=== PATIENT | male | born 1940 | race Caucasian/White ===

== ENCOUNTER 2022-03-27 11:11 | Inpatient (IN) ==
[2022-03-27 11:55] LABS: Basophils # (auto) 0.02 K/uL (0-0.2); Basophils % (auto) 0.2 %; Eosinophils % (auto) 4.4 %; Hematocrit (blood only) 23.5 % (42-52); Hemoglobin 7.3 g/dL (14.0-18.0); Immature Granulocytes # (auto) 0.02 K/uL (0.00-0.02); Immature Granulocytes % (auto) 0.2 %; Lymphocytes # (auto) 0.94 K/uL (1.2-3.4); Lymphocytes % (auto) 10.3 %; Mean Corpuscular Hemoglobin 31.6 pg (25-34); Mean Corpuscular Hgb Conc 31.1 g/dL (32-36); Mean Corpuscular Volume 101.7 fL (80-100); Mean Platelet Volume 9.6 fL (7.4-10.4); Monocytes % (auto) 9.9 %; Neutrophils # (auto) 6.83 K/uL (1.4-6.5); Platelet Count 284 K/uL (130-400); RDW Coefficient of Variation 17.3 % (11.5-14.5); RDW Standard Deviation 64.5 fL (36.4-46.3); Red Blood Count 2.31 M/uL (4.7-6.1); White Blood Count 9.11 K/uL (4.8-10.8)
[2022-03-27 12:19] LABS: INR 3.4 (0.9-1.1); Partial Thromboplastin Ratio 1.7; Prothrombin Time 33.5 Seconds (9.0-12.0)
[2022-03-27 12:22] LABS: iSTAT Creatinine 1.1 mg/dl (0.6-1.3); iSTAT Hemoglobin 6.5 g/dl (14.0-18.0); iSTAT Ionized Calcium 1.16 mmol/l (1.12-1.32); iSTAT Potassium 4.3 mmol/L (3.3-5.0)
--- NOTE | 2022-03-27 12:23 | Emergency Department Note ---
Impression & Plan CHF (congestive heart failure), Anemia, Pulmonary edema, Pleural effusion, Elevated INR ED Provider Note NAME: RASHAWN JARAMILLO AGE: 82 SEX: M : 1940 ARRIVES VIA: Ambulance INFORMANT: Patient, [facility] ED PROVIDER(S): Phan Trammell DO CHIEF COMPLAINT: Low hemoglobin HPI: Patient is an 82-year-old male with past medical history of A. fib on Coumadin, diabetes, diverticulitis who presents the ER as he was recently just transferred to [facility] from the ER. He came in complaining of arm pain. They note that he has had bruising since being coming to the facility on the right side. They do not believe that he fell over there. He denies any headache or neck pain. He admits to right-sided chest pain over the bruising as well as right arm pain. Denies any tingling or numbness. No dysuria urgency or frequency. No other exacerbating or remitting factors. ROS: See above HPI for pertinent positives & negatives. A total of 10 systems reviewed and were otherwise negative. PAST MEDICAL HISTORY:See Below PAST SURGICAL HISTORY:See Below FAMILY HISTORY:See Below SOCIAL HISTORY:See Below HOME MEDICATIONS:See Below ALLERGIES:See Below VITALS:See Below PHYSICAL EXAMINATION: GENERAL: alert, well appearing, well nourished, no distress, non-toxic HEAD: normal cephalic, atraumatic EYE EXAM: normal conjunctiva, PERRL and EOM's grossly intact OROPHARYNX: no exudate, no erythema, lips, buccal mucosa, and tongue normal and mucous membranes are moist NECK: supple, no nuchal rigidity, no adenopathy, non-tender CHEST: stable to compression anteriorly and posteriorly with bruising over right shoulder tracking down right chest wall and flank LUNGS: clear to auscultation. Normal chest wall mechanics HEART: no murmurs, S1 normal and S2 normal ABDOMEN: abdomen soft, non-tender, normo-active bowel sounds, no masses, no rebound or guarding. PELVIS: stable to compression anteriorly and posteriorly BACK: Back is symmetrical on inspection and there is no deformity, no midline tenderness, no CVA tenderness. UPPER EXTREMITIES: No tenderness throughout palpation of the left upper extremity. Tenderness to the right humerus elbow and forearm with diffuse bruising and swelling. Compartments are soft. Radial pulse 2 out of 4. LOWER EXTREMITIES: full active and passive range of motion of all joints without tenderness to palpation NEURO EXAM: Awake alert oriented to person place but not year, cranial nerves II-XII grossly intact, normal speech, no gross weakness of arms, no gross weakness of legs. GCS: 14. MEDICAL DECISION MAKING: Patient is an 82-year-old male who presents ER with diffuse bruising on the right side. IVs were established blood work was obtained. Labs show mild anemia at 7. Down from 9.5. INR was elevated at 3.4. BMP with mild hyponatremia 135. LFTs bilirubin was unremarkable. UA was contaminated although clean as there is no white cells. Stool was negative. CT head cervical spine chest abdomen pelvis showed no acute bleeding. He was typed and crossed and ordered for hold on 2 units PRBCs. INR was reversed with vitamin K. Discussed with hospitalist will defer to them for transfusion. Patient remained stable in the ER with good vitals. X-rays of the right arm showed no acute fractures or dislocations. Triage Nursing notes reviewed. Limited review of prior medical records performed Vital Signs: reviewed and remarkable for no significant abnormalities Differential diagnosis: Infection, dehydration, metabolic abnormality, hypo/hyperglycemia, electrolyte disturbance, anemia, hypoxia, cardiac sources, intracerebral event, toxicologic, neurologic, as well as other pathologies. ER treatment provided: See below Diagnostics interpreted by me: ECG: A. fib rate 85 Normal axis Septal Q waves QTC 211 Cardiac Monitoring: An order was placed for continuous cardiac monitoring. The monitor shows a rate of 80 with sinus rhythm. Laboratory studies: As stated above and show below. Imaging studies: CT hines scan shows no acute pathology with exception of large pleural effusions and edema on the right side likely secondary to the contusion Consultation(s): This to the hospitalist for further evaluation Procedures: none Critical Care: None Past Med/Surg History Medical History (Updated 03/27/22 @ 15:08 by Phan Trammell DO) Acute kidney failure, unspecified Anemia, unspecified Atrial fibrillation Benign prostatic hyperplasia without lower urinary tract symptoms Chronic atrial fibrillation, unspecified Chronic diastolic (congestive) heart failure Chronic gout Critical illness myopathy Depression Diverticulitis Diverticulitis of intestine, part unspecified, without perforation or abscess without bleeding Edema, unspecified Essential (primary) hypertension Gout Type 2 diabetes mellitus with unspecified complications Social History Smoking Status: Never smoker Second Hand Exposure: No; Hx Alcohol Use: No Hx Substance Use: No Preferred Language: Qatari Communication Ability: Impaired Eye Technician Required: No Beliefs That Will Affect Care: None Current Living Situation: Shelter Feels Safe at Home: Yes Allergies Allergies Allergy/AdvReac Type Severity Reaction Status Date / Time No Known Allergies Allergy Verified 03/27/22 13:22 Home Meds Home Medications Medication Instructions Recorded Confirmed allopurinol 100 mg tablet 100 mg PO BID 02/03/22 03/27/22 aspirin 81 mg chewable tablet 81 mg PO QAM 02/03/22 03/27/22 (Aspirin Childrens) furosemide 40 mg tablet 40 mg PO QAM 02/03/22 03/27/22 garlic 400 mg tablet 400 mg PO BID tab 02/03/22 03/27/22 metformin 500 mg tablet 500 mg PO BID 02/03/22 03/27/22 metoprolol tartrate 50 mg tablet 50 mg PO Q12H 02/03/22 03/27/22 multivitamin with minerals 1 cap PO QAM 02/03/22 03/27/22 omega-3 fatty acids 1,000 mg 1,000 mg PO BID 02/03/22 03/27/22 capsule potassium chloride 20 mEq 20 meq PO QAM 02/03/22 03/27/22 tablet,extended release(part/cryst) (Klor-Con M) saw palmetto 450 mg capsule 450 mg PO BID 02/03/22 03/27/22 simvastatin 20 mg tablet 20 mg PO HS 02/03/22 03/27/22 ferrous sulfate 325 mg (65 mg 325 mg PO TIDM 02/17/22 03/27/22 iron) tablet levothyroxine 25 mcg capsule 25 mcg PO DAILYBB 02/17/22 03/27/22 oxycodone-acetaminophen 5 mg-325 See Rx Instructions .ROUTE 02/17/22 03/27/22 mg tablet (Percocet) .COMPLEX PRN sertraline 25 mg tablet 25 mg PO QAM 02/17/22 03/27/22 zinc acetate 25 mg (zinc) capsule 25 mg PO QAM 02/17/22 03/27/22 Saccharomyces boulardii 250 mg 250 mg PO QAM 03/25/22 03/27/22 capsule acetaminophen 500 mg tablet 1,000 mg PO Q8H PRN 03/25/22 03/27/22 docusate sodium 100 mg capsule 100 mg PO BID 03/25/22 03/27/22 (Colace) warfarin 3 mg tablet 3 mg PO HS 03/25/22 03/27/22 Results & Data (ED) Vital Signs Vital Signs - 24 hr 03/27/22 11:03 03/27/22 11:29 Temperature 36.7 C Temperature Source Oral Pulse Rate 86 Pulse Rhythm Regular Pulse Strength Normal Respiratory Rate 22 Respiratory Effort / Characteristics Non-Labored Respiratory Depth Normal Blood Pressure 116/80 Blood Pressure Mean 92 Pulse Oximetry 98 95 Oxygen Delivery Method Room Air Room Air Sepsis Recent Fever Within 48 Hours No Sepsis New/Unexplained Change in Mental Status N/A Sepsis Action Taken by Nursing No Action Required Laboratory Data Result diagrams: 03/27/22 11:32 03/27/22 11:32 Lab Results 03/27/22 03/27/22 03/27/22 Range/Units 11:32 11:32 11:32 WBC 9.11 (4.8-10.8) K/uL RBC 2.31 L (4.7-6.1) M/uL Hgb 7.3 L (14.0-18.0) g/dL POC Hgb (14.0-18.0) g/dl Hct 23.5 L (42-52) % POC Hct (42-52) % MCV 101.7 H (80-100) fL MCH 31.6 (25-34) pg MCHC 31.1 L (32-36) g/dL RDW Std Deviation 64.5 H (36.4-46.3) fL RDW Coeff of Radha 17.3 H (11.5-14.5) % Plt Count 284 (130-400) K/uL MPV 9.6 (7.4-10.4) fL Immature Gran % (Auto) 0.2 % Neut % (Auto) 75.0 % Lymph % (Auto) 10.3 % [place] % (Auto) 9.9 % Eos % (Auto) 4.4 % Baso % (Auto) 0.2 % Neut # (Auto) 6.83 H (1.4-6.5) K/uL Lymph # (Auto) 0.94 L (1.2-3.4) K/uL [place] # (Auto) 0.90 H (0.11-0.59) K/uL Eos # (Auto) 0.40 (0-0.5) K/uL Baso # (Auto) 0.02 (0-0.2) K/uL Immature Gran # (Auto) 0.02 (0.00-0.02) K/uL Anisocytosis Present Macrocytosis Present PT 33.5 H (9.0-12.0) Seconds INR 3.4 H (0.9-1.1) APTT 47.6 H* (21.0-31.0) Seconds PTT Ratio 1.7 POC Sodium (135-144) mmol/L Sodium (136-145) mmol/L POC Potassium (3.3-5.0) mmol/L Potassium (3.5-5.1) mmol/L POC Chloride (101-112) mmol/L Chloride (98-107) mmol/L Carbon Dioxide (21-32) mmol/L POC Total CO2 (24-31) mmol/L Anion Gap (3-11) POC Anion Gap (16-25) mmol/L POC BUN (7-18) mg/dl BUN (6-23) mg/dl Creatinine (0.6-1.4) mg/dl POC Creatinine (0.6-1.3) mg/dl Est Cr Clr Drug Dosing ml/min Est GFR ( Amer) ml/min Est GFR (Non-Af Amer) ml/min BUN/Creatinine Ratio (10-20) Glucose (70-99(Fasting)) mg/dl POC Glucose (other) (70-99) mg/dl Calcium (8.5-10.1) mg/dl POC Ioniz Calcium Ashley (1.12-1.32) mmol/l Total Bilirubin (0.2-1.0) mg/dl AST (13-39) U/L ALT (7-52) U/L Alkaline Phosphatase (34-104) U/L Troponin I High Sens (0-20) pg/ml Total Protein (6.0-8.3) gm/dl Albumin (3.4-5.0) gm/dl Globulin (2.5-4.0) gm/dl Albumin/Globulin Ratio (0.9-2) Urine Color Urine Appearance (Clear) Urine pH (4.5-7.5) Ur Specific [place] (1.000-1.030) Urine Protein (Negative) Urine Glucose (UA) (Negative) Urine Ketones (Negative) Urine Blood (Negative) Urine Nitrite (Negative) Urine Bilirubin (Negative) Urine Urobilinogen (Negative) Ur Leukocyte Esterase (Negative) Urine WBC (Auto) (0-5) /hpf Urine RBC (Auto) (0-4) /hpf U Hyaline Cast (Auto) (0-5) /lpf U Epithel Cells (Auto) (0-5) /lpf Urine Bacteria (Auto) (Negative) POC Stool Occult Blood (Negative) Blood Type A Negative Blood Type Recheck Antibody Screen POSITIVE A Antibody Identification Anti-D 03/27/22 03/27/22 03/27/22 Range/Units 11:32 12:04 12:04 WBC (4.8-10.8) K/uL RBC (4.7-6.1) M/uL Hgb (14.0-18.0) g/dL POC Hgb (14.0-18.0) g/dl Hct (42-52) % POC Hct (42-52) % MCV (80-100) fL MCH (25-34) pg MCHC (32-36) g/dL RDW Std Deviation (36.4-46.3) fL RDW Coeff of Radha (11.5-14.5) % Plt Count (130-400) K/uL MPV (7.4-10.4) fL Immature Gran % (Auto) % Neut % (Auto) % Lymph % (Auto) % [place] % (Auto) % Eos % (Auto) % Baso % (Auto) % Neut # (Auto) (1.4-6.5) K/uL Lymph # (Auto) (1.2-3.4) K/uL [place] # (Auto) (0.11-0.59) K/uL Eos # (Auto) (0-0.5) K/uL Baso # (Auto) (0-0.2) K/uL Immature Gran # (Auto) (0.00-0.02) K/uL Anisocytosis Macrocytosis PT (9.0-12.0) Seconds INR (0.9-1.1) APTT (21.0-31.0) Seconds PTT Ratio POC Sodium (135-144) mmol/L Sodium 135 L (136-145) mmol/L POC Potassium (3.3-5.0) mmol/L Potassium 4.2 (3.5-5.1) mmol/L POC Chloride (101-112) mmol/L Chloride 100 (98-107) mmol/L Carbon Dioxide 26 (21-32) mmol/L POC Total CO2 (24-31) mmol/L Anion Gap 9 (3-11) POC Anion Gap (16-25) mmol/L POC BUN (7-18) mg/dl BUN 18 (6-23) mg/dl Creatinine 1.08 (0.6-1.4) mg/dl POC Creatinine (0.6-1.3) mg/dl Est Cr Clr Drug Dosing 65.1 ml/min Est GFR ( Amer) 74.7 ml/min Est GFR (Non-Af Amer) 64.5 ml/min BUN/Creatinine Ratio 16.7 (10-20) Glucose 101 H (70-99(Fasting)) mg/dl POC Glucose (other) (70-99) mg/dl Calcium 9.0 (8.5-10.1) mg/dl POC Ioniz Calcium Ashley (1.12-1.32) mmol/l Total Bilirubin 1.4 H (0.2-1.0) mg/dl AST 27 (13-39) U/L ALT 15 (7-52) U/L Alkaline Phosphatase 53 (34-104) U/L Troponin I High Sens 16.7 (0-20) pg/ml Total Protein 6.3 (6.0-8.3) gm/dl Albumin 3.3 L (3.4-5.0) gm/dl Globulin 3.0 (2.5-4.0) gm/dl Albumin/Globulin Ratio 1.1 (0.9-2) Urine Color Urine Appearance (Clear) Urine pH (4.5-7.5) Ur Specific [place] (1.000-1.030) Urine Protein (Negative) Urine Glucose (UA) (Negative) Urine Ketones (Negative) Urine Blood (Negative) Urine Nitrite (Negative) Urine Bilirubin (Negative) Urine Urobilinogen (Negative) Ur Leukocyte Esterase (Negative) Urine WBC (Auto) (0-5) /hpf Urine RBC (Auto) (0-4) /hpf U Hyaline Cast (Auto) (0-5) /lpf U Epithel Cells (Auto) (0-5) /lpf Urine Bacteria (Auto) (Negative) POC Stool Occult Blood (Negative) Blood Type Blood Type Recheck A Negative Antibody Screen Antibody Identification 03/27/22 03/27/22 03/27/22 Range/Units 12:07 13:55 Unknown WBC (4.8-10.8) K/uL RBC (4.7-6.1) M/uL Hgb (14.0-18.0) g/dL POC Hgb 6.5 L* (14.0-18.0) g/dl Hct (42-52) % POC Hct 19 L* (42-52) % MCV (80-100) fL MCH (25-34) pg MCHC (32-36) g/dL RDW Std Deviation (36.4-46.3) fL RDW Coeff of Radha (11.5-14.5) % Plt Count (130-400) K/uL MPV (7.4-10.4) fL Immature Gran % (Auto) % Neut % (Auto) % Lymph % (Auto) % [place] % (Auto) % Eos % (Auto) % Baso % (Auto) % Neut # (Auto) (1.4-6.5) K/uL Lymph # (Auto) (1.2-3.4) K/uL [place] # (Auto) (0.11-0.59) K/uL Eos # (Auto) (0-0.5) K/uL Baso # (Auto) (0-0.2) K/uL Immature Gran # (Auto) (0.00-0.02) K/uL Anisocytosis Macrocytosis PT (9.0-12.0) Seconds INR (0.9-1.1) APTT (21.0-31.0) Seconds PTT Ratio POC Sodium 134 L (135-144) mmol/L Sodium (136-145) mmol/L POC Potassium 4.3 (3.3-5.0) mmol/L Potassium (3.5-5.1) mmol/L POC Chloride 98 L (101-112) mmol/L Chloride (98-107) mmol/L Carbon Dioxide (21-32) mmol/L POC Total CO2 26 (24-31) mmol/L Anion Gap (3-11) POC Anion Gap 16.0 (16-25) mmol/L POC BUN 17 (7-18) mg/dl BUN (6-23) mg/dl Creatinine (0.6-1.4) mg/dl POC Creatinine 1.1 (0.6-1.3) mg/dl Est Cr Clr Drug Dosing ml/min Est GFR ( Amer) ml/min Est GFR (Non-Af Amer) ml/min BUN/Creatinine Ratio (10-20) Glucose (70-99(Fasting)) mg/dl POC Glucose (other) 112 H (70-99) mg/dl Calcium (8.5-10.1) mg/dl POC Ioniz Calcium Ashley 1.16 (1.12-1.32) mmol/l Total Bilirubin (0.2-1.0) mg/dl AST (13-39) U/L ALT (7-52) U/L Alkaline Phosphatase (34-104) U/L Troponin I High Sens (0-20) pg/ml Total Protein (6.0-8.3) gm/dl Albumin (3.4-5.0) gm/dl Globulin (2.5-4.0) gm/dl Albumin/Globulin Ratio (0.9-2) Urine Color Dark Yellow Urine Appearance Clear (Clear) Urine pH 5.0 (4.5-7.5) Ur Specific [place] 1.027 (1.000-1.030) Urine Protein Negative (Negative) Urine Glucose (UA) Negative (Negative) Urine Ketones Negative (Negative) Urine Blood Negative (Negative) Urine Nitrite Negative (Negative) Urine Bilirubin Negative (Negative) Urine Urobilinogen Negative (Negative) Ur Leukocyte Esterase Trace H (Negative) Urine WBC (Auto) 1-5 (0-5) /hpf Urine RBC (Auto) 5-10 H (0-4) /hpf U Hyaline Cast (Auto) 5-10 H (0-5) /lpf U Epithel Cells (Auto) 10-20 H (0-5) /lpf Urine Bacteria (Auto) Negative (Negative) POC Stool Occult Blood Negative (Negative) Blood Type Blood Type Recheck Antibody Screen Antibody Identification Administered Medications Discontinued Medications Furosemide (Furosemide 40 Mg/4 Ml Vial) 40 mg IV ONE ONE Stop: 03/27/22 13:35 Last Admin: 03/27/22 14:11 Dose: 40 mg Documented by: [id number] Phytonadione 10 mg/ Dextrose 51 mls @ 102 mls/hr IV ONE ONE Stop: 03/27/22 13:24 Last Infusion: 03/27/22 14:06 Dose: 0 mls/hr Documented by: [id number] Admin: 03/27/22 13:36 Dose: 102 mls/hr Documented by: [id number] Ioversol (Optiray 320 100ml) 94 ml IV ONCE ONE Stop: 03/27/22 12:29 Last Admin: 03/27/22 12:29 Dose: 94 ml Documented by: [id number] Imaging Data Radiologist's Impression: Forearm X-Ray 03/27/22 11:45 XR forearm RT 2V CLINICAL HISTORY: Right arm pain. COMPARISON: None FINDINGS: No acute fracture within the right radius or ulna is identified. There is right forearm and upper arm soft tissue swelling, including soft tissue swelling overlying the olecranon. No osseous lesion is noted. IMPRESSION: No fracture within the right radius or ulna. Forearm soft tissue swelling. ACT 112: Negative or not required by law. Electronically signed by: Loki Orta M.D. 03/27/2022 1:41 PM Humerus X-Ray 03/27/22 11:45 XR humerus RT 2V CLINICAL HISTORY: r arm pain. COMPARISON STUDY: 03/25/2022 TECHNIQUE: AP and lateral right views FINDINGS: Bones: Surgical anchors again seen involving the humeral head. There is no evidence for an acute fracture or dislocation. There is no lytic or blastic lesion. Joints: The joint spaces are maintained. The bones are in anatomic alignment. Soft tissues: Diffuse subcutaneous edema is again seen surrounding the arm. There is no radiopaque foreign body. IMPRESSION: 1. No acute osseous pathology. 2. There is again diffuse subcutaneous edema surrounding the arm of uncertain etiology. ACT 112: Negative or not required by law. Electronically signed by: Adán Payan M.D. 03/27/2022 1:38 PM Abdomen/Pelvis CT 03/27/22 11:46 CT abd pelvis IV con only CLINICAL HISTORY: Status post fall with bruising and pain. COMPARISON STUDY: No previous studies for comparison. CT DOSE: TECHNIQUE: Standard CT of the Abdomen and Pelvis was performed with IV contrast. A dose lowering technique was utilized adhering to the principles of ALARA. Contrast Volume: Optiray 320, 94 ml. The patient did not receive oral contrast. FINDINGS: Lung base: There are large bilateral pleural effusions with compressive atelectasis/collapse involving the lower lobes, right greater than left. Please see separate CT of the chest report for further evaluation. Abdominal cavity: There is no evidence for abdominal mass, adenopathy or ascites. There is evidence for anasarca. Liver: There is homogeneous attenuation of the liver parenchyma. There is no evidence for enhancing mass lesion. Sharply defined hepatic cysts are present. Spleen: There is homogeneous attenuation of the splenic parenchyma. There is no enhancing mass lesion. Pancreas: There is homogeneous attenuation of the pancreatic parenchyma. There is no evidence for mass lesion or peripancreatic fluid collection. Gall Bladder: The gallbladder is contracted due to the patient's nonfasting state. Adrenal glands: The adrenal glands are normal in size and attenuation. There is no evidence for enhancing mass lesion. Kidneys: There is homogeneous attenuation of the renal parenchyma bilaterally. There is no evidence for renal calculus or hydronephrosis. There is no evidence for enhancing mass. Bowel: The stomach is distended with liquid and food stuff. The bowel loops are normally placed within the abdomen and pelvis without evidence for dilatation or obstruction. There is mild fecal stasis without gross impaction or obstruction. There are no inflammatory changes present. There is no evidence for free air. There is a normal appendix in the right lower quadrant. Bladder: The bladder is mildly distended with no evidence for focal mass, calculus or diverticulum. : There is no evidence for pelvic mass or adenopathy. There is no evidence for pelvic ascites. The prostate is mildly enlarged. Vasculature: There is no evidence for aneurysmal dilatation of the abdominal aorta. Atherosclerotic calcification is present. Osseous structures: There is no acute osseous pathology. Degenerative changes are present. IMPRESSION: 1. Large bilateral pleural effusions, right greater than left with compressive atelectasis at the lung bases. Please see full CT chest report for further evaluation. 2. No acute intra-abdominal or pelvic abnormality. 3. Anasarca. 4. Additional nonacute findings are delineated above. ACT 112: Negative or not required by law. Electronically signed by: Adán Payan M.D. 03/27/2022 12:[address] 03/27/22 11:46 CT cervical spine wo con CLINICAL HISTORY: 82 years-old Male with Trauma. Acute neck trauma status post fall COMPARISON: Head CT of same day TECHNIQUE: Multiple axial CT images of the cervical spine were obtained without contrast. A dose lowering technique was utilized adhering to the principles of ALARA. FINDINGS: Cardiomegaly with layering pleural effusions and bibasilar consolidation noted. Intralobular septal thickening suggestive of pulmonary edema. No pneumothorax. Unremarkable soft tissues of the neck. Surgical anchor within the right humeral head. Demineralized appearance of the bones. Severe degeneration at C1-C2. Stepwise gr austin 1 anterolisthesis is noted at several levels throughout the thoracic and cervical spine secondary to chronic severe multilevel facet arthrosis. Multilevel intervertebral disc space narrowing, moderate at C6-C7. Multilevel spondylitic spurring with uncovertebral hypertrophy and small posterior disc osteophyte complex formations. No acute fracture or subluxation of the cervical spine. Multilevel neural foraminal narrowing. IMPRESSION: 1. No acute cervical spine fracture. 2. Degenerative changes as above. 3. Layering pleural effusions with pulmonary edema. ACT 112: Negative or not required by law. The above report was generated using voice recognition software. It may contain grammatical, syntax or spelling errors. Electronically signed by: Ricardo Abernathy M.D. 03/27/2022 12:[address] 03/27/22 11:46 CT SCAN OF THE CHEST WITH IV CONTRAST CLINICAL HISTORY: Trauma. COMPARISON STUDY: Chest x-ray dated 03/25/2022. TECHNIQUE: Following the IV administration of 94 cc of Optiray 320, CT scan of the thorax was performed from the thoracic inlet to the upper abdomen. Images are reviewed in the axial, sagittal, and coronal planes. IV contrast was administered without complication. A dose lowering technique was utilized adhering to the principles of ALARA. The examination is degraded by motion artifact, as well as by streak artifact from the arms which could not be elevated above the chest. CT DOSE: 3066.17 mGy.cm FINDINGS: Thyroid: Imaged portions of the thyroid gland are normal in size and attenuation. Thoracic aorta: There is atherosclerotic calcification of the thoracic aorta comment which is normal in caliber and demonstrates bovine variant arch anatomy. No dissection is seen. Pulmonary vasculature: The pulmonary trunk is normal in caliber. There are no filling defects identified in the central pulmonary vessels to indicate pulmonary embolus. Note that this examination was not protocoled for evaluation of the pulmonary arteries. Heart: The heart is markedly enlarged and without pericardial effusion. The coronary arteries are densely calcified. Lungs and pleural spaces: There are moderate to large pleural effusions with significant atelectasis of the lower lungs. Intralobular septal thickening is noted. There is no pneumothorax. The trachea and central airways appear clear. Mediastinum: There is no mediastinal lymphadenopathy. Candice: Clear. Axillae: There is no axillary lymphadenopathy. Upper abdomen: Partially visualized upper abdominal viscera is within normal limits. Skeletal structures: The skeletal structures are osteopenic. The bony thorax appears intact. Spondylotic change is seen throughout the thoracic spine. No lytic or blastic bony lesions are seen. Arthritic changes seen in the shoulders with postoperative change noted on the right. There are chronic/healed left- sided rib fractures. Soft tissues: Soft tissue edema is present in the right chest wall, possibly representing contusion. A lipoma is incidentally noted in the right pectoralis musculature. IMPRESSION: 1. Soft tissue edema throughout the right chest wall is nonspecific and given the clinical history likely represents contusion. 2. No fracture is identified. 3. Cardiomegaly with evidence of congestive failure. 4. There are moderate to large pleural effusions with significant atelectasis of the lower lungs. 5. Additional findings as above. ACT 112: Negative or not required by law. Electronically signed by: Macho Singh M.D. 03/27/2022 12:[address] 03/27/22 11:46 CT head/brain wo con CLINICAL HISTORY: Status post fall with pain COMPARISON STUDY: No previous studies for comparison. CT DOSE: TECHNIQUE: Standard CT of the Brain was performed without IV contrast. A dose lowering technique was utilized adhering to the principles of ALARA. FINDINGS: Extraaxial space: There is no evidence for subdural hematoma. There are no extra-axial fluid collections. Ventricles and cisterns: The ventricles are mildly dilated bilaterally. There is no evidence for midline shift or mass effect. Parenchyma: There is no subarachnoid or intraparenchymal hemorrhage. There is no evidence for an acute infarct or cerebral edema. There is mild cerebral cortical atrophy and decreased attenuation in the periventricular white matter representing remote small vessel disease. There are no gross mass lesions. Osseous structures: There is no evidence for an acute fracture. The visualized paranasal sinuses are clear. The mastoid air cells are clear bilaterally. Soft tissues: There is no evidence for focal soft tissue swelling. IMPRESSION: 1. No acute intracerebral pathology. 2. Cerebral cortical atrophy and remote small vessel disease. ACT 112: Negative or not required by law. Electronically signed by: Adán Payan M.D. 03/27/2022 12:40 PM Discharge Plan Visit Data Chief Complaint: Abnormal Labs/Diagnostic Testing ED Provider: Phan Trammell Discharge Problem: CHF (congestive heart failure), Anemia, Pulmonary edema, Pleural effusion, Elevated INR Forms Stand Alone Forms: [facility] Prescriptions Prescriptions: No Action allopurinol 100 mg tablet 100 mg PO BID RF: 0 aspirin [Aspirin Childrens] 81 mg tablet,chewable 81 mg PO QAM RF: 0 furosemide 40 mg tablet 40 mg PO QAM RF: 0 garlic 400 mg tablet 400 mg PO BID RF: 0 potassium chloride [Klor-Con M20] 20 mEq tablet,ER particles/crystals 20 meq PO QAM RF: 0 metformin 500 mg tablet 500 mg PO BID RF: 0 metoprolol tartrate 50 mg tablet 50 mg PO Q12H RF: 0 multivitamin with minerals Capsule 1 cap PO QAM RF: 0 omega-3 fatty acids 1,000 mg capsule 1,000 mg PO BID RF: 0 saw palmetto 450 mg capsule 450 mg PO BID RF: 0 simvastatin 20 mg tablet 20 mg PO HS RF: 0 ferrous sulfate 325 mg (65 mg iron) tablet 325 mg PO TIDM RF: 0 zinc acetate 25 mg (zinc) capsule 25 mg PO QAM RF: 0 levothyroxine 25 mcg capsule 25 mcg PO DAILYBB RF: 0 oxycodone-acetaminophen [Percocet] 5-325 mg tablet See Rx Instructions .ROUTE .COMPLEX PRN (Reason: Pain) RF: 0 sertraline 25 mg tablet 25 mg PO QAM RF: 0 acetaminophen 500 mg Tablet 1,000 mg PO Q8H PRN (Reason: Pain) RF: 0 warfarin 3 mg tablet 3 mg PO HS RF: 0 docusate sodium [Colace] 100 mg Capsule 100 mg PO BID RF: 0 Saccharomyces boulardii 250 mg Capsule 250 mg PO QAM RF: 0 Referrals Referrals: Malou [facility] [Non-Staff] - Discharge Problem: CHF (congestive heart failure) Qualifiers: Heart failure type: unspecified Heart failure chronicity: unspecified Qualified Code(s): I50.9 - Heart failure, unspecified Anemia Qualifiers: Anemia type: unspecified type Qualified Code(s): D64.9 - Anemia, unspecified Pulmonary edema Qualifiers: Chronicity: acute Qualified Code(s): J81.0 - Acute pulmonary edema
[2022-03-27 12:24] LABS: Albumin Globulin Ratio 1.1 (0.9-2); Albumin Level 3.3 gm/dl (3.4-5.0); BUN Creatinine Ratio 16.7 (10-20); Bilirubin,Total 1.4 mg/dl (0.2-1.0); Creatinine Clr Calc Pharmacy 65.1 ml/min; Est GFR (African American) 74.7 ml/min; Est GFR (Non-African American) 64.5 ml/min; Potassium 4.2 mmol/L (3.5-5.1); Total Protein 6.3 gm/dl (6.0-8.3)
[2022-03-27 12:25] LABS: Partial Thromboplastin Time 47.6 Seconds (21.0-31.0)
[2022-03-27] MEDS ORDERED: OPTIRAY 320 100ml IV ONE (12:28)
--- NOTE | 2022-03-27 12:42 | CT Scan Report ---
CT head/brain wo con CLINICAL HISTORY: Status post fall with pain COMPARISON STUDY: No previous studies for comparison. CT DOSE: TECHNIQUE: Standard CT of the Brain was performed without IV contrast. A dose lowering technique was utilized adhering to the principles of ALARA. FINDINGS: Extraaxial space: There is no evidence for subdural hematoma. There are no extra-axial fluid collecti ons. Ventricles and cisterns: The ventricles are mildly dilated bilaterally. There is no evidence for midl ine shift or mass effect. Parenchyma: There is no subarachnoid or intraparenchymal hemorrhage. There is no evidence for an acut e infarct or cerebral edema. There is mild cerebral cortical atrophy and decreased attenuation in the periventricular white matter representing remote small vessel disease. There are no gross mass lesio ns. Osseous structures: There is no evidence for an acute fracture. The visualized paranasal sinuses are clear. The mastoid air cells are clear bilaterally. Soft tissues: There is no evidence for focal soft tissue swelling. IMPRESSION: 1. No acute intracerebral pathology. 2. Cerebral cortical atrophy and remote small vessel disease. ACT 112: Negative or not required by law. Electronically signed by: Adán Payan M.D. 03/27/2022 12:40 PM
[2022-03-27 12:45] LABS: Anisocytosis Present; Macrocytosis Present
--- NOTE | 2022-03-27 12:47 | CT Scan Report ---
CT cervical spine wo con CLINICAL HISTORY: 82 years-old Male with Trauma. Acute neck trauma status post fall COMPARISON: Head CT of same day TECHNIQUE: Multiple axial CT images of the cervical spine were obtained without contrast. A dose low ering technique was utilized adhering to the principles of ALARA. FINDINGS: Cardiomegaly with layering pleural effusions and bibasilar consolidation noted. Intralobula r septal thickening suggestive of pulmonary edema. No pneumothorax. Unremarkable soft tissues of the neck. Surgical anchor within the right humeral head. Demineralized appearance of the bones. Severe degeneration at C1-C2. Stepwise grade 1 anterolisthesis is noted at several levels throughout the thoracic and cervical spine secondary to chronic severe mu ltilevel facet arthrosis. Multilevel intervertebral disc space narrowing, moderate at C6-C7. Multilev el spondylitic spurring with uncovertebral hypertrophy and small posterior disc osteophyte complex fo rmations. No acute fracture or subluxation of the cervical spine. Multilevel neural foraminal narrowi ng. IMPRESSION: 1. No acute cervical spine fracture. 2. Degenerative changes as above. 3. Layering pleural effusions with pulmonary edema. ACT 112: Negative or not required by law. The above report was generated using voice recognition software. It may contain grammatical, syntax o r spelling errors. Electronically signed by: Ricardo Abernathy M.D. 03/27/2022 12:45 PM
--- NOTE | 2022-03-27 12:50 | CT Scan Report ---
CT SCAN OF THE CHEST WITH IV CONTRAST CLINICAL HISTORY: Trauma. COMPARISON STUDY: Chest x-ray dated 03/25/2022. TECHNIQUE: Following the IV administration of 94 cc of Optiray 320, CT scan of the thorax was perform ed from the thoracic inlet to the upper abdomen. Images are reviewed in the axial, sagittal, and jody nal planes. IV contrast was administered without complication. A dose lowering technique was utilize d adhering to the principles of ALARA. The examination is degraded by motion artifact, as well as by streak artifact from the arms which could not be elevated above the chest. CT DOSE: 3066.17 mGy.cm FINDINGS: Thyroid: Imaged portions of the thyroid gland are normal in size and attenuation. Thoracic aorta: There is atherosclerotic calcification of the thoracic aorta comment which is normal in caliber and demonstrates bovine variant arch anatomy. No dissection is seen. Pulmonary vasculature: The pulmonary trunk is normal in caliber. There are no filling defects identif ied in the central pulmonary vessels to indicate pulmonary embolus. Note that this examination was no t protocoled for evaluation of the pulmonary arteries. Heart: The heart is markedly enlarged and without pericardial effusion. The coronary arteries are den sely calcified. Lungs and pleural spaces: There are moderate to large pleural effusions with significant atelectasis of the lower lungs. Intralobular septal thickening is noted. There is no pneumothorax. The trachea an d central airways appear clear. Mediastinum: There is no mediastinal lymphadenopathy. Candice: Clear. Axillae: There is no axillary lymphadenopathy. Upper abdomen: Partially visualized upper abdominal viscera is within normal limits. Skeletal structures: The skeletal structures are osteopenic. The bony thorax appears intact. Spondylo tic change is seen throughout the thoracic spine. No lytic or blastic bony lesions are seen. Arthriti c changes seen in the shoulders with postoperative change noted on the right. There are chronic/heale d left-sided rib fractures. Soft tissues: Soft tissue edema is present in the right chest wall, possibly representing contusion. A lipoma is incidentally noted in the right pectoralis musculature. IMPRESSION: 1. Soft tissue edema throughout the right chest wall is nonspecific and given the clinical history li damian represents contusion. 2. No fracture is identified. 3. Cardiomegaly with evidence of congestive failure. 4. There are moderate to large pleural effusions with significant atelectasis of the lower lungs. 5. Additional findings as above. ACT 112: Negative or not required by law. Electronically signed by: Macho Singh M.D. 03/27/2022 12:49 PM
[2022-03-27] MEDS ORDERED: PHYTONADIONE 10 MG in DEXTROSE 5% 50 ML IV ONE (12:55)
--- NOTE | 2022-03-27 12:56 | CT Scan Report ---
CT abd pelvis IV con only CLINICAL HISTORY: Status post fall with bruising and pain. COMPARISON STUDY: No previous studies for comparison. CT DOSE: TECHNIQUE: Standard CT of the Abdomen and Pelvis was performed with IV contrast. A dose lowering dana hnique was utilized adhering to the principles of ALARA. Contrast Volume: Optiray 320, 94 ml. The patient did not receive oral contrast. FINDINGS: Lung base: There are large bilateral pleural effusions with compressive atelectasis/collapse involvin g the lower lobes, right greater than left. Please see separate CT of the chest report for further ev aluation. Abdominal cavity: There is no evidence for abdominal mass, adenopathy or ascites. There is evidence f or anasarca. Liver: There is homogeneous attenuation of the liver parenchyma. There is no evidence for enhancing m ass lesion. Sharply defined hepatic cysts are present. Spleen: There is homogeneous attenuation of the splenic parenchyma. There is no enhancing mass lesion . Pancreas: There is homogeneous attenuation of the pancreatic parenchyma. There is no evidence for mas s lesion or peripancreatic fluid collection. Gall Bladder: The gallbladder is contracted due to the patient's nonfasting state. Adrenal glands: The adrenal glands are normal in size and attenuation. There is no evidence for enhan cing mass lesion. Kidneys: There is homogeneous attenuation of the renal parenchyma bilaterally. There is no evidence f or renal calculus or hydronephrosis. There is no evidence for enhancing mass. Bowel: The stomach is distended with liquid and food stuff. The bowel loops are normally placed withi n the abdomen and pelvis without evidence for dilatation or obstruction. There is mild fecal stasis w ithout gross impaction or obstruction. There are no inflammatory changes present. There is no evidenc e for free air. There is a normal appendix in the right lower quadrant. Bladder: The bladder is mildly distended with no evidence for focal mass, calculus or diverticulum. : There is no evidence for pelvic mass or adenopathy. There is no evidence for pelvic ascites. The prostate is mildly enlarged. Vasculature: There is no evidence for aneurysmal dilatation of the abdominal aorta. Atherosclerotic c alcification is present. Osseous structures: There is no acute osseous pathology. Degenerative changes are present. IMPRESSION: 1. Large bilateral pleural effusions, right greater than left with compressive atelectasis at the clare g bases. Please see full CT chest report for further evaluation. 2. No acute intra-abdominal or pelvic abnormality. 3. Anasarca. 4. Additional nonacute findings are delineated above. ACT 112: Negative or not required by law. Electronically signed by: Adán Payan M.D. 03/27/2022 12:54 PM
--- NOTE | 2022-03-27 13:32 | History & Physical Report ---
Date of Service March 27, 2022 Assessment & Plan (1) Supratherapeutic INR: Plan: - Admit to tele - Will continue to hold coumadin, last dose is 03/25 - Given 10 mg IV Vit K to reverse INR - CT of the chest showing bilateral pleural effusions, now being read as larger compared to 2 days ago on CXR - Concern for possible bleeding into the chest space with supratherapeutic INR,? - consult Pulmonology, lasix 40 mg IV ordered strict i/os, continue diuresis, checking bnp as pt appears hypervolemic - Hgb of 7.3 here, will need to obtain and consent for blood, transfuse for Hgb <7.0, trend H&H q6H - INR was 4.4 on 03/25, 4.9 on 03/26, and now 3.4 on admission, trend daily - Unclear why he was on recent azithromycin course, now complete (finished 03/26) (2) Atrial fibrillation: Plan: - Chronic, currently rate controlled in mid 90s, continue metoprolol - Holding anticoagulation as above (3) Anemia, unspecified: Plan: - As above, likely secondary to supratherapeutic INRs - Consider consult GI as pt was supposed to see Марина Costa with [facility] as an outpatient today - hx of fecal occult positive in February but not on admission (4) Pleural effusion, bilateral: Plan: - Consult pulm - O2 sats are 95% on room air, pt with hx of dementia so unsure of baseline - Continue lasix 40 mg IV BID as above for now, holding po lasix - On room air but with minimal exertion to roll self he dropped sats to mid 80s. (5) HTN (hypertension): Plan: - Continue metoprolol (6) Diffuse pain in right upper extremity: Plan: - Had xray of humerus on 03/25 which was negative, dopper RUE on 03/25 was negative as well, if worsening pain then would consider repeating studies - Continue tylenol, avoid narcotics with decreased cognition for now, pt reports edema and pain have improved (7) Type II diabetes mellitus with complication: Plan: - Last hgb A1C = 4.9 on 02/10/22 - Was taken off glimepiride yesterday 03/26, in the setting of elderly patient with possible hypoglycemic episodes in the past. Can check glucoses with daily BMP. - Once allowed po intake can use HH/DM diet - Hold metformin - ISS with accuchecks achs (8) Memory loss: Plan: - Has a appt scheduled with outpatient neurology on 05/06 (9) Generalized weakness: Plan: - PT/OT consults (10) Acute osteomyelitis of toe of right foot: Plan: - Follows with [facility], will continue wound care here - ID follow up appointment already scheduled in mid April - No pain currently (11) Hypothyroidism: Plan: - Cont levothyroxine (12) PVD (peripheral vascular disease): Plan: - Cont asa, follows with Dr. Gold with vascular as outpatient DVT ppx: - teds, scds, holding Coumadin- Anticoag contraindicated in setting of bleeding and anemia CODE: DNR/DNI Dispo: Medsurg with tele. Case management to assist with discharge back to [facility] once medically appropriate. History of Present Illness Chief Complaint: Falls, abnormal labs Primary Care Provider: [facility] [place] This is an 82 yo M with PMhx of afib on coumadin, dementia, CAD, PVD, HTN, diastolic CHF, anemia, hemochromatosis, hx of CVA earlier this year, hx of COVID infection in Nov-Dec 2020, fatty liver, BPH, depression, DM II, gout, hypothyroidism, and hx of osteomyelitis of the toe being followed at [facility] wound clinic and vascular surgery. He was here in the ER on 03/25 for complaints of right upper extremity pain, swelling and bruising and then was transferred to outpatient [facility] assisted living facility on 03/26. He noted that there was increased swelling and bruising for about 4 to 5 days however did not have any knowledge of known injury or trauma to that area. X-ray of the right humerus and Doppler of the right upper extremity was negative. A chest x-ray at that time showed pulmonary edema and moderate right and small left pleural effusions, bibasilar opacities reflecting atelectasis. His INR was elevated at 4.4 and hemoglobin was 9.5 with an unknown baseline. Presents from [facility] with worsening pain in the right upper extremity, rating it 8/10 with any movement. Staff noted that he was yelling out in pain much of the night and was having difficulty transferring him. He received Percocet twice daily for pain relief. Coumadin was held since 03/26 when his INR was 4.9, today it is 3.4. He denies any blood in stool, dark tarry stools, hematemesis, nausea vo miting abdominal pain constipation or diarrhea. On repeat labs his hemoglobin was found to be 6.6 and was found to have significant right flank bruising. He is on a course of azithromycin (last dose on 03/26) for unclear reasons. It appears he was recently started on levothyroxine for hypothyroidism, and is also recently started on ferrous sulfate 3x daily due to anemia. Pt has had deteriorating cognition for several months. Patient was scheduled as an outpatient to see Марина Costa with [facility] team with hx of possible GI bleeding in the past several weeks, there is a positive fecal occult blood test in his chart from 02/13/22. Prior to January 2022 the patient was living along, still driving, participated in ADLs independently, and [place]. Today, pt was sent to the ER by [facility] due to the low hgb counts, and continue RUE pain. He reports okay, he reports that he thinks the swelling is improved. He is bruised up his right flank and around his lower back but denies any known injury of such. He denies any complaints regarding shortness of breath, chest pain, abdominal discomfort, changes of bowel or urinary habits. He reports he did take his medications this morning at [facility]. He typically walks with a rolling walker and 1 person to assist. He is oriented to place, self and year, knows where he lives, but when asked very specific Questions he is unable to answer these. Allergies Allergy/AdvReac Type Severity Reaction Status Date / Time No Known Allergies Allergy Verified 03/27/22 13:22 Home Medications Medication Instructions Recorded Confirmed Type allopurinol 100 mg tablet 100 mg PO BID 02/03/22 03/27/22 History aspirin 81 mg chewable tablet 81 mg PO QAM 02/03/22 03/27/22 History (Aspirin Childrens) furosemide 40 mg tablet 40 mg PO QAM 02/03/22 03/27/22 History garlic 400 mg tablet 400 mg PO BID tab 02/03/22 03/27/22 History metformin 500 mg tablet 500 mg PO BID 02/03/22 03/27/22 History metoprolol tartrate 50 mg tablet 50 mg PO Q12H 02/03/22 03/27/22 History multivitamin with minerals 1 cap PO QAM 02/03/22 03/27/22 History omega-3 fatty acids 1,000 mg 1,000 mg PO BID 02/03/22 03/27/22 History capsule potassium chloride 20 mEq 20 meq PO QAM 02/03/22 03/27/22 History tablet,extended release(part/cryst) (Klor-Con M) saw palmetto 450 mg capsule 450 mg PO BID 02/03/22 03/27/22 History simvastatin 20 mg tablet 20 mg PO HS 02/03/22 03/27/22 History ferrous sulfate 325 mg (65 mg 325 mg PO TIDM 02/17/22 03/27/22 History iron) tablet levothyroxine 25 mcg capsule 25 mcg PO DAILYBB 02/17/22 03/27/22 History oxycodone-acetaminophen 5 mg-325 See Rx Instructions .ROUTE 02/17/22 03/27/22 History mg tablet (Percocet) .COMPLEX PRN sertraline 25 mg tablet 25 mg PO QAM 02/17/22 03/27/22 History zinc acetate 25 mg (zinc) capsule 25 mg PO QAM 02/17/22 03/27/22 History Saccharomyces boulardii 250 mg 250 mg PO QAM 03/25/22 03/27/22 History capsule acetaminophen 500 mg tablet 1,000 mg PO Q8H PRN 03/25/22 03/27/22 History docusate sodium 100 mg capsule 100 mg PO BID 03/25/22 03/27/22 History (Colace) warfarin 3 mg tablet 3 mg PO HS 03/25/22 03/27/22 History Past Med/Surg History Medical History (Updated 03/27/22 @ 15:08 by Phan Trammell DO) Acute kidney failure, unspecified Anemia, unspecified Atrial fibrillation Benign prostatic hyperplasia without lower urinary tract symptoms Chronic atrial fibrillation, unspecified Chronic diastolic (congestive) heart failure Chronic gout Critical illness myopathy Depression Diverticulitis Diverticulitis of intestine, part unspecified, without perforation or abscess without bleeding Edema, unspecified Essential (primary) hypertension Gout Type 2 diabetes mellitus with unspecified complications Social History Smoking Status: Never smoker Second Hand Exposure: No; Hx Alcohol Use: No Hx Substance Use: No Preferred Language: Cambodian Communication Ability: Impaired Director Home Required: No Beliefs That Will Affect Care: None Current Living Situation: Residential Feels Safe at Home: Yes Review of Systems Review of Systems: Constitutional: No fever, sweats or chills Eyes: No diplopia, no worsening or blurred vision ENT: normal hearing, no trouble swallowing Respiratory: No cough, sputum, dyspnea at rest or on exertion Cardiovascular: No chest pain, tightness or palpitations Abdomen: Bruising around the right side of flank region, no pain, nausea, vomiting, diarrhea or constipation Musculoskeletal: + Right upper extremity pain, swelling and bruising, + right great toe infection, otherwise no joint pain, calf pain, swelling Neurologic: No weakness, numbness/tingling, + generalized balance problems, uses a walker Psychiatric: No anxiety or depression Skin: + Bruising as mentioned in the HPI, no rash or itch Physical Exam Physical Exam: General: awake, alert, no apparent distress, + obese BMI 32.1 Head: Normocephalic, atraumatic ENT: PERRL, EOMI, no pharyngeal exudate, mucous membranes moist Chest: Diminished breath sounds at bases up to mid reilly bilaterally, left has improved breath sounds compared to the right, on room air with O2 sats at 92%, when asked to roll to listen to breath sounds sats dropped into the mid 80s, no adventitious breath sounds Cardiac: Sinus tach with HR in the mid 90s, no murmur, no JVD, normal peripheral pulses, good capillary refill Abdominal: + Ecchymosis on the right flank region, extending from R axilla to right hip NABS x 4 quadrants, soft, nondistended, nontender to palpation, no rebound or guarding Extremities: + Ecchymosis and edema of the right upper extremity, deep ecchymosis pooling on the medial anterior aspect of the arm, + edema of the R fingers, left upper extremity normal inspection, no peripheral edema or erythema, BLE with +1 pitting edema, hard sole boot shoes bilaterally, no erythema or ecchymosis, calfs nontender to palpation Psych: Normal mood and affect Neuro: AAO x 3, some issues with answering questions specifically, strength intact bilaterally and rated 4/5, no motor deficits, speech is clear, no peripheral sensory deficits Results & Data Results & Data ([facility]) Vital Signs (Past 12 Hours) Vital Signs Temp Pulse Resp BP Pulse Ox 03/27/22 11:29 95 03/27/22 11:03 36.7 C 86 22 116/80 98 Laboratory Results 03/27/22 03/27/22 03/27/22 Unknown 13:55 12:07 WBC RBC Hgb POC Hgb 6.5 L* Hct POC Hct 19 L* MCV MCH MCHC RDW Std Deviation RDW Coeff of Radha Plt Count MPV Immature Gran % (Auto) Neut % (Auto) Lymph % (Auto) [place] % (Auto) Eos % (Auto) Baso % (Auto) Neut # (Auto) Lymph # (Auto) [place] # (Auto) Eos # (Auto) Baso # (Auto) Immature Gran # (Auto) Anisocytosis Macrocytosis PT INR APTT PTT Ratio POC Sodium 134 L Sodium POC Potassium 4.3 Potassium POC Chloride 98 L Chloride Carbon Dioxide POC Total CO2 26 Anion Gap POC Anion Gap 16.0 POC BUN 17 BUN Creatinine POC Creatinine 1.1 Est Cr Clr Drug Dosing Est GFR ( Amer) Est GFR (Non-Af Amer) BUN/Creatinine Ratio Glucose POC Glucose (other) 112 H Calcium POC Ioniz Calcium Ashley 1.16 Total Bilirubin AST ALT Alkaline Phosphatase Troponin I High Sens Total Protein Albumin Globulin Albumin/Globulin Ratio Urine Color Dark Yellow Urine Appearance Clear Urine pH 5.0 Ur Specific [place] 1.027 Urine Protein Negative Urine Glucose (UA) Negative Urine Ketones Negative Urine Blood Negative Urine Nitrite Negative Urine Bilirubin Negative Urine Urobilinogen Negative Ur Leukocyte Esterase Trace H Urine WBC (Auto) 1-5 Urine RBC (Auto) 5-10 H U Hyaline Cast (Auto) 5-10 H U Epithel Cells (Auto) 10-20 H Urine Bacteria (Auto) Negative POC Stool Occult Blood Negative Blood Type Blood Type Recheck Antibody Screen Antibody Identification 03/27/22 03/27/22 03/27/22 12:04 12:04 11:32 WBC RBC Hgb POC Hgb Hct POC Hct MCV MCH MCHC RDW Std Deviation RDW Coeff of Radha Plt Count MPV Immature Gran % (Auto) Neut % (Auto) Lymph % (Auto) [place] % (Auto) Eos % (Auto) Baso % (Auto) Neut # (Auto) Lymph # (Auto) [place] # (Auto) Eos # (Auto) Baso # (Auto) Immature Gran # (Auto) Anisocytosis Macrocytosis PT INR APTT PTT Ratio POC Sodium Sodium 135 L POC Potassium Potassium 4.2 POC Chloride Chloride 100 Carbon Dioxide 26 POC Total CO2 Anion Gap 9 POC Anion Gap POC BUN BUN 18 Creatinine 1.08 POC Creatinine Est Cr Clr Drug Dosing 65.1 Est GFR ( Amer) 74.7 Est GFR (Non-Af Amer) 64.5 BUN/Creatinine Ratio 16.7 Glucose 101 H POC Glucose (other) Calcium 9.0 POC Ioniz Calcium Ashley Total Bilirubin 1.4 H AST 27 ALT 15 Alkaline Phosphatase 53 Troponin I High Sens 16.7 Total Protein 6.3 Albumin 3.3 L Globulin 3.0 Albumin/Globulin Ratio 1.1 Urine Color Urine Appearance Urine pH Ur Specific [place] Urine Protein Urine Glucose (UA) Urine Ketones Urine Blood Urine Nitrite Urine Bilirubin Urine Urobilinogen Ur Leukocyte Esterase Urine WBC (Auto) Urine RBC (Auto) U Hyaline Cast (Auto) U Epithel Cells (Auto) Urine Bacteria (Auto) POC Stool Occult Blood Blood Type Blood Type Recheck A Negative Antibody Screen Antibody Identification 03/27/22 03/27/22 03/27/22 11:32 11:32 11:32 WBC 9.11 RBC 2.31 L Hgb 7.3 L POC Hgb Hct 23.5 L POC Hct MCV 101.7 H MCH 31.6 MCHC 31.1 L RDW Std Deviation 64.5 H RDW Coeff of Radha 17.3 H Plt Count 284 MPV 9.6 Immature Gran % (Auto) 0.2 Neut % (Auto) 75.0 Lymph % (Auto) 10.3 [place] % (Auto) 9.9 Eos % (Auto) 4.4 Baso % (Auto) 0.2 Neut # (Auto) 6.83 H Lymph # (Auto) 0.94 L [place] # (Auto) 0.90 H Eos # (Auto) 0.40 Baso # (Auto) 0.02 Immature Gran # (Auto) 0.02 Anisocytosis Present Macrocytosis Present PT 33.5 H INR 3.4 H APTT 47.6 H* PTT Ratio 1.7 POC Sodium Sodium POC Potassium Potassium POC Chloride Chloride Carbon Dioxide POC Total CO2 Anion Gap POC Anion Gap POC BUN BUN Creatinine POC Creatinine Est Cr Clr Drug Dosing Est GFR ( Amer) Est GFR (Non-Af Amer) BUN/Creatinine Ratio Glucose POC Glucose (other) Calcium POC Ioniz Calcium Ashley Total Bilirubin AST ALT Alkaline Phosphatase Troponin I High Sens Total Protein Albumin Globulin Albumin/Globulin Ratio Urine Color Urine Appearance Urine pH Ur Specific [place] Urine Protein Urine Glucose (UA) Urine Ketones Urine Blood Urine Nitrite Urine Bilirubin Urine Urobilinogen Ur Leukocyte Esterase Urine WBC (Auto) Urine RBC (Auto) U Hyaline Cast (Auto) U Epithel Cells (Auto) Urine Bacteria (Auto) POC Stool Occult Blood Blood Type A Negative Blood Type Recheck Antibody Screen POSITIVE A Antibody Identification Anti-D Diagnostic Findings Forearm X-Ray 03/27/22 11:45 XR forearm RT 2V CLINICAL HISTORY: Right arm pain. COMPARISON: None FINDINGS: No acute fracture within the right radius or ulna is identified. There is right forearm and upper arm soft tissue swelling, including soft tissue swelling overlying the olecranon. No osseous lesion is noted. IMPRESSION: No fracture within the right radius or ulna. Forearm soft tissue swelling. ACT 112: Negative or not required by law. Electronically signed by: Loki Orta M.D. 03/27/2022 1:41 PM Humerus X-Ray 03/27/22 11:45 XR humerus RT 2V CLINICAL HISTORY: r arm pain. COMPARISON STUDY: 03/25/2022 TECHNIQUE: AP and lateral right views FINDINGS: Bones: Surgical anchors again seen involving the humeral head. There is no evidence for an acute fracture or dislocation. There is no lytic or blastic lesion. Joints: The joint spaces are maintained. The bones are in anatomic alignment. Soft tissues: Diffuse subcutaneous edema is again seen surrounding the arm. There is no radiopaque foreign body. IMPRESSION: 1. No acute osseous pathology. 2. There is again diffuse subcutaneous edema surrounding the arm of uncertain etiology. ACT 112: Negative or not required by law. Electronically signed by: Adán Payan M.D. 03/27/2022 1:38 PM Abdomen/Pelvis CT 03/27/22 11:46 CT abd pelvis IV con only CLINICAL HISTORY: Status post fall with bruising and pain. COMPARISON STUDY: No previous studies for comparison. CT DOSE: TECHNIQUE: Standard CT of the Abdomen and Pelvis was performed with IV contrast. A dose lowering technique was utilized adhering to the principles of ALARA. Contrast Volume: Optiray 320, 94 ml. The patient did not receive oral contrast. FINDINGS: Lung base: There are large bilateral pleural effusions with compressive atelectasis/collapse involving the lower lobes, right greater than left. Please see separate CT of the chest report for further evaluation. Abdominal cavity: There is no evidence for abdominal mass, adenopathy or ascites. There is evidence for anasarca. Liver: There is homogeneous attenuation of the liver parenchyma. There is no evidence for enhancing mass lesion. Sharply defined hepatic cysts are present. Spleen: There is homogeneous attenuation of the splenic parenchyma. There is no enhancing mass lesion. Pancreas: There is homogeneous attenuation of the pancreatic parenchyma. There is no evidence for mass lesion or peripancreatic fluid collection. Gall Bladder: The gallbladder is contracted due to the patient's nonfasting state. Adrenal glands: The adrenal glands are normal in size and attenuation. There is no evidence for enhancing mass lesion. Kidneys: There is homogeneous attenuation of the renal parenchyma bilaterally. There is no evidence for renal calculus or hydronephrosis. There is no evidence for enhancing mass. Bowel: The stomach is distended with liquid and food stuff. The bowel loops are normally placed within the abdomen and pelvis without evidence for dilatation or obstruction. There is mild fecal stasis without gross impaction or obstruction. There are no inflammatory changes present. There is no evidence for free air. There is a normal appendix in the right lower quadrant. Bladder: The bladder is mildly distended with no evidence for focal mass, calculus or diverticulum. : There is no evidence for pelvic mass or adenopathy. There is no evidence for pelvic ascites. The prostate is mildly enlarged. Vasculature: There is no evidence for aneurysmal dilatation of the abdominal aorta. Atherosclerotic calcification is present. Osseous structures: There is no acute osseous pathology. Degenerative changes are present. IMPRESSION: 1. Large bilateral pleural effusions, right greater than left with compressive atelectasis at the lung bases. Please see full CT chest report for further evaluation. 2. No acute intra-abdominal or pelvic abnormality. 3. Anasarca. 4. Additional nonacute findings are delineated above. ACT 112: Negative or not required by law. Electronically signed by: Adán Payan M.D. 03/27/2022 12:[address] 03/27/22 11:46 CT cervical spine wo con CLINICAL HISTORY: 82 years-old Male with Trauma. Acute neck trauma status post fall COMPARISON: Head CT of same day TECHNIQUE: Multiple axial CT images of the cervical spine were obtained without contrast. A dose lowering technique was utilized adhering to the principles of ALARA. FINDINGS: Cardiomegaly with layering pleural effusions and bibasilar consolidation noted. Intralobular septal thickening suggestive of pulmonary edema. No pneumothorax. Unremarkable soft tissues of the neck. Surgical anchor within the right humeral head. Demineralized appearance of the bones. Severe degeneration at C1-C2. Stepwise grade 1 anterolisthesis is noted at several levels throughout the thoracic and cervical spine secondary to chronic severe multilevel facet arthrosis. Multilevel intervertebral disc space narrowing, moderate at C6-C7. Multilevel spondylitic spurring with uncovertebral hypertrophy and small posterior disc osteophyte complex formations. No acute fracture or subluxation of the cervical spine. Multilevel neural foraminal narrowing. IMPRESSION: 1. No acute cervical spine fracture. 2. Degenerative changes as above. 3. Layering pleural effusions with pulmonary edema. ACT 112: Negative or not required by law. The above report was generated using voice recognition software. It may contain grammatical, syntax or spelling errors. Electronically signed by: Ricardo Abernathy M.D. 03/27/2022 12:[address] 03/27/22 11:46 CT SCAN OF THE CHEST WITH IV CONTRAST CLINICAL HISTORY: Trauma. COMPARISON STUDY: Chest x-ray dated 03/25/2022. TECHNIQUE: Following the IV administration of 94 cc of Optiray 320, CT scan of the thorax was performed from the thoracic inlet to the upper abdomen. Images are reviewed in the axial, sagittal, and coronal planes. IV contrast was administered without complication. A dose lowering technique was utilized adhering to the principles of ALARA. The examination is degraded by motion artifact, as well as by streak artifact from the arms which could not be elevated above the chest. CT DOSE: 3066.17 mGy.cm FINDINGS: Thyroid: Imaged portions of the thyroid gland are normal in size and attenuation. Thoracic aorta: There is atherosclerotic calcification of the thoracic aorta comment which is normal in caliber and demonstrates bovine variant arch anatomy. No dissection is seen. Pulmonary vasculature: The pulmonary trunk is normal in caliber. There are no filling defects identified in the central pulmonary vessels to indicate pulmonar y embolus. Note that this examination was not protocoled for evaluation of the pulmonary arteries. Heart: The heart is markedly enlarged and without pericardial effusion. The coronary arteries are densely calcified. Lungs and pleural spaces: There are moderate to large pleural effusions with significant atelectasis of the lower lungs. Intralobular septal thickening is noted. There is no pneumothorax. The trachea and central airways appear clear. Mediastinum: There is no mediastinal lymphadenopathy. Candice: Clear. Axillae: There is no axillary lymphadenopathy. Upper abdomen: Partially visualized upper abdominal viscera is within normal limits. Skeletal structures: The skeletal structures are osteopenic. The bony thorax appears intact. Spondylotic change is seen throughout the thoracic spine. No lytic or blastic bony lesions are seen. Arthritic changes seen in the shoulders with postoperative change noted on the right. There are chronic/healed left- sided rib fractures. Soft tissues: Soft tissue edema is present in the right chest wall, possibly representing contusion. A lipoma is incidentally noted in the right pectoralis musculature. IMPRESSION: 1. Soft tissue edema throughout the right chest wall is nonspecific and given the clinical history likely represents contusion. 2. No fracture is identified. 3. Cardiomegaly with evidence of congestive failure. 4. There are moderate to large pleural effusions with significant atelectasis of the lower lungs. 5. Additional findings as above. ACT 112: Negative or not required by law. Electronically signed by: Macho Singh M.D. 03/27/2022 12:[address] 03/27/22 11:46 CT head/brain wo con CLINICAL HISTORY: Status post fall with pain COMPARISON STUDY: No previous studies for comparison. CT DOSE: TECHNIQUE: Standard CT of the Brain was performed without IV contrast. A dose lowering technique was utilized adhering to the principles of ALARA. FINDINGS: Extraaxial space: There is no evidence for subdural hematoma. There are no extra-axial fluid collections. Ventricles and cisterns: The ventricles are mildly dilated bilaterally. There is no evidence for midline shift or mass effect. Parenchyma: There is no subarachnoid or intraparenchymal hemorrhage. There is no evidence for an acute infarct or cerebral edema. There is mild cerebral cortical atrophy and decreased attenuation in the periventricular white matter representing remote small vessel disease. There are no gross mass lesions. Osseous structures: There is no evidence for an acute fracture. The visualized paranasal sinuses are clear. The mastoid air cells are clear bilaterally. Soft tissues: There is no evidence for focal soft tissue swelling. IMPRESSION: 1. No acute intracerebral pathology. 2. Cerebral cortical atrophy and remote small vessel disease. ACT 112: Negative or not required by law. Electronically signed by: Adán Payan M.D. 03/27/2022 12:40 PM ECG Additional Comments: MAR-2022 11:20:59 [facility]-EDSTAT ROUTINE RETRIEVAL Poor data quality, interpretation may be adversely affected Atrial fibrillation Anteroseptal infarct (cited on or before 27-MAR-2022) Abnormal ECG When compared with ECG of 25-MAR-2022 05:04, T wave inversion now evident in Anterior leads QT has shortened 25mm/s10mm/[id number] 241CID: 15Unconfirmed Vent. rate 85 BPM MO interval * ms QRS duration 84 ms QT/QTc 178/211 ms Code Status & VTE Plan Code Status DNR/DNI- discussed with the patient at bedside Supervising Physician Co-Signing Physician Notes Patient was seen and examined independently at bedside. Chart reviewed. Case discussed with Darcy ESCOBAR In summary, this is an 82 year old male with h/o Afib on coumadin who presented to the ED today with low Hb. States he had right upper extremity pain starting 4 days ago which progressed to the torso and legs. He was in the ED 2 days back and was noted to have supratherapeutic INR along with RUE ecchymoses, but no fracture or DVT. Coumadin was held and he was discharged to [facility] on 03/26. Overnight he was complaining of pain at the NILES, his Hb was found to be 6.6 and was sent back to the ED. In the ED, his Hb was 7.3 (down from 9.5 2 days ago), INR 3.4, PTT 47.6, POCT negative. Xray radius humerus with no fractures but soft tissue swelling. CT head and cervical spine with no acute abnormality. CT chest shows soft tissue edema throughout right chest wall consistent with contusion; along with evidence of CHF and moderate to large pleural effusions with significant atelectasis of lower lungs. Given IV vitamin k and started on iv lasix. During my encounter, he was lying comfortably in bed, on room air, conversing well. Extensive ecchymoses of RUE, right flank and right thigh with tightness but no evidence of compartment syndrome. States his swelling is getting better and pain is better. Denies any trauma. Denies any chest pain, shortness of breath, N/V, fever, chills, cough, hemoptysis, hematemesis, hematuria or hematochezia. Likely acute on chronic anemia due to blood loss (?spontaneous soft tissue bleeding vs traumatic). I hope this will be self limiting as INR has been reversed with Vitamin K. Trend H&H. If hemoglobin drops down, will need to transfuse and get CT extremities to evaluate for ongoing bleeding, although recent contrast might limit it. Currently does not have compartment syndrome, but will need to keep close eye on- will have ortho on board. Patient is agreeable to transfusion if needed. If transfusing, he will likely need more diuresis to prevent volume overload. Monitor I and Os. Rest per note above.
[2022-03-27] MEDS ORDERED: FUROSEMIDE 40 MG/4 ML VIAL IV ONE (13:34)
--- NOTE | 2022-03-27 13:39 | XRay Report ---
XR humerus RT 2V CLINICAL HISTORY: r arm pain. COMPARISON STUDY: 03/25/2022 TECHNIQUE: AP and lateral right views FINDINGS: Bones: Surgical anchors again seen involving the humeral head. There is no evidence for an acute frac ture or dislocation. There is no lytic or blastic lesion. Joints: The joint spaces are maintained. The bones are in anatomic alignment. Soft tissues: Diffuse subcutaneous edema is again seen surrounding the arm. There is no radiopaque fo reign body. IMPRESSION: 1. No acute osseous pathology. 2. There is again diffuse subcutaneous edema surrounding the arm of uncertain etiology. ACT 112: Negative or not required by law. Electronically signed by: Adán Payan M.D. 03/27/2022 1:38 PM
--- NOTE | 2022-03-27 13:42 | XRay Report ---
XR forearm RT 2V CLINICAL HISTORY: Right arm pain. COMPARISON: None FINDINGS: No acute fracture within the right radius or ulna is identified. There is right forearm an d upper arm soft tissue swelling, including soft tissue swelling overlying the olecranon. No osseous lesion is noted. IMPRESSION: No fracture within the right radius or ulna. Forearm soft tissue swelling. ACT 112: Negative or not required by law. Electronically signed by: Loki Orta M.D. 03/27/2022 1:41 PM
[2022-03-27 14:13] LABS: Appearance Urine Clear (Clear); Bacteria Urine Automated Negative (Negative); Bilirubin Urine Negative (Negative); Blood Urine Negative (Negative); Color Urine Dark Yellow; Glucose Urine UA Negative (Negative); Ketones Urine Negative (Negative); Leukocyte Esterase Urine Trace (Negative); Nitrite Urine Negative (Negative); Protein Urine Negative (Negative); Specific Gravity Urine 1.027 (1.000-1.030); Urobilinogen Urine Negative (Negative)
[2022-03-27 16:28] LABS: Hemoglobin 7.2 g/dL (14.0-18.0)
[2022-03-27] MEDS: FUROSEMIDE 40 MG/4 ML VIAL IV SCH (17:06)
[2022-03-27] MEDS ORDERED: ACETAMINOPHEN 500 MG TAB PO PRN (18:12)
[2022-03-27] MEDS ORDERED: CARBOHYDRATES FOR HYPOGLYCEMIA PO PRN (18:12)
[2022-03-27] MEDS ORDERED: GLUCOSE 40% GEL 15 GM TUBE PO PRN (18:12)
[2022-03-27] MEDS ORDERED: ONDANSETRON INJ 2 MG/ML 2 ML VIAL IV PRN (18:12)
[2022-03-27] MEDS ORDERED: DEXTROSE 50% 50 ML SYRINGE IV PRN (18:12)
[2022-03-27] MEDS ORDERED: GLUCAGON FOR INJ 1 MG VIAL SQ PRN (18:12)
[2022-03-27] MEDS ORDERED: GLUCOSE 10 TABS/TUBE PO PRN (18:12)
[2022-03-27] MEDS ORDERED: PNEUMOCOCCAL POLYSACCHARIDES 25 MCG/0.5 ML VIAL/SYR IM ONE (18:31)
[2022-03-27] MEDS: ACETAMINOPHEN 325 MG TAB PO PRN (18:41)
[2022-03-27] MEDS: INSULIN ASPART PER UNIT SC SCH ×2 (19:03→20:32)
[2022-03-27] MEDS: SIMVASTATIN 20 MG TAB PO SCH (20:25)
[2022-03-27] MEDS: OMEGA-3 (PURIFIED FISH OIL) 1 GM CAP PO SCH (20:25)
[2022-03-27] MEDS: METOPROLOL TARTRATE 50 MG TAB PO SCH (20:25)
[2022-03-27] MEDS: allopurinoL 100 MG TAB PO SCH (20:26)
[2022-03-27] MEDS: FERROUS SULFATE 325 MG TAB PO SCH (20:26)
[2022-03-27] MEDS: DOCUSATE SODIUM 100 MG CAP PO SCH (20:26)
[2022-03-27 22:58] LABS: Hematocrit (blood only) 23.2 % (42-52); Hemoglobin 7.3 g/dL (14.0-18.0)
[2022-03-28] MEDS: ACETAMINOPHEN 325 MG TAB PO PRN ×2 (02:26→08:30)
[2022-03-28] MEDS: LEVOTHYROXINE SODIUM 25 MCG TABLET PO SCH (05:39)
--- NOTE | 2022-03-28 06:37 | XRay Report ---
XR chest 2V PA/lateral HISTORY: 82 years-old Male Follow up pleural effusions acute shortness of breath with pleural effusi ons COMPARISON: Chest CT 03/27/2022 TECHNIQUE: Portable AP view of the chest FINDINGS: Moderate left with moderate to large right pleural effusions and bibasilar consolidation is similar t o prior. The cardiac silhouette is enlarged. Pulmonary vascular congestion. No pneumothorax. Atherosc lerosis of the thoracic aorta. Degenerative changes of the shoulders and spine. IMPRESSION: 1. Cardiomegaly with pulmonary vascular congestion. 2. Moderate left with moderate to large right pleural effusions with bibasilar consolidation appears generally unchanged. ACT 112: Negative or not required by law. The above report was generated using voice recognition software. It may contain grammatical, syntax o r spelling errors. Electronically signed by: Ricardo Abernathy M.D. 03/28/2022 6:35 AM
--- NOTE | 2022-03-28 07:02 | Orthopedic Consultation ---
Date of Service March 28, 2022 Assessment & Plan (1) Swelling of right upper extremity: Overall he is already doing better with his right arm. His Coumadin has been held and his INR is normalizing. He can range his elbow his wrist and his hand. There is no signs of compartment syndrome. I do not see anything surgical that needs done at this point. The swelling of his right forearm will resolve with time. If you have any further questions please feel free to [place] text me or contact me personally on my cell phone at . History of Present Illness Reason for Consultation: Right upper extremity swelling. Requesting Physician: . Attending Physician: Pavan Gaston MD Venancio is a pleasant 82-year-old male who resides at [facility]. He does not recall any specific trauma but a few days ago began noticing significant swelling of his right arm. He kept saying he felt it had something do with his biceps. He is on Coumadin his INR was 4.9. The swelling became quite severe. He came to [facility] in the emergency room where x-rays were negative and a Doppler was negative. He was admitted to the hospitalist service. Orthopedics was consulted to evaluate and treat. Allergies Allergy/AdvReac Type Severity Reaction Status Date / Time No Known Allergies Allergy Verified 03/27/22 13:22 Home Medications Medication Instructions Recorded Confirmed Type allopurinol 100 mg tablet 100 mg PO BID 02/03/22 03/27/22 History aspirin 81 mg chewable tablet 81 mg PO QAM 02/03/22 03/27/22 History (Aspirin Childrens) furosemide 40 mg tablet 40 mg PO QAM 02/03/22 03/27/22 History garlic 400 mg tablet 400 mg PO BID tab 02/03/22 03/27/22 History metformin 500 mg tablet 500 mg PO BID 02/03/22 03/27/22 History metoprolol tartrate 50 mg tablet 50 mg PO Q12H 02/03/22 03/27/22 History multivitamin with minerals 1 cap PO QAM 02/03/22 03/27/22 History omega-3 fatty acids 1,000 mg 1,000 mg PO BID 02/03/22 03/27/22 History capsule potassium chloride 20 mEq 20 meq PO QAM 02/03/22 03/27/22 History tablet,extended release(part/cryst) (Klor-Con M) saw palmetto 450 mg capsule 450 mg PO BID 02/03/22 03/27/22 History simvastatin 20 mg tablet 20 mg PO HS 02/03/22 03/27/22 History ferrous sulfate 325 mg (65 mg 325 mg PO TIDM 02/17/22 03/27/22 History iron) tablet levothyroxine 25 mcg capsule 25 mcg PO DAILYBB 02/17/22 03/27/22 History oxycodone-acetaminophen 5 mg-325 See Rx Instructions .ROUTE 02/17/22 03/27/22 History mg tablet (Percocet) .COMPLEX PRN sertraline 25 mg tablet 25 mg PO QAM 02/17/22 03/27/22 History zinc acetate 25 mg (zinc) capsule 25 mg PO QAM 02/17/22 03/27/22 History Saccharomyces boulardii 250 mg 250 mg PO QAM 03/25/22 03/27/22 History capsule acetaminophen 500 mg tablet 1,000 mg PO Q8H PRN 03/25/22 03/27/22 History docusate sodium 100 mg capsule 100 mg PO BID 03/25/22 03/27/22 History (Colace) warfarin 3 mg tablet 3 mg PO HS 03/25/22 03/27/22 History Past Med/Surg History Medical History Acute kidney failure, unspecified Anemia, unspecified Atrial fibrillation Benign prostatic hyperplasia without lower urinary tract symptoms Chronic atrial fibrillation, unspecified Chronic diastolic (congestive) heart failure Chronic gout Critical illness myopathy Depression Diverticulitis Diverticulitis of intestine, part unspecified, without perforation or abscess without bleeding Edema, unspecified Essential (primary) hypertension Gout Type 2 diabetes mellitus with unspecified complications Social History Smoking Status: Never smoker Second Hand Exposure: No; Do You Dip or Chew Tobacco: No; Tobacco Cessation Education Requested by Patient: No Hx Alcohol Use: No Hx Substance Use: No Preferred Language: Mexican Communication Ability: Effective [employer] Internship Required: No Beliefs That Will Affect Care: None Current Living Situation: [facility] Other Information That Helps Us Care for You: No Feels Safe at Home: Yes Safety Concerns: Feels Safe At This Time Assistive Devices Comment: pt states glasses but no with him Review of Systems All systems reviewed & are unremarkable except as noted in HPI & below. Physical Exam On physical examination the right arm, the shoulder does not look too bad. He does have some pain with range of motion of shoulder. He has ecchymosis going down his arm towards his elbow and then more significant swelling and ecchymosis in his forearm. He is able to move his elbow. He is able to move all of his fingers and move his wrist. There is no blistering. He does have some tightness around the forearm but no signs of compartment syndrome. Constitutional WD/WN, vitals as above Eyes PERRL, conjunctivae normal, anicteric sclerae ENMT external ear and nose normal, oropharynx normal Neck trachea midline, no thyromegaly Respiratory normal respiratory effort Cardiovascular RRR, no murmur, no edema Gastrointestinal (Abdomen) normal bowel sounds, soft, nontender, no hepatosplenomegaly Psychiatric A+Ox3, euthymic affect Results & Data Results & Data Laboratory Results . Diagnostic Findings X-rays of the right humerus are negative for fracture. DVT of the right upper extremity is negative.. PG Care Time/CCT Total # of Minutes Spent Total Time Spent with Patient: Total time spent is greater than 50% in coordination of care (as documented) at patient's floor/unit and/or counseling patient: Coding Level of Care Code 78011 Inpt Consult Level 4 Diagnoses Swelling of right upper extremity M79.89
[2022-03-28] MEDS: POTASSIUM CHLORIDE CRTAB 20 MEQ TABCR PO SCH (08:30)
[2022-03-28] MEDS: ASPIRIN 81 MG CHEW PO SCH (08:30)
[2022-03-28] MEDS: CEROVITE ADV FORMULA TAB PO SCH (08:30)
[2022-03-28] MEDS: SERTRALINE HCL 50 MG TABLET PO SCH (08:30)
[2022-03-28] MEDS: METOPROLOL TARTRATE 50 MG TAB PO SCH ×2 (08:30→20:46)
[2022-03-28] MEDS: SACCHAROMYCES BOULARDII 250 MG CAP PO SCH (08:30)
[2022-03-28] MEDS: OMEGA-3 (PURIFIED FISH OIL) 1 GM CAP PO SCH ×2 (08:30→20:45)
[2022-03-28] MEDS: FERROUS SULFATE 325 MG TAB PO SCH ×3 (08:30→18:18)
[2022-03-28] MEDS: allopurinoL 100 MG TAB PO SCH ×2 (08:30→20:45)
[2022-03-28] MEDS: FUROSEMIDE 40 MG/4 ML VIAL IV SCH ×2 (08:30→18:28)
[2022-03-28] MEDS: DOCUSATE SODIUM 100 MG CAP PO SCH ×2 (08:30→20:45)
[2022-03-28] MEDS: INSULIN ASPART PER UNIT SC SCH ×4 (09:08→20:47)
[2022-03-28 11:00] LABS: INR 1.2 (0.9-1.1)
--- NOTE | 2022-03-28 11:06 | Gastrointestinal Consultation ---
Date of Consultation March 28, 2022 Assessment & Plan (1) Anemia: Given patient has large bilateral pleural effusions, supratherapeutic INR upon presentation, & no overt GI bleeding, would recommend conservative GI management at the present time. Protonix 40 mg BID. Monitor H/H. Monitor for ov ert GI bleeding. Supervising Physician Co-Signing Physician Notes Agree with REFUGIO Haddad as above Gen: A+O x3, Cooperative, Chronic ill-appearing CVS: RRR, no m/r/g Chest: Decreased BS at b/l bases Abd: Soft, NT, ND, +BS, no appreciable HSM Ext: -c/c/e Continue current therapy with twice daily PPI and supportive care Conservative GI management with no overt GI bleeding. History of Present Illness Reason for Consultation: Anemia Attending Physician: Tomer Ray MD History of Present Illness Patient is an 82 yo male with PMH of Afib on Coumadin, Dementia, CAD, PVD, HTN, DCHF, anemia, hemochromatosis, CVA, COVID, fatty liver, BPH, depression, DM2, gout, hypothyroidism, & osteomyelitis. He was brought in by [facility] (his nursing facility) due to increased swelling and bruising of his right upper extremity, anemia, and an elevated INR. Patient was scheduled as an outpatient to see our GI practice for anemia. Upon presentation to ED, he was noted to have chest imaging demonstrated a right sided contusion and large bilateral pleural effusions with compressive atelectasis. No overt GI bleeding. INR is now 3.4. No melena, hematemesis, hematochezia, abdominal pain, nausea, or vomiting. CT abdomen/pelvis unremarkable for acute GI issues. No pertinent family history. Allergies Allergy/AdvReac Type Severity Reaction Status Date / Time No Known Allergies Allergy Verified 03/27/22 13:22 Home Medications Medication Instructions Recorded Confirmed Type allopurinol 100 mg tablet 100 mg PO BID 02/03/22 03/27/22 History aspirin 81 mg chewable tablet 81 mg PO QAM 02/03/22 03/27/22 History (Aspirin Childrens) furosemide 40 mg tablet 40 mg PO QAM 02/03/22 03/27/22 History garlic 400 mg tablet 400 mg PO BID tab 02/03/22 03/27/22 History metformin 500 mg tablet 500 mg PO BID 02/03/22 03/27/22 History metoprolol tartrate 50 mg tablet 50 mg PO Q12H 02/03/22 03/27/22 History multivitamin with minerals 1 cap PO QAM 02/03/22 03/27/22 History omega-3 fatty acids 1,000 mg 1,000 mg PO BID 02/03/22 03/27/22 History capsule potassium chloride 20 mEq 20 meq PO QAM 02/03/22 03/27/22 History tablet,extended release(part/cryst) (Klor-Con M) saw palmetto 450 mg capsule 450 mg PO BID 02/03/22 03/27/22 History simvastatin 20 mg tablet 20 mg PO HS 02/03/22 03/27/22 History ferrous sulfate 325 mg (65 mg 325 mg PO TIDM 02/17/22 03/27/22 History iron) tablet levothyroxine 25 mcg capsule 25 mcg PO DAILYBB 02/17/22 03/27/22 History oxycodone-acetaminophen 5 mg-325 See Rx Instructions .ROUTE 02/17/22 03/27/22 History mg tablet (Percocet) .COMPLEX PRN sertraline 25 mg tablet 25 mg PO QAM 02/17/22 03/27/22 History zinc acetate 25 mg (zinc) capsule 25 mg PO QAM 02/17/22 03/27/22 History Saccharomyces boulardii 250 mg 250 mg PO QAM 03/25/22 03/27/22 History capsule acetaminophen 500 mg tablet 1,000 mg PO Q8H PRN 03/25/22 03/27/22 History docusate sodium 100 mg capsule 100 mg PO BID 03/25/22 03/27/22 History (Colace) warfarin 3 mg tablet 3 mg PO HS 03/25/22 03/27/22 History Patient History Medical History Acute kidney failure, unspecified Anemia, unspecified Atrial fibrillation Benign prostatic hyperplasia without lower urinary tract symptoms Chronic atrial fibrillation, unspecified Chronic diastolic (congestive) heart failure Chronic gout Critical illness myopathy Depression Diverticulitis Diverticulitis of intestine, part unspecified, without perforation or abscess without bleeding Edema, unspecified Essential (primary) hypertension Gout Type 2 diabetes mellitus with unspecified complications Social History Smoking Status: Never smoker Second Hand Exposure: No; Do You Dip or Chew Tobacco: No; Tobacco Cessation Education Requested by Patient: No Hx Alcohol Use: No Hx Substance Use: No Preferred Language: Malay Communication Ability: Effective 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 Beliefs That Will Affect Care: None Current Living Situation: [facility] Other Information That Helps Us Care for You: No Feels Safe at Home: Yes Safety Concerns: Feels Safe At This Time Assistive Devices Comment: pt states glasses but no with him Review of Systems Constitutional: no fever and no chills Respiratory: no cough and no dyspnea Cardiovascular: no chest pain Gastrointestinal: no abdominal pain, no hematemesis and no melena Physical Exam Constitutional: no acute distress Respiratory: coughing during exam Gastrointestinal (Abdomen): Inspection/Auscultation: abdomen normal to inspection Musculoskeletal: Head/Neck/Chest: normocephalic Skin: ecchymosis Psychiatric: Orientation: alert; + not oriented x 3 (easily confused) Results & Data ([facility]) Vital Signs (Past 12 Hours) Vital Signs Temp Pulse Resp BP Pulse Ox 03/28/22 07:00 36.5 C 109 H 20 134/80 93 03/28/22 03:00 36.5 C 94 H 20 133/72 94 03/27/22 23:00 36.1 C L 93 H 20 144/81 H 94 PG Care Time/CCT Total # of Minutes Spent Total Time Spent with Patient: Total time spent is greater than 50% in coordination of care (as documented) at patient's floor/unit and/or counseling patient: Coding Level of Care Code 55701 Initial Inpt Care Lvl 3 Diagnoses Anemia D64.9 Anemia type: unspecified type (1) Anemia Anemia type: unspecified type Qualified Code(s): D64.9 - Anemia, unspecified
[2022-03-28 11:07] LABS: Hematocrit (blood only) 21.6 % (42-52); Hemoglobin 6.8 g/dL (14.0-18.0); Mean Corpuscular Hemoglobin 31.3 pg (25-34); Mean Corpuscular Hgb Conc 31.5 g/dL (32-36); Mean Corpuscular Volume 99.5 fL (80-100); Platelet Count 296 K/uL (130-400); RDW Coefficient of Variation 17.2 % (11.5-14.5); RDW Standard Deviation 62.9 fL (36.4-46.3); Red Blood Count 2.17 M/uL (4.7-6.1); White Blood Count 8.43 K/uL (4.8-10.8)
[2022-03-28] MEDS: ZINC SULFATE 220 MG CAPSULE PO SCH (11:12)
[2022-03-28] MEDS: PANTOprazole 40 MG in SYRINGE 0 ML IV SCH ×2 (12:09→20:45)
[2022-03-28] MEDS ORDERED: SODIUM CHLORIDE 0.9% 250 ML IV PRN (12:45)
--- NOTE | 2022-03-28 14:27 | Cardiology Consultation ---
Date of Consultation March 28, 2022 Assessment & Plan (1) Swelling of right upper extremity: (2) CHF (congestive heart failure): (3) Anemia: (4) Pulmonary edema: (5) Pleural effusion: (6) Elevated INR: (7) HTN (hypertension): (8) PVD (peripheral vascular disease): (9) Chronic diastolic (congestive) heart failure: (10) Pleural effusion, bilateral: (11) Anemia, unspecified: (12) Atrial fibrillation: I believe the pleural effusions are likely due to high-output cardiac failure in the setting of significant anemia. Recommend maintaining hemoglobin of 9 or greater. Continue with diuresis at this time. Anticoagulation currently on hold. Patient does not voice any cardiac complaints and no further cardiac testing or intervention is necessary at this time. History of Present Illness Reason for Consultation: CHF Requesting Physician: Dr. Ray Attending Physician: Tomer Ray MD History of Present Illness It was my pleasure to see Mr. Kwon in cardiac consultation today March 28, 2022. He is a very pleasant yet somewhat confused 82-year-old gentleman who presented to the emergency department for second time on 03/27/2022 with complaints of right upper extremity pain, swelling and ecchymosis in the setting of a supratherapeutic INR. He was initially seen and released in the emergency department on the but then returned from [facility] the next day after his hemoglobin was found to be significantly reduced. Clinically states his only complaint is that of the swelling and bruising in his right flank and lower back. He denies any cardiac complaints of chest pain, shortness of breath, palpitations, lightheadedness, dizziness or syncope. He has never been seen by our cardiology practice before and follows with a bricklayer helper in [place]. Records unavailable at this time. Allergies Allergy/AdvReac Type Severity Reaction Status Date / Time No Known Allergies Allergy Verified 03/27/22 13:22 Home Medications Medication Instructions Recorded Confirmed Type allopurinol 100 mg tablet 100 mg PO BID 02/03/22 03/27/22 History aspirin 81 mg chewable tablet 81 mg PO QAM 02/03/22 03/27/22 History (Aspirin Childrens) furosemide 40 mg tablet 40 mg PO QAM 02/03/22 03/27/22 History garlic 400 mg tablet 400 mg PO BID tab 02/03/22 03/27/22 History metformin 500 mg tablet 500 mg PO BID 02/03/22 03/27/22 History metoprolol tartrate 50 mg tablet 50 mg PO Q12H 02/03/22 03/27/22 History multivitamin with minerals 1 cap PO QAM 02/03/22 03/27/22 History omega-3 fatty acids 1,000 mg 1,000 mg PO BID 02/03/22 03/27/22 History capsule potassium chloride 20 mEq 20 meq PO QAM 02/03/22 03/27/22 History tablet,extended release(part/cryst) (Klor-Con M) saw palmetto 450 mg capsule 450 mg PO BID 02/03/22 03/27/22 History simvastatin 20 mg tablet 20 mg PO HS 02/03/22 03/27/22 History ferrous sulfate 325 mg (65 mg 325 mg PO TIDM 02/17/22 03/27/22 History iron) tablet levothyroxine 25 mcg capsule 25 mcg PO DAILYBB 02/17/22 03/27/22 History oxycodone-acetaminophen 5 mg-325 See Rx Instructions .ROUTE 02/17/22 03/27/22 History mg tablet (Percocet) .COMPLEX PRN sertraline 25 mg tablet 25 mg PO QAM 02/17/22 03/27/22 History zinc acetate 25 mg (zinc) capsule 25 mg PO QAM 02/17/22 03/27/22 History Saccharomyces boulardii 250 mg 250 mg PO QAM 03/25/22 03/27/22 History capsule acetaminophen 500 mg tablet 1,000 mg PO Q8H PRN 03/25/22 03/27/22 History docusate sodium 100 mg capsule 100 mg PO BID 03/25/22 03/27/22 History (Colace) warfarin 3 mg tablet 3 mg PO HS 03/25/22 03/27/22 History Patient History Medical History Acute kidney failure, unspecified Anemia, unspecified Atrial fibrillation Benign prostatic hyperplasia without lower urinary tract symptoms Chronic atrial fibrillation, unspecified Chronic diastolic (congestive) heart failure Chronic gout Critical illness myopathy Depression Diverticulitis Diverticulitis of intestine, part unspecified, without perforation or abscess without bleeding Edema, unspecified Essential (primary) hypertension Gout Type 2 diabetes mellitus with unspecified complications Social History Smoking Status: Never smoker Second Hand Exposure: No; Do You Dip or Chew Tobacco: No; Tobacco Cessation Education Requested by Patient: No Hx Alcohol Use: No Hx Substance Use: No Preferred Language: Maldivian Communication Ability: Effective Call Center Specialist Required: No Beliefs That Will Affect Care: None marital status: Unknown Current Living Situation: [facility] Other Information That Helps Us Care for You: No Feels Safe at Home: Yes Safety Concerns: Feels Safe At This Time Assistive Devices: Walker Assistive Devices Comment: pt states glasses but no with him Review of Systems Review of Systems: All systems reviewed & are unremarkable except as noted in HPI & below Physical Exam Physical Exam: General: Awake, alert and oriented x 3. No acute distress. HEENT: Normocephalic, atraumatic. Pupils equal, round and reactive to light and accommodation. Extraocular muscles are intact. Anicteric sclera. Moist mucous membranes. Neck: No JVD. No bruit. Cardiovascular: irregularly irregular, unable to appreciate murmur, rub or gallop. Pulmonary: Clear to auscultation bilaterally. No rales, rhonchi, or wheezing. Abdomen: Bowel sounds x 4, soft. No rebound, guarding or tenderness. No organomegaly. Extremities: No clubbing, cyanosis or edema. +2 pedal pulses bilaterally. Skin: Warm and dry. Results & Data ([facility]) Vital Signs (Past 12 Hours) Vital Signs Temp Pulse Resp BP Pulse Ox 03/28/22 11:54 36.5 C 99 H 20 154/85 H 93 03/28/22 07:00 36.5 C 109 H 20 134/80 93 03/28/22 03:00 36.5 C 94 H 20 133/72 94 (1) CHF (congestive heart failure) Heart failure chronicity: unspecified Heart failure type: unspecified Qualified Code(s): I50.9 - Heart failure, unspecified (2) Anemia Anemia type: unspecified type Qualified Code(s): D64.9 - Anemia, unspecified (3) Pulmonary edema Chronicity: acute Qualified Code(s): J81.0 - Acute pulmonary edema
--- NOTE | 2022-03-28 16:07 | Pulmonary Consultation ---
Date of Consultation March 28, 2022 Assessment & Plan (1) CHF (congestive heart failure): Heart failure chronicity: unspecified Heart failure type: unspecified Qualified Code(s): I50.9 - Heart failure, unspecified (2) Pleural effusion: (3) Anemia: Anemia type: unspecified type Qualified Code(s): D64.9 - Anemia, unspecified 82-year-old male with a past medical history of reported dementia, atrial fibrillation on warfarin and combined systolic and diastolic heart failure presenting to the hospital due to a fall. Found to have bilateral effusions which were previously noted as well. Agree with empiric diuresis at this time. Agree with cardiology that his findings are likely related to high-output cardiac failure due to his severe anemia. Hemothorax unlikely at this time. We will hold off on thoracentesis pending response to diuresis and blood transfusion. Thank you for the consult. Please call with questions. History of Present Illness Reason for Consultation: Bilateral pleural effusions Attending Physician: Tomer Ray MD History of Present Illness 82-year-old male with a past medical history of grade 2 diastolic dysfunction and systolic CHF, atrial fibrillation on warfarin and a reported history of dementia presenting to the hospital due to a fall. Pulmonary is consulted due to bilateral pleural effusions. There was a concern for hemothorax. He was found to have acute on chronic anemia during this admission. There is diffuse bruising on his right flank and right arm. He denies any chest pain, fevers or chills at present. He denies any shortness of breath at rest. Hemoglobin is currently 6.8. INR on admission was 3.4. CT chest 03/27/2022 demonstrated soft tissue edema throughout the right chest. Moderate to large effusions were noted bilaterally with atelectasis. Patient is currently on furosemide 40 mg twice daily. He received vitamin K as a reversal for his elevated INR due to his anemia. Echo completed today demonstrates an LVEF of 35 to 40%. Grade 2 diastolic dysfunction noted. Mild valvular aortic stenosis. Mild aortic regurgitation. Allergies Allergy/AdvReac Type Severity Reaction Status Date / Time No Known Allergies Allergy Verified 03/27/22 13:22 Home Medications Medication Instructions Recorded Confirmed Type allopurinol 100 mg tablet 100 mg PO BID 02/03/22 03/27/22 History aspirin 81 mg chewable tablet 81 mg PO QAM 02/03/22 03/27/22 History (Aspirin Childrens) furosemide 40 mg tablet 40 mg PO QAM 02/03/22 03/27/22 History garlic 400 mg tablet 400 mg PO BID tab 02/03/22 03/27/22 History metformin 500 mg tablet 500 mg PO BID 02/03/22 03/27/22 History metoprolol tartrate 50 mg tablet 50 mg PO Q12H 02/03/22 03/27/22 History multivitamin with minerals 1 cap PO QAM 02/03/22 03/27/22 History omega-3 fatty acids 1,000 mg 1,000 mg PO BID 02/03/22 03/27/22 History capsule potassium chloride 20 mEq 20 meq PO QAM 02/03/22 03/27/22 History tablet,extended release(part/cryst) (Klor-Con M) saw palmetto 450 mg capsule 450 mg PO BID 02/03/22 03/27/22 History simvastatin 20 mg tablet 20 mg PO HS 02/03/22 03/27/22 History ferrous sulfate 325 mg (65 mg 325 mg PO TIDM 02/17/22 03/27/22 History iron) tablet levothyroxine 25 mcg capsule 25 mcg PO DAILYBB 02/17/22 03/27/22 History oxycodone-acetaminophen 5 mg-325 See Rx Instructions .ROUTE 02/17/22 03/27/22 History mg tablet (Percocet) .COMPLEX PRN sertraline 25 mg tablet 25 mg PO QAM 02/17/22 03/27/22 History zinc acetate 25 mg (zinc) capsule 25 mg PO QAM 02/17/22 03/27/22 History Saccharomyces boulardii 250 mg 250 mg PO QAM 03/25/22 03/27/22 History capsule acetaminophen 500 mg tablet 1,000 mg PO Q8H PRN 03/25/22 03/27/22 History docusate sodium 100 mg capsule 100 mg PO BID 03/25/22 03/27/22 History (Colace) warfarin 3 mg tablet 3 mg PO HS 03/25/22 03/27/22 History Patient History Medical History Acute kidney failure, unspecified Anemia, unspecified Atrial fibrillation Benign prostatic hyperplasia without lower urinary tract symptoms Chronic atrial fibrillation, unspecified Chronic diastolic (congestive) heart failure Chronic gout Critical illness myopathy Depression Diverticulitis Diverticulitis of intestine, part unspecified, without perforation or abscess without bleeding Edema, unspecified Essential (primary) hypertension Gout Type 2 diabetes mellitus with unspecified complications Social History Smoking Status: Never smoker Second Hand Exposure: No; Do You Dip or Chew Tobacco: No; Tobacco Cessation Education Requested by Patient: No Hx Alcohol Use: No Hx Substance Use: No Preferred Language: Persian Communication Ability: Effective Stiff Straw Hat Washer Required: No Beliefs That Will Affect Care: None marital status: Unknown Current Living Situation: Longterm Other Information That Helps Us Care for You: No Feels Safe at Home: Yes Safety Concerns: Feels Safe At This Time Assistive Devices: Walker Assistive Devices Comment: pt states glasses but no with him Review of Systems Review of Systems: All systems reviewed & are unremarkable except as noted in HPI & below Physical Exam Constitutional: WD/WN, vitals as above Eyes: PERRL, conjunctivae normal, anicteric sclerae Respiratory: Diminished lung sounds bilaterally. No increased work of breathing. Crackles bilaterally. Cardiovascular: Rate/Rhythm: + irregularly irregular Heart Sounds: + murmur Extremities: + edema Gastrointestinal (Abdomen): normal bowel sounds, soft, nontender, no hepatosplenomegaly Musculoskeletal: no cyanosis or clubbing, extremities motor strength 5/5 Skin: Diffuse ecchymosis and swelling of the right upper extremity and right chest wall. Radial pulse intact on the right. Neurologic: PERRL, EOMI, accommodation nl, no face palsy, no dysarthria Psychiatric: A+Ox3, euthymic affect Results & Data Results & Data ([facility]) Vital Signs (Past 12 Hours) Vital Signs Temp Pulse Pulse Resp BP BP Pulse Ox 03/28/22 15:37 36.6 C 99 H 20 126/74 96 03/28/22 15:36 36.5 C 98 H 20 131/78 95 03/28/22 11:54 36.5 C 99 H 20 154/85 H 93 03/28/22 07:00 36.5 C 109 H 20 134/80 93 PG Care Time/CCT Total # of Minutes Spent Total Time Spent with Patient: Total time spent is greater than 50% in coordination of care (as documented) at patient's floor/unit and/or counseling patient: Coding Level of Care Code 59308 Initial Inpt Care Lvl 2 Diagnoses CHF (congestive heart failure) I50.9 Heart failure chronicity: unspecified Heart failure type: unspecified Pleural effusion J90 Anemia D64.9 Anemia type: unspecified type
--- NOTE | 2022-03-28 16:35 | Hospitalist Progress Note ---
Date of Service March 28, 2022 Assessment & Plan (1) Supratherapeutic INR: Plan: Suspected Coumadin induced bleeding in setting of Supratherapeutic INR Reports H/O fall few days ago as per patient FOBT Negative on 03/27/22 Received Vit K Less likely hemothorax as per Pulm No other obvious source of bleeding INR:3.4>1.2 Coumadin on hold for now Monitor INR (2) Atrial fibrillation: Plan: Chronic, currently rate controlled Continue metoprolol Anticoagulation on hold (3) Anemia, unspecified: Plan: Suspected Coumadin induced bleeding in setting of Supratherapeutic INR FOBT negative -CT ABD:No acute intra-abdominal or pelvic abnormality. Appreciate GI Input Continue PPI S/P 1 unit PRBCs Monitor CBC (4) Pleural effusion, bilateral: Plan: Bilateral pleural effusion Likely due to high-output cardiac failure in setting of significant anemia Acute Systolic and diastolic heart failure ? Hemothorax --less likely as per Pulm -CT Chest:Soft tissue edema throughout the right chest wall is nonspecific and given the clinical history likely represents contusion. There are moderate to large pleural effusions with significant atelectasis of the lower lungs -ECHO: Normal LV chamber size with moderate concentric LVH. Left ventricular systolic function is moderately reduced. Moderate global hypokinesis of left ventricle. EF 35 to 40%. Grade 2 diastolic dysfunction. Mild aortic regurgitation. Mild valvular aortic stenosis. Moderate mitral annular calcification with mild mitral regurgitation. Mild tricuspid regurgitation. Severe biatrial enlargement. 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 There is again diffuse subcutaneous edema surrounding the arm of uncertain etiology. -Forearm X ray:No fracture within the right radius or ulna. Forearm soft tissue swelling. -RUE Doppler:There is no sonographic evidence of deep venous thrombosis identified in the right upper extremity. -Avoid narcotics as able Appreciate orthopedics input (7) Type II diabetes mellitus with complication: Plan: - Last HbA1C = 4.9 on 02/10/22 - Was taken off glimepiride yesterday 03/26, in the setting of elderly patient with possible hypoglycemic episodes in the past. Hold metformin ISS for now Monitor BGs (8) Memory loss: Plan: - Has a appt scheduled with outpatient neurology on 05/06 Dementia as per records (9) Generalized weakness: Plan: - PT/OT Fall precautions (10) Acute osteomyelitis of toe of right foot: Plan: Follows with [facility] Continue wound care ID follow up appointment already scheduled in mid April (11) Hypothyroidism: Plan: - Continue levothyroxine (12) PVD (peripheral vascular disease): Plan: -On Aspirin Follows with Dr. Gold with vascular as outpatient DVT Px: Teds, SCDs, holding Coumadin Re: Anemia, Suspected bleeding CODE STATUS: DNR/DNI Admission and Anticipated Discharge Date Admission Date: March 27, 2022 Subjective Patient is seen and examined at bedside States having dyspnea, right upper extremity pain and right toe pain Denies any bleeding issues Also denies any chest pain, dizziness, nausea, abdominal pain Offers no other complaints Review of Systems Review of Systems: All systems reviewed & are unremarkable except as noted in Subjective Physical Exam Physical Exam: Physical Exam: Vitals signs as noted above General Appearance:Moderately built and nourished, ill appearing, no apparent distress Head: normocephalic, Atraumatic Eyes: normal inspection, EOMI Neck: supple, Trachea midline Respiratory/Chest: Decreased breath sounds at bases, No accessory muscle use Cardiovascular: Irregularly irregular, No murmur Abdomen/GI:Soft, Non tender, Bowel sounds present Extremities/Musculoskeletal:normal inspection, RUE edema, Ecchymosis Neurologic/Psych:AAO, grossly no focal neurological deficits Skin: normal color, warm Results & Data Results & Data ([facility]) Vital Signs (Past 12 Hours) Vital Signs Temp Pulse Pulse Resp BP BP Pulse Ox 03/28/22 16:10 36.6 C 98 H 20 139/83 95 03/28/22 15:55 36.5 C 92 H 20 128/71 96 03/28/22 15:37 36.6 C 99 H 20 126/74 96 03/28/22 15:36 36.5 C 98 H 20 131/78 95 03/28/22 11:54 36.5 C 99 H 20 154/85 H 93 03/28/22 07:00 36.5 C 109 H 20 134/80 93 Laboratory Results Short CBC 03/27/22 03/28/22 Range/Units 22:35 10:26 WBC 8.43 (4.8-10.8) K/uL Hgb 7.3 L 6.8 L* (14.0-18.0) g/dL Hct 23.2 L 21.6 L (42-52) % Plt Count 296 (130-400) K/uL Cardiac Enzymes 03/27/22 Range/Units 16:19 Total Creatine Kinase 201 (30-223) U/L
--- NOTE | 2022-03-28 17:52 | Electrocardiogram Report ---
Test Reason : Blood Pressure : / mmHG Vent. Rate : 085 BPM Atrial Rate : 093 BPM P-R Int : 000 ms QRS Dur : 084 ms QT Int : 178 ms P-R-T Axes : 000 043 210 degrees QTc Int : 211 ms Poor data quality, interpretation may be adversely affected Atrial fibrillation Anteroseptal infarct (cited on or before 27-MAR-2022) Abnormal ECG When compared with ECG of 25-MAR-2022 05:04, T wave inversion now evident in Anterior leads QT has shortened Confirmed by Royal Bone ([id number]) on 03/28/2022 5:51:52 PM Referred By: Confirmed By:Humberto Bone
[2022-03-28 20:25] LABS: Hematocrit (blood only) 25.7 % (42-52); Hemoglobin 8.3 g/dL (14.0-18.0)
[2022-03-28] MEDS: SIMVASTATIN 20 MG TAB PO SCH (20:45)
[2022-03-29] MEDS: ACETAMINOPHEN 325 MG TAB PO PRN ×3 (00:58→20:03)
[2022-03-29] MEDS: LEVOTHYROXINE SODIUM 25 MCG TABLET PO SCH (05:36)
[2022-03-29 06:49] LABS: Hematocrit (blood only) 24.9 % (42-52); Hemoglobin 7.9 g/dL (14.0-18.0); Mean Corpuscular Hemoglobin 30.7 pg (25-34); Mean Corpuscular Hgb Conc 31.7 g/dL (32-36); Mean Corpuscular Volume 96.9 fL (80-100); Platelet Count 313 K/uL (130-400); RDW Coefficient of Variation 19.3 % (11.5-14.5); RDW Standard Deviation 67.8 fL (36.4-46.3); Red Blood Count 2.57 M/uL (4.7-6.1); White Blood Count 8.49 K/uL (4.8-10.8)
--- NOTE | 2022-03-29 07:07 | XRay Report ---
XR chest 1V portable CLINICAL HISTORY: Pleural effusion COMPARISON STUDY: Chest CT and chest radiograph March 27, 2022. FINDINGS: There is no pneumothorax. Moderate to large bilateral pleural effusions have slightly progr essed. There are persistent bibasilar opacities. Pulmonary edema has slightly increased. Cardiomegaly is again noted. IMPRESSION: Mild progression in pulmonary edema with moderate to large bilateral pleural effusions. ACT 112: Negative or not required by law. Electronically signed by: Loki Orta M.D. 03/29/2022 7:05 AM
[2022-03-29 07:24] LABS: INR 1.1 (0.9-1.1); Prothrombin Time 11.9 Seconds (9.0-12.0)
[2022-03-29 07:50] LABS: Albumin Level 3.1 gm/dl (3.4-5.0); BUN Creatinine Ratio 17.5 (10-20); Bilirubin Direct 0.7 mg/dl (0-0.2); Bilirubin,Total 2.8 mg/dl (0.2-1.0); Calcium 8.5 mg/dl (8.5-10.1); Creatinine Clr Calc Pharmacy 65.4 ml/min; Est GFR (African American) 79.1 ml/min; Est GFR (Non-African American) 68.3 ml/min; Potassium 3.5 mmol/L (3.5-5.1); Total Protein 5.9 gm/dl (6.0-8.3)
[2022-03-29 07:51] LABS: Iron 75 mcg/dl (35-175); Total Iron Binding Cap Calc 236 mcg/dl (250-450); Transferrin (FE) Percent Satur 32 % (20-50); Unsaturated Iron Binding Cap 161 mcg/dl (155-355)
[2022-03-29 08:11] LABS: Folate (Folic Acid) 21.61 ng/ml (>5.38)
[2022-03-29] MEDS: FUROSEMIDE 40 MG/4 ML VIAL IV SCH ×2 (08:14→17:56)
[2022-03-29] MEDS: OMEGA-3 (PURIFIED FISH OIL) 1 GM CAP PO SCH (08:15)
[2022-03-29] MEDS: POTASSIUM CHLORIDE CRTAB 20 MEQ TABCR PO SCH ×2 (08:15→20:05)
[2022-03-29] MEDS: allopurinoL 100 MG TAB PO SCH ×2 (08:15→20:04)
[2022-03-29] MEDS: METOPROLOL TARTRATE 50 MG TAB PO SCH ×2 (08:15→20:05)
[2022-03-29] MEDS: DOCUSATE SODIUM 100 MG CAP PO SCH ×2 (08:15→20:04)
[2022-03-29] MEDS: ASPIRIN 81 MG CHEW PO SCH (08:16)
[2022-03-29] MEDS: ZINC SULFATE 220 MG CAPSULE PO SCH (08:16)
[2022-03-29] MEDS: SERTRALINE HCL 50 MG TABLET PO SCH (08:16)
[2022-03-29] MEDS: FERROUS SULFATE 325 MG TAB PO SCH ×3 (08:16→17:50)
[2022-03-29] MEDS: SACCHAROMYCES BOULARDII 250 MG CAP PO SCH (08:16)
[2022-03-29] MEDS: CEROVITE ADV FORMULA TAB PO SCH (08:17)
[2022-03-29 08:27] LABS: Ferritin 127.5 ng/ml (8-388)
[2022-03-29] MEDS: INSULIN ASPART PER UNIT SC SCH ×4 (08:28→21:00)
[2022-03-29] MEDS ORDERED: POTASSIUM CHLORIDE CRTAB 20 MEQ TABCR PO ONE (09:15)
--- NOTE | 2022-03-29 11:29 | Cardiology Progress Note ---
Date of Service March 29, 2022 Assessment & Plan (1) Swelling of right upper extremity: (2) CHF (congestive heart failure): (3) Anemia: (4) Pulmonary edema: (5) Pleural effusion: (6) Elevated INR: (7) HTN (hypertension): (8) PVD (peripheral vascular disease): (9) Chronic diastolic (congestive) heart failure: (10) Pleural effusion, bilateral: (11) Atrial fibrillation: Plan: The patient has multiple medical problems that need to be corrected. After discharge she may not be a candidate for long-term anticoagulation. Admission and Anticipated Discharge Date Admission Date: March 27, 2022 Subjective The patient is confused Review of Systems Review of Systems: Unobtainable Physical Exam Physical Exam: General: no acute distress, confused Head: normocephalic, no masses, lesions, tenderness or abnormalities Eyes: conjunctiva are pink and non-injected, sclera clear Neck: supple, no adenopathy, no bruits, normal jugular venous pulse, no hepat ojugular reflux Chest: normal shape and normal respiratory effort Lungs: clear to auscultation and percussion Cardiac Exam: - regular rate & rhythm, no murmurs gallops or rubs - normal S1, normal S2 Pulses: 2(+) throughout Abdomen: abdomen soft, non-tender, no abnormal masses and no hepatosplenomegaly Musculoskeletal: no gait disturbance, no joint inflammation, no deforming arthritis Extremities: Foot bandaged due to nonhealing ulcer Neuro: grossly normal exam Results & Data ([facility]) Vital Signs (Past 12 Hours) Vital Signs Temp Pulse Resp BP Pulse Ox 03/29/22 07:16 36.7 C 96 H 132/75 95 03/29/22 03:18 36.8 C 93 H 18 125/73 95 Laboratory Results Laboratory Results - last 24 hr 03/27/22 03/28/22 03/28/22 11:32 11:27 16:42 WBC RBC Hgb Hct MCV MCH MCHC RDW Std Deviation RDW Coeff of Radha Plt Count MPV PT INR Sodium Potassium Chloride Carbon Dioxide Anion Gap BUN Creatinine Est Cr Clr Drug Dosing Est GFR ( Amer) Est GFR (Non-Af Amer) BUN/Creatinine Ratio Glucose POC Glucose 114 H 141 H Calcium Iron TIBC Unsaturated IBC Transferrin % Sat Ferritin Total Bilirubin Direct Bilirubin AST ALT Alkaline Phosphatase B-Natriuretic Peptide Total Protein Albumin Vitamin B12 Folate Blood Type A Negative Antibody Screen POSITIVE A Antibody Identification Anti-D Antibody ID Comment Crossmatch See Detail 03/28/22 03/28/22 03/29/22 20:03 20:10 05:55 WBC 8.49 RBC 2.57 L Hgb 8.3 L 7.9 L Hct 25.7 L 24.9 L MCV 96.9 MCH 30.7 MCHC 31.7 L RDW Std Deviation 67.8 H RDW Coeff of Radha 19.3 H Plt Count 313 MPV 9.0 PT INR Sodium Potassium Chloride Carbon Dioxide Anion Gap BUN Creatinine Est Cr Clr Drug Dosing Est GFR ( Amer) Est GFR (Non-Af Amer) BUN/Creatinine Ratio Glucose POC Glucose 116 H Calcium Iron TIBC Unsaturated IBC Transferrin % Sat Ferritin Total Bilirubin Direct Bilirubin AST ALT Alkaline Phosphatase B-Natriuretic Peptide Total Protein Albumin Vitamin B12 Folate Blood Type Antibody Screen Antibody Identification Antibody ID Comment Crossmatch 03/29/22 03/29/22 03/29/22 05:55 05:55 05:55 WBC RBC Hgb Hct MCV MCH MCHC RDW Std Deviation RDW Coeff of Radha Plt Count MPV PT 11.9 INR 1.1 Sodium 135 L Potassium 3.5 Chloride 101 Carbon Dioxide 27 Anion Gap 7 BUN 18 Creatinine 1.03 Est Cr Clr Drug Dosing 65.4 Est GFR ( Amer) 79.1 Est GFR (Non-Af Amer) 68.3 BUN/Creatinine Ratio 17.5 Glucose 92 POC Glucose Calcium 8.5 Iron TIBC Unsaturated IBC Transferrin % Sat Ferritin 127.5 Total Bilirubin 2.8 H D Direct Bilirubin 0.7 H AST 25 ALT 14 Alkaline Phosphatase 51 B-Natriuretic Peptide 524 H Total Protein 5.9 L Albumin 3.1 L Vitamin B12 Folate Blood Type Antibody Screen Antibody Identification Antibody ID Comment Crossmatch 03/29/22 03/29/22 03/29/22 05:55 05:55 07:38 WBC RBC Hgb Hct MCV MCH MCHC RDW Std Deviation RDW Coeff of Radha Plt Count MPV PT INR Sodium Potassium Chloride Carbon Dioxide Anion Gap BUN Creatinine Est Cr Clr Drug Dosing Est GFR ( Amer) Est GFR (Non-Af Amer) BUN/Creatinine Ratio Glucose POC Glucose 110 H Calcium Iron 75 TIBC 236 L Unsaturated IBC 161 Transferrin % Sat 32 Ferritin Total Bilirubin Direct Bilirubin AST ALT Alkaline Phosphatase B-Natriuretic Peptide Total Protein Albumin Vitamin B12 741 Folate 21.61 Blood Type Antibody Screen Antibody Identification Antibody ID Comment Crossmatch Medications Administered Current Inpatient Medications Acetaminophen (Acetaminophen 325 Mg Tab) 650 mg PO Q4H PRN PRN Reason: Moderate Pain Stop: 04/26/22 18:11 Last Admin: 03/29/22 08:14 Dose: 650 mg Documented by: Allopurinol (Allopurinol 100 Mg Tab) 100 mg PO BID CAROLYN Stop: 04/26/22 20:59 Last Admin: 03/29/22 08:15 Dose: 100 mg Documented by: Aspirin (Aspirin 81 Mg Chew) 81 mg PO QAM CAROLYN Stop: 04/27/22 08:59 Last Admin: 03/29/22 08:16 Dose: 81 mg Documented by: Dextrose (Dextrose 50% 50 Ml Syringe) 25 - 50 ml IV UD PRN; Protocol PRN Reason: Hypoglycemia Protocol Stop: 04/26/22 18:11 Docusate Sodium (Docusate Sodium 100 Mg Cap) 100 mg PO BID CAROLYN Stop: 04/26/22 20:59 Last Admin: 03/29/22 08:15 Dose: 100 mg Documented by: Ferrous Sulfate (Ferrous Sulfate 325 Mg Tab) 325 mg PO TIDM CAROLYN Stop: 04/26/22 18:29 Last Admin: 03/29/22 08:16 Dose: 325 mg Documented by: Fish Oil ([place]-3 (Purified Fish Oil) 1 Gm Cap) 1 gm PO BID CAROLYN Stop: 04/26/22 20:59 Last Admin: 03/29/22 08:15 Dose: 1 gm Documented by: Furosemide (Furosemide 40 Mg/4 Ml Vial) 40 mg IV BID17 CAROLYN Stop: 04/26/22 16:59 Last Admin: 03/29/22 08:14 Dose: 40 mg Documented by: Glucagon (Glucagon For Inj 1 Mg Vial) 1 mg SQ UD PRN; Protocol PRN Reason: Hypoglycemia Protocol Stop: 04/26/22 18:11 Glucose (Glucose 10 Tabs/Tube) 4 - 8 tabs PO UD PRN; Protocol PRN Reason: Hypoglycemia Protocol Stop: 04/26/22 18:11 Glucose (Glucose 40% Gel 15 Gm Tube) 15 - 30 gm PO UD PRN; Protocol PRN Reason: Hypoglycemia Protocol Stop: 04/26/22 18:11 Pantoprazole Sodium 40 mg/ (Syringe) 10 mls @ 5 mls/min IV BID CAROLYN Stop: 04/27/22 11:14 Last Admin: 03/28/22 20:45 Dose: 5 mls/min Documented by: Insulin Aspart (Insulin Aspart Per Unit) 0 units SC ACHS [facility] Stop: 04/26/22 18:29 Last Admin: 03/29/22 08:28 Dose: 3 units Documented by: Levothyroxine Sodium (Levothyroxine Sodium 25 Mcg Tablet) 25 mcg PO DAILYBB [facility] Stop: 04/27/22 06:29 Last Admin: 03/29/22 05:36 Dose: 25 mcg Documented by: Metoprolol Tartrate (Metoprolol Tartrate 50 Mg Tab) 50 mg PO BID [facility] Stop: 04/26/22 20:59 Last Admin: 03/29/22 08:15 Dose: 50 mg Documented by: Miscellaneous (Carbohydrates For Hypoglycemia ) 15 - 30 gm PO UD PRN PRN Reason: Hypoglycemia Protocol Stop: 04/26/22 18:11 Multivitamins/Minerals (Cerovite Adv Formula Tab) [facility] Stop: 04/27/22 08:59 Last Admin: 03/29/22 08:17 Dose: 1 tab Documented by: Ondansetron HCl (Ondansetron Inj 2 Mg/Ml 2 Ml Vial) 4 mg IV Q4H PRN PRN Reason: Nausea And Vomiting Stop: 04/26/22 18:11 Potassium Chloride (Potassium Chloride Crtab 20 Meq Tabcr) 20 meq PO BID [facility] Stop: 04/28/22 20:59 Saccharomyces Boulardii (Saccharomyces Boulardii 250 Mg Cap) 250 mg PO [facility] Stop: 04/27/22 08:59 Last Admin: 03/29/22 08:16 Dose: 250 mg Documented by: Sertraline HCl (Sertraline Hcl 50 Mg Tablet) [facility] Stop: 04/27/22 08:59 Last Admin: 03/29/22 08:16 Dose: 25 mg Documented by: Simvastatin (Simvastatin 20 Mg Tab) 20 mg PO [facility] Stop: 04/26/22 20:59 Last Admin: 03/28/22 20:45 Dose: 20 mg Documented by: Zinc Sulfate (Zinc Sulfate 220 Mg Capsule) [facility]; Protocol Stop: 04/27/22 08:59 Last Admin: 03/29/22 08:16 Dose: 220 mg Documented by: (1) CHF (congestive heart failure) Heart failure chronicity: unspecified Heart failure type: unspecified Qualified Code(s): I50.9 - Heart failure, unspecified (2) Anemia Anemia type: unspecified type Qualified Code(s): D64.9 - Anemia, unspecified (3) Pulmonary edema Chronicity: acute Qualified Code(s): J81.0 - Acute pulmonary edema
[2022-03-29] MEDS: PANTOprazole 40 MG in SYRINGE 0 ML IV SCH ×2 (12:49→20:04)
--- NOTE | 2022-03-29 14:14 | Ultrasound Report ---
RIGHT UPPER EXTREMITY ULTRASOUND CLINICAL HISTORY: Right Upper Extremity swelling, Rule out Hematoma COMPARISON STUDY: Right arm radiographs March 27, 2022. TECHNIQUE: Sonography of the right arm was performed to assess for fluid collection. FINDINGS: Extensive subcutaneous edema of the right arm is noted. No well-defined fluid collection is identified to suggest a hematoma or abscess. IMPRESSION: Extensive subcutaneous edema of the right arm. No well-defined fluid collection to sugge st abscess or hematoma by sonography. ACT 112: Negative or not required by law. Electronically signed by: Loki Orta M.D. 03/29/2022 2:13 PM
--- NOTE | 2022-03-29 18:01 | Hospitalist Progress Note ---
Date of Service March 29, 2022 Assessment & Plan (1) Supratherapeutic INR: Plan: Suspected Coumadin induced bleeding in setting of Supratherapeutic INR Reports H/O fall few days ago as per patient FOBT Negative on 03/27/22 Received Vit K Less likely hemothorax as per Pulm No other obvious source of bleeding INR:3.4>1.2>1.1 Coumadin on hold for now Monitor INR (2) Atrial fibrillation: Plan: Chronic, currently rate controlled Continue metoprolol Anticoagulation on hold (3) Anemia, unspecified: Plan: Suspected Coumadin induced bleeding in setting of Supratherapeutic INR FOBT negative -CT ABD:No acute intra-abdominal or pelvic abnormality. Appreciate GI Input Continue PPI S/P 1 unit PRBCs Monitor CBC Hb 7.9 today Iron panel, vitamin B12, folic acid normal Hemolytic work-up ordered (4) Pleural effusion, bilateral: Plan: Bilateral pleural effusion Likely due to high-output cardiac failure in setting of significant anemia Acute Systolic and diastolic heart failure ? Hemothorax --less likely as per Pulm (Pulm also discussed with radiology) -CT Chest:Soft tissue edema throughout the right chest wall is nonspecific and given the clinical history likely represents contusion. There are moderate to large pleural effusions with significant atelectasis of the lower lungs -ECHO: Normal LV chamber size with moderate concentric LVH. Left ventricular systolic function is moderately reduced. Moderate global hypokinesis of left ventricle. EF 35 to 40%. Grade 2 diastolic dysfunction. Mild aortic regurgitation. Mild valvular aortic stenosis. Moderate mitral annular calcification with mild mitral regurgitation. Mild tricuspid regurgitation. Severe biatrial enlargement. 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 No well-defined fluid collection to suggest abscess or hematoma by sonography. -Humerus X ray:No acute osseous pathology. There is again diffuse subcutaneous edema surrounding the arm of uncertain etiology. -Forearm X ray:No fracture within the right radius or ulna. Forearm soft tissue swelling. -RUE Doppler:There is no sonographic evidence of deep venous thrombosis identified in the right upper extremity. -Avoid narcotics as able Appreciate orthopedics input (7) Type II diabetes mellitus with complication: Plan: - Last HbA1C = 4.9 on 02/10/22 - Was taken off glimepiride yesterday 03/26, in the setting of elderly patient with possible hypoglycemic episodes in the past. Hold metformin ISS for now Monitor BGs (8) Memory loss: Plan: - Has a appt scheduled with outpatient neurology on 05/06 Dementia as per records (9) Generalized weakness: Plan: - PT/OT Fall precautions (10) Acute osteomyelitis of toe of right foot: Plan: Follows with [facility] Continue wound care ID follow up appointment already scheduled in mid April (11) Hypothyroidism: Plan: - Continue levothyroxine (12) PVD (peripheral vascular disease): Plan: -On Aspirin Follows with Dr. Gold with vascular as outpatient DVT Px: Teds, SCDs, holding Coumadin Re: Anemia, Suspected bleeding CODE STATUS: DNR/DNI Admission and Anticipated Discharge Date Admission Date: March 27, 2022 Subjective Patient is seen and examined at bedside Confused intermittently Denies chest pain, Dyspnea Discussed with Pulmonology today Review of Systems Review of Systems: All systems reviewed & are unremarkable except as noted in Subjective Physical Exam Physical Exam: Physical Exam: Vitals signs as noted above General Appearance:Moderately built and nourished, ill appearing, no apparent distress Head: normocephalic, Atraumatic Eyes: normal inspection, EOMI Neck: supple, Trachea midline Respiratory/Chest: Decreased breath sounds at bases, No accessory muscle use Cardiovascular: Irregularly irregular, No murmur Abdomen/GI:Soft, Non tender, Bowel sounds present Extremities/Musculoskeletal:normal inspection, RUE edema, Ecchymosis Neurologic/Psych:AAO, grossly no focal neurological deficits Skin: normal color, warm Results & Data Results & Data ([facility]) Vital Signs (Past 12 Hours) Vital Signs Temp Pulse BP Pulse Ox 03/29/22 14:30 36.4 C L 93 H 129/74 96 03/29/22 11:36 36.5 C 91 H 137/72 96 03/29/22 07:16 36.7 C 96 H 132/75 95 Laboratory Results Short CBC 03/28/22 03/29/22 Range/Units 20:03 05:55 WBC 8.49 (4.8-10.8) K/uL Hgb 8.3 L 7.9 L (14.0-18.0) g/dL Hct 25.7 L 24.9 L (42-52) % Plt Count 313 (130-400) K/uL BMP 03/29/22 05:55 Sodium 135 L Potassium 3.5 Chloride 101 Carbon Dioxide 27 BUN 18 Creatinine 1.03 Glucose 92 Calcium 8.5 Liver Function 03/29/22 Range/Units 05:55 Total Bilirubin 2.8 H D (0.2-1.0) mg/dl Direct Bilirubin 0.7 H (0-0.2) mg/dl AST 25 (13-39) U/L ALT 14 (7-52) U/L Alkaline Phosphatase 51 (34-104) U/L Albumin 3.1 L (3.4-5.0) gm/dl
[2022-03-29] MEDS: SIMVASTATIN 20 MG TAB PO SCH (20:05)
[2022-03-30] MEDS: ACETAMINOPHEN 325 MG TAB PO PRN ×3 (00:35→20:51)
[2022-03-30] MEDS: LEVOTHYROXINE SODIUM 25 MCG TABLET PO SCH (05:43)
--- NOTE | 2022-03-30 07:17 | Orthopedic Progress Note ---
Date of Service March 30, 2022 Assessment & Plan (1) Swelling of right upper extremity: His INR is improved and his ecchymosis and swelling is improved as well. He has motion of his hand wrist and elbow. He is able to use his right upper extremity to ambulate with a walker. I will see any signs of compartment syndrome. The swelling seems to be resolving. It will take several weeks to fully resolve on its own. Orthopedics will sign off. There is no need to follow-up in the office. If you have any further questions please feel free to [place] text me or contact me personally on my cell phone at [phone]. Subjective Leyla was seen and examined at bedside this morning. Overall he is improving. He is not having as much pain in his right arm. He has been able to use a walker with his right upper extremity. He has no new complaints with his arm. Review of Systems All systems reviewed & are unremarkable except as noted in HPI & below. Physical Exam On physical examination the right arm, he has some ecchymosis and edema around the right forearm. He has motion of his hand and his wrist. He has motion of his elbow. Overall the ecchymosis is improved. Results & Data Results & Data Laboratory Results . Diagnostic Findings . PG Care Time/CCT Total # of Minutes Spent Total Time Spent with Patient: Total time spent is greater than 50% in coordination of care (as documented) at patient's floor/unit and/or counseling patient: Coding Level of Care Code 65957 Subseq Hosp Care Lvl 2 Diagnoses Swelling of right upper extremity M79.89
[2022-03-30 07:26] LABS: Hematocrit (blood only) 26.4 % (42-52); Hemoglobin 8.2 g/dL (14.0-18.0); Mean Corpuscular Hemoglobin 30.5 pg (25-34); Mean Corpuscular Hgb Conc 31.1 g/dL (32-36); Mean Corpuscular Volume 98.1 fL (80-100); Mean Platelet Volume 8.7 fL (7.4-10.4); Platelet Count 317 K/uL (130-400); RDW Standard Deviation 66.9 fL (36.4-46.3); Red Blood Count 2.69 M/uL (4.7-6.1); Reticulocyte % 7.1 % (0.5-2.0); Reticulocytes # 0.19 10^6/uL (0.02-0.10)
[2022-03-30 07:55] LABS: Fibrinogen 617 mg/dl (184-400); INR 1.1 (0.9-1.1)
[2022-03-30 08:01] LABS: BUN Creatinine Ratio 19.6 (10-20); Calcium 8.6 mg/dl (8.5-10.1); Creatinine Clr Calc Pharmacy 72.5 ml/min; Est GFR (African American) 90.7 ml/min; Est GFR (Non-African American) 78.3 ml/min; Potassium 3.6 mmol/L (3.5-5.1)
[2022-03-30] MEDS: METOPROLOL TARTRATE 50 MG TAB PO SCH ×2 (09:53→20:51)
[2022-03-30] MEDS: FUROSEMIDE 40 MG/4 ML VIAL IV SCH ×2 (09:53→18:01)
[2022-03-30] MEDS: POTASSIUM CHLORIDE CRTAB 20 MEQ TABCR PO SCH ×2 (09:53→20:51)
[2022-03-30] MEDS: ZINC SULFATE 220 MG CAPSULE PO SCH (09:54)
[2022-03-30] MEDS: allopurinoL 100 MG TAB PO SCH ×2 (09:54→20:52)
[2022-03-30] MEDS: DOCUSATE SODIUM 100 MG CAP PO SCH ×2 (09:54→20:52)
[2022-03-30] MEDS: SERTRALINE HCL 50 MG TABLET PO SCH (09:55)
[2022-03-30] MEDS: CEROVITE ADV FORMULA TAB PO SCH (09:55)
[2022-03-30] MEDS: ASPIRIN 81 MG CHEW PO SCH (09:55)
[2022-03-30] MEDS: FERROUS SULFATE 325 MG TAB PO SCH ×3 (09:55→16:27)
[2022-03-30] MEDS: SACCHAROMYCES BOULARDII 250 MG CAP PO SCH (09:56)
[2022-03-30] MEDS: INSULIN ASPART PER UNIT SC SCH ×4 (10:30→20:54)
[2022-03-30] MEDS: PANTOprazole 40 MG in SYRINGE 0 ML IV SCH ×2 (11:36→20:52)
--- NOTE | 2022-03-30 12:54 | Pulmonology Progress Note ---
Date of Service March 30, 2022 Assessment & Plan (1) CHF (congestive heart failure): Heart failure chronicity: unspecified Heart failure type: unspecified Qualified Code(s): I50.9 - Heart failure, unspecified (2) Pleural effusion: (3) Anemia: Anemia type: unspecified type Qualified Code(s): D64.9 - Anemia, unspecified Plan: 82-year-old male with a past medical history of reported dementia, atrial fibrillation on warfarin and combined systolic and diastolic heart failure presenting to the hospital due to a fall. Found to have bilateral effusions which were previously noted as well. Patient with likely high-output cardiac failure. Continue with diuresis and blood transfusions. We will hold on thoracentesis at this time given his stability and lack of need for supplemental oxygen. Thank you for the consult. Please call with questions. Admission and Anticipated Discharge Date Admission Date: March 27, 2022 Subjective Patient seen and examined. Complains of discomfort in his hip and thigh. Otherwise denies dyspnea or chest pain. Nursing notes that he has been confused and combative at times today. He slept poorly last night. Review of Systems Review of Systems: All systems reviewed & are unremarkable except as noted in HPI & below Physical Exam Constitutional: WD/WN, vitals as above Eyes: PERRL, conjunctivae normal, anicteric sclerae Cardiovascular: Rate/Rhythm: + irregularly irregular Heart Sounds: + murmur Extremities: + edema Gastrointestinal (Abdomen): normal bowel sounds, soft, nontender, no hepatosplenomegaly Skin: Edema in his right upper extremity and right chest wall. Decreased range of motion of his right arm and shoulder. Neurologic: PERRL, EOMI, accommodation nl, no face palsy, no dysarthria Psychiatric: A+Ox3, euthymic affect Results & Data Results & Data ([facility]) Vital Signs (Past 12 Hours) Vital Signs Temp Pulse Resp BP Pulse Ox 03/30/22 11:57 36.4 C L 111 H 22 159/81 H 95 03/30/22 07:09 36.5 C 83 18 155/92 H 95 03/30/22 03:25 36.6 C 94 H 20 142/82 H 95 PG Care Time/CCT Total # of Minutes Spent Total Time Spent with Patient: Total time spent is greater than 50% in coordination of care (as documented) at patient's floor/unit and/or counseling patient: Coding Level of Care Code 27280 Subseq Hosp Care Lvl 2 Diagnoses CHF (congestive heart failure) I50.9 Heart failure chronicity: unspecified Heart failure type: unspecified Pleural effusion J90 Anemia D64.9 Anemia type: unspecified type
--- NOTE | 2022-03-30 13:40 | Urology Consultation ---
Date of Consultation March 30, 2022 Assessment & Plan (1) Gross hematuria: For now his bladder is well managed with the catheter in place. I suspect the hematuria was likely related to decompression of an over distended bladder or possibly traumatic catheterization. Urinalysis was not very concerning for infection. The urine draining now is totally clear and I have low concern for clot retention of urine. We discussed that although there are several possible causes, hematuria is never considered normal. I would recommend that we perform hematuria evaluation as an outpatient. I think the CT scan he had done is sufficient for evaluation of the upper urinary tracts. We will plan to obtain urine cytology and perform cystoscopy as an outpatient. I would recommend maintaining the catheter per primary team. If the catheter becomes obstructed, perform gentle hand irrigation or upsize to a larger bore catheter to allow evacuation of any clots. Maintain current Castaneda catheter, hand irrigate if needed for clots. Continue to monitor Urology will sign off for now and will coordinate outpatient follow-up. Please call with any questions or concerns. History of Present Illness Reason for Consultation: Hematuria Attending Physician: Tomer Ray MD History of Present Illness This is an 82-year-old male with history of A. fib on Coumadin, dementia, BPH who was recently admitted to the hospital with an elevated INR and anemia. CT scan showed fluid collections within his lungs which were thought to be increasing in size. There was also concern for possible loss of blood via the GI tract. He was also noted to have ongoing right upper extremity pain. A Castaneda catheter was placed while he was here in the hospital, and on 03/30/2022, he started to have hematuria. Urology was consulted for recommendations regarding hematuria. At the bedside, he is unable to provide much meaningful history due to dementia. He thinks he has seen a urologist in the past, but I do not appreciate any notes from our office. He reports prior history of surgery on his kidneys, but not certain what it was. He denies any family history of bladder or kidney cancer. He has no smoking history, but has prior exposure to cigarette smoke by his mother. I reviewed his recent labs. He is still anemic with a hemoglobin of 8.2. INR has normalized and is now 1.1. I independently reviewed his CT scan from 03/27/2022. 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 There is no hydronephrosis or hydroureter on either side. There are no stones appreciated. The bladder is somewhat distended, but there are no obvious intraluminal masses. His prostate is slightly enlarged. Allergies Allergy/AdvReac Type Severity Reaction Status Date / Time No Known Allergies Allergy Verified 03/27/22 13:22 Home Medications Medication Instructions Recorded Confirmed Type allopurinol 100 mg tablet 100 mg PO BID 02/03/22 03/27/22 History aspirin 81 mg chewable tablet 81 mg PO QAM 02/03/22 03/27/22 History (Aspirin Childrens) furosemide 40 mg tablet 40 mg PO QAM 02/03/22 03/27/22 History garlic 400 mg tablet 400 mg PO BID tab 02/03/22 03/27/22 History metformin 500 mg tablet 500 mg PO BID 02/03/22 03/27/22 History metoprolol tartrate 50 mg tablet 50 mg PO Q12H 02/03/22 03/27/22 History multivitamin with minerals 1 cap PO QAM 02/03/22 03/27/22 History omega-3 fatty acids 1,000 mg 1,000 mg PO BID 02/03/22 03/27/22 History capsule potassium chloride 20 mEq 20 meq PO QAM 02/03/22 03/27/22 History tablet,extended release(part/cryst) (Klor-Con M) saw palmetto 450 mg capsule 450 mg PO BID 02/03/22 03/27/22 History simvastatin 20 mg tablet 20 mg PO HS 02/03/22 03/27/22 History ferrous sulfate 325 mg (65 mg 325 mg PO TIDM 02/17/22 03/27/22 History iron) tablet levothyroxine 25 mcg capsule 25 mcg PO DAILYBB 02/17/22 03/27/22 History oxycodone-acetaminophen 5 mg-325 See Rx Instructions .ROUTE 02/17/22 03/27/22 History mg tablet (Percocet) .COMPLEX PRN sertraline 25 mg tablet 25 mg PO QAM 02/17/22 03/27/22 History zinc acetate 25 mg (zinc) capsule 25 mg PO QAM 02/17/22 03/27/22 History Saccharomyces boulardii 250 mg 250 mg PO QAM 03/25/22 03/27/22 History capsule acetaminophen 500 mg tablet 1,000 mg PO Q8H PRN 03/25/22 03/27/22 History docusate sodium 100 mg capsule 100 mg PO BID 03/25/22 03/27/22 History (Colace) warfarin 3 mg tablet 3 mg PO HS 03/25/22 03/27/22 History Patient History Medical History Acute kidney failure, unspecified Anemia, unspecified Atrial fibrillation Benign prostatic hyperplasia without lower urinary tract symptoms Chronic atrial fibrillation, unspecified Chronic diastolic (congestive) heart failure Chronic gout Critical illness myopathy Depression Diverticulitis Diverticulitis of intestine, part unspecified, without perforation or abscess without bleeding Edema, unspecified Essential (primary) hypertension Gout Type 2 diabetes mellitus with unspecified complications Social History Smoking Status: Never smoker Second Hand Exposure: No; Do You Dip or Chew Tobacco: No; Tobacco Cessation Education Requested by Patient: No Hx Alcohol Use: No Hx Substance Use: No Preferred Language: Bahraini Communication Ability: Effective Clinical Services Consultant Required: No Beliefs That Will Affect Care: None marital status: Unknown Current Living Situation: [facility] Other Information That Helps Us Care for You: No Feels Safe at Home: Yes Safety Concerns: Feels Safe At This Time Assistive Devices: Walker Assistive Devices Comment: pt states glasses but no with him Review of Systems Review of Systems: Unobtainable due to cognitive status Physical Exam Constitutional: well developed and well nourished Eyes: + anicteric sclerae; pupils not irregular Respiratory: normal respiratory effort and + audible wheezes Cardiovascular: Tachycardic, well-perfused Gastrointestinal (Abdomen): Inspection/Auscultation: abdomen normal to inspection; abdomen not distended Musculoskeletal: Ecchymosis on the right upper extremity, compression stockings on the lower extremities Skin: normal turgor; no rashes and no lesions Neurologic: moves all extremities and awake Psychiatric: Orientation: alert and oriented x 3 Genitourinary: 16 [place] Castaneda catheter per urethra in good position, draining clear urine. Some sediment in the line and some old blood within the collection bag. Results & Data ([facility]) Vital Signs (Past 12 Hours) Vital Signs Temp Pulse Resp BP Pulse Ox 03/30/22 11:57 36.4 C L 111 H 22 159/81 H 95 03/30/22 07:09 36.5 C 83 18 155/92 H 95 03/30/22 03:25 36.6 C 94 H 20 142/82 H 95 PG Care Time/CCT Total # of Minutes Spent Total Time Spent with Patient: Total time spent is greater than 50% in coordination of care (as documented) at patient's floor/unit and/or counseling patient: Coding Level of Care Code 67526 Initial Inpt Care Lvl 2 Diagnoses Gross hematuria R31.0
[2022-03-30] MEDS ORDERED: MAGNESIUM SULFATE / D5W 1 GM/100 ML BAG IV ONE (15:30)
[2022-03-30] MEDS ORDERED: POTASSIUM CHLORIDE CRTAB 20 MEQ TABCR PO ONE (15:30)
[2022-03-30] MEDS: SIMVASTATIN 20 MG TAB PO SCH (20:51)
--- NOTE | 2022-03-30 21:09 | Hospitalist Progress Note ---
Date of Service March 30, 2022 Assessment & Plan (1) Supratherapeutic INR: Plan: Suspected Coumadin induced bleeding in setting of Supratherapeutic INR Reports H/O fall few days ago as per patient FOBT Negative on 03/27/22 Received Vit K Less likely hemothorax as per Pulm No other obvious source of bleeding INR:3.4>1.2>1.1 Coumadin on hold for now Monitor INR Gross hematuria Possibly traumatic catheterization, decompression for distended bladder Appreciate urology input Hold aspirin, anticoagulation Continue Castaneda catheter If needs follow-up with urology upon discharge Monitor CBC (2) Atrial fibrillation: Plan: Chronic, currently rate controlled Continue metoprolol Anticoagulation on hold (3) Anemia, unspecified: Plan: Suspected Coumadin induced bleeding in setting of Supratherapeutic INR FOBT negative -CT ABD:No acute intra-abdominal or pelvic abnormality. Appreciate GI Input Continue PPI S/P 1 unit PRBCs Monitor CBC Hb 8.2 today Iron panel, vitamin B12, folic acid normal Follow up Hemolytic work up (4) Pleural effusion, bilateral: Plan: Bilateral pleural effusion Likely due to high-output cardiac failure in setting of significant anemia Acute Systolic and diastolic heart failure ? Hemothorax --less likely as per Pulm (Pulm also discussed with radiology) -CT Chest:Soft tissue edema throughout the right chest wall is nonspecific and given the clinical history likely represents contusion. There are moderate to large pleural effusions with significant atelectasis of the lower lungs -ECHO: Normal LV chamber size with moderate concentric LVH. Left ventricular systolic function is moderately reduced. Moderate global hypokinesis of left ventricle. EF 35 to 40%. Grade 2 diastolic dysfunction. Mild aortic regurgitation. Mild valvular aortic stenosis. Moderate mitral annular calci fication with mild mitral regurgitation. Mild tricuspid regurgitation. Severe biatrial enlargement. 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 No well-defined fluid collection to suggest abscess or hematoma by sonography. -Humerus X ray:No acute osseous pathology. There is again diffuse subcutaneous edema surrounding the arm of uncertain etiology. -Forearm X ray:No fracture within the right radius or ulna. Forearm soft tissue swelling. -RUE Doppler:There is no sonographic evidence of deep venous thrombosis identified in the right upper extremity. -Avoid narcotics as able Appreciate orthopedics input (7) Type II diabetes mellitus with complication: Plan: - Last HbA1C = 4.9 on 02/10/22 - Was taken off glimepiride yesterday 03/26, in the setting of elderly patient with possible hypoglycemic episodes in the past. Hold metformin ISS for now Monitor BGs (8) Memory loss: Plan: - Has a appt scheduled with outpatient neurology on 05/06 Dementia as per records (9) Generalized weakness: Plan: - PT/OT Fall precautions (10) Acute osteomyelitis of toe of right foot: Plan: [facility] Continue wound care ID follow up appointment already scheduled in mid April (11) Hypothyroidism: Plan: - Continue levothyroxine (12) PVD (peripheral vascular disease): Plan: -On Aspirin Follows with Dr. Gold with vascular as outpatient DVT Px: Teds, SCDs, holding Coumadin Re: Anemia, Suspected bleeding CODE STATUS: DNR/DNI Admission and Anticipated Discharge Date Admission Date: March 27, 2022 Subjective Patient is seen and examined at bedside States feeling better today Was able to move right upper extremity better Noted hematuria Denies chest pain, Dyspnea, abd pain Review of Systems Review of Systems: All systems reviewed & are unremarkable except as noted in Subjective Physical Exam Physical Exam: Physical Exam: Vitals signs as noted above General Appearance:Moderately built and nourished, ill appearing, no apparent distress Head: normocephalic, Atraumatic Eyes: normal inspection, EOMI Neck: supple, Trachea midline Respiratory/Chest: Decreased breath sounds at bases, No accessory muscle use Cardiovascular: Irregularly irregular, No murmur Abdomen/GI:Soft, Non tender, Bowel sounds present Extremities/Musculoskeletal:normal inspection, RUE edema, Ecchymosis Neurologic/Psych:AAO, grossly no focal neurological deficits Skin: normal color, warm Results & Data Results & Data ([facility]) Vital Signs (Past 12 Hours) Vital Signs Temp Pulse Resp BP Pulse Ox 03/30/22 20:07 36.6 C 85 18 132/81 95 03/30/22 15:00 36.2 C L 96 H 20 164/90 H 96 03/30/22 11:57 36.4 C L 111 H 22 159/81 H 95 Laboratory Results Short CBC 03/30/22 Range/Units 07:04 WBC 7.60 (4.8-10.8) K/uL Hgb 8.2 L (14.0-18.0) g/dL Hct 26.4 L (42-52) % Plt Count 317 (130-400) K/uL BMP 03/30/22 07:04 Sodium 134 L Potassium 3.6 Chloride 101 Carbon Dioxide 27 BUN 18 Creatinine 0.92 Glucose 101 H Calcium 8.6
[2022-03-31] MEDS: ACETAMINOPHEN 325 MG TAB PO PRN (05:34)
[2022-03-31] MEDS: LEVOTHYROXINE SODIUM 25 MCG TABLET PO SCH (05:34)
[2022-03-31] MEDS ORDERED: XOPENEX/ATROVENT 1.25mg/0.5MG NEB COMBO NEB STA (06:34)
[2022-03-31] MEDS ORDERED: IPRATROPIUM BROMIDE NEB SOLN 0.02% 2.5 ML VIAL INH STA (06:37)
[2022-03-31] MEDS ORDERED: LEVALBUTEROL 1.25MG/0.5ML NEB INH STA (06:37)
[2022-03-31] MEDS: FUROSEMIDE 40 MG/4 ML VIAL IV SCH ×2 (06:38→19:51)
[2022-03-31] MEDS: METOPROLOL TARTRATE 50 MG TAB PO SCH ×2 (06:38→21:02)
[2022-03-31] MEDS: INSULIN ASPART PER UNIT SC SCH ×4 (08:00→21:02)
[2022-03-31] MEDS: allopurinoL 100 MG TAB PO SCH ×2 (08:06→21:01)
[2022-03-31] MEDS: DOCUSATE SODIUM 100 MG CAP PO SCH ×2 (08:07→21:01)
[2022-03-31] MEDS: SERTRALINE HCL 50 MG TABLET PO SCH (08:07)
[2022-03-31] MEDS: POTASSIUM CHLORIDE CRTAB 20 MEQ TABCR PO SCH ×2 (08:07→21:02)
[2022-03-31] MEDS: FERROUS SULFATE 325 MG TAB PO SCH ×3 (08:08→16:29)
[2022-03-31] MEDS: SACCHAROMYCES BOULARDII 250 MG CAP PO SCH (08:08)
[2022-03-31] MEDS: ZINC SULFATE 220 MG CAPSULE PO SCH (08:09)
[2022-03-31] MEDS: PANTOprazole 40 MG in SYRINGE 0 ML IV SCH ×2 (08:09→21:01)
[2022-03-31] MEDS: CEROVITE ADV FORMULA TAB PO SCH (08:09)
[2022-03-31 08:48] LABS: INR 1.1 (0.9-1.1); Prothrombin Time 12.1 Seconds (9.0-12.0)
[2022-03-31 08:56] LABS: BUN Creatinine Ratio 21.7 (10-20); Calcium 8.7 mg/dl (8.5-10.1); Est GFR (African American) 96.3 ml/min; Est GFR (Non-African American) 83.1 ml/min; Potassium 3.7 mmol/L (3.5-5.1)
[2022-03-31] MEDS ORDERED: METOPROLOL TARTRATE 1 MG/ML VIAL IV PRN (09:40)
[2022-03-31] MEDS ORDERED: FUROSEMIDE 40 MG/4 ML VIAL IV ONE (12:30)
[2022-03-31] MEDS ORDERED: POTASSIUM CHLORIDE CRTAB 20 MEQ TABCR PO STA (12:30)
--- NOTE | 2022-03-31 14:37 | Pulmonology Progress Note ---
Date of Service March 31, 2022 Assessment & Plan (1) CHF (congestive heart failure): Heart failure chronicity: unspecified Heart failure type: unspecified Qualified Code(s): I50.9 - Heart failure, unspecified (2) Pleural effusion: (3) Anemia: Anemia type: unspecified type Qualified Code(s): D64.9 - Anemia, unspecified Plan: 82-year-old male with a past medical history of reported dementia, atrial fibrillation on warfarin and combined systolic and diastolic heart failure presenting to the hospital due to a fall. Found to have bilateral effusions which were previously noted as well. Chest x-ray from today reviewed which demonstrates bilateral layering effusions. Stable. Patient with likely high-output cardiac failure. Continue with diuresis. We will hold on thoracentesis at this time given his stability and lack of need for supplemental oxygen. Thank you for the consult. Please call with questions. Pulmonary will sign off. Admission and Anticipated Discharge Date Admission Date: March 27, 2022 Subjective Patient continues to deny of any significant shortness of breath. He is confused at times and does not know that he is in the hospital. No fevers or chills. No overnight events per nursing. Physical Exam Constitutional: WD/WN, vitals as above Eyes: PERRL, conjunctivae normal, anicteric sclerae Respiratory: Crackles bilaterally. No increased work of breathing. Cardiovascular: Rate/Rhythm: + irregularly irregular Heart Sounds: + murmur Extremities: + edema Gastrointestinal (Abdomen): normal bowel sounds, soft, nontender, no hepatosplenomegaly Musculoskeletal: no cyanosis or clubbing, extremities motor strength 5/5 Neurologic: PERRL, EOMI, accommodation nl, no face palsy, no dysarthria Psychiatric: A+Ox3, euthymic affect Results & Data Results & Data ([facility]) Vital Signs (Past 12 Hours) Vital Signs Temp Pulse Pulse Resp BP Pulse Ox 03/31/22 10:48 36.4 C L 104 H 20 149/76 H 94 03/31/22 07:25 118 H 03/31/22 06:51 111 H 18 95 03/31/22 05:48 36.7 C 107 H 22 157/84 H 97 03/31/22 03:30 36.6 C 98 H 20 148/90 H 96 PG Care Time/CCT Total # of Minutes Spent Total Time Spent with Patient: Total time spent is greater than 50% in coordination of care (as documented) at patient's floor/unit and/or counseling patient: Coding Level of Care Code 93766 Subseq Hosp Care Lvl 1 Diagnoses CHF (congestive heart failure) I50.9 Heart failure chronicity: unspecified Heart failure type: unspecified Pleural effusion J90 Anemia D64.9 Anemia type: unspecified type
--- NOTE | 2022-03-31 14:47 | XRay Report ---
XR chest 1V portable HISTORY: Dyspnea. Shortness of breath. COMPARISON: Chest 03/29/2022. FINDINGS: No pneumothorax. The heart remains enlarged. There are moderate bilateral pleural effusions with bibasilar densities, unchanged. Pulmonary edema persists. IMPRESSION: No change in the pulmonary edema and moderate bilateral pleural effusions. ACT 112: Negative or not required by law. Electronically signed by: Dusty Rogers M.D. 03/31/2022 2:45 PM
[2022-03-31] MEDS: LEVALBUTEROL HCL 0.63 MG/3 ML NEB NEB PRN (16:45)
--- NOTE | 2022-03-31 17:53 | Hospitalist Progress Note ---
Date of Service March 31, 2022 Assessment & Plan (1) Supratherapeutic INR: Plan: Suspected Coumadin induced bleeding in setting of Supratherapeutic INR Reports H/O fall few days ago as per patient FOBT Negative on 03/27/22 Received Vit K Less likely hemothorax as per Pulm No other obvious source of bleeding INR:3.4>1.2>1.1 Coumadin on hold for now Monitor INR Gross hematuria Possibly traumatic catheterization, decompression for distended bladder Appreciate urology input Hold aspirin, anticoagulation Continue Castaneda catheter If needs follow-up with urology upon discharge Monitor CBC Hematuria resolved (2) Atrial fibrillation: Plan: Chronic, currently rate controlled Continue metoprolol Anticoagulation on hold (3) Anemia, unspecified: Plan: Suspected Coumadin induced bleeding in setting of Supratherapeutic INR FOBT negative -CT ABD:No acute intra-abdominal or pelvic abnormality. Appreciate GI Input Continue PPI S/P 1 unit PRBCs Monitor CBC Hb 8.2 Iron panel, vitamin B12, folic acid normal Peripheral smear not suggestive of hemolysis (4) Pleural effusion, bilateral: Plan: Bilateral pleural effusion Likely due to high-output cardiac failure in setting of significant anemia Acute Systolic and diastolic heart failure ? Hemothorax --less likely as per Pulm (Pulm also discussed with radiology) -CT Chest:Soft tissue edema throughout the right chest wall is nonspecific and given the clinical history likely represents contusion. There are moderate to large pleural effusions with significant atelectasis of the lower lungs -ECHO: Normal LV chamber size with moderate concentric LVH. Left ventricular systolic function is moderately reduced. Moderate global hypokinesis of left ventricle. EF 35 to 40%. Grade 2 diastolic dysfunction. Mild aortic regurgitation. Mild valvular aortic stenosis. Moderate mitral annular calcification with mild mitral regurgitation. Mild tricuspid regurgitation. Severe biatrial enlargement. -Continue IV Lasix Monitor volume status Appreciate Pulmonary, Cardiology input Saturating well on room air Given an extra dose of IV Lasix today Mitral Vegetation on ECHO as above Suspected IE Blood Cultures negative to date Likely calcium deposits as per cardiology Appreciate Cardiology Input (5) HTN (hypertension): Plan: Continue metoprolol (6) Diffuse pain in right upper extremity: Plan: -RUE USD:Extensive subcutaneous edema of the right arm. No well-defined fluid collection to suggest abscess or hematoma by sonography. -Humerus X ray:No acute osseous pathology. There is again diffuse subcutaneous edema surrounding the arm of uncertain etiology. -Forearm X ray:No fracture within the right radius or ulna. Forearm soft tissue swelling. -RUE Doppler:There is no sonographic evidence of deep venous thrombosis identified in the right upper extremity. -Avoid narcotics as able Appreciate orthopedics input (7) Type II diabetes mellitus with complication: Plan: - Last HbA1C = 4.9 on 02/10/22 - Was taken off glimepiride yesterday 03/26, in the setting of elderly patient with possible hypoglycemic episodes in the past. Hold metformin ISS for now Monitor BGs (8) Memory loss: Plan: - Has a appt scheduled with outpatient neurology on 05/06 Dementia as per records (9) Generalized weakness: Plan: - PT/OT Fall precautions (10) Acute osteomyelitis of toe of right foot: Plan: Follows with [facility] Continue wound care ID follow up appointment already scheduled in mid April (11) Hypothyroidism: Plan: - Continue levothyroxine (12) PVD (peripheral vascular disease): Plan: -On Aspirin Follows with Dr. Gold with vascular as outpatient DVT Px: Teds, SCDs, holding Coumadin Re: Anemia, Suspected bleeding CODE STATUS: DNR/DNI Admission and Anticipated Discharge Date Admission Date: March 27, 2022 Subjective Patient is seen and examined at bedside States having dyspnea during my encounter Hematuria resolved Tachycardic on monitor Right upper extremity pain improving Denies chest pain, abd pain, dizzines, nausea Review of Systems Review of Systems: All systems reviewed & are unremarkable except as noted in Subjective Physical Exam Physical Exam: Physical Exam: Vitals signs as noted above General Appearance:Moderately built and nourished, ill appearing, no apparent distress Head: normocephalic, Atraumatic Eyes: normal inspection, EOMI Neck: supple, Trachea midline Respiratory/Chest: Decreased breath sounds, Crackles at bases Cardiovascular: Irregularly irregular, No murmur Abdomen/GI:Soft, Non tender, Bowel sounds present Extremities/Musculoskeletal:normal inspection, RUE edema, Ecchymosis Neurologic/Psych:AAO, grossly no focal neurological deficits Skin: normal color, warm Results & Data Results & Data ([facility]) Vital Signs (Past 12 Hours) Vital Signs Temp Pulse Pulse Resp BP Pulse Ox 03/31/22 16:45 103 H 20 94 03/31/22 15:39 107 H 03/31/22 14:51 36.7 C 98 H 20 148/90 H 96 03/31/22 10:48 36.4 C L 104 H 20 149/76 H 94 03/31/22 07:25 118 H 03/31/22 06:51 111 H 18 95 03/31/22 05:48 36.7 C 107 H 22 157/[address] [facility] 03/31/22 07:58 Sodium 133 L Potassium 3.7 Chloride 100 Carbon Dioxide 24 BUN 18 Creatinine 0.83 Glucose 94 Calcium 8.7
[2022-03-31] MEDS: traMADol HCL 50 MG TABLET PO PRN (21:00)
[2022-03-31] MEDS: SIMVASTATIN 20 MG TAB PO SCH (21:01)
[2022-04-01] MEDS: traMADol HCL 50 MG TABLET PO PRN ×2 (01:12→08:26)
[2022-04-01] MEDS: LEVOTHYROXINE SODIUM 25 MCG TABLET PO SCH (05:21)
[2022-04-01] MEDS: CEROVITE ADV FORMULA TAB PO SCH (08:13)
[2022-04-01] MEDS: PANTOprazole 40 MG in SYRINGE 0 ML IV SCH ×2 (08:14→20:37)
[2022-04-01] MEDS: ZINC SULFATE 220 MG CAPSULE PO SCH (08:14)
[2022-04-01] MEDS: SERTRALINE HCL 50 MG TABLET PO SCH (08:14)
[2022-04-01] MEDS: SACCHAROMYCES BOULARDII 250 MG CAP PO SCH (08:14)
[2022-04-01] MEDS: METOPROLOL TARTRATE 50 MG TAB PO SCH ×2 (08:15→20:39)
[2022-04-01] MEDS: POTASSIUM CHLORIDE CRTAB 20 MEQ TABCR PO SCH ×2 (08:15→20:38)
[2022-04-01] MEDS: FERROUS SULFATE 325 MG TAB PO SCH ×4 (08:15→17:21)
[2022-04-01] MEDS: DOCUSATE SODIUM 100 MG CAP PO SCH ×2 (08:16→20:39)
[2022-04-01] MEDS: FUROSEMIDE 40 MG/4 ML VIAL IV SCH ×2 (08:16→17:23)
[2022-04-01] MEDS: allopurinoL 100 MG TAB PO SCH ×2 (08:16→20:39)
[2022-04-01] MEDS: INSULIN ASPART PER UNIT SC SCH ×4 (08:27→20:27)
[2022-04-01 08:56] LABS: Hematocrit (blood only) 28.3 % (42-52); Mean Corpuscular Hemoglobin 32.1 pg (25-34); Mean Corpuscular Hgb Conc 31.8 g/dL (32-36); Mean Corpuscular Volume 101.1 fL (80-100); Mean Platelet Volume 8.8 fL (7.4-10.4); Platelet Count 347 K/uL (130-400); RDW Coefficient of Variation 19.5 % (11.5-14.5); RDW Standard Deviation 66.3 fL (36.4-46.3); White Blood Count 9.68 K/uL (4.8-10.8)
[2022-04-01 09:04] LABS: INR 1.1 (0.9-1.1); Prothrombin Time 12.1 Seconds (9.0-12.0)
[2022-04-01 09:14] LABS: BUN Creatinine Ratio 24.4 (10-20); Calcium 8.8 mg/dl (8.5-10.1); Est GFR (African American) 96.8 ml/min; Est GFR (Non-African American) 83.5 ml/min; Potassium 3.7 mmol/L (3.5-5.1)
[2022-04-01] MEDS ORDERED: FUROSEMIDE INJ 20 MG/2 ML VIAL IV ONE (12:30)
[2022-04-01] MEDS: LEVALBUTEROL HCL 0.63 MG/3 ML NEB NEB PRN ×2 (12:39→20:41)
--- NOTE | 2022-04-01 16:29 | Hospitalist Progress Note ---
Date of Service April 01, 2022 Assessment & Plan (1) Supratherapeutic INR: Plan: Suspected Coumadin induced bleeding in setting of Supratherapeutic INR Reports H/O fall few days ago as per patient FOBT Negative on 03/27/22 Received Vit K Less likely hemothorax as per Pulm No other obvious source of bleeding INR:3.4>1.2>1.1 Coumadin on hold for now Monitor INR Resume Coumadin as able Gross hematuria Possibly traumatic catheterization, decompression for distended bladder Appreciate urology input Hold anticoagulation Continue Castaneda catheter If needs follow-up with urology upon discharge Monitor CBC Hematuria resolved Resume aspirin today (2) Atrial fibrillation: Plan: Chronic, currently rate controlled Continue metoprolol Anticoagulation on hold (3) Anemia, unspecified: Plan: Suspected Coumadin induced bleeding in setting of Supratherapeutic INR FOBT negative -CT ABD:No acute intra-abdominal or pelvic abnormality. Appreciate GI Input Continue PPI S/P 1 unit PRBCs Monitor CBC Hb 9.0 today Iron panel, vitamin B12, folic acid normal Peripheral smear not suggestive of hemolysis (4) Pleural effusion, bilateral: Plan: Bilateral pleural effusion Likely due to high-output cardiac failure in setting of significant anemia Acute Systolic and diastolic heart failure ? Hemothorax --less likely as per Pulm (Pulm also discussed with radiology) -CT Chest:Soft tissue edema throughout the right chest wall is nonspecific and given the clinical history likely represents contusion. There are moderate to large pleural effusions with significant atelectasis of the lower lungs -ECHO: Normal LV chamber size with moderate concentric LVH. Left ventricular systolic function is moderately reduced. Moderate global hypokinesis of left ventricle. EF 35 to 40%. Grade 2 diastolic dysfunction. Mild aortic re gurgitation. Mild valvular aortic stenosis. Moderate mitral annular calcification with mild mitral regurgitation. Mild tricuspid regurgitation. Severe biatrial enlargement. -Continue IV Lasix Monitor volume status Appreciate Pulmonary, Cardiology input Saturating well on room air Continue IV diuresis Nebs as needed Mitral Vegetation on ECHO as above Suspected IE Blood Cultures negative to date Likely calcium deposits as per cardiology Appreciate Cardiology Input (5) HTN (hypertension): Plan: Continue metoprolol (6) Diffuse pain in right upper extremity: Plan: -RUE USD:Extensive subcutaneous edema of the right arm. No well-defined fluid collection to suggest abscess or hematoma by sonography. -Humerus X ray:No acute osseous pathology. There is again diffuse subcutaneous edema surrounding the arm of uncertain etiology. -Forearm X ray:No fracture within the right radius or ulna. Forearm soft tissue swelling. -RUE Doppler:There is no sonographic evidence of deep venous thrombosis identified in the right upper extremity. -Avoid narcotics as able Appreciate orthopedics input (7) Type II diabetes mellitus with complication: Plan: - Last HbA1C = 4.9 on 02/10/22 - Was taken off glimepiride yesterday 03/26, in the setting of elderly patient with possible hypoglycemic episodes in the past. Hold metformin ISS for now Monitor BGs (8) Memory loss: Plan: - Has a appt scheduled with outpatient neurology on 05/06 Dementia as per records (9) Generalized weakness: Plan: - PT/OT Fall precautions (10) Acute osteomyelitis of toe of right foot: Plan: Follows with [facility] wound clinic Continue wound care ID follow up appointment already scheduled in mid April (11) Hypothyroidism: Plan: - Continue levothyroxine (12) PVD (peripheral vascular disease): Plan: -On Aspirin Follows with Dr. Gold with vascular as outpatient DVT Px: Teds, SCDs, holding Coumadin Re: Anemia, Suspected bleeding CODE STATUS: DNR/DNI Admission and Anticipated Discharge Date Admission Date: March 27, 2022 Subjective Patient is seen and examined at bedside Very sleepy during my encounter States having some dyspnea Saturating well on room air No recurrence of hematuria Right upper extremity pain/swelling better Denies chest pain, abd pain, diazines, nausea Review of Systems Review of Systems: All systems reviewed & are unremarkable except as noted in Subjective Physical Exam Physical Exam: Physical Exam: Vitals signs as noted above General Appearance:Moderately built and nourished, ill appearing, no apparent distress Head: normocephalic, Atraumatic Eyes: normal inspection, EOMI Neck: supple, Trachea midline Respiratory/Chest: Decreased breath sounds, Crackles at bases Cardiovascular: Irregularly irregular, No murmur Abdomen/GI:Soft, Non tender, Bowel sounds present Extremities/Musculoskeletal:normal inspection, RUE edema, Ecchymosis Neurologic/Psych:AAO, grossly no focal neurological deficits Skin: normal color, warm Results & Data Results & Data ([facility]) Vital Signs (Past 12 Hours) Vital Signs Temp Pulse Resp BP Pulse Ox 04/01/22 14:39 37.0 C 101 H 20 138/88 93 04/01/22 12:39 106 H 20 94 04/01/22 07:50 37.0 C 103 H 20 145/78 H 94 Laboratory Results Short CBC 04/01/22 Range/Units 08:24 WBC 9.68 (4.8-10.8) K/uL Hgb 9.0 L (14.0-18.0) g/dL Hct 28.3 L (42-52) % Plt Count 347 (130-400) K/uL BMP 04/01/22 08:24 Sodium 134 L Potassium 3.7 Chloride 101 Carbon Dioxide 25 BUN 20 Creatinine 0.82 Glucose 118 H Calcium 8.8
[2022-04-01] MEDS: SIMVASTATIN 20 MG TAB PO SCH (20:37)
[2022-04-01] MEDS: ACETAMINOPHEN 325 MG TAB PO PRN (20:47)
[2022-04-02] MEDS: ACETAMINOPHEN 325 MG TAB PO PRN ×2 (03:02→12:24)
[2022-04-02] MEDS ORDERED: ACETAMINOPHEN W/CODEINE #3 1 TAB PO ONE (04:28)
[2022-04-02] MEDS: LEVOTHYROXINE SODIUM 25 MCG TABLET PO SCH (05:15)
[2022-04-02 06:02] LABS: Hematocrit (blood only) 29.4 % (42-52); Mean Corpuscular Hemoglobin 30.9 pg (25-34); Mean Corpuscular Hgb Conc 30.6 g/dL (32-36); Mean Platelet Volume 8.9 fL (7.4-10.4); Platelet Count 378 K/uL (130-400); RDW Coefficient of Variation 19.8 % (11.5-14.5); RDW Standard Deviation 68.5 fL (36.4-46.3); Red Blood Count 2.91 M/uL (4.7-6.1); White Blood Count 10.88 K/uL (4.8-10.8)
[2022-04-02 06:20] LABS: INR 1.2 (0.9-1.1); Prothrombin Time 12.6 Seconds (9.0-12.0)
[2022-04-02 06:35] LABS: BUN Creatinine Ratio 26.2 (10-20); Calcium 8.8 mg/dl (8.5-10.1); Creatinine Clr Calc Pharmacy 72.4 ml/min; Est GFR (African American) 95.8 ml/min; Est GFR (Non-African American) 82.7 ml/min; Potassium 3.5 mmol/L (3.5-5.1)
--- NOTE | 2022-04-02 08:11 | XRay Report ---
XR chest 1V portable CLINICAL HISTORY: CHF. Follow-up pulmonary edema COMPARISON STUDY: No previous studies for comparison. TECHNIQUE: 1 view of the chest FINDINGS: Single frontal view of the chest demonstrates the heart to again be enlarged. Compared to previous ex amination, there has been interval resolution of peripheral interstitial edema. Mild central vascular congestion remains present. There are again bilateral pleural effusions, right greater than left wit h compressive atelectasis at both lung bases, right greater than left . There is no acute osseous pat hology. IMPRESSION: 1. Interval resolution of pulmonary edema with mild central vascular congestion remaining present. 2. There are still bilateral pleural effusions, right greater than left with compressive atelectasis/ collapse of both lung bases. ACT 112: Negative or not required by law. Electronically signed by: Adán Payan M.D. 04/02/2022 8:10 AM
[2022-04-02] MEDS: INSULIN ASPART PER UNIT SC SCH ×4 (08:53→20:44)
[2022-04-02] MEDS: METOPROLOL TARTRATE 50 MG TAB PO SCH ×2 (08:54→21:10)
[2022-04-02] MEDS: POTASSIUM CHLORIDE CRTAB 20 MEQ TABCR PO SCH ×2 (08:54→21:09)
[2022-04-02] MEDS: DOCUSATE SODIUM 100 MG CAP PO SCH ×2 (08:54→21:09)
[2022-04-02] MEDS: SACCHAROMYCES BOULARDII 250 MG CAP PO SCH (08:54)
[2022-04-02] MEDS: allopurinoL 100 MG TAB PO SCH ×2 (08:54→21:08)
[2022-04-02] MEDS: ZINC SULFATE 220 MG CAPSULE PO SCH (08:55)
[2022-04-02] MEDS: SERTRALINE HCL 50 MG TABLET PO SCH (08:55)
[2022-04-02] MEDS: CEROVITE ADV FORMULA TAB PO SCH (08:55)
[2022-04-02] MEDS: FERROUS SULFATE 325 MG TAB PO SCH ×3 (10:55→17:12)
[2022-04-02] MEDS: ASPIRIN 81 MG CHEW PO SCH (10:55)
[2022-04-02] MEDS: FUROSEMIDE 40 MG/4 ML VIAL IV SCH ×2 (10:56→17:10)
[2022-04-02] MEDS: PANTOprazole 40 MG in SYRINGE 0 ML IV SCH ×2 (10:56→21:07)
--- NOTE | 2022-04-02 17:25 | Hospitalist Progress Note ---
Date of Service April 02, 2022 Assessment & Plan (1) Supratherapeutic INR: Plan: per Dr. Ray's notes with addendum: Suspected Coumadin induced bleeding in setting of Supratherapeutic INR Reports H/O fall few days ago as per patient FOBT Negative on 03/27/22 Received Vit K Less likely hemothorax as per Pulm No other obvious source of bleeding INR:3.4>1.2>1.1 04/02/22 INR 1.2 coumadin on hold Gross hematuria Possibly traumatic catheterization, decompression for distended bladder Appreciate urology input Hold anticoagulation Continue Castaneda catheter If needs follow-up with urology upon discharge Monitor CBC Hematuria resolved Resume aspirin today 04/02/22 Aspirin resumed yesterday HG stable at 9.0 --> 9.0 no signs of gross hematuria monitor (2) Atrial fibrillation: Plan: Chronic, currently rate controlled Continue metoprolol Anticoagulation on hold (3) Anemia, unspecified: Plan: Suspected Coumadin induced bleeding in setting of Supratherapeutic INR FOBT negative -CT ABD:No acute intra-abdominal or pelvic abnormality. Appreciate GI Input Continue PPI S/P 1 unit PRBCs Monitor CBC Hb 9.0 today Iron panel, vitamin B12, folic acid normal Peripheral smear not suggestive of hemolysis 04/02 Hg stable at 9.0 (4) Pleural effusion, bilateral: Plan: Bilateral pleural effusion Likely due to high-output cardiac failure in setting of significant anemia Acute Systolic and diastolic heart failure ? Hemothorax --less likely as per Pulm (Pulm also discussed with radiology) -CT Chest:Soft tissue edema throughout the right chest wall is nonspecific and given the clinical history likely represents contusion. There are moderate to large pleural effusions with significant atelectasis of the lower lungs -ECHO: Normal LV chamber size with moderate concentric LVH. Left ventricular systolic function is moderately reduced. Moderate global hypokinesis of left ventricle. EF 35 to 40%. Grade 2 diastolic dysfunction. Mild aortic regurgitation. Mild valvular aortic stenosis. Moderate mitral annular calcification with mild mitral regurgitation. Mild tricuspid regurgitation. Severe biatrial enlargement. -Continue IV Lasix Monitor volume status Appreciate Pulmonary, Cardiology input Saturating well on room air Continue IV diuresis Nebs as needed 04/02 repeat CXR: unchanged pleural effusion R>L negative 12 L fluid balance so far discussed with Dr. Correa continue Lasix IV 40gm BID for now Mitral Vegetation on ECHO as above Suspected IE Blood Cultures negative to date Likely calcium deposits as per cardiology Appreciate Cardiology Input (5) HTN (hypertension): Plan: Continue metoprolol (6) Diffuse pain in right upper extremity: Plan: -RUE USD:Extensive subcutaneous edema of the right arm. No well-defined fluid collection to suggest abscess or hematoma by sonography. -Humerus X ray:No acute osseous pathology. There is again diffuse subcutaneous edema surrounding the arm of uncertain etiology. -Forearm X ray:No fracture within the right radius or ulna. Forearm soft tissue swelling. -RUE Doppler:There is no sonographic evidence of deep venous thrombosis identified in the right upper extremity. -Avoid narcotics as able Appreciate orthopedics input (7) Type II diabetes mellitus with complication: Plan: - Last HbA1C = 4.9 on 02/10/22 - Was taken off glimepiride yesterday 03/26, in the setting of elderly patient wi th possible hypoglycemic episodes in the past. Hold metformin ISS for now Monitor BGs (8) Memory loss: Plan: - Has a appt scheduled with outpatient neurology on 05/06 Dementia as per records (9) Generalized weakness: Plan: - PT/OT Fall precautions (10) Acute osteomyelitis of toe of right foot: Plan: Follows with [facility] wound clinic Continue wound care ID follow up appointment already scheduled in mid April Neck Pain - likely musculoskeletal pain - trial of scheduled Tylenol, Lidoderm patch, K pad monitor (11) Hypothyroidism: Plan: - Continue levothyroxine (12) PVD (peripheral vascular disease): Plan: -On Aspirin Follows with Dr. Gold with vascular as outpatient DVT Px: Teds, SCDs, holding Coumadin Re: Anemia, Suspected bleeding CODE STATUS: DNR/DNI plan of care discussed with patient in detail and at length all questions answered he is understanding, agreeable, comfortable with the plan of care Admission and Anticipated Discharge Date Admission Date: March 27, 2022 Subjective ff up for acute CHF, etc seen resting in bed, comfortable states he feels ok overall no chest pain, dyspnea, palpitations, dizziness no cough main symptom is posterior neck pain, worse with head flexion no dysphagia, sore throat, headache, etc. no other symptoms Review of Systems Review of Systems: all noted and negative except for above Physical Exam Physical Exam: General- oriented x 3, not in distress, speaks in sentences with no effort or accessory muscle use Head- atraumatic Eyes- PERRL, EOMI, anicteric ENT- oropharynx clear Neck- (+) tenderness on the lateral and posterior aspect ROM limited due to pain on the lateral aspects no JVD, no adenopathy, no thyromegaly; carotids +2/2, no bruits appreciated Lungs- decreased breath sounds- mid to base no wheezing Heart- normal rate, regular rhythm; no murmur, no gallop, no rub appreciated Abdomen- normal bowel sounds, nondistended, soft, nontender, no masses or hepatosplenomegaly Extremities- mild lower leg edema, no calf tenderness; peripheral pulses intact Neuro- alert, oriented x 3; CN 2-12 grossly intact; motor 5/5 bilaterally;sensation 100% on all extremities; no other gross focal neurologic deficits Skin- warm & dry Results & Data Results & Data ([facility]) Vital Signs (Past 12 Hours) Vital Signs Temp Pulse Pulse Resp BP Pulse Ox 04/02/22 14:59 91 H 04/02/22 11:01 36.7 C 79 18 128/68 95 04/02/22 07:38 36.8 C 100 H 20 147/76 H 92 all noted and reviewed including below
[2022-04-02] MEDS: LIDOCAINE 5% 1 PATCH TD SCH (18:06)
[2022-04-02] MEDS: ACETAMINOPHEN 325 MG TAB PO SCH ×2 (18:08→23:40)
[2022-04-02] MEDS: SIMVASTATIN 20 MG TAB PO SCH (21:08)
[2022-04-03] MEDS: ACETAMINOPHEN 325 MG TAB PO SCH ×4 (05:41→23:51)
[2022-04-03] MEDS: LEVOTHYROXINE SODIUM 25 MCG TABLET PO SCH (05:41)
[2022-04-03] MEDS: INSULIN ASPART PER UNIT SC SCH ×4 (08:49→21:26)
[2022-04-03] MEDS: SACCHAROMYCES BOULARDII 250 MG CAP PO SCH (08:51)
[2022-04-03] MEDS: POTASSIUM CHLORIDE CRTAB 20 MEQ TABCR PO SCH ×2 (08:51→21:29)
[2022-04-03] MEDS: ASPIRIN 81 MG CHEW PO SCH (08:51)
[2022-04-03] MEDS: FERROUS SULFATE 325 MG TAB PO SCH ×3 (08:51→16:47)
[2022-04-03] MEDS: DOCUSATE SODIUM 100 MG CAP PO SCH ×2 (08:51→21:27)
[2022-04-03] MEDS: allopurinoL 100 MG TAB PO SCH ×2 (08:51→21:27)
[2022-04-03] MEDS: SERTRALINE HCL 50 MG TABLET PO SCH (08:52)
[2022-04-03] MEDS: FUROSEMIDE 40 MG/4 ML VIAL IV SCH (08:52)
[2022-04-03] MEDS: ZINC SULFATE 220 MG CAPSULE PO SCH (08:52)
[2022-04-03] MEDS: METOPROLOL TARTRATE 50 MG TAB PO SCH ×2 (08:52→21:27)
[2022-04-03] MEDS: CEROVITE ADV FORMULA TAB PO SCH (08:52)
[2022-04-03] MEDS: LIDOCAINE 5% 1 PATCH TD SCH (08:53)
[2022-04-03] MEDS: PANTOprazole 40 MG in SYRINGE 0 ML IV SCH ×2 (09:25→21:28)
[2022-04-03 09:30] LABS: INR 1.2 (0.9-1.1); Prothrombin Time 12.5 Seconds (9.0-12.0)
[2022-04-03 10:43] LABS: BUN Creatinine Ratio 30.7 (10-20); Calcium 8.9 mg/dl (8.5-10.1); Creatinine Clr Calc Pharmacy 81.1 ml/min; Est GFR (African American) 100.4 ml/min; Est GFR (Non-African American) 86.6 ml/min; Potassium 3.4 mmol/L (3.5-5.1)
--- NOTE | 2022-04-03 10:44 | Cardiology Progress Note ---
Date of Service April 03, 2022 Assessment & Plan (1) Swelling of right upper extremity: (2) CHF (congestive heart failure): (3) Anemia: (4) Pulmonary edema: (5) Pleural effusion: (6) Elevated INR: (7) HTN (hypertension): (8) PVD (peripheral vascular disease): (9) Chronic diastolic (congestive) heart failure: (10) Pleural effusion, bilateral: (11) Atrial fibrillation: Plan: The patient appears comfortable. I think we can back down on the Lasix. I stopped the IV Lasix and put him on Lasix 40 mg p.o. twice daily. Admission and Anticipated Discharge Date Admission Date: March 27, 2022 Subjective Pleasantly demented Review of Systems Review of Systems: Unobtainable Physical Exam Physical Exam: General: no acute distress, confused Head: normocephalic, no masses, lesions, tenderness or abnormalities Eyes: conjunctiva are pink and non-injected, sclera clear Neck: supple, no adenopathy, no bruits, normal jugular venous pulse, no hepatojugular reflux Chest: normal shape and normal respiratory effort Lungs: clear to auscultation and percussion Cardiac Exam: - regular rate & rhythm, no murmurs gallops or rubs - normal S1, normal S2 Pulses: 2(+) throughout Abdomen: abdomen soft, non-tender, no abnormal masses and no hepatosplenomegaly Musculoskeletal: no gait disturbance, no joint inflammation, no deforming arthritis Extremities: Foot bandaged due to nonhealing ulcer Neuro: grossly normal exam Results & Data ([facility]) Vital Signs (Past 12 Hours) Vital Signs Temp Pulse Pulse Resp BP Pulse Ox 04/03/22 06:36 36.6 C 111 H 20 164/84 H 96 04/03/22 03:30 36.3 C L 95 H 20 148/79 H 96 04/02/22 23:36 107 H 04/02/22 23:17 36.7 C 100 H 18 153/79 H 94 Laboratory Results Laboratory Results - last 24 hr 04/02/22 04/02/22 04/02/22 11:15 16:26 20:16 PT INR Sodium Potassium Chloride Carbon Dioxide Anion Gap BUN Creatinine Est Cr Clr Drug Dosing Est GFR ( Amer) Est GFR (Non-Af Amer) BUN/Creatinine Ratio Glucose POC Glucose 145 H 160 H 129 H Calcium 04/03/22 04/03/22 04/03/22 07:18 08:34 08:38 PT 12.5 H INR 1.2 H Sodium 137 Potassium 3.4 L Chloride 102 Carbon Dioxide 28 Anion Gap 7 BUN 23 Creatinine 0.75 Est Cr Clr Drug Dosing 81.1 Est GFR ( Amer) 100.4 Est GFR (Non-Af Amer) 86.6 BUN/Creatinine Ratio 30.7 H Glucose 135 H POC Glucose 137 H Calcium 8.9 Medications Administered Current Inpatient Medications Acetaminophen (Acetaminophen 325 Mg Tab) 650 mg PO Q6HWA [facility] Stop: 05/02/22 17:59 Last Admin: 04/03/22 05:41 Dose: 650 mg Documented by: Allopurinol (Allopurinol 100 Mg Tab) 100 mg PO BID [facility] Stop: 04/26/22 20:59 Last Admin: 04/03/22 08:51 Dose: 100 mg Documented by: Aspirin (Aspirin 81 Mg Chew) 81 mg PO QAM [facility] Stop: 04/27/22 08:59 Last Admin: 04/03/22 08:51 Dose: 81 mg Documented by: Dextrose (Dextrose 50% 50 Ml Syringe) 25 - 50 ml IV UD PRN; Protocol PRN Reason: Hypoglycemia Protocol Stop: 04/26/22 18:11 Docusate Sodium (Docusate Sodium 100 Mg Cap) 100 mg PO BID [facility] Stop: 04/26/22 20:59 Last Admin: 04/03/22 08:51 Dose: 100 mg Documented by: Ferrous Sulfate (Ferrous Sulfate 325 Mg Tab) 325 mg PO TIDM [facility] Stop: 04/26/22 18:29 Last Admin: 04/03/22 08:51 Dose: 325 mg Documented by: Fish Oil ([place]-3 (Purified Fish Oil) 1 Gm Cap) 1 gm PO BID [facility] Stop: 04/26/22 20:59 Last Admin: 03/29/22 08:15 Dose: 1 gm Documented by: Furosemide (Furosemide 40 Mg Tab) 40 mg PO BID17 [facility] Stop: 05/03/22 16:59 Glucagon (Glucagon For Inj 1 Mg Vial) 1 mg SQ UD PRN; Protocol PRN Reason: Hypoglycemia Protocol Stop: 04/26/22 18:11 Glucose (Glucose 10 Tabs/Tube) 4 - 8 tabs PO UD PRN; Protocol PRN Reason: Hypoglycemia Protocol Stop: 06/18/22 18:11 Glucose (Glucose 40% Gel 15 Gm Tube) 15 - 30 gm PO UD PRN; Protocol PRN Reason: Hypoglycemia Protocol Stop: 04/26/22 18:11 Pantoprazole Sodium 40 mg/ (Syringe) 10 mls @ 5 mls/min IV BID [facility] Stop: 04/27/22 11:14 Last Admin: 04/03/22 09:25 Dose: 5 mls/min Documented by: Insulin Aspart (Insulin Aspart Per Unit) 0 units SC ACHS [facility] Stop: 04/26/22 18:29 Last Admin: 04/03/22 08:49 Dose: 3 units Documented by: Levalbuterol HCl (Levalbuterol Hcl 0.63 Mg/3 Ml Neb) 0.63 mg NEB Q6R PRN; Protocol PRN Reason: Shortness Of Breath Or Wheezing Stop: 04/30/22 12:59 Last Admin: 04/01/22 20:41 Dose: 0.63 mg Documented by: Levothyroxine Sodium (Levothyroxine Sodium 25 Mcg Tablet) 25 mcg PO DAILYBB [facility] Stop: 04/27/22 06:29 Last Admin: 04/03/22 05:41 Dose: 25 mcg Documented by: Lidocaine (Lidocaine 5% 1 Patch) 1 patch TD QAM [facility] Stop: 05/02/22 17:29 Last Admin: 04/03/22 08:53 Dose: 1 patch Documented by: Metoprolol Tartrate (Metoprolol Tartrate 50 Mg Tab) 50 mg PO BID [facility] Stop: 04/30/22 06:34 Last Admin: 04/03/22 08:52 Dose: 50 mg Documented by: Metoprolol Tartrate (Metoprolol Tartrate 1 Mg/Ml Vial) 2.5 mg IV Q6 PRN PRN Reason: TachycardiaHR>110 Stop: 04/30/22 11:59 Last Admin: 03/31/22 14:58 Dose: 2.5 mg Documented by: Miscellaneous (Carbohydrates For Hypoglycemia ) 15 - 30 gm PO UD PRN PRN Reason: Hypoglycemia Protocol Stop: 04/26/22 18:11 Miscellaneous (Remove Lidoderm Patch) 1 ea N/A DAILY@2100 [facility] Stop: 05/02/22 20:59 Last Admin: 04/02/22 21:09 Dose: 1 ea Documented by: Multivitamins/Minerals (Cerovite Adv Formula Tab) 1 tab PO QAM [facility] Stop: 04/27/22 08:59 Last Admin: 04/03/22 08:52 Dose: 1 tab Documented by: Ondansetron HCl (Ondansetron Inj 2 Mg/Ml 2 Ml Vial) 4 mg IV Q4H PRN PRN Reason: Nausea And Vomiting Stop: 04/26/22 18:11 Potassium Chloride (Potassium Chloride Crtab 20 Meq Tabcr) 20 meq PO BID [facility] Stop: 04/28/22 20:59 Last Admin: 04/03/22 08:51 Dose: 20 meq Documented by: Saccharomyces Boulardii (Saccharomyces Boulardii 250 Mg Cap) 250 mg PO [facility] Stop: 04/27/22 08:59 Last Admin: 04/03/22 08:51 Dose: 250 mg Documented by: Sertraline HCl (Sertraline Hcl 50 Mg Tablet) 25 mg PO [facility] Stop: 04/27/22 08:59 Last Admin: 04/03/22 08:52 Dose: 25 mg Documented by: Simvastatin (Simvastatin 20 Mg Tab) 20 mg PO [facility] Stop: 04/26/22 20:59 Last Admin: 04/02/22 21:08 Dose: 20 mg Documented by: Zinc Sulfate (Zinc Sulfate 220 Mg Capsule) 220 mg PO [facility]; Protocol Stop: 04/27/22 08:59 Last Admin: 04/03/22 08:52 Dose: 220 mg Documented by: (1) CHF (congestive heart failure) Heart failure chronicity: unspecified Heart failure type: unspecified Qualified Code(s): I50.9 - Heart failure, unspecified (2) Anemia Anemia type: unspecified type Qualified Code(s): D64.9 - Anemia, unspecified (3) Pulmonary edema Chronicity: acute Qualified Code(s): J81.0 - Acute pulmonary edema
[2022-04-03] MEDS ORDERED: POTASSIUM CHLORIDE CRTAB 20 MEQ TABCR PO STA (15:09)
[2022-04-03] MEDS: FUROSEMIDE 40 MG TAB PO SCH (16:47)
--- NOTE | 2022-04-03 16:49 | Hospitalist Progress Note ---
Date of Service April 03, 2022 Assessment & Plan (1) Supratherapeutic INR: Plan: per Dr. Ray's notes with addendum: Suspected Coumadin induced bleeding in setting of Supratherapeutic INR Reports H/O fall few days ago as per patient FOBT Negative on 03/27/22 Received Vit K Less likely hemothorax as per Pulm No other obvious source of bleeding INR:3.4>1.2>1.1 04/03/22 INR 1.2 coumadin on hold Gross hematuria Possibly traumatic catheterization, decompression for distended bladder Appreciate urology input Hold anticoagulation Continue Castaneda catheter If needs follow-up with urology upon discharge Monitor CBC Hematuria resolved Resume aspirin today 04/03/22 Aspirin resumed yesterday HG stable at 9.0 --> 9.0 no signs of gross hematuria monitor (2) Atrial fibrillation: Plan: Chronic, currently rate controlled Continue metoprolol Anticoagulation on hold (3) Anemia, unspecified: Plan: Suspected Coumadin induced bleeding in setting of Supratherapeutic INR FOBT negative -CT ABD:No acute intra-abdominal or pelvic abnormality. Appreciate GI Input Continue PPI S/P 1 unit PRBCs Monitor CBC Hb 9.0 today Iron panel, vitamin B12, folic acid normal Peripheral smear not suggestive of hemolysis 04/03 Hg stable at 9.0 (4) Pleural effusion, bilateral: Plan: Bilateral pleural effusion Likely due to high-output cardiac failure in setting of significant anemia Acute Systolic and diastolic heart failure ? Hemothorax --less likely as per Pulm (Pulm also discussed with radiology) -CT Chest:Soft tissue edema throughout the right chest wall is nonspecific and given the clinical history likely represents contusion. There are moderate to large pleural effusions with significant atelectasis of the lower lungs -ECHO: Normal LV chamber size with moderate concentric LVH. Left ventricular systolic function is moderately reduced. Moderate global hypokinesis of left ventricle. EF 35 to 40%. Grade 2 diastolic dysfunction. Mild aortic regurgitation. Mild valvular aortic stenosis. Moderate mitral annular calcification with mild mitral regurgitation. Mild tricuspid regurgitation. Severe biatrial enlargement. -Continue IV Lasix Monitor volume status Appreciate Pulmonary, Cardiology input Saturating well on room air Continue IV diuresis Nebs as needed 04/03 repeat CXR: unchanged pleural effusion R>L negative 13 L fluid balance so far discussed with Dr. Correa Continue Lasix 40 mg p.o. twice daily for now Mitral Vegetation on ECHO as above Suspected IE Blood Cultures negative to date Likely calcium deposits as per cardiology Appreciate Cardiology Input (5) HTN (hypertension): Plan: Continue metoprolol (6) Diffuse pain in right upper extremity: Plan: -RUE USD:Extensive subcutaneous edema of the right arm. No well-defined fluid collection to suggest abscess or hematoma by sonography. -Humerus X ray:No acute osseous pathology. There is again diffuse subcutaneous edema surrounding the arm of uncertain etiology. -Forearm X ray:No fracture within the right radius or ulna. Forearm soft tissue swelling. -RUE Doppler:There is no sonographic evidence of deep venous thrombosis identified in the right upper extremity. -Avoid narcotics as able Appreciate orthopedics input (7) Type II diabetes mellitus with complication: Plan: - Last HbA1C = 4.9 on 02/10/22 - Was taken off glimepiride yesterday 03/26, in the setting of elderly patient with possible hypoglycemic episodes in the past. Hold metformin ISS for now Monitor BGs (8) Memory loss: Plan: - Has a appt scheduled with outpatient neurology on 05/06 Dementia as per records (9) Generalized weakness: Plan: - PT/OT Fall precautions (10) Acute osteomyelitis of toe of right foot: Plan: Follows with [facility] Continue wound care ID follow up appointment already scheduled in mid April Neck Pain - likely musculoskeletal pain - trial of scheduled Tylenol, Lidoderm patch, K pad Improving (11) Hypothyroidism: Plan: - Continue levothyroxine (12) PVD (peripheral vascular disease): Plan: -On Aspirin Follows with Dr. Gold with vascular as outpatient DVT Px: Teds, SCDs, holding Coumadin Re: Anemia, Suspected bleeding CODE STATUS: DNR/DNI plan of care discussed with patient and his son Ha over the phone in detail and at length all questions answered They are understanding, agreeable, comfortable with the plan of care Admission and Anticipated Discharge Date Admission Date: March 27, 2022 Subjective Follow-up for bilateral pleural effusion, etc. Seen resting in bed, comfortable, not in distress Answers most questions appropriately but occasionally will go off tangent, easily reoriented States breathing is fine for the most part No cough No chest pain No shakes or chills, no abdominal pain, nausea vomiting No other symptoms Review of Systems Review of Systems: all noted and negative except for above Physical Exam Physical Exam: General- oriented x 2, not in distress, speaks in sentences with no effort or accessory muscle use Eyes- anicteric Neck- no JVD Lungs-decreased breath sounds at the bases, no crackles or wheezes Heart- normal rate, regular rhythm; no murmurs Abdomen- normal bowel sounds, nondistended, soft, nontender Extremities- no pretibial edema, no calf tenderness Neuro- alert, oriented x 2; no gross focal neurologic deficits Skin- warm & dry Results & Data Results & Data ([facility]) Vital Signs (Past 12 Hours) Vital Signs Temp Pulse Pulse Resp BP Pulse Ox 04/03/22 14:19 89 04/03/22 10:49 36.5 C 98 H 18 133/81 97 04/03/22 06:36 36.6 C 111 H 20 164/84 H 96 04/03/22 06:20 117 H
[2022-04-03] MEDS: SIMVASTATIN 20 MG TAB PO SCH (21:27)
[2022-04-04] MEDS: ACETAMINOPHEN 325 MG TAB PO SCH ×3 (06:05→18:09)
[2022-04-04] MEDS: LEVOTHYROXINE SODIUM 25 MCG TABLET PO SCH (06:05)
[2022-04-04] MEDS: INSULIN ASPART PER UNIT SC SCH ×4 (09:15→21:08)
[2022-04-04] MEDS: FUROSEMIDE 40 MG TAB PO SCH (09:21)
[2022-04-04] MEDS: allopurinoL 100 MG TAB PO SCH ×2 (09:21→21:11)
[2022-04-04] MEDS: FERROUS SULFATE 325 MG TAB PO SCH ×3 (09:21→18:09)
[2022-04-04] MEDS: DOCUSATE SODIUM 100 MG CAP PO SCH ×2 (09:21→21:10)
[2022-04-04] MEDS: ASPIRIN 81 MG CHEW PO SCH (09:21)
[2022-04-04] MEDS: LIDOCAINE 5% 1 PATCH TD SCH (09:21)
[2022-04-04] MEDS: METOPROLOL TARTRATE 50 MG TAB PO SCH ×2 (09:22→21:11)
[2022-04-04] MEDS: SACCHAROMYCES BOULARDII 250 MG CAP PO SCH (09:22)
[2022-04-04] MEDS: CEROVITE ADV FORMULA TAB PO SCH (09:22)
[2022-04-04] MEDS: SERTRALINE HCL 50 MG TABLET PO SCH (09:22)
[2022-04-04] MEDS: POTASSIUM CHLORIDE CRTAB 20 MEQ TABCR PO SCH ×2 (09:22→21:11)
[2022-04-04] MEDS: ZINC SULFATE 220 MG CAPSULE PO SCH (09:23)
[2022-04-04 10:20] LABS: BUN Creatinine Ratio 26.4 (10-20); Creatinine Clr Calc Pharmacy 84.5 ml/min; Est GFR (African American) 102.1 ml/min; Est GFR (Non-African American) 88.1 ml/min; Potassium 3.6 mmol/L (3.5-5.1)
[2022-04-04] MEDS: PANTOprazole 40 MG in SYRINGE 0 ML IV SCH (10:30)
--- NOTE | 2022-04-04 11:58 | Cardiology Progress Note ---
Date of Service April 04, 2022 Assessment & Plan (1) Swelling of right upper extremity: (2) CHF (congestive heart failure): (3) Anemia: (4) Pulmonary edema: (5) Pleural effusion: (6) Elevated INR: (7) HTN (hypertension): (8) PVD (peripheral vascular disease): (9) Chronic diastolic (congestive) heart failure: (10) Pleural effusion, bilateral: (11) Atrial fibrillation: Plan: The patient had another large diuresis over the past 24 hours. I think we can decrease his diuretics further and place him back on his home dose of Lasix which is 40 mg daily. Admission and Anticipated Discharge Date Admission Date: March 27, 2022 Subjective The patient is alert and in no distress. Review of Systems Review of Systems: Unobtainable Physical Exam Physical Exam: General: no acute distress, confused Head: normocephalic, no masses, lesions, tenderness or abnormalities Eyes: conjunctiva are pink and non-injected, sclera clear Neck: supple, no adenopathy, no bruits, normal jugular venous pulse, no hepatojugular reflux Chest: normal shape and normal respiratory effort Lungs: clear to auscultation and percussion Cardiac Exam: - regular rate & rhythm, no murmurs gallops or rubs - normal S1, normal S2 Pulses: 2(+) throughout Abdomen: abdomen soft, non-tender, no abnormal masses and no hepatosplenomegaly Musculoskeletal: no gait disturbance, no joint inflammation, no deforming arthritis Extremities: Foot bandaged due to nonhealing ulcer Neuro: grossly normal exam Results & Data ([facility]) Vital Signs (Past 12 Hours) Vital Signs Temp Pulse Pulse Resp BP Pulse Ox 04/04/22 11:39 36.5 C 92 H 18 129/81 95 04/04/22 07:36 100 H 04/04/22 07:34 36.5 C 106 H 22 162/91 H 94 04/04/22 03:15 36.6 C 64 18 133/70 94 Laboratory Results Laboratory Results - last 24 hr 04/03/22 04/03/22 04/04/22 16:25 21:26 07:49 Sodium Potassium Chloride Carbon Dioxide Anion Gap BUN Creatinine Est Cr Clr Drug Dosing Est GFR ( Amer) Est GFR (Non-Af Amer) BUN/Creatinine Ratio Glucose POC Glucose 123 H 112 H 120 H Calcium 04/04/22 04/04/22 09:40 11:43 Sodium 138 Potassium 3.6 Chloride 102 Carbon Dioxide 27 Anion Gap 9 BUN 19 Creatinine 0.72 Est Cr Clr Drug Dosing 84.5 Est GFR ( Amer) 102.1 Est GFR (Non-Af Amer) 88.1 BUN/Creatinine Ratio 26.4 H Glucose 127 H POC Glucose 159 H Calcium 9.0 Medications Administered Current Inpatient Medications Acetaminophen (Acetaminophen 325 Mg Tab) 650 mg PO Q6HWA [facility] Stop: 05/02/22 17:59 Last Admin: 04/04/22 06:05 Dose: 650 mg Documented by: Allopurinol (Allopurinol 100 Mg Tab) 100 mg PO BID [facility] Stop: 04/26/22 20:59 Last Admin: 04/04/22 09:21 Dose: 100 mg Documented by: Aspirin (Aspirin 81 Mg Chew) 81 mg PO QAM [facility] Stop: 04/27/22 08:59 Last Admin: 04/04/22 09:21 Dose: 81 mg Documented by: Dextrose (Dextrose 50% 50 Ml Syringe) 25 - 50 ml IV UD PRN; Protocol PRN Reason: Hypoglycemia Protocol Stop: 04/26/22 18:11 Docusate Sodium (Docusate Sodium 100 Mg Cap) 100 mg PO BID [facility] Stop: 04/26/22 20:59 Last Admin: 04/04/22 09:21 Dose: 100 mg Documented by: Ferrous Sulfate (Ferrous Sulfate 325 Mg Tab) 325 mg PO TIDM [facility] Stop: 04/26/22 18:29 Last Admin: 04/04/22 09:21 Dose: 325 mg Documented by: Fish Oil ([place]-3 (Purified Fish Oil) 1 Gm Cap) 1 gm PO BID [facility] Stop: 04/26/22 20:59 Last Admin: 03/29/22 08:15 Dose: 1 gm Documented by: Furosemide (Furosemide 40 Mg Tab) 40 mg PO DAILY [facility] Stop: 05/05/22 08:59 Glucagon (Glucagon For Inj 1 Mg Vial) 1 mg SQ UD PRN; Protocol PRN Reason: Hypoglycemia Protocol Stop: 04/26/22 18:11 Glucose (Glucose 10 Tabs/Tube) 4 - 8 tabs PO UD PRN; Protocol PRN Reason: Hypoglycemia Protocol Stop: 04/26/22 18:11 Glucose (Glucose 40% Gel 15 Gm Tube) 15 - 30 gm PO UD PRN; Protocol PRN Reason: Hypoglycemia Protocol Stop: 04/26/22 18:11 Pantoprazole Sodium 40 mg/ (Syringe) 10 mls @ 5 mls/min IV BID [facility] Stop: 04/27/22 11:14 Last Admin: 04/04/22 10:30 Dose: 5 mls/min Documented by: Insulin Aspart (Insulin Aspart Per Unit) 0 units SC ACHS [facility] Stop: 04/26/22 18:29 Last Admin: 04/04/22 09:15 Dose: Not Given Documented by: Levalbuterol HCl (Levalbuterol Hcl 0.63 Mg/3 Ml Neb) 0.63 mg NEB Q6R PRN; Protocol PRN Reason: Shortness Of Breath Or Wheezing Stop: 04/30/22 12:59 Last Admin: 04/01/22 20:41 Dose: 0.63 mg Documented by: Levothyroxine Sodium (Levothyroxine Sodium 25 Mcg Tablet) 25 mcg PO DAILYBB [facility] Stop: 04/27/22 06:29 Last Admin: 04/04/22 06:05 Dose: 25 mcg Documented by: Lidocaine (Lidocaine 5% 1 Patch) 1 patch TD QAM [facility] Stop: 05/02/22 17:29 Last Admin: 04/04/22 09:21 Dose: 1 patch Documented by: Metoprolol Tartrate (Metoprolol Tartrate 50 Mg Tab) 50 mg PO BID [facility] Stop: 04/30/22 06:34 Last Admin: 04/04/22 09:22 Dose: 50 mg Documented by: Metoprolol Tartrate (Metoprolol Tartrate 1 Mg/Ml Vial) 2.5 mg IV Q6 PRN PRN Reason: TachycardiaHR>110 Stop: 04/30/22 11:59 Last Admin: 03/31/22 14:58 Dose: 2.5 mg Documented by: Miscellaneous (Carbohydrates For Hypoglycemia ) 15 - 30 gm PO UD PRN PRN Reason: Hypoglycemia Protocol Stop: 04/26/22 18:11 Miscellaneous (Remove Lidoderm Patch) 1 ea N/A DAILY@2100 [facility] Stop: 05/02/22 20:59 Last Admin: 04/03/22 21:28 Dose: 1 ea Documented by: Multivitamins/Minerals (Cerovite Adv Formula Tab) 1 tab PO QAM [facility] Stop: 04/27/22 08:59 Last Admin: 04/04/22 09:22 Dose: 1 tab Documented by: Ondansetron HCl (Ondansetron Inj 2 Mg/Ml 2 Ml Vial) 4 mg IV Q4H PRN PRN Reason: Nausea And Vomiting Stop: 04/26/22 18:11 Potassium Chloride (Potassium Chloride Crtab 20 Meq Tabcr) 20 meq PO BID [facility] Stop: 04/28/22 20:59 Last Admin: 04/04/22 09:22 Dose: 20 meq Documented by: Saccharomyces Boulardii (Saccharomyces Boulardii 250 Mg Cap) 250 mg PO [facility] Stop: 04/27/22 08:59 Last Admin: 04/04/22 09:22 Dose: 250 mg Documented by: Sertraline HCl (Sertraline Hcl 50 Mg Tablet) 25 mg PO [facility] Stop: 04/27/22 08:59 Last Admin: 04/04/22 09:22 Dose: 25 mg Documented by: Simvastatin (Simvastatin 20 Mg Tab) 20 mg PO [facility] Stop: 04/26/22 20:59 Last Admin: 04/03/22 21:27 Dose: 20 mg Documented by: Zinc Sulfate (Zinc Sulfate 220 Mg Capsule) 220 mg PO [facility]; Protocol Stop: 04/27/22 08:59 Last Admin: 04/04/22 09:23 Dose: 220 mg Documented by: (1) CHF (congestive heart failure) Heart failure chronicity: unspecified Heart failure type: unspecified Qualified Code(s): I50.9 - Heart failure, unspecified (2) Anemia Anemia type: unspecified type Qualified Code(s): D64.9 - Anemia, unspecified (3) Pulmonary edema Chronicity: acute Qualified Code(s): J81.0 - Acute pulmonary edema
--- NOTE | 2022-04-04 16:07 | Hospitalist Progress Note ---
Date of Service April 04, 2022 Assessment & Plan (1) Supratherapeutic INR: Plan: per Dr. Ray's notes with addendum: Suspected Coumadin induced bleeding in setting of Supratherapeutic INR Reports H/O fall few days ago as per patient FOBT Negative on 03/27/22 Received Vit K Less likely hemothorax as per Pulm No other obvious source of bleeding INR:3.4>1.2>1.1 04/04 INR 1.2 coumadin on hold Gross hematuria Possibly traumatic catheterization, decompression for distended bladder Appreciate urology input Hold anticoagulation Continue Castaneda catheter If needs follow-up with urology upon discharge Monitor CBC Hematuria resolved Resume aspirin today 04/04 Aspirin resumed yesterday HG stable at 9.0 --> 9.0 no signs of gross hematuria monitor (2) Atrial fibrillation: Plan: Chronic, currently rate controlled Continue metoprolol Anticoagulation on hold (3) Anemia, unspecified: Plan: Suspected Coumadin induced bleeding in setting of Supratherapeutic INR FOBT negative -CT ABD:No acute intra-abdominal or pelvic abnormality. Appreciate GI Input Continue PPI S/P 1 unit PRBCs Monitor CBC Hb 9.0 today Iron panel, vitamin B12, folic acid normal Peripheral smear not suggestive of hemolysis 04/04 Hg stable at 9.0 (4) Pleural effusion, bilateral: Plan: Bilateral pleural effusion Likely due to high-output cardiac failure in setting of significant anemia Acute Systolic and diastolic heart failure ? Hemothorax --less likely as per Pulm (Pulm also discussed with radiology) -CT Chest:Soft tissue edema throughout the right chest wall is nonspecific and given the clinical history likely represents contusion. There are moderate to large pleural effusions with significant atelectasis of the lower lungs -ECHO: Normal LV chamber size with moderate concentric LVH. Left ventricular systolic function is moderately reduced. Moderate global hypokinesis of left ventricle. EF 35 to 40%. Grade 2 diastolic dysfunction. Mild aortic regurgitation. Mild valvular aortic stenosis. Moderate mitral annular calcification with mild mitral regurgitation. Mild tricuspid regurgitation. Severe biatrial enlargement. -Continue IV Lasix Monitor volume status Appreciate Pulmonary, Cardiology input Saturating well on room air Continue IV diuresis Nebs as needed 04/04 repeat CXR: Pleural effusion about the same Continues to diurese well Lasix decreased to 40 mg p.o. daily Monitor closely Mitral Vegetation on ECHO as above Suspected IE Blood Cultures negative to date Likely calcium deposits as per cardiology Appreciate Cardiology Input (5) HTN (hypertension): Plan: Continue metoprolol (6) Diffuse pain in right upper extremity: Plan: -RUE USD:Extensive subcutaneous edema of the right arm. No well-defined fluid collection to suggest abscess or hematoma by sonography. -Humerus X ray:No acute osseous pathology. There is again diffuse subcutaneous edema surrounding the arm of uncertain etiology. -Forearm X ray:No fracture within the right radius or ulna. Forearm soft tissue swelling. -RUE Doppler:There is no sonographic evidence of deep venous thrombosis identified in the right upper extremity. -Avoid narcotics as able Appreciate orthopedics input (7) Type II diabetes mellitus with complication: Plan: - Last HbA1C = 4.9 on 02/10/22 - Was taken off glimepiride yesterday 03/26, in the setting of elderly patient with possible hypoglycemic episodes in the past. Hold metformin ISS for now Monitor BGs (8) Memory loss: Plan: - Has a appt scheduled with outpatient neurology on 05/06 Dementia as per records (9) Generalized weakness: Plan: - PT/OT Fall precautions (10) Acute osteomyelitis of toe of right foot: Plan: Follows with [facility] wound clinic Continue wound care ID follow up appointment already scheduled in mid April Neck Pain - likely musculoskeletal pain - trial of scheduled Tylenol, Lidoderm patch, K pad Resolved (11) Hypothyroidism: Plan: - Continue levothyroxine (12) PVD (peripheral vascular disease): Plan: -On Aspirin Follows with Dr. Gold with vascular as outpatient DVT Px: Teds, SCDs, holding Coumadin Re: Anemia, Suspected bleeding CODE STATUS: DNR/DNI plan of care discussed with patient and his son Ha over the phone in detail and at length all questions answered They are understanding, agreeable, comfortable with the plan of care Admission and Anticipated Discharge Date Admission Date: March 27, 2022 Subjective Follow-up acute CHF exacerbation, etc. Seen resting in bed, sleeping but easily awakened In good spirits, calm, cooperative Mostly oriented, answers questions appropriately Breathing mostly the same as yesterday No shortness of breath on exam Denies chest pain, palpitations, dizziness, nausea vomiting, abdominal pain, leg pain No other symptoms Review of Systems Review of Systems: all noted and negative except for above Physical Exam Physical Exam: General- oriented x 1-2, not in distress, speaks in sentences with no effort or accessory muscle use Eyes- anicteric Neck- no JVD Lungs-decreased breath sounds at the bases, no wheezing or crackles noted Heart- normal rate, regular rhythm; no murmurs Abdomen- normal bowel sounds, nondistended, soft, nontender Castaneda catheter in place draining yellow urine Extremities- no pretibial edema, no calf tenderness Neuro- alert, oriented x 2; no new gross focal neurologic deficits Skin- warm & dry Results & Data Results & Data ([facility]) Vital Signs (Past 12 Hours) Vital Signs Temp Pulse Pulse Resp BP Pulse Ox 04/04/22 15:31 36.4 C L 88 20 154/91 H 93 04/04/22 15:11 93 04/04/22 11:39 36.5 C 92 H 18 129/81 95 04/04/22 07:36 100 H 04/04/22 07:34 36.5 C 106 H 22 162/91 H 94 all noted and reviewed including below
--- NOTE | 2022-04-04 16:51 | XRay Report ---
XR chest 1V portable HISTORY: Pleural effusion. Follow-up. COMPARISON: Chest 04/02/2022. FINDINGS: No pneumothorax. The heart remains enlarged. There is mild central pulmonary vascular conge stion without overt edema. This is similar to the prior study. Moderate right and small left pleural effusions persist. Bibasilar densities are also unchanged and may represent a layering pleural fluid or atelectasis. There are postoperative changes within the right shoulder. IMPRESSION: 1. No change in the moderate right and small left pleural effusions with bibasilar densities. 2. Mild pulmonary vascular congestion persists. ACT 112: Negative or not required by law. Electronically signed by: Dusty Rogers M.D. 04/04/2022 4:50 PM
[2022-04-04] MEDS: PANTOprazole 40 MG TAB PO SCH (21:07)
[2022-04-04] MEDS: SIMVASTATIN 20 MG TAB PO SCH (21:10)
[2022-04-05] MEDS: ACETAMINOPHEN 325 MG TAB PO SCH ×5 (00:12→23:29)
[2022-04-05] MEDS: LEVOTHYROXINE SODIUM 25 MCG TABLET PO SCH (05:44)
[2022-04-05] MEDS: PANTOprazole 40 MG TAB PO SCH ×2 (08:23→20:52)
[2022-04-05] MEDS: DOCUSATE SODIUM 100 MG CAP PO SCH ×2 (08:23→20:51)
[2022-04-05] MEDS: METOPROLOL TARTRATE 50 MG TAB PO SCH ×2 (08:23→20:55)
[2022-04-05] MEDS: LIDOCAINE 5% 1 PATCH TD SCH (08:23)
[2022-04-05] MEDS: FERROUS SULFATE 325 MG TAB PO SCH ×3 (08:23→17:58)
[2022-04-05] MEDS: allopurinoL 100 MG TAB PO SCH ×2 (08:23→20:52)
[2022-04-05] MEDS: POTASSIUM CHLORIDE CRTAB 20 MEQ TABCR PO SCH ×2 (08:23→20:51)
[2022-04-05] MEDS: FUROSEMIDE 40 MG TAB PO SCH (08:23)
[2022-04-05] MEDS: CEROVITE ADV FORMULA TAB PO SCH (08:23)
[2022-04-05] MEDS: ZINC SULFATE 220 MG CAPSULE PO SCH (08:24)
[2022-04-05] MEDS: ASPIRIN 81 MG CHEW PO SCH (08:24)
[2022-04-05] MEDS: SACCHAROMYCES BOULARDII 250 MG CAP PO SCH (08:24)
[2022-04-05] MEDS: SERTRALINE HCL 50 MG TABLET PO SCH (08:24)
[2022-04-05] MEDS: INSULIN ASPART PER UNIT SC SCH ×4 (08:25→20:52)
[2022-04-05 12:02] LABS: BUN Creatinine Ratio 25.3 (10-20); Calcium 8.8 mg/dl (8.5-10.1); Creatinine Clr Calc Pharmacy 73.3 ml/min; Est GFR (African American) 96.3 ml/min; Est GFR (Non-African American) 83.1 ml/min; Potassium 3.6 mmol/L (3.5-5.1)
--- NOTE | 2022-04-05 13:06 | Cardiology Progress Note ---
Date of Service April 05, 2022 Assessment & Plan (1) Acute HFrEF (heart failure with reduced ejection fraction): (2) Pleural effusion: (3) Atrial fibrillation: (4) Supratherapeutic INR: Plan: Hospital day 9. History of dementia. Echo 03/28/22, LVEF 35-40%,Severe biatrial enlargement. Coumadin discontinued due to anemia, hematuria, high INR. CXR 04/04 moderate R and small Left pleural effusion. Hgb 9, creatinine 0.83. Continue furosemide 40 mg daily. Admission and Anticipated Discharge Date Admission Date: March 27, 2022 Subjective Pt seen in cardiology follow up. AF with rate of 90-100 bpm noted on telemetry. Pt comfortable. Physical Exam Constitutional: + ill appearing; no acute distress Respiratory: decreased BS at the bases Cardiovascular: Rate/Rhythm: + irregularly irregular Heart Sounds: no murmur LE venous stasis changes, no edema Gastrointestinal (Abdomen): normal bowel sounds, soft, nontender, no hepatosplenomegaly Neurologic: PERRL, EOMI, accommodation nl, no face palsy, no dysarthria Results & Data ([facility]) Vital Signs (Past 12 Hours) Vital Signs Temp Pulse Pulse Resp BP Pulse Ox 04/05/22 08:00 36.6 C 103 H 18 167/96 H 98 04/05/22 07:52 99 H 04/05/22 03:27 108 H 18 148/82 H 97
--- NOTE | 2022-04-05 15:39 | Hospitalist Progress Note ---
Date of Service April 05, 2022 Assessment & Plan (1) Supratherapeutic INR: Plan: per Dr. Ray's notes with addendum: Suspected Coumadin induced bleeding in setting of Supratherapeutic INR Reports H/O fall few days ago as per patient FOBT Negative on 03/27/22 Received Vit K Less likely hemothorax as per Pulm No other obvious source of bleeding INR:3.4>1.2>1.1 04/05 INR 1.2 coumadin on hold Gross hematuria Possibly traumatic catheterization, decompression for distended bladder Appreciate urology input Hold anticoagulation Continue Castaneda catheter If needs follow-up with urology upon discharge Monitor CBC Hematuria resolved Resume aspirin today 04/05 Aspirin resumed HG stable at 9.0 --> 9.0 no signs of gross hematuria monitor (2) Atrial fibrillation: Plan: Chronic, currently rate controlled Continue metoprolol Anticoagulation on hold (3) Anemia, unspecified: Plan: Suspected Coumadin induced bleeding in setting of Supratherapeutic INR FOBT negative -CT ABD:No acute intra-abdominal or pelvic abnormality. Appreciate GI Input Continue PPI S/P 1 unit PRBCs Monitor CBC Hb 9.0 today Iron panel, vitamin B12, folic acid normal Peripheral smear not suggestive of hemolysis 04/05 Hg stable at 9.0 (4) Pleural effusion, bilateral: Plan: Bilateral pleural effusion Likely due to high-output cardiac failure in setting of significant anemia Acute Systolic and diastolic heart failure ? Hemothorax --less likely as per Pulm (Pulm also discussed with radiology) -CT Chest:Soft tissue edema throughout the right chest wall is nonspecific and given the clinical history likely represents contusion. There are moderate to large pleural effusions with significant atelectasis of the lower lungs -ECHO: Normal LV chamber size with moderate concentric LVH. Left ventricular systolic function is moderately reduced. Moderate global hypokinesis of left ventricle. EF 35 to 40%. Grade 2 diastolic dysfunction. Mild aortic regurgitation. Mild valvular aortic stenosis. Moderate mitral annular calcification with mild mitral regurgitation. Mild tricuspid regurgitation. Severe biatrial enlargement. -Continue IV Lasix Monitor volume status Appreciate Pulmonary, Cardiology input Saturating well on room air Continue IV diuresis Nebs as needed 04/05 repeat CXR: Pleural effusion about the same Continues to diurese well, -16 L fluid balance so far Lasix decreased to 40 mg p.o. daily Monitor closely Repeat chest x-ray on Thursday Mitral Vegetation on ECHO as above Suspected IE Blood Cultures negative to date Likely calcium deposits as per cardiology Appreciate Cardiology Input (5) HTN (hypertension): Plan: Continue metoprolol (6) Diffuse pain in right upper extremity: Plan: -RUE USD:Extensive subcutaneous edema of the right arm. No well-defined fluid collection to suggest abscess or hematoma by sonography. -Humerus X ray:No acute osseous pathology. There is again diffuse subcutaneous edema surrounding the arm of uncertain etiology. -Forearm X ray:No fracture within the right radius or ulna. Forearm soft tissue swelling. -RUE Doppler:There is no sonographic evidence of deep venous thrombosis identified in the right upper extremity. -Avoid narcotics as able Appreciate orthopedics input (7) Type II diabetes mellitus with complication: Plan: - Last HbA1C = 4.9 on 02/10/22 - Was taken off glimepiride yesterday 03/26, in the setting of elderly patient with possible hypoglycemic episodes in the past. Hold metformin ISS for now Monitor BGs (8) Memory loss: Plan: - Has a appt scheduled with outpatient neurology on 05/06 Dementia as per records (9) Generalized weakness: Plan: - PT/OT Fall precautions (10) Acute osteomyelitis of toe of right foot: Plan: Follows with [facility] wound [facility] Continue wound care ID follow up appointment already scheduled in mid April Neck Pain - likely musculoskeletal pain - trial of scheduled Tylenol, Lidoderm patch, K pad Resolved (11) Hypothyroidism: Plan: - Continue levothyroxine (12) PVD (peripheral vascular disease): Plan: -On Aspirin Follows with Dr. Gold with vascular as outpatient DVT Px: Teds, SCDs, holding Coumadin Re: Anemia, Suspected bleeding CODE STATUS: DNR/DNI Admission and Anticipated Discharge Date Admission Date: March 27, 2022 Subjective Follow-up for acute CHF, bilateral effusions, etc. Seen resting in bed, comfortable, not in distress States he feels fine overall Breathing is okay No chest pain, palpitations, nausea vomiting No other symptoms Review of Systems Review of Systems: all noted and negative except for above Physical Exam Physical Exam: General- oriented x 2, not in distress, speaks in sentences with no effort or accessory muscle use Eyes- anicteric Neck- no JVD Lungs-mildly decreased breath sounds at the bases, no crackles Heart- normal rate, regular rhythm; no murmurs Abdomen- normal bowel sounds, nondistended, soft, nontender Extremities- no pretibial edema, no calf tenderness Castaneda catheter in place-draining yellow urine Neuro- alert, oriented x 2; no gross focal neurologic deficits Skin- warm & dry Results & Data Results & Data ([facility]) Vital Signs (Past 12 Hours) Vital Signs Temp Pulse Pulse Resp BP Pulse Ox 04/05/22 08:00 36.6 C 103 H 18 167/96 H 98 04/05/22 07:52 99 H all noted and reviewed including below
[2022-04-05] MEDS: SIMVASTATIN 20 MG TAB PO SCH (20:51)
[2022-04-06] MEDS: LEVOTHYROXINE SODIUM 25 MCG TABLET PO SCH (05:38)
[2022-04-06] MEDS: ACETAMINOPHEN 325 MG TAB PO SCH ×4 (05:38→23:19)
[2022-04-06] MEDS: FERROUS SULFATE 325 MG TAB PO SCH ×3 (09:19→17:37)
[2022-04-06] MEDS: FUROSEMIDE 40 MG TAB PO SCH (09:20)
[2022-04-06] MEDS: ASPIRIN 81 MG CHEW PO SCH (09:20)
[2022-04-06] MEDS: SERTRALINE HCL 50 MG TABLET PO SCH (09:20)
[2022-04-06] MEDS: SACCHAROMYCES BOULARDII 250 MG CAP PO SCH (09:20)
[2022-04-06] MEDS: CEROVITE ADV FORMULA TAB PO SCH (09:20)
[2022-04-06] MEDS: allopurinoL 100 MG TAB PO SCH ×2 (09:20→21:36)
[2022-04-06] MEDS: METOPROLOL TARTRATE 50 MG TAB PO SCH ×2 (09:20→21:38)
[2022-04-06] MEDS: ZINC SULFATE 220 MG CAPSULE PO SCH (09:21)
[2022-04-06] MEDS: POTASSIUM CHLORIDE CRTAB 20 MEQ TABCR PO SCH ×2 (09:22→21:33)
[2022-04-06] MEDS: DOCUSATE SODIUM 100 MG CAP PO SCH ×2 (09:22→21:37)
[2022-04-06] MEDS: LIDOCAINE 5% 1 PATCH TD SCH (09:22)
[2022-04-06] MEDS: PANTOprazole 40 MG TAB PO SCH ×2 (09:23→21:33)
--- NOTE | 2022-04-06 09:23 | Hospitalist Progress Note ---
Date of Service April 06, 2022 Assessment & Plan (1) Supratherapeutic INR: Plan: per Dr. Ray's notes with addendum: Suspected Coumadin induced bleeding in setting of Supratherapeutic INR Reports H/O fall few days ago as per patient FOBT Negative on 03/27/22 Received Vit K Less likely hemothorax as per Pulm No other obvious source of bleeding INR:3.4>1.2>1.1 04/06 INR 1.2 coumadin on hold Gross hematuria Possibly traumatic catheterization, decompression for distended bladder Appreciate urology input Hold anticoagulation Continue Castaneda catheter If needs follow-up with urology upon discharge Monitor CBC Hematuria resolved Resume aspirin today 04/06 Aspirin resumed HG stable at 9.[address] no signs of gross hematuria monitor (2) Atrial fibrillation: Plan: Chronic, currently rate controlled Continue metoprolol Anticoagulation on hold May not be a good long-term candidate for anticoagulation secondary to falls (3) Anemia, unspecified: Plan: Suspected Coumadin induced bleeding in setting of Supratherapeutic INR FOBT negative -CT ABD:No acute intra-abdominal or pelvic abnormality. Appreciate GI Input Continue PPI S/P 1 unit PRBCs Monitor CBC Hb 9.0 today Iron panel, vitamin B12, folic acid normal Peripheral smear not suggestive of hemolysis 04/06 Hg stable at 9.0 (4) Pleural effusion, bilateral: Plan: Bilateral pleural effusion Likely due to high-output cardiac failure in setting of significant anemia Acute Systolic and diastolic heart failure ? Hemothorax --less likely as per Pulm (Pulm also discussed with radiology) -CT Chest:Soft tissue edema throughout the right chest wall is nonspecific and given the clinical history likely represents contusion. There are moderate to large pleural effusions with significant atelectasis of the lower lungs -ECHO: Normal LV chamber size with moderate concentric LVH. Left ventricular systolic function is moderately reduced. Moderate global hypokinesis of left ventricle. EF 35 to 40%. Grade 2 diastolic dysfunction. Mild aortic regurgitation. Mild valvular aortic stenosis. Moderate mitral annular calcification with mild mitral regurgitation. Mild tricuspid regurgitation. Severe biatrial enlargement. -Continue IV Lasix Monitor volume status Appreciate Pulmonary, Cardiology input Saturating well on room air Continue IV diuresis Nebs as needed 04/06 Patient remains on room air repeat CXR: Pleural effusion about the same Continues to diurese well, -16 L fluid balance so far Lasix decreased to 40 mg p.o. daily Monitor closely Repeat chest x-ray tomorrow Mitral Vegetation on ECHO as above Suspected IE Blood Cultures negative to date Likely calcium deposits as per cardiology Appreciate Cardiology Input (5) HTN (hypertension): Plan: Continue metoprolol (6) Diffuse pain in right upper extremity: Plan: -RUE USD:Extensive subcutaneous edema of the right arm. No well-defined fluid collection to suggest abscess or hematoma by sonography. -Humerus X ray:No acute osseous pathology. There is again diffuse subcutaneous edema surrounding the arm of uncertain etiology. -Forearm X ray:No fracture within the right radius or ulna. Forearm soft tissue swelling. -RUE Doppler:There is no sonographic evidence of deep venous thrombosis identified in the right upper extremity. -Avoid narcotics as able Appreciate orthopedics input -Patient not reporting pain in the right upper extremity for the past 3 days (7) Type II diabetes mellitus with complication: Plan: - Last HbA1C = 4.9 on 02/10/22 - Was taken off glimepiride yesterday 03/26, in the setting of elderly patient with possible hypoglycemic episodes in the past. Hold metformin ISS for now BSG 123 (8) Memory loss: Plan: - Has a appt scheduled with outpatient neurology on 05/06 Dementia as per records (9) Generalized weakness: Plan: - PT/OT Fall precautions (10) Acute osteomyelitis of toe of right foot: Plan: Follows with [facility] wound clinic Continue wound care ID follow up appointment already scheduled in mid April Neck Pain - likely musculoskeletal pain - trial of scheduled Tylenol, Lidoderm patch, K pad Resolved (11) Hypothyroidism: Plan: - Continue levothyroxine (12) PVD (peripheral vascular disease): Plan: -On Aspirin Follows with Dr. Gold with vascular as outpatient DVT Px: Teds, SCDs, holding Coumadin Re: Anemia, Suspected bleeding CODE STATUS: DNR/DNI Admission and Anticipated Discharge Date Admission Date: March 27, 2022 Subjective Follow-up for acute CHF, bilateral pleural effusion, etc. Seen resting in bed, sitting up, just had breakfast Comfortable, not in distress States he feels fine overall Breathing is okay No cough or shortness of breath No chest pain, palpitations, dizziness, abdominal pain, nausea vomiting, fevers chills Other symptom Review of Systems Review of Systems: all noted and negative except for above Physical Exam Physical Exam: General- oriented x 2, not in distress, speaks in sentences with no effort or accessory muscle use Eyes- anicteric Neck- no JVD Lungs-mild decreased breath sounds right greater than left base, no wheezing, no crackles Heart- normal rate, regular rhythm; no murmurs Abdomen- normal bowel sounds, nondistended, soft, nontender Castaneda catheter in place-draining yellow urine Extremities- no pretibial edema, no calf tenderness Neuro- alert, oriented x 2; no new gross focal neurologic deficits Skin- warm & dry Results & Data Results & Data ([facility]) Vital Signs (Past 12 Hours) Vital Signs Temp Pulse Pulse Resp BP BP Pulse Ox 04/06/22 08:04 36.9 C 110 H 156/91 H 99 04/06/22 07:42 106 H 04/06/22 02:49 36.5 C 97 H 18 145/87 H 94 04/05/22 23:28 36.7 C 91 H 20 138/87 96
[2022-04-06] MEDS: INSULIN ASPART PER UNIT SC SCH ×4 (09:41→20:52)
[2022-04-06] MEDS: SIMVASTATIN 20 MG TAB PO SCH (21:36)
[2022-04-07 01:42] LABS: Basophils # (auto) 0.02 K/uL (0-0.2); Basophils % (auto) 0.2 %; Eosinophils # (auto) 0.34 K/uL (0-0.5); Eosinophils % (auto) 3.4 %; Hematocrit (blood only) 35.9 % (42-52); Immature Granulocytes # (auto) 0.03 K/uL (0.00-0.02); Immature Granulocytes % (auto) 0.3 %; Lymphocytes % (auto) 11.1 %; Mean Corpuscular Hemoglobin 30.5 pg (25-34); Mean Corpuscular Hgb Conc 30.6 g/dL (32-36); Mean Corpuscular Volume 99.4 fL (80-100); Mean Platelet Volume 9.4 fL (7.4-10.4); Monocytes # (auto) 0.78 K/uL (0.11-0.59); Monocytes % (auto) 7.9 %; Neutrophils # (auto) 7.63 K/uL (1.4-6.5); Neutrophils % (auto) 77.1 %; Platelet Count 534 K/uL (130-400); RDW Coefficient of Variation 18.5 % (11.5-14.5); RDW Standard Deviation 67.1 fL (36.4-46.3); Red Blood Count 3.61 M/uL (4.7-6.1)
[2022-04-07] MEDS: LEVOTHYROXINE SODIUM 25 MCG TABLET PO SCH (05:53)
[2022-04-07] MEDS: ACETAMINOPHEN 325 MG TAB PO SCH (05:53)
[2022-04-07] MEDS: INSULIN ASPART PER UNIT SC SCH ×4 (09:08→20:57)
[2022-04-07] MEDS: FERROUS SULFATE 325 MG TAB PO SCH ×3 (09:16→17:43)
[2022-04-07] MEDS: ASPIRIN 81 MG CHEW PO SCH (09:16)
[2022-04-07] MEDS: allopurinoL 100 MG TAB PO SCH ×2 (09:16→20:56)
[2022-04-07] MEDS: METOPROLOL TARTRATE 50 MG TAB PO SCH ×2 (09:17→20:55)
[2022-04-07] MEDS: CEROVITE ADV FORMULA TAB PO SCH (09:17)
[2022-04-07] MEDS: SERTRALINE HCL 50 MG TABLET PO SCH (09:17)
[2022-04-07] MEDS: FUROSEMIDE 40 MG TAB PO SCH (09:17)
[2022-04-07] MEDS: ZINC SULFATE 220 MG CAPSULE PO SCH (09:17)
[2022-04-07] MEDS: POTASSIUM CHLORIDE CRTAB 20 MEQ TABCR PO SCH ×2 (09:17→20:54)
[2022-04-07] MEDS: PANTOprazole 40 MG TAB PO SCH ×2 (09:17→20:55)
[2022-04-07] MEDS: LIDOCAINE 5% 1 PATCH TD SCH (09:17)
[2022-04-07] MEDS: SACCHAROMYCES BOULARDII 250 MG CAP PO SCH (09:17)
[2022-04-07] MEDS: DOCUSATE SODIUM 100 MG CAP PO SCH ×2 (09:18→20:55)
--- NOTE | 2022-04-07 12:04 | XRay Report ---
XR chest 1V portable CLINICAL HISTORY: ff up pleural effusion TECHNIQUE: Single frontal radiograph of the chest was obtained. Comparison: Comparison is made to chest radiograph 04/04/2022 FINDINGS: No lines and tubes are seen. Cardiomegaly is noted. Calcified aortic knob is seen. Bilateral lower [place] ng predominant airspace opacities are seen. Mild pulmonary edema is seen. There is a moderate right a nd small left pleural effusion. IMPRESSION: 1. Interval mild increase in bilateral pleural effusions. 2. Bilateral lower lung predominant airspace opacities may represent atelectasis, pneumonia, and/or aspiration. 3. Mild pulmonary edema. ACT 112: Negative or not required by law. Electronically signed by: Jeff Carmen M.D. 04/07/2022 12:02 PM
--- NOTE | 2022-04-07 18:17 | Hospitalist Progress Note ---
Date of Service April 07, 2022 Assessment & Plan (1) Supratherapeutic INR: Plan: per Dr. Ray's notes with addendum: Suspected Coumadin induced bleeding in setting of Supratherapeutic INR Reports H/O fall few days prior to admission as per patient FOBT Negative on 03/27/22 Received Vit K Less likely hemothorax as per Pulm No other obvious source of bleeding INR:3.4>1.2>1.1 04/07 INR 1.2 coumadin on hold May not be a good long-term candidate for anticoagulation secondary to falls Gross hematuria Possibly traumatic catheterization, decompression for distended bladder Appreciate urology input Hold anticoagulation Continue Castaneda catheter If needs follow-up with urology upon discharge Monitor CBC Hematuria resolved Resume aspirin today 04/07 Aspirin resumed HG remained stable at 11.[address] no signs of gross hematuria monitor (2) Atrial fibrillation: Plan: Chronic, currently rate controlled Continue metoprolol Anticoagulation on hold May not be a good long-term candidate for anticoagulation secondary to falls (3) Anemia, unspecified: Plan: Suspected Coumadin induced bleeding in setting of Supratherapeutic INR FOBT negative -CT ABD:No acute intra-abdominal or pelvic abnormality. Appreciate GI Input Continue PPI S/P 1 unit PRBCs Monitor CBC Hb 11.0 today Iron panel, vitamin B12, folic acid normal Peripheral smear not suggestive of hemolysis 04/07 Hg stable at 9.0 (4) Pleural effusion, bilateral: Plan: Bilateral pleural effusion Likely due to high-output cardiac failure in setting of significant anemia Acute Systolic and diastolic heart failure ? Hemothorax --less likely as per Pulm (Pulm also discussed with radiology) -CT Chest:Soft tissue edema throughout the right chest wall is nonspecific and given the clinical history likely represents contusion. There are moderate to large pleural effusions with significant atelectasis of the lower lungs -ECHO: Normal LV chamber size with moderate concentric LVH. Left ventricular systolic function is moderately reduced. Moderate global hypokinesis of left ventricle. EF 35 to 40%. Grade 2 diastolic dysfunction. Mild aortic regurgitation. Mild valvular aortic stenosis. Moderate mitral annular calcifi cation with mild mitral regurgitation. Mild tricuspid regurgitation. Severe biatrial enlargement. -Continue IV Lasix Monitor volume status Appreciate Pulmonary, Cardiology input Saturating well on room air Continue IV diuresis Nebs as needed 04/07 Patient remains on room air repeat CXR: Pleural effusion about the same Continues to diurese well, -16 L fluid balance so far Lasix decreased to 40 mg p.o. daily Monitor closely Will discuss with pulmonary service-May need CT chest to assess for possible loculated pleural effusion Mitral Vegetation on ECHO as above Suspected IE Blood Cultures negative to date Likely calcium deposits as per cardiology Appreciate Cardiology Input (5) HTN (hypertension): Plan: Continue metoprolol (6) Diffuse pain in right upper extremity: Plan: -RUE USD:Extensive subcutaneous edema of the right arm. No well-defined fluid collection to suggest abscess or hematoma by sonography. -Humerus X ray:No acute osseous pathology. There is again diffuse subcutaneous edema surrounding the arm of uncertain etiology. -Forearm X ray:No fracture within the right radius or ulna. Forearm soft tissue swelling. -RUE Doppler:There is no sonographic evidence of deep venous thrombosis identifi ed in the right upper extremity. -Patient not reporting pain in the right upper extremity since last week (7) Type II diabetes mellitus with complication: Plan: - Last HbA1C = 4.9 on 02/10/22 - Was taken off glimepiride yesterday 03/26, in the setting of elderly patient with possible hypoglycemic episodes in the past. Hold metformin ISS for now BSG 147 (8) Memory loss: Plan: - Has a appt scheduled with outpatient neurology on 05/06 Dementia as per records (9) Generalized weakness: Plan: - PT/OT Fall precautions (10) Acute osteomyelitis of toe of right foot: Plan: Follows with [facility] wound clinic Continue wound care ID follow up appointment already scheduled in mid April Neck Pain - likely musculoskeletal pain - trial of scheduled Tylenol, Lidoderm patch, K pad Resolved (11) Hypothyroidism: Plan: - Continue levothyroxine (12) PVD (peripheral vascular disease): Plan: -On Aspirin Follows with Dr. Gold with vascular as outpatient DVT Px: Teds, SCDs, holding Coumadin Re: Anemia, Suspected bleeding CODE STATUS: DNR/DNI Admission and Anticipated Discharge Date Admission Date: March 27, 2022 Subjective Follow-up for bilateral pleural effusion, etc. Seen sitting up at the edge of the bed, feet dangling On room air, not in distress, comfortable Reading the newspaper States he feels fine today overall No shortness of breath, chest pain No cough or fevers or chills Appetite okay No other symptom Review of Systems Review of Systems: all noted and negative except for above Physical Exam Physical Exam: General- oriented x 1-2, not in distress, speaks in sentences with no effort or accessory muscle use Eyes- anicteric Neck- no JVD Lungs-diminished breath sounds bilaterally at the bases, no crackles noted no wheezing Heart- normal rate, regular rhythm; no murmurs Abdomen- normal bowel sounds, nondistended, soft, nontender Extremities- no pretibial edema, no calf tenderness Neuro- alert, oriented x 1-2; no gross focal neurologic deficits Skin- warm & dry Results & Data Results & Data ([facility]) Vital Signs (Past 12 Hours) Vital Signs Temp Pulse Pulse Resp BP BP Pulse Ox 04/07/22 15:07 36.4 C L 94 H 16 150/83 H 97 04/07/22 11:21 36.4 C L 96 H 16 161/98 H 96 04/07/22 07:44 94 H 04/07/22 07:02 101 H 18 157/87 H 97 all noted and reviewed including below
[2022-04-07] MEDS: LEVALBUTEROL HCL 0.63 MG/3 ML NEB NEB PRN (18:32)
[2022-04-07] MEDS ORDERED: FUROSEMIDE 40 MG/4 ML VIAL IV ONE (18:48)
[2022-04-07] MEDS: SIMVASTATIN 20 MG TAB PO SCH (20:54)
[2022-04-08] MEDS: LEVOTHYROXINE SODIUM 25 MCG TABLET PO SCH (06:01)
[2022-04-08] MEDS: FERROUS SULFATE 325 MG TAB PO SCH ×3 (07:57→17:12)
[2022-04-08] MEDS: POTASSIUM CHLORIDE CRTAB 20 MEQ TABCR PO SCH ×2 (07:57→20:36)
[2022-04-08] MEDS: PANTOprazole 40 MG TAB PO SCH ×2 (07:57→20:36)
[2022-04-08] MEDS: DOCUSATE SODIUM 100 MG CAP PO SCH ×2 (07:57→20:37)
[2022-04-08] MEDS: METOPROLOL TARTRATE 50 MG TAB PO SCH ×2 (07:57→20:37)
[2022-04-08] MEDS: ASPIRIN 81 MG CHEW PO SCH (07:58)
[2022-04-08] MEDS: allopurinoL 100 MG TAB PO SCH ×2 (07:58→20:37)
[2022-04-08] MEDS: LIDOCAINE 5% 1 PATCH TD SCH ×2 (07:59→08:11)
[2022-04-08] MEDS: FUROSEMIDE 40 MG TAB PO SCH (08:00)
[2022-04-08] MEDS: SACCHAROMYCES BOULARDII 250 MG CAP PO SCH (08:01)
[2022-04-08] MEDS: CEROVITE ADV FORMULA TAB PO SCH (08:01)
[2022-04-08] MEDS: ZINC SULFATE 220 MG CAPSULE PO SCH (08:02)
[2022-04-08] MEDS: SERTRALINE HCL 50 MG TABLET PO SCH (08:02)
[2022-04-08] MEDS: INSULIN ASPART PER UNIT SC SCH ×4 (08:51→20:40)
[2022-04-08 10:19] LABS: BUN Creatinine Ratio 22.6 (10-20); Calcium 9.1 mg/dl (8.5-10.1); Creatinine Clr Calc Pharmacy 72.4 ml/min; Est GFR (African American) 95.8 ml/min; Est GFR (Non-African American) 82.7 ml/min; Potassium 4.2 mmol/L (3.5-5.1)
[2022-04-08] MEDS ORDERED: FUROSEMIDE 40 MG/4 ML VIAL IV ONE (11:38)
--- NOTE | 2022-04-08 12:13 | Pulmonology Progress Note ---
Date of Service April 08, 2022 Assessment & Plan (1) Acute HFrEF (heart failure with reduced ejection fraction): (2) Acute respiratory failure with hypoxia: (3) Pleural effusion: Plan: -- Acute hypoxic respiratory failure Likely secondary to large bilateral pleural effusion Etiology is most likely underlying systolic plus diastolic CHF Patient is diuresing well. He is -18 L since coming to the hospital Continue with O2 supplementation to keep oxygen saturation between 88-92% --History of A. fib On chronic warfarin at home Currently not on any anticoagulation as patient came in with anemia Plan: On bedside ultrasound patient does have moderate to large bilateral pleural effusion with dependent atelectasis I explained to the patient that he is diuresing well but he still has significant fluid both sides, if he has significant shortness of breath then thoracentesis can be thought off. I went over the risks of the procedure. Patient stated that he is breathing is the same since coming to the hospital. He would like to continue with IV diuretics. If there is further worsening in his symptoms only then he would like to proceed with thoracentesis Recommend continuing with IV diuresis. I am going to recommend BiPAP 12/8 nightly and as needed shortness of breath. This to help with ejection fraction and thus help with more diuresis Incentive spirometry will also be helpful Case was discussed with Dr. Gonzalez Pulmonary will be available as needed. Please call directly with any questions Please note the above document was generated using voice recognition software. It may contain grammatical, syntax or spelling errors.Any formal questions or concerns about the content, text or information contained within the body of this dictation should be directly addressed to the provider for clarification. Admission and Anticipated Discharge Date Admission Date: March 27, 2022 Subjective 82-year-old male who was admitted to the hospital because of fall Past medical history: Grade 2 diastolic dysfunction and systolic CHF, A. fib on warfarin, dementia Pulmonary consulted initially on 03/28/2022 because of bilateral pleural effusion Recommendation at that time was to continue with diuresis Pulmonary reconsulted today as the patient is still having bilateral pleural effusion even though he has diuresed significantly and is at -18 L since coming to the hospital At the time of examination patient was sleeping. He was saturating 98% on 2 L nasal cannula at rest. He stated his breathing is the same. Denies any chest pain, no headache, no nausea, no vomiting. No fever or chills Denies any cough. No headache, no blurry vision Social history: Lifetime non-smoker Review of Systems 2 Review of Systems: All systems reviewed & are unremarkable except as noted in HPI & below Physical Exam Physical Exam: Constitutional: No acute distress, frail-appearing HEENT: EOMI, PERRLA Respiratory system: Decreased air entry bilaterally, no wheeze, no rhonchi, positive crackles bilateral lower lobes CVS: S1-S2 positive, positive 2 out of 6 systolic murmur appreciated best at the aorta Abdomen: Soft, nontender, nondistended, positive bowel sounds x4 Extremities: +2 pulses bilaterally radialis/ dorsalis pedis, no cyanosis, +1 pitting edema bilateral lower extremity with stasis dermatitis Neuro: Awake alert oriented x3 Psych: Normal mood and affect G/U: Positive Castaneda Skin: no rashes, warm and dry Lymphatic: no cervical or axillary lymphadenopathy Results & Data Results & Data ([facility]) Vital Signs (Past 12 Hours) Vital Signs Temp Pulse Pulse Resp BP Pulse Ox 04/08/22 11:41 36.9 C 78 18 119/69 96 04/08/22 07:52 36.7 C 98 H 18 156/94 H 99 04/08/22 07:14 93 H 04/08/22 03:00 36.6 C 94 H 18 138/86 99 04/08/22 00:28 88 Laboratory Results 04/07/22 00:48 04/08/22 08:19 PG Care Time/CCT Total # of Minutes Spent Total Time Spent with Patient: Total time spent is greater than 50% in coordination of care (as documented) at patient's floor/unit and/or counseling patient: [place] [address] Subseq Hosp Care Lvl 3 Patient Type Established Diagnoses Acute HFrEF (heart failure with reduced ejection fraction) I50.21 Acute respiratory failure with hypoxia J96.01 Pleural effusion J90
--- NOTE | 2022-04-08 14:03 | Hospitalist Progress Note ---
Date of Service April 08, 2022 Assessment & Plan (1) Acute respiratory failure with hypoxia: Plan: (1) Supratherapeutic INR: Suspected Coumadin induced bleeding in setting of Supratherapeutic INR Reports H/O fall few days prior to admission as per patient FOBT Negative on 03/27/22 Received Vit K Less likely hemothorax as per Pulm No other obvious source of bleeding INR:3.4>1.2>1.1 04/08 INR 1.2 coumadin on hold May not be a good long-term candidate for anticoagulation secondary to falls Gross hematuria Possibly traumatic catheterization, decompression for distended bladder Appreciate urology input Hold anticoagulation Continue Castaneda catheter If needs follow-up with urology upon discharge Monitor CBC Hematuria resolved Resume aspirin today 04/08 Aspirin resumed HG remained stable at 11.[address] no signs of gross hematuria monitor (2) Atrial fibrillation: Plan: Chronic, currently rate controlled Continue metoprolol Anticoagulation on hold May not be a good long-term candidate for anticoagulation secondary to falls (3) Anemia, unspecified: Plan: Suspected Coumadin induced bleeding in setting of Supratherapeutic INR FOBT negative -CT ABD:No acute intra-abdominal or pelvic abnormality. Appreciate GI Input Continue PPI S/P 1 unit PRBCs Monitor CBC Hb 11.0 today Iron panel, vitamin B12, folic acid normal Peripheral smear not suggestive of hemolysis 04/08 Hg stable at 9.0 (4) Pleural effusion, bilateral: Plan: Bilateral pleural effusion Likely due to high-output cardiac failure in setting of significant anemia Acute Systolic and diastolic heart failure ? Hemothorax --less likely as per Pulm (Pulm also discussed with radiology) -CT Chest:Soft tissue edema throughout the right chest wall is nonspecific and given the clinical history likely represents contusion. There are moderate to large pleural effusions with significant atelectasis of the lower lungs -ECHO: Normal LV chamber size with moderate concentric LVH. Left ventricular systolic function is moderately reduced. Moderate global hypokinesis of left ventricle. EF 35 to 40%. Grade 2 diastolic dysfunction. Mild aortic regurgitation. Mild valvular aortic stenosis. Moderate mitral annular calcification with mild mitral regurgitation. Mild tricuspid regurgitation. Severe biatrial enlargement. -Continue IV Lasix Monitor volume status Appreciate Pulmonary, Cardiology input Saturating well on room air Continue IV diuresis Nebs as needed 04/08 Patient remains on room air repeat CXR: Pleural effusion about the same Continues to diurese well, -18 L fluid balance so far Lasix decreased to 40 mg p.o. daily (+) mild dyspnea 2 L NC placed requested Dr. Street to re-evaluate patient for possible thoracentesis Mitral Vegetation on ECHO as above Suspected IE Blood Cultures negative to date Likely calcium deposits as per cardiology Appreciate Cardiology Input (5) HTN (hypertension): Plan: Continue metoprolol (6) Diffuse pain in right upper extremity: Plan: -RUE USD:Extensive subcutaneous edema of the right arm. No well-defined fluid collection to suggest abscess or hematoma by sonography. -Humerus X ray:No acute osseous pathology. There is again diffuse subcutaneous edema surrounding the arm of uncertain etiology. -Forearm X ray:No fracture within the right radius or ulna. Forearm soft tissue swelling. -RUE Doppler:There is no sonographic evidence of deep venous thrombosis identified in the right upper extremity. -Patient not reporting pain in the right upper extremity since last week (7) Type II diabetes mellitus with complication: Plan: - Last HbA1C = 4.9 on 02/10/22 - Was taken off glimepiride yesterday 03/26, in the setting of elderly patient with possible hypoglycemic episodes in the past. Hold metformin ISS for now BSG 152 (8) Memory loss: - Has appt scheduled with outpatient neurology on 05/06 Dementia as per records (9) Generalized weakness: Plan: - PT/OT Fall precautions (10) Acute osteomyelitis of toe of right foot: Plan: Follows with [facility] wound clinic Continue wound care ID follow up appointment already scheduled in mid April Neck Pain - likely musculoskeletal pain - trial of scheduled Tylenol, Lidoderm patch, K pad Resolved (11) Hypothyroidism: Plan: - Continue levothyroxine (12) PVD (peripheral vascular disease): Plan: -On Aspirin Follows with Dr. Gold with vascular as outpatient DVT Px: Teds, SCDs, holding Coumadin Re: Anemia, Suspected bleeding CODE STATUS: DNR/DNI Admission and Anticipated Discharge Date Admission Date: March 27, 2022 Subjective ff up for acute CHF, etc seen resting in bed, sitting up on 2 L NC states breathing is about the same as yesterday had mild dyspnea earlier no cough, fever/chills no abdominal pain, nausea/vomiting, etc no other symptoms Review of Systems Review of Systems: all noted and negative except for above Physical Exam Physical Exam: General- oriented x 3, not in distress, speaks in sentences with no effort or accessory muscle use mild accessory muscle use Eyes- anicteric Neck- no JVD Lungs- decreased breath sounds at the bases Heart- normal rate, regular rhythm; no murmurs Abdomen- normal bowel sounds, nondistended, soft, nontender Extremities- no pretibial edema, no calf tenderness Neuro- alert, oriented x 2; no gross focal neurologic deficits Skin- warm & dry Results & Data Results & Data ([facility]) Vital Signs (Past 12 Hours) Vital Signs Temp Pulse Pulse Resp BP Pulse Ox 04/08/22 11:41 36.9 C 78 18 119/69 96 04/08/22 07:52 36.7 C 98 H 18 156/94 H 99 04/08/22 07:14 93 H 04/08/22 03:00 36.6 C 94 H 18 138/86 99 all noted and reviewed including below
--- NOTE | 2022-04-08 15:02 | Procedure Note ---
Procedure Note Date of Service April 08, 2022 Note Bedside Ultrasound: Right lung: Moderate to large right-sided pleural effusion with dependent atelectasis, a lines anteriorly Left lung: Moderate left-sided pleural effusion with dependent atelectasis, a lines anteriorly Heart: Dilated LV, decreased EF, no pericardial effusion Please note the above document was generated using voice recognition software. It may contain grammatical, syntax or spelling errors.Any formal questions or concerns about the content, text or information contained within the body of this dictation should be directly addressed to the provider for clarification. Coding CPT Codes Pulmonary/Thoracic - Pulmonary and Thoracic: 46974 US, Chest, real time with imaging documentation ([id number]) [facility] Procedure Codes (Charges) Pulmonary/Thoracic Procedure 1: Pulmonary and Thoracic: 79550 US, Chest, real time with imaging documentation
[2022-04-08] MEDS: SIMVASTATIN 20 MG TAB PO SCH (20:35)
[2022-04-08] MEDS: FUROSEMIDE 40 MG/4 ML VIAL IV SCH (20:37)
[2022-04-09] MEDS: LEVOTHYROXINE SODIUM 25 MCG TABLET PO SCH (05:52)
[2022-04-09] MEDS: DOCUSATE SODIUM 100 MG CAP PO SCH ×2 (07:53→21:14)
[2022-04-09] MEDS: allopurinoL 100 MG TAB PO SCH ×2 (07:53→21:14)
[2022-04-09] MEDS: FUROSEMIDE 40 MG/4 ML VIAL IV SCH ×2 (07:53→21:15)
[2022-04-09] MEDS: PANTOprazole 40 MG TAB PO SCH ×2 (07:54→21:13)
[2022-04-09] MEDS: FERROUS SULFATE 325 MG TAB PO SCH ×3 (07:54→15:32)
[2022-04-09] MEDS: METOPROLOL TARTRATE 50 MG TAB PO SCH ×2 (07:54→21:13)
[2022-04-09] MEDS: ASPIRIN 81 MG CHEW PO SCH (07:54)
[2022-04-09] MEDS: POTASSIUM CHLORIDE CRTAB 20 MEQ TABCR PO SCH ×2 (07:54→21:13)
[2022-04-09] MEDS: CEROVITE ADV FORMULA TAB PO SCH (07:55)
[2022-04-09] MEDS: LIDOCAINE 5% 1 PATCH TD SCH (07:55)
[2022-04-09] MEDS: SACCHAROMYCES BOULARDII 250 MG CAP PO SCH (07:55)
[2022-04-09] MEDS: INSULIN ASPART PER UNIT SC SCH ×4 (08:32→21:16)
[2022-04-09] MEDS: ZINC SULFATE 220 MG CAPSULE PO SCH (08:55)
[2022-04-09] MEDS: SERTRALINE HCL 50 MG TABLET PO SCH (08:55)
--- NOTE | 2022-04-09 10:35 | XRay Report ---
SINGLE VIEW CHEST CLINICAL HISTORY: Congestive heart failure. FINDINGS: 2 AP, portable, upright chest radiographs are compared to study dated 04/07/2022. The heart is enlarged noting atherosclerotic calcification of the thoracic aorta. Pulmonary vascular congestion has modestly improved from previous. There are right larger than left pleural effusions with depende nt consolidation. No pneumothorax is seen. The skeletal structures are osteopenic. The bony thorax is grossly intact. Postoperative change is noted in the right humeral head. IMPRESSION: 1. Cardiomegaly with evidence of congestive failure. This is modestly improved from previous. 2. Right larger left pleural effusions with dependent consolidation are unchanged. ACT 112: Negative or not required by law. Electronically signed by: Macho Singh M.D. 04/09/2022 10:34 AM
--- NOTE | 2022-04-09 19:36 | Hospitalist Progress Note ---
Date of Service April 09, 2022 Assessment & Plan (1) Acute respiratory failure with hypoxia: Plan: Supratherapeutic INR: Suspected Coumadin induced bleeding in setting of Supratherapeutic INR Reports H/O fall few days prior to admission as per patient FOBT Negative on 03/27/22 Received Vit K Less likely hemothorax as per Pulm No other obvious source of bleeding INR:3.4>1.2 Coumadin on hold May not be a good long-term candidate for anticoagulation secondary to falls Gross hematuria Possibly traumatic catheterization, decompression for distended bladder Appreciate urology input Hold anticoagulation Needs follow-up with urology upon discharge Monitor CBC Hematuria resolved Resumed aspirin Atrial fibrillation: Chronic, currently rate controlled Continue metoprolol Anticoagulation on hold May not be a good long-term candidate for anticoagulation secondary to falls Anemia, unspecified: Suspected Coumadin induced bleeding in setting of Supratherapeutic INR FOBT negative -CT ABD:No acute intra-abdominal or pelvic abnormality. Appreciate GI Input Continue PPI S/P PRBCs Monitor CBC Iron panel, vitamin B12, folic acid normal Peripheral smear not suggestive of hemolysis Bilateral pleural effusion Likely due to high-output cardiac failure in setting of significant anemia Acute Systolic and diastolic heart failure ? Hemothorax --less likely as per Pulm (Pulm also discussed with radiology) -CT Chest:Soft tissue edema throughout the right chest wall is nonspecific and given the clinical history likely represents contusion. There are moderate to large pleural effusions with significant atelectasis of the lower lungs -ECHO: Normal LV chamber size with moderate concentric LVH. Left ventricular systolic function is moderately reduced. Moderate global hypokinesis of left ventricle. EF 35 to 40%. Grade 2 diastolic dysfunction. Mild aortic regurgitation. Mild valvular aortic stenosis. Moderate mitral annular calcification with mild mitral regurgitation. Mild tricuspid regurgitation. Severe biatrial enlargement. -Continue IV Lasix Monitor volume status Appreciate Pulmonary, Cardiology input Continue IV diuresis Nebs as needed On 2 L supplemental oxygen Patient refused thoracentesis Mitral Vegetation on ECHO as above Suspected IE Blood Cultures negative to date Likely calcium deposits as per cardiology Appreciate Cardiology Input HTN Continue metoprolol Diffuse pain in right upper extremity: -RUE USD:Extensive subcutaneous edema of the right arm. No well-defined fluid collection to suggest abscess or hematoma by sonography. -Humerus X ray:No acute osseous pathology. There is again diffuse subcutaneous edema surrounding the arm of uncertain etiology. -Forearm X ray:No fracture within the right radius or ulna. Forearm soft tissue swelling. -RUE Doppler:There is no sonographic evidence of deep venous thrombosis identified in the right upper extremity. Improved DM II -Last HbA1C = 4.9 on 02/10/22 -Was taken off glimepiride yesterday 03/26, in the setting of elderly patient with possible hypoglycemic episodes in the past. Hold metformin ISS for now Memory loss: Has appt scheduled with outpatient neurology on 05/06 Dementia as per records Generalized weakness: PT/OT Fall precautions Acute osteomyelitis of toe of right foot: Follows with [facility] wound clinic Continue wound care ID follow up appointment already scheduled in mid April Neck Pain likely musculoskeletal pain Trial of scheduled Tylenol, Lidoderm patch, K pad Resolved Hypothyroidism: Continue levothyroxine PVD (peripheral vascular disease): -On Aspirin Follows with Dr. Gold with vascular as outpatient DVT Px: Teds, SCDs, holding Coumadin Re: Anemia, Suspected bleeding CODE STATUS: DNR/DNI Admission and Anticipated Discharge Date Admission Date: March 27, 2022 Subjective Patient is seen and examined at bedside States having intermittent dyspnea Feels better today No new complaints Discussed with cardiology today Currently on 2 L supplemental oxygen Review of Systems Review of Systems: All systems reviewed & are unremarkable except as noted in Subjective Physical Exam Physical Exam: Physical Exam: Vitals signs as noted above General Appearance:Moderately built and nourished, ill appearing, no apparent distress Head: normocephalic, Atraumatic Eyes: normal inspection, EOMI Neck: supple, Trachea midline Respiratory/Chest: Decreased breath sounds, Crackles at bases Cardiovascular: Irregularly irregular, No murmur Abdomen/GI:Soft, Non tender, Bowel sounds present Extremities/Musculoskeletal:normal inspection, Less edema, Ecchymosis/Venous stasis Neurologic/Psych:AAO, grossly no focal neurological deficits Skin: normal color, warm Results & Data Results & Data ([facility]) Vital Signs (Past 12 Hours) Vital Signs Temp Pulse Resp BP Pulse Ox 04/09/22 19:18 36.6 C 105 H 18 154/80 H 97 04/09/22 15:23 36.4 C L 86 20 135/76 93 04/09/22 11:41 88 20 147/66 H 98
--- NOTE | 2022-04-09 21:06 | Cardiology Progress Note ---
Date of Service April 09, 2022 Assessment & Plan (1) Acute HFrEF (heart failure with reduced ejection fraction): (2) Pleural effusion: (3) Atrial fibrillation: (4) Supratherapeutic INR: Plan: Hospital day 13 History of dementia. Echo 03/28/22, LVEF 35-40%,Severe biatrial enlargement. Coumadin discontinued due to anemia, hematuria, high INR. Pulmonary input noted and appreciated. Moderate bilateral pleural effusions noted on chest x-ray. Continue IV furosemide 40 mg IV twice daily. Consider adding pharmacologic DVT prophylaxis or SCDs. Admission and Anticipated Discharge Date Admission Date: March 27, 2022 Subjective Patient seen in follow-up. No complaints. Telemetry reveals atrial fibrillation in the range of 80 to 90 bpm. Physical Exam Constitutional: + ill appearing; no acute distress Respiratory: decreased breath sounds bilaterally at the bases Cardiovascular: Rate/Rhythm: + irregularly irregular Heart Sounds: no murmur Gastrointestinal (Abdomen): normal bowel sounds, soft, nontender, no hepatosplenomegaly Neurologic: PERRL, EOMI, accommodation nl, no face palsy, no dysarthria Results & Data ([facility]) Vital Signs (Past 12 Hours) Vital Signs Temp Pulse Resp BP Pulse Ox 04/09/22 19:18 36.6 C 105 H 18 154/80 H 97 04/09/22 15:23 36.4 C L 86 20 135/76 93 04/09/22 11:41 88 20 147/66 H 98
[2022-04-09] MEDS: SIMVASTATIN 20 MG TAB PO SCH (21:13)
[2022-04-10] MEDS: LEVALBUTEROL HCL 0.63 MG/3 ML NEB NEB PRN (03:21)
[2022-04-10] MEDS: LEVOTHYROXINE SODIUM 25 MCG TABLET PO SCH (05:26)
[2022-04-10 08:06] LABS: Hematocrit (blood only) 32.8 % (42-52); Hemoglobin 10.4 g/dL (14.0-18.0); Mean Corpuscular Hemoglobin 31.9 pg (25-34); Mean Corpuscular Hgb Conc 31.7 g/dL (32-36); Mean Corpuscular Volume 100.6 fL (80-100); Mean Platelet Volume 9.4 fL (7.4-10.4); Platelet Count 448 K/uL (130-400); RDW Coefficient of Variation 18.3 % (11.5-14.5); RDW Standard Deviation 67.4 fL (36.4-46.3); Red Blood Count 3.26 M/uL (4.7-6.1); White Blood Count 11.62 K/uL (4.8-10.8)
[2022-04-10] MEDS: CEROVITE ADV FORMULA TAB PO SCH (08:21)
[2022-04-10] MEDS: FERROUS SULFATE 325 MG TAB PO SCH ×3 (08:21→17:27)
[2022-04-10] MEDS: ASPIRIN 81 MG CHEW PO SCH (08:21)
[2022-04-10] MEDS: ZINC SULFATE 220 MG CAPSULE PO SCH (08:21)
[2022-04-10] MEDS: SERTRALINE HCL 50 MG TABLET PO SCH (08:21)
[2022-04-10] MEDS: DOCUSATE SODIUM 100 MG CAP PO SCH ×2 (08:22→22:06)
[2022-04-10] MEDS: FUROSEMIDE 40 MG/4 ML VIAL IV SCH ×2 (08:22→22:06)
[2022-04-10] MEDS: SACCHAROMYCES BOULARDII 250 MG CAP PO SCH (08:22)
[2022-04-10] MEDS: PANTOprazole 40 MG TAB PO SCH ×2 (08:22→22:07)
[2022-04-10] MEDS: METOPROLOL TARTRATE 50 MG TAB PO SCH ×2 (08:22→22:06)
[2022-04-10] MEDS: allopurinoL 100 MG TAB PO SCH ×2 (08:22→22:07)
[2022-04-10] MEDS: POTASSIUM CHLORIDE CRTAB 20 MEQ TABCR PO SCH ×2 (08:23→22:08)
[2022-04-10] MEDS: LIDOCAINE 5% 1 PATCH TD SCH (08:23)
[2022-04-10 08:29] LABS: BUN Creatinine Ratio 27.6 (10-20); Calcium 9.1 mg/dl (8.5-10.1); Est GFR (African American) 99.9 ml/min; Est GFR (Non-African American) 86.2 ml/min; Magnesium 1.9 mg/dl (1.7-2.4); Potassium 3.7 mmol/L (3.5-5.1)
[2022-04-10] MEDS: INSULIN ASPART PER UNIT SC SCH ×4 (08:58→21:05)
--- NOTE | 2022-04-10 16:20 | Cardiology Progress Note ---
Date of Service April 10, 2022 Assessment & Plan (1) Acute HFrEF (heart failure with reduced ejection fraction): (2) Pleural effusion: (3) Atrial fibrillation: (4) Supratherapeutic INR: Plan: Hospital day 14 History of dementia. Echo 03/28/22, LVEF 35-40%,Severe biatrial enlargement. Coumadin discontinued due to anemia, hematuria, high INR. Pulmonary input noted and appreciated. Moderate bilateral pleural effusions noted on chest x-ray. Continue IV furosemide 40 mg IV twice daily. In the last 24 hours, 2.6 L of urine output noted, balance -1.175 L. Consider adding pharmacologic DVT prophylaxis or SCDs. Admission and Anticipated Discharge Date Admission Date: March 27, 2022 Subjective Patient seen in cardiology follow-up. Has been resting comfortably. Easily arousable. Atrial fibrillation in the 80s noted. Physical Exam Constitutional: + ill appearing; no acute distress Cardiovascular: Rate/Rhythm: + irregularly irregular Heart Sounds: no murmur Gastrointestinal (Abdomen): normal bowel sounds, soft, nontender, no hepatosplenomegaly Neurologic: PERRL, EOMI, accommodation nl, no face palsy, no dysarthria Results & Data ([facility]) Vital Signs (Past 12 Hours) Vital Signs Temp Pulse Pulse Resp BP Pulse Ox Pulse Ox 04/10/22 15:40 36.7 C 86 18 109/63 98 04/10/22 14:57 87 04/10/22 11:06 36.7 C 100 H 18 137/84 98 04/10/22 08:00 93
[2022-04-10] MEDS: WARFARIN SOD 2 MG TAB PO SCH (17:27)
--- NOTE | 2022-04-10 18:41 | Hospitalist Progress Note ---
Date of Service April 10, 2022 Assessment & Plan (1) Acute respiratory failure with hypoxia: Plan: Supratherapeutic INR: Suspected Coumadin induced bleeding in setting of Supratherapeutic INR Reports H/O fall few days prior to admission as per patient FOBT Negative on 03/27/22 Received Vit K No other obvious source of bleeding INR:3.4>1.2 Resume Coumadin Monitor INR Gross hematuria Possibly traumatic catheterization, decompression for distended bladder Appreciate urology input Needs follow-up with urology upon discharge Monitor CBC Hematuria resolved Resumed aspirin Atrial fibrillation: Chronic, currently rate controlled Continue metoprolol Coumadin resumed Anemia, unspecified: Suspected Coumadin induced bleeding in setting of Supratherapeutic INR FOBT negative -CT ABD:No acute intra-abdominal or pelvic abnormality. Appreciate GI Input Continue PPI S/P PRBCs Monitor CBC Iron panel, vitamin B12, folic acid normal Peripheral smear not suggestive of hemolysis Bilateral pleural effusion Likely due to high-output cardiac failure in setting of significant anemia Acute Systolic and diastolic heart failure ? Hemothorax --less likely as per Pulm (Pulm also discussed with radiology) -CT Chest:Soft tissue edema throughout the right chest wall is nonspecific and given the clinical history likely represents contusion. There are moderate to large pleural effusions with significant atelectasis of the lower lungs -ECHO: Normal LV chamber size with moderate concentric LVH. Left ventricular systolic function is moderately reduced. Moderate global hypokinesis of left ventricle. EF 35 to 40%. Grade 2 diastolic dysfunction. Mild aortic regurgitation. Mild valvular aortic stenosis. Moderate mitral annular calcification with mild mitral regurgitation. Mild tricuspid regurgitation. Severe biatrial enlargement. -Continue IV Lasix Monitor volume status Appreciate Pulmonary, Cardiology input Nebs as needed Supplemental oxygen as needed Patient refused thoracentesis Continue IV diuresis 2 step prior to discharge Mitral Vegetation on ECHO as above Suspected IE Blood Cultures negative to date Likely calcium deposits as per cardiology Appreciate Cardiology Input HTN Continue metoprolol Diffuse pain in right upper extremity: -RUE USD:Extensive subcutaneous edema of the right arm. No well-defined fluid collection to suggest abscess or hematoma by sonography. -Humerus X ray:No acute osseous pathology. There is again diffuse subcutaneous edema surrounding the arm of uncertain etiology. -Forearm X ray:No fracture within the right radius or ulna. Forearm soft tissue swelling. -RUE Doppler:There is no sonographic evidence of deep venous thrombosis identified in the right upper extremity. Improved DM II -Last HbA1C = 4.9 on 02/10/22 -Was taken off glimepiride yesterday 03/26, in the setting of elderly patient with possible hypoglycemic episodes in the past. Hold metformin ISS for now Memory loss: Has appt scheduled with outpatient neurology on 05/06 Dementia as per records Generalized weakness: PT/OT Fall precautions Acute osteomyelitis of toe of right foot: Follows with [facility] wound clinic Continue wound care ID follow up appointment already scheduled in mid April Neck Pain likely musculoskeletal pain Trial of scheduled Tylenol, Lidoderm patch, K pad Resolved Hypothyroidism: Continue levothyroxine PVD (peripheral vascular disease): -On Aspirin Follows with Dr. Gold with vascular as outpatient DVT Px: Coumadin CODE STATUS: DNR/DNI Admission and Anticipated Discharge Date Admission Date: March 27, 2022 Subjective Patient is seen and examined at bedside No significant change from yesterday Denies dyspnea today Currently on 4 L supplemental oxygen No complaints Review of Systems Review of Systems: All systems reviewed & are unremarkable except as noted in Subjective Physical Exam Physical Exam: Physical Exam: Vitals signs as noted above General Appearance:Moderately built and nourished, ill appearing, no apparent distress Head: normocephalic, Atraumatic Eyes: normal inspection, EOMI Neck: supple, Trachea midline Respiratory/Chest: Decreased breath sounds, Crackles at bases Cardiovascular: Irregularly irregular, No murmur Abdomen/GI:Soft, Non tender, Bowel sounds present Extremities/Musculoskeletal:normal inspection, Less edema, Ecchymosis/Venous stasis Neurologic/Psych:AAO, grossly no focal neurological deficits Skin: normal color, warm Results & Data Results & Data ([facility]) Vital Signs (Past 12 Hours) Vital Signs Temp Pulse Pulse Resp BP Pulse Ox Pulse Ox 04/10/22 18:32 36.6 C 86 18 146/90 H 98 04/10/22 15:40 36.7 C 86 18 109/63 98 04/10/22 14:57 87 04/10/22 11:06 36.7 C 100 H 18 137/84 98 04/10/22 08:00 93 Laboratory Results Short CBC 04/10/22 Range/Units 07:22 WBC 11.62 H (4.8-10.8) K/uL Hgb 10.4 L (14.0-18.0) g/dL Hct 32.8 L (42-52) % Plt Count 448 H (130-400) K/uL BMP 04/10/22 07:22 Sodium 133 L Potassium 3.7 Chloride 98 Carbon Dioxide 27 BUN 21 Creatinine 0.76 Glucose 121 H Calcium 9.1
[2022-04-10] MEDS: SIMVASTATIN 20 MG TAB PO SCH (22:09)
[2022-04-11] MEDS: LEVALBUTEROL HCL 0.63 MG/3 ML NEB NEB PRN (03:07)
[2022-04-11] MEDS: LEVOTHYROXINE SODIUM 25 MCG TABLET PO SCH (05:40)
[2022-04-11] MEDS: INSULIN ASPART PER UNIT SC SCH ×4 (09:09→20:22)
[2022-04-11] MEDS: FERROUS SULFATE 325 MG TAB PO SCH ×3 (09:10→16:37)
[2022-04-11] MEDS: allopurinoL 100 MG TAB PO SCH ×2 (09:10→20:18)
[2022-04-11] MEDS: PANTOprazole 40 MG TAB PO SCH ×2 (09:10→20:19)
[2022-04-11] MEDS: DOCUSATE SODIUM 100 MG CAP PO SCH ×2 (09:11→20:17)
[2022-04-11] MEDS: LIDOCAINE 5% 1 PATCH TD SCH (09:11)
[2022-04-11] MEDS: METOPROLOL TARTRATE 50 MG TAB PO SCH ×2 (09:11→20:18)
[2022-04-11] MEDS: FUROSEMIDE 40 MG/4 ML VIAL IV SCH (09:12)
[2022-04-11] MEDS: ASPIRIN 81 MG CHEW PO SCH (09:12)
[2022-04-11] MEDS: CEROVITE ADV FORMULA TAB PO SCH (09:12)
[2022-04-11] MEDS: ZINC SULFATE 220 MG CAPSULE PO SCH (09:12)
[2022-04-11] MEDS: SACCHAROMYCES BOULARDII 250 MG CAP PO SCH (09:12)
[2022-04-11] MEDS: SERTRALINE HCL 50 MG TABLET PO SCH (09:12)
[2022-04-11] MEDS: POTASSIUM CHLORIDE CRTAB 20 MEQ TABCR PO SCH ×2 (09:12→20:19)
[2022-04-11 09:22] LABS: Calcium 9.2 mg/dl (8.5-10.1); Creatinine Clr Calc Pharmacy 86.9 ml/min; Est GFR (African American) 103.3 ml/min; Est GFR (Non-African American) 89.1 ml/min; Potassium 3.8 mmol/L (3.5-5.1)
[2022-04-11 10:32] LABS: INR 1.2 (0.9-1.1); Prothrombin Time 12.4 Seconds (9.0-12.0)
[2022-04-11 15:45] LABS: iSTAT Allen Test Pass; iSTAT Art Bld Gas pCO2 Correct 36 mmHg (35-46); iSTAT Art Bld Gas pH Corrected 7.485 (7.35-7.45); iSTAT Arterial Blood Gas HCO3 27 meg/L (19-24); iSTAT Arterial Blood Gas pCO2 37 mmHg (35-46); iSTAT Arterial Blood Gas pH 7.48 (7.35-7.45); iSTAT Arterial Blood Gas pO2 143 mmHg (80-95); iSTAT Arterial Blood Gas pO2 C 141; iSTAT Carbon Dioxide 28 mmol/L (24-31); iSTAT Hematocrit 36 % (42-52); iSTAT Hemoglobin 12.2 g/dl (14.0-18.0); iSTAT Potassium 4.5 mmol/L (3.3-5.0); iSTAT Site L Radial; iSTAT Sodium 131 mmol/L (135-144)
[2022-04-11] MEDS ORDERED: FUROSEMIDE INJ 20 MG/2 ML VIAL IV ONE (15:49)
[2022-04-11] MEDS ORDERED: OPTIRAY 320 125ml IV ONE (16:11)
[2022-04-11] MEDS ORDERED: FUROSEMIDE 40 MG/4 ML VIAL IV ONE ×2 (16:30→19:33)
[2022-04-11] MEDS: WARFARIN SOD 2 MG TAB PO SCH (16:39)
--- NOTE | 2022-04-11 16:46 | CT Scan Report ---
CT angio chest PE protocol CT DOSE: 970.29 mGy.cm HISTORY: 82 years-old Male with PE. Acute shortness of breath TECHNIQUE: Multiple CTA images of the chest were obtained after the intravenous administration of 120 ml Optiray. Coronal and sagittal MIPS were obtained from the axial data set and were submitted for review. All measurements were obtained according to NASCET criteria. A dose lowering technique was u tilized adhering to the principles of ALARA. COMPARISON: Chest radiograph 04/09/2022, chest CT 03/27/2022 FINDINGS: CTA: Moderate cardiomegaly. No pericardial effusion. Moderate coronary artery calcifications. Atherosclero sis of the thoracic aorta which is not well opacified secondary to contrast bolus timing. The segment al and subsegmental pulmonary arterial branches are not well opacified secondary to contrast bolus ti anoop and respiratory motion artifact. No pulmonary emboli are identified. CT CHEST: No thyroid nodule identified. Mild subcarinal and paratracheal adenopathy. Index precarinal lymph nod e measures 1.1 cm on image 171, similar to prior. Large right with moderate to large left pleural eff usions. No pneumothorax. Respiratory motion artifact limits evaluation of the lung parenchyma. Consol idation with collapse of the right lower lobe with consolidation and partial collapse of the right mi ddle and left lower lobes, progressed from the prior study. Intralobular septal thickening. No acute process of the imaged upper abdomen. Moderate fecal retention. Unremarkable soft tissues. Th ere is no acute fracture. There is decreased chest wall edema compared to the prior study. IMPRESSION: 1. Cardiomegaly with pulmonary edema. No pulmonary emboli. 2. Large right with moderate to large left pleural effusions. There is progressive consolidation with volume loss of the lower lungs. Superimposed pneumonia would be difficult to exclude. ACT 112: Negative or not required by law. The above report was generated using voice recognition software. It may contain grammatical, syntax o r spelling errors. Electronically signed by: Ricardo Abernathy M.D. 04/11/2022 4:44 PM
--- NOTE | 2022-04-11 18:26 | Hospitalist Progress Note ---
Date of Service April 11, 2022 Assessment & Plan (1) Acute respiratory failure with hypoxia: Plan: Supratherapeutic INR: Suspected Coumadin induced bleeding in setting of Supratherapeutic INR Reports H/O fall few days prior to admission as per patient FOBT Negative on 03/27/22 Received Vit K No other obvious source of bleeding INR:3.4>1.2 Resumed Coumadin Monitor INR No bridging given high risk for bleeding Gross hematuria Possibly traumatic catheterization, decompression for distended bladder Appreciate urology input Needs follow-up with urology upon discharge Monitor CBC Hematuria resolved Resumed aspirin Atrial fibrillation: Chronic, currently rate controlled Continue metoprolol Continue Coumadin Anemia, unspecified: Suspected Coumadin induced bleeding in setting of Supratherapeutic INR FOBT negative -CT ABD:No acute intra-abdominal or pelvic abnormality. Appreciate GI Input Continue PPI S/P PRBCs Monitor CBC Iron panel, vitamin B12, folic acid normal Peripheral smear not suggestive of hemolysis Bilateral pleural effusion Likely due to high-output cardiac failure in setting of significant anemia Acute Systolic and diastolic heart failure ? Hemothorax --less likely as per Pulm (Pulm also discussed with radiology) -CT Chest:Soft tissue edema throughout the right chest wall is nonspecific and given the clinical history likely represents contusion. There are moderate to large pleural effusions with significant atelectasis of the lower lungs -ECHO: Normal LV chamber size with moderate concentric LVH. Left ventricular systolic function is moderately reduced. Moderate global hypokinesis of left ventricle. EF 35 to 40%. Grade 2 diastolic dysfunction. Mild aortic regurgitation. Mild valvular aortic stenosis. Moderate mitral annular calcification with mild mitral regurgitation. Mild tricuspid regurgitation. Severe biatrial enlargement. -Continue IV Lasix Monitor volume status Appreciate Pulmonary, Cardiology input Nebs as needed Supplemental oxygen as needed Patient refused thoracentesis Continue IV diuresis 2 step prior to discharge Given extra dose of lasix 40mg today Mitral Vegetation on ECHO as above Suspected IE Blood Cultures negative to date Likely calcium deposits as per cardiology Appreciate Cardiology Input HTN Continue metoprolol Diffuse pain in right upper extremity: -RUE USD:Extensive subcutaneous edema of the right arm. No well-defined fluid collection to suggest abscess or hematoma by sonography. -Humerus X ray:No acute osseous pathology. There is again diffuse subcutaneous edema surrounding the arm of uncertain etiology. -Forearm X ray:No fracture within the right radius or ulna. Forearm soft tissue swelling. -RUE Doppler:There is no sonographic evidence of deep venous thrombosis identified in the right upper extremity. Improved DM II -Last HbA1C = 4.9 on 02/10/22 -Was taken off glimepiride yesterday 03/26, in the setting of elderly patient with possible hypoglycemic episodes in the past. Hold metformin ISS for now Memory loss: Has appt scheduled with outpatient neurology on 05/06 Dementia as per records Generalized weakness: PT/OT Fall precautions Acute osteomyelitis of toe of right foot: Follows with [facility] wound clinic Continue wound care ID follow up appointment already scheduled in mid April Neck Pain likely musculoskeletal pain Trial of scheduled Tylenol, Lidoderm patch, K pad Resolved Hypothyroidism: Continue levothyroxine PVD (peripheral vascular disease): -On Aspirin Follows with Dr. Gold with vascular as outpatient DVT Px: Coumadin CODE STATUS: DNR/DNI Admission and Anticipated Discharge Date Admission Date: March 27, 2022 Subjective Patient is seen and examined at bedside States having intermittent dyspnea Sitting in chair during my encounter Has generalized pain No other complaints Had brief period of hypoxia requiring Oxymask Review of Systems Review of Systems: All systems reviewed & are unremarkable except as noted in Subjective Physical Exam Physical Exam: Physical Exam: Vitals signs as noted above General Appearance:Moderately built and nourished, ill appearing, no apparent distress Head: normocephalic, Atraumatic Eyes: normal inspection, EOMI Neck: supple, Trachea midline Respiratory/Chest: Decreased breath sounds, Crackles at bases Cardiovascular: Irregularly irregular, No murmur Abdomen/GI:Soft, Non tender, Bowel sounds present Extremities/Musculoskeletal:normal inspection, Less edema, Ecchymosis/Venous stasis Neurologic/Psych:AAO, grossly no focal neurological deficits Skin: normal color, warm Results & Data Results & Data ([facility]) Vital Signs (Past 12 Hours) Vital Signs Temp Pulse Resp BP BP Pulse Ox 04/11/22 15:12 146/70 H 04/11/22 10:48 36.8 C 100 H 20 112/68 92 04/11/22 06:45 36.8 C 92 H 20 125/72 94 Laboratory Results [facility] 04/11/22 08:24 Sodium 132 L Potassium 3.8 Chloride 97 L Carbon Dioxide 29 BUN 21 Creatinine 0.70 Glucose 139 H Calcium 9.2
--- NOTE | 2022-04-11 19:33 | Cardiology Progress Note ---
Date of Service April 11, 2022 Assessment & Plan (1) Acute HFrEF (heart failure with reduced ejection fraction): (2) Pleural effusion: (3) Atrial fibrillation: (4) Supratherapeutic INR: Plan: Hospital day 15 Patient initially presented 03/27/2022 from [facility] with issues with regards to recent high INR levels 4.44.9. Hemoglobin 6.8 03/28/2022. Received 1 unit of packed red blood cells. Recent history of toe osteomyelitis treated by [place] wound clinic and vascular. Per review of available records, follows with Dr. Kaur [facility]iology in [facility], most recent progress note from that practice September,. -History of coronary heart disease, most recent cardiac catheterization July,, and 9% circumflex treated with PCI drug-eluting stent, [employer] and not amenable to revascularization, 40% RCA, LVEF 40% then. History of dementia. Echo 03/28/22, LVEF 35-40%,Severe biatrial enlargement. Coumadin discontinued due to anemia, hematuria, high INR. Coumadin reinitiated on 04/10, with stable hemoglobin 2.2 04/11/2022, but ultimately may be a poor candidate for ongoing anticoagulation. Coumadin reinitiated due to high risk of DVT, cardioembolic stroke. Patient's volume status improved, previously transitioned to oral diuretics, but pleural fluid has reaccumulated. We will increase furosemide from 40 mg twice daily to 60 mg twice daily. Admission and Anticipated Discharge Date Admission Date: March 27, 2022 Subjective Patient seen in cardiology follow-up. No complaints. Sitting in bedside chair. Castaneda catheter in place. Physical Exam Constitutional: + ill appearing; no acute distress Cardiovascular: Rate/Rhythm: + irregularly irregular Heart Sounds: no murmur Gastrointestinal (Abdomen): normal bowel sounds, soft, nontender, no hepatosplenomegaly Neurologic: PERRL, EOMI, accommodation nl, no face palsy, no dysarthria Results & Data ([facility]) Vital Signs (Past 12 Hours) Vital Signs Temp Pulse Resp BP BP Pulse Ox 04/11/22 15:12 146/70 H 04/11/22 10:48 36.8 C 100 H 20 112/68 92 Laboratory Results Coagulation 04/11/22 Range/Units 09:51 PT 12.4 H (9.0-12.0) Seconds Comprehensive Metabolic Panel 04/11/22 Range/Units 08:24 Sodium 132 L (136-145) mmol/L Potassium 3.8 (3.5-5.1) mmol/L Chloride 97 L (98-107) mmol/L Carbon Dioxide 29 (21-32) mmol/L BUN 21 (6-23) mg/dl Creatinine 0.70 (0.6-1.4) mg/dl Glucose 139 H (70-99(Fasting)) mg/dl Calcium 9.2 (8.5-10.1) mg/dl Intake and Output 04/11/22 04/11/22 04/11/22 06:59 14:59 22:59 Intake Total 200 / 875 675 / 675 Output Total 750 / 1900 800 / 800 Balance -550 / -1025 -125 / -125 Intake: Oral 200 / 875 675 / 675 Output: Urine Amount (Catheter) 750 / 1900 800 / 800 Castaneda/Indwelling 750 / 1900 800 / 800 Other: Weight 80.4 kg 80.4 kg Patient Weight 04/12/22 06:59 Weight 80.4 kg
[2022-04-11] MEDS: SIMVASTATIN 20 MG TAB PO SCH (20:20)
[2022-04-12] MEDS: LEVOTHYROXINE SODIUM 25 MCG TABLET PO SCH (05:20)
[2022-04-12 07:13] LABS: Hemoglobin 10.3 g/dL (14.0-18.0); Mean Corpuscular Hemoglobin 31.8 pg (25-34); Mean Corpuscular Hgb Conc 32.2 g/dL (32-36); Mean Corpuscular Volume 98.8 fL (80-100); Mean Platelet Volume 9.4 fL (7.4-10.4); Platelet Count 407 K/uL (130-400); RDW Standard Deviation 65.8 fL (36.4-46.3); Red Blood Count 3.24 M/uL (4.7-6.1)
[2022-04-12 07:19] LABS: INR 1.2 (0.9-1.1); Prothrombin Time 12.7 Seconds (9.0-12.0)
[2022-04-12 08:28] LABS: Calcium 9.2 mg/dl (8.5-10.1); Potassium 3.7 mmol/L (3.5-5.1)
[2022-04-12 08:34] LABS: BUN Creatinine Ratio 29.7 (10-20); Creatinine Clr Calc Pharmacy 82.2 ml/min; Est GFR (Non-African American) 87.1 ml/min
[2022-04-12] MEDS: METOPROLOL TARTRATE 50 MG TAB PO SCH ×2 (09:28→20:44)
[2022-04-12] MEDS: DOCUSATE SODIUM 100 MG CAP PO SCH ×2 (09:29→20:42)
[2022-04-12] MEDS: allopurinoL 100 MG TAB PO SCH ×2 (09:29→20:44)
[2022-04-12] MEDS: ZINC SULFATE 220 MG CAPSULE PO SCH (09:29)
[2022-04-12] MEDS: PANTOprazole 40 MG TAB PO SCH ×2 (09:29→20:41)
[2022-04-12] MEDS: SERTRALINE HCL 50 MG TABLET PO SCH (09:29)
[2022-04-12] MEDS: FERROUS SULFATE 325 MG TAB PO SCH ×3 (09:30→18:14)
[2022-04-12] MEDS: CEROVITE ADV FORMULA TAB PO SCH (09:30)
[2022-04-12] MEDS: ASPIRIN 81 MG CHEW PO SCH (09:30)
[2022-04-12] MEDS: LIDOCAINE 5% 1 PATCH TD SCH (09:31)
[2022-04-12] MEDS: POTASSIUM CHLORIDE CRTAB 20 MEQ TABCR PO SCH ×2 (09:32→20:43)
[2022-04-12] MEDS: SACCHAROMYCES BOULARDII 250 MG CAP PO SCH (09:32)
[2022-04-12] MEDS: FUROSEMIDE 40 MG/4 ML VIAL IV SCH ×2 (09:35→18:13)
[2022-04-12] MEDS: INSULIN ASPART PER UNIT SC SCH ×4 (09:38→20:40)
--- NOTE | 2022-04-12 15:38 | Cardiology Progress Note ---
Date of Service April 12, 2022 Assessment & Plan (1) Acute HFrEF (heart failure with reduced ejection fraction): (2) Pleural effusion: (3) Atrial fibrillation: Plan: Hospital day 16. Recent echocardiogram performed 03/28/2022 demonstrating left ventricular ejection fraction of 35-40% with severe biatrial enlargement. CT and x-ray confirming reaccumulation of pleural fluid. Maintain negative fluid balance. Continue Lasix 60 mg IV twice daily (titrated yesterday 04/11/2022. Follow daily weight, fluid balance, GFR, and electrolytes. Dose warfarin for goal INR of 2.0-3.0 due to history of A. fib, and high risk of DVT, cardioembolic stroke.Overall candidacy for long-term anticoagulation somewhat guarded due to anemia, frailty, history of hematuria. Continue to monitor daily H&H. Admission and Anticipated Discharge Date Admission Date: March 27, 2022 Subjective Patient seen and examined at the bedside. Poor historian due to underlying dementia. Denies chest discomfort. Notes some abdominal discomfort earlier today. Resting comfortably. Oxygen saturation stable on 4 L nasal cannula. Fluid balance negative 0. Lasix titrated to 60 mg twice daily yesterday . Review of Systems Review of Systems: All systems reviewed & are unremarkable except as noted in Subjective Physical Exam Constitutional: + ill appearing; no acute distress Respiratory: no respiratory distress, no labored breathing and no retractions Auscultation: + diminished lung sounds and + rales; no wheezes Cardiovascular: Rate/Rhythm: + irregularly irregular Heart Sounds: normal S1 and normal S2; no murmur Vessels: + JVD; no carotid bruit Extremities: + edema (1+Bilateral lower extremity edema with stasis changes) Gastrointestinal (Abdomen): Inspection/Auscultation: normal bowel sounds; abdomen not distended Percussion/Palpation: abdomen soft; abdomen nontender, no guarding and abdomen not rigid Neurologic: CN's II-XI intact bilaterally and moves all extremities; no focal motor deficits Motor/Sensory: no tremor Results & Data ([facility]) Vital Signs (Past 12 Hours) Vital Signs Temp Pulse Resp BP Pulse Ox 04/12/22 11:46 36.4 C L 97 H 20 143/81 H 99 04/12/22 08:21 36.5 C 97 H 20 133/74 98
--- NOTE | 2022-04-12 16:30 | Hospitalist Progress Note ---
Date of Service April 12, 2022 Assessment & Plan (1) Acute respiratory failure with hypoxia: Plan: Supratherapeutic INR: Suspected Coumadin induced bleeding in setting of Supratherapeutic INR Reports H/O fall few days prior to admission as per patient FOBT Negative on 03/27/22 Received Vit K No other obvious source of bleeding INR:3.4>1.2 Monitor INR No bridging given high risk for bleeding Hold Coumadin for possible thoracentesis tomorrow Gross hematuria Possibly traumatic catheterization, decompression for distended bladder Appreciate urology input Needs follow-up with urology upon discharge Monitor CBC Hematuria resolved Resumed aspirin Atrial fibrillation: Chronic, currently rate controlled Continue metoprolol Resume Coumadin as able Anemia, unspecified: Suspected Coumadin induced bleeding in setting of Supratherapeutic INR FOBT negative -CT ABD:No acute intra-abdominal or pelvic abnormality. Appreciate GI Input Continue PPI S/P PRBCs Monitor CBC Iron panel, vitamin B12, folic acid normal Peripheral smear not suggestive of hemolysis Bilateral pleural effusion Likely due to high-output cardiac failure in setting of significant anemia Acute Systolic and diastolic heart failure ? Hemothorax --less likely as per Pulm (Pulm also discussed with radiology) -CT Chest:Soft tissue edema throughout the right chest wall is nonspecific and given the clinical history likely represents contusion. There are moderate to large pleural effusions with significant atelectasis of the lower lungs -ECHO: Normal LV chamber size with moderate concentric LVH. Left ventricular systolic function is moderately reduced. Moderate global hypokinesis of left ventricle. EF 35 to 40%. Grade 2 diastolic dysfunction. Mild aortic regurgitation. Mild valvular aortic stenosis. Moderate mitral annular calcification with mild mitral regurgitation. Mild tricuspid regurgitation. Severe biatrial enlargement. -Continue IV Lasix Monitor volume status Appreciate Pulmonary, Cardiology input Nebs as needed Supplemental oxygen as needed Patient refused thoracentesis Continue IV diuresis 2 step prior to discharge Lasix increased to 60mg BID May need thoracentesis:Will discuss with Pulm Mitral Vegetation on ECHO as above Suspected IE Blood Cultures negative to date Likely calcium deposits as per cardiology Appreciate Cardiology Input HTN Continue metoprolol Diffuse pain in right upper extremity: -RUE USD:Extensive subcutaneous edema of the right arm. No well-defined fluid collection to suggest abscess or hematoma by sonography. -Humerus X ray:No acute osseous pathology. There is again diffuse subcutaneous edema surrounding the arm of uncertain etiology. -Forearm X ray:No fracture within the right radius or ulna. Forearm soft tissue swelling. -RUE Doppler:There is no sonographic evidence of deep venous thrombosis identified in the right upper extremity. Improved DM II -Last HbA1C = 4.9 on 02/10/22 -Was taken off glimepiride yesterday 03/26, in the setting of elderly patient with possible hypoglycemic episodes in the past. Hold metformin ISS for now Memory loss: Has appt scheduled with outpatient neurology on 05/06 Dementia as per records Generalized weakness: PT/OT Fall precautions Acute osteomyelitis of toe of right foot: Follows with [facility] wound clinic Continue wound care ID follow up appointment already scheduled in mid April Neck Pain likely musculoskeletal pain Trial of scheduled Tylenol, Lidoderm patch, K pad Resolved Hypothyroidism: Continue levothyroxine PVD (peripheral vascular disease): -On Aspirin Follows with Dr. Gold with vascular as outpatient DVT Px: Coumadin-held today Heparin SQ CODE STATUS: DNR/DNI Admission and Anticipated Discharge Date Admission Date: March 27, 2022 Subjective Patient is seen and examined at bedside States having shoulder pain earlier Saturating well on 4 L supplemental oxygen Intermittent dyspnea States having intermittent dyspnea Discussed with Pulmonology today Review of Systems Review of Systems: All systems reviewed & are unremarkable except as noted in Subjective Physical Exam Physical Exam: Physical Exam: Vitals signs as noted above General Appearance:Moderately built and nourished, ill appearing, no apparent distress Head: normocephalic, Atraumatic Eyes: normal inspection, EOMI Neck: supple, Trachea midline Respiratory/Chest: Decreased breath sounds, Crackles at bases Cardiovascular: Irregularly irregular, No murmur Abdomen/GI:Soft, Non tender, Bowel sounds present Extremities/Musculoskeletal:normal inspection, Less edema, Ecchymosis/Venous stasis Neurologic/Psych:AAO, grossly no focal neurological deficits Skin: normal color, warm Results & Data Results & Data ([facility]) Vital Signs (Past 12 Hours) Vital Signs Temp Pulse Resp BP BP Pulse Ox 04/12/22 15:42 36.4 C L 93 H 20 135/78 96 04/12/22 11:46 36.4 C L 97 H 20 143/81 H 99 04/12/22 08:21 36.5 C 97 H 20 133/74 98 Laboratory Results Short CBC 04/12/22 Range/Units 06:51 WBC 9.50 (4.8-10.8) K/uL Hgb 10.3 L (14.0-18.0) g/dL Hct 32.0 L (42-52) % Plt Count 407 H (130-400) K/uL BMP 04/12/22 06:51 Sodium 133 L Potassium 3.7 Chloride 98 Carbon Dioxide 28 BUN 22 Creatinine 0.74 Glucose 131 H Calcium 9.2
[2022-04-12] MEDS: WARFARIN SOD 2 MG TAB PO SCH (17:32)
[2022-04-12] MEDS ORDERED: HEPARIN SOD 5,000 UNIT/0.5 ML VIAL SQ ONE (18:00)
[2022-04-12] MEDS: SIMVASTATIN 20 MG TAB PO SCH (20:43)
[2022-04-13 06:39] LABS: INR 1.2 (0.9-1.1); Prothrombin Time 12.3 Seconds (9.0-12.0)
[2022-04-13 06:51] LABS: BUN Creatinine Ratio 31.1 (10-20); Calcium 9.3 mg/dl (8.5-10.1); Creatinine Clr Calc Pharmacy 82.2 ml/min; Est GFR (Non-African American) 87.1 ml/min; Potassium 4.1 mmol/L (3.5-5.1)
[2022-04-13] MEDS: LEVOTHYROXINE SODIUM 25 MCG TABLET PO SCH (07:30)
[2022-04-13] MEDS: SERTRALINE HCL 50 MG TABLET PO SCH (09:47)
[2022-04-13] MEDS: ZINC SULFATE 220 MG CAPSULE PO SCH (09:47)
[2022-04-13] MEDS: ASPIRIN 81 MG CHEW PO SCH (09:48)
[2022-04-13] MEDS: SACCHAROMYCES BOULARDII 250 MG CAP PO SCH (09:48)
[2022-04-13] MEDS: FUROSEMIDE 40 MG/4 ML VIAL IV SCH ×2 (09:52→18:11)
[2022-04-13] MEDS: METOPROLOL TARTRATE 50 MG TAB PO SCH ×2 (09:52→19:59)
[2022-04-13] MEDS: DOCUSATE SODIUM 100 MG CAP PO SCH ×2 (09:52→19:57)
[2022-04-13] MEDS: POTASSIUM CHLORIDE CRTAB 20 MEQ TABCR PO SCH ×2 (09:52→20:02)
[2022-04-13] MEDS: FERROUS SULFATE 325 MG TAB PO SCH ×3 (09:53→18:09)
[2022-04-13] MEDS: CEROVITE ADV FORMULA TAB PO SCH (09:53)
[2022-04-13] MEDS: PANTOprazole 40 MG TAB PO SCH ×2 (09:54→20:01)
[2022-04-13] MEDS: allopurinoL 100 MG TAB PO SCH ×2 (09:54→20:00)
[2022-04-13] MEDS: LIDOCAINE 5% 1 PATCH TD SCH (09:54)
[2022-04-13] MEDS: INSULIN ASPART PER UNIT SC SCH ×4 (09:55→21:17)
--- NOTE | 2022-04-13 11:53 | Cardiology Progress Note ---
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 Recent echocardiogram performed 03/28/2022 demonstrating left ventricular ejection fraction of 35-40% with severe biatrial enlargement. CT and x-ray confirming reaccumulation of pleural fluid. Maintain negative fluid balance. Continue Lasix 60 mg IV twice daily (titrated 04/11/2022). Follow daily weight, fluid balance, GFR, and electrolytes. Dose warfarin for goal INR of 2.0-3.0 due to history of A. fib, and high risk of DVT, cardioembolic stroke. Overall candidacy for long-term anticoagulation somewhat guarded due to anemia, frailty, history of hematuria. Monitor H&H. Admission and Anticipated Discharge Date Admission Date: March 27, 2022 Subjective Patient seen examined the bedside. Poor historian due to dementia. Fluid balance negative nearly 2 L. Renal function remained stable. Notes some mild abdominal discomfort this morning. No chest pain or shortness of breath. Telemetry reveals atrial fibrillation with heart rate ranging from 90-100 bpm. Review of Systems Review of Systems: Unobtainable due to mental health condition Physical Exam Constitutional: + ill appearing; no acute distress Respiratory: no respiratory distress, no labored breathing and no retractions Auscultation: + diminished lung sounds and + rales; no wheezes Cardiovascular: Rate/Rhythm: + irregularly irregular Heart Sounds: normal S1 and normal S2; no murmur Vessels: + JVD; no carotid bruit Extremities: + edema (1+Bilateral lower extremity edema with stasis changes) Gastrointestinal (Abdomen): Inspection/Auscultation: normal bowel sounds; abdomen not distended Percussion/Palpation: abdomen soft; abdomen nontender, no guarding and abdomen not rigid Neurologic: CN's II-XI intact bilaterally and moves all extremities; no focal motor deficits Motor/Sensory: no tremor Results & Data ([facility]) Vital Signs (Past 12 Hours) Vital Signs Temp Pulse Pulse Resp BP BP Pulse Ox 04/13/22 11:46 36.4 C L 106 H 20 116/71 95 04/13/22 07:59 36.7 C 95 H 20 120/72 90 04/13/22 04:14 36.9 C 101 H 20 134/80 97 04/13/22 00:10 36.6 C 101 H 20 143/90 H 94 04/13/22 00:00 92 H
--- NOTE | 2022-04-13 13:31 | Pulmonology Progress Note ---
Date of Service April 13, 2022 Assessment & Plan (1) Acute HFrEF (heart failure with reduced ejection fraction): (2) Acute respiratory failure with hypoxia: (3) Pleural effusion: Plan: CT chest 04/11/2022 personally reviewed: Large right-sided and moderate left-sided pleural effusion Dependent atelectasis bilateral lower lobes Cardiomegaly No mediastinal lymphadenopathy -- Acute hypoxic respiratory failure Likely secondary to large bilateral pleural effusion Etiology is most likely underlying systolic plus diastolic CHF Patient is diuresing well. He is -24 L since coming to the hospital Continue with O2 supplementation to keep oxygen saturation between 88-92% --History of A. fib On chronic warfarin at home Currently not on any anticoagulation as patient came in with anemia Plan: Patient is -24 L since coming to the hospital but he still has significant pleural effusion bilaterally. Still requiring 4 L nasal cannula and has occasional use of accessory muscles. Patient's sons are agreeable to procedure. I spoke with Maki Doyle who requested if he can hold for thoracentesis till tomorrow as his brother which is Ha will be in [place] tomorrow morning. I did go over risk and benefit of the procedure, he understands and agrees to go ahead with the procedure. Continue to hold warfarin. Case discussed with Dr. Cory Kwon, [place] [phone] Ha [phone] Please note the above document was generated using voice recognition software. It may contain grammatical, syntax or spelling errors.Any formal questions or concerns about the content, text or information contained within the body of this dictation should be directly addressed to the provider for clarification. Admission and Anticipated Discharge Date Admission Date: March 27, 2022 Subjective Patient seen and examined at bedside. No acute distress. Does complain of shortness of breath Denies any chest pain Saturating 93-94% on 3-4 L nasal cannula at rest. Denies any nausea or vomiting Poor appetite Review of Systems Review of Systems: All systems reviewed & are unremarkable except as noted in Subjective Physical Exam Physical Exam: Constitutional: No acute distress, frail-appearing HEENT: EOMI, PERRLA Respiratory system: Decreased air entry bilaterally, no wheeze, no rhonchi, positive crackles bilateral lower lobes CVS: S1-S2 positive, positive 2 out of 6 systolic murmur appreciated best at the aorta Abdomen: Soft, nontender, nondistended, positive bowel sounds x4 Extremities: +2 pulses bilaterally radialis/ dorsalis pedis, no cyanosis, +1 pitting edema bilateral lower extremity with stasis dermatitis Neuro: Awake alert oriented x3 Psych: Normal mood and affect G/U: Positive Castaneda Skin: no rashes, warm and dry Lymphatic: no cervical or axillary lymphadenopathy Results & Data Results & Data ([facility]) Vital Signs (Past 12 Hours) Vital Signs Temp Pulse Resp BP BP Pulse Ox 04/13/22 11:46 36.4 C L 106 H 20 116/71 95 04/13/22 07:59 36.7 C 95 H 20 120/72 90 04/13/22 04:14 36.9 C 101 H 20 134/80 97 Laboratory Results 04/12/22 06:51 04/13/22 05:49 PG Care Time/CCT Total # of Minutes Spent Total Time Spent with Patient: Total time spent is greater than 50% in coordination of care (as documented) at patient's floor/unit and/or counseling patient: Coding Level of Care Code 18635 Subseq Hosp Care Lvl 2 Diagnoses Acute HFrEF (heart failure with reduced ejection fraction) I50.21 Acute respiratory failure with hypoxia J96.01 Pleural effusion J90
--- NOTE | 2022-04-13 16:52 | Hospitalist Progress Note ---
Date of Service April 13, 2022 Assessment & Plan (1) Acute respiratory failure with hypoxia: Plan: Supratherapeutic INR: Suspected Coumadin induced bleeding in setting of Supratherapeutic INR Reports H/O fall few days prior to admission as per patient FOBT Negative on 03/27/22 Received Vit K No other obvious source of bleeding INR:3.4>1.2 Monitor INR No bridging given high risk for bleeding Continue to hold Coumadin for possible thoracentesis tomorrow Gross hematuria Possibly traumatic catheterization, decompression for distended bladder Appreciate urology input Needs follow-up with urology upon discharge Monitor CBC Hematuria resolved Resumed aspirin Atrial fibrillation: Chronic, currently rate controlled Continue metoprolol Resume Coumadin as able INR:1.2 Anemia, unspecified: Suspected Coumadin induced bleeding in setting of Supratherapeutic INR FOBT negative -CT ABD:No acute intra-abdominal or pelvic abnormality. Appreciate GI Input Continue PPI S/P PRBCs Monitor CBC Iron panel, vitamin B12, folic acid normal Peripheral smear not suggestive of hemolysis Bilateral pleural effusion Likely due to high-output cardiac failure in setting of significant anemia Acute Systolic and diastolic heart failure ? Hemothorax --less likely as per Pulm (Pulm also discussed with radiology) -CT Chest:Soft tissue edema throughout the right chest wall is nonspecific and given the clinical history likely represents contusion. There are moderate to large pleural effusions with significant atelectasis of the lower lungs -ECHO: Normal LV chamber size with moderate concentric LVH. Left ventricular systolic function is moderately reduced. Moderate global hypokinesis of left ventricle. EF 35 to 40%. Grade 2 diastolic dysfunction. Mild aortic regurgitation. Mild valvular aortic stenosis. Moderate mitral annular calcification with mild mitral regurgitation. Mild tricuspid regurgitation. Severe biatrial enlargement. -Continue IV Lasix Monitor volume status Appreciate Pulmonary, Cardiology input Nebs as needed Supplemental oxygen as needed Patient refused thoracentesis Continue IV diuresis 2 step prior to discharge Lasix increased to 60mg BID Likely plan for thoracentesis tomorrow Mitral Vegetation on ECHO as above Suspected IE Blood Cultures negative to date Likely calcium deposits as per cardiology Appreciate Cardiology Input HTN Continue metoprolol Diffuse pain in right upper extremity: -RUE USD:Extensive subcutaneous edema of the right arm. No well-defined fluid collection to suggest abscess or hematoma by sonography. -Humerus X ray:No acute osseous pathology. There is again diffuse subcutaneous edema surrounding the arm of uncertain etiology. -Forearm X ray:No fracture within the right radius or ulna. Forearm soft tissue swelling. -RUE Doppler:There is no sonographic evidence of deep venous thrombosis identified in the right upper extremity. Improved DM II -Last HbA1C = 4.9 on 02/10/22 -Was taken off glimepiride yesterday 03/26, in the setting of elderly patient with possible hypoglycemic episodes in the past. Hold metformin ISS for now Memory loss: Has appt scheduled with outpatient neurology on 05/06 Dementia as per records Generalized weakness: PT/OT Fall precautions Acute osteomyelitis of toe of right foot: Follows with [facility] wound clinic Continue wound care ID follow up appointment already scheduled in mid April Neck Pain likely musculoskeletal pain Trial of scheduled Tylenol, Lidoderm patch, K pad Resolved Hypothyroidism: Continue levothyroxine PVD (peripheral vascular disease): -On Aspirin Follows with Dr. Gold with vascular as outpatient DVT Px: Coumadin-held today Heparin SQ CODE STATUS: DNR/DNI Admission and Anticipated Discharge Date Admission Date: March 27, 2022 Subjective Patient seen and examined at bedside. No acute distress. States having left lower quadrant abdominal pain which was transient this morning Discussed with pulmonology today Plan for thoracentesis likely tomorrow Denies any chest pain, dizziness, nausea Has Intermittent dyspnea Review of Systems Review of Systems: All systems reviewed & are unremarkable except as noted in Subjective Physical Exam Physical Exam: Physical Exam: Vitals signs as noted above General Appearance:Moderately built and nourished, ill appearing, no apparent distress Head: normocephalic, Atraumatic Eyes: normal inspection, EOMI Neck: supple, Trachea midline Respiratory/Chest: Decreased breath sounds, Crackles at bases Cardiovascular: Irregularly irregular, No murmur Abdomen/GI:Soft, Non tender, Bowel sounds present Extremities/Musculoskeletal:normal inspection, Less edema, Ecchymosis/Venous stasis Neurologic/Psych:AAO, grossly no focal neurological deficits Skin: normal color, warm Results & Data Results & Data ([facility]) Vital Signs (Past 12 Hours) Vital Signs Temp Pulse Pulse Resp BP Pulse Ox 04/13/22 15:55 89 04/13/22 15:22 36.6 C 67 20 111/74 98 04/13/22 11:46 36.4 C L 106 H 20 116/71 95 04/13/22 07:59 36.7 C 95 H 20 120/72 90 Laboratory Results [facility] 04/13/22 05:49 Sodium 134 L Potassium 4.1 Chloride 98 Carbon Dioxide 27 BUN 23 Creatinine 0.74 Glucose 137 H Calcium 9.3
[2022-04-13] MEDS: SIMVASTATIN 20 MG TAB PO SCH (20:00)
[2022-04-14] MEDS: LEVOTHYROXINE SODIUM 25 MCG TABLET PO SCH (05:25)
[2022-04-14 07:34] LABS: Hematocrit (blood only) 32.7 % (42-52); Hemoglobin 10.2 g/dL (14.0-18.0); Mean Corpuscular Hemoglobin 30.4 pg (25-34); Mean Corpuscular Hgb Conc 31.2 g/dL (32-36); Mean Corpuscular Volume 97.3 fL (80-100); Mean Platelet Volume 9.4 fL (7.4-10.4); Platelet Count 438 K/uL (130-400); RDW Coefficient of Variation 17.7 % (11.5-14.5); RDW Standard Deviation 62.5 fL (36.4-46.3); Red Blood Count 3.36 M/uL (4.7-6.1); White Blood Count 7.29 K/uL (4.8-10.8)
[2022-04-14 07:51] LABS: INR 1.2 (0.9-1.1); Prothrombin Time 12.4 Seconds (9.0-12.0)
[2022-04-14 07:57] LABS: BUN Creatinine Ratio 38.7 (10-20); Creatinine Clr Calc Pharmacy 98.1 ml/min; Est GFR (African American) 108.6 ml/min; Est GFR (Non-African American) 93.7 ml/min; Potassium 3.9 mmol/L (3.5-5.1)
[2022-04-14] MEDS: INSULIN ASPART PER UNIT SC SCH ×4 (08:12→20:37)
[2022-04-14] MEDS: ZINC SULFATE 220 MG CAPSULE PO SCH (08:20)
[2022-04-14] MEDS: CEROVITE ADV FORMULA TAB PO SCH (08:20)
[2022-04-14] MEDS: SERTRALINE HCL 50 MG TABLET PO SCH (08:20)
[2022-04-14] MEDS: METOPROLOL TARTRATE 50 MG TAB PO SCH (08:21)
[2022-04-14] MEDS: SACCHAROMYCES BOULARDII 250 MG CAP PO SCH (08:21)
[2022-04-14] MEDS: FERROUS SULFATE 325 MG TAB PO SCH ×3 (08:21→17:45)
[2022-04-14] MEDS: allopurinoL 100 MG TAB PO SCH ×2 (08:21→20:47)
[2022-04-14] MEDS: ASPIRIN 81 MG CHEW PO SCH (08:22)
[2022-04-14] MEDS: PANTOprazole 40 MG TAB PO SCH ×2 (08:22→20:48)
[2022-04-14] MEDS: DOCUSATE SODIUM 100 MG CAP PO SCH ×2 (08:22→20:48)
[2022-04-14] MEDS: POTASSIUM CHLORIDE CRTAB 20 MEQ TABCR PO SCH (08:22)
[2022-04-14] MEDS: LIDOCAINE 5% 1 PATCH TD SCH (08:23)
[2022-04-14] MEDS: FUROSEMIDE 40 MG/4 ML VIAL IV SCH ×2 (08:24→17:45)
--- NOTE | 2022-04-14 12:22 | Cardiology Progress Note ---
Date of Service April 14, 2022 Assessment & Plan (1) Acute HFrEF (heart failure with reduced ejection fraction): (2) Pleural effusion: (3) Atrial fibrillation: Plan: Hospital day 18. Mixed systolic and diastolic heart failure improving with IV diuretics, possible plan thoracentesis We will discontinue metoprolol tartrate and switch to metoprolol succinate 75 mg twice per day for further heart rate and blood pressure control Add spironolactone 25 mg p.o. daily reduce potassium supplement Continue IV diuretic Lasix Admission and Anticipated Discharge Date Admission Date: March 27, 2022 Subjective Patient was seen and examined, chart, medications, telemetry reviewed no specific complaints. Edema appears to be improving. Possible thoracentesis later today. Review of Systems Review of Systems: Unobtainable due to cognitive status Physical Exam Physical Exam: General: no acute distress, confused Head: normocephalic, no masses, lesions, tenderness or abnormalities Eyes: conjunctiva are pink and non-injected, sclera clear Neck: supple, no adenopathy, no bruits, normal jugular venous pulse, no hepatojugular reflux Chest: normal shape and normal respiratory effort Lungs: clear to auscultation and percussion Cardiac Exam: - regular rate & rhythm, no murmurs gallops or rubs - normal S1, normal S2 Pulses: 2(+) throughout Abdomen: abdomen soft, non-tender, no abnormal masses and no hepatosplenomegaly Musculoskeletal: no gait disturbance, no joint inflammation, no deforming arthritis Extremities: Foot bandaged due to nonhealing ulcer Neuro: grossly normal exam Constitutional: no acute distress Respiratory: no respiratory distress, no labored breathing and no retractions Auscultation: + diminished lung sounds; no wheezes Cardiovascular: Rate/Rhythm: + irregularly irregular Heart Sounds: normal S1 and normal S2; no murmur Vessels: no carotid bruit Extremities: + edema (1+Bilateral lower extremity edema with stasis changes) Gastrointestinal (Abdomen): normal bowel sounds, soft, nontender, no hepatosplenomegaly Inspection/Auscultation: normal bowel sounds; abdomen not distended Percussion/Palpation: abdomen soft; abdomen nontender, no guarding and abdomen not rigid Neurologic: PERRL, EOMI, accommodation nl, no face palsy, no dysarthria CN's II-XI intact bilaterally and moves all extremities; no focal motor deficits Motor/Sensory: no tremor Results & Data ([facility]) Vital Signs (Past 12 Hours) Vital Signs Temp Pulse Pulse Pulse Resp BP BP 04/14/22 08:00 04/14/22 07:55 36.5 C 101 H 12 146/78 H 04/14/22 07:21 98 H 04/14/22 04:14 36.6 C 97 H 20 114/70 04/14/22 00:23 89 Pulse Ox Pulse Ox 04/14/22 08:00 95 04/14/22 07:55 97 04/14/22 07:21 04/14/22 04:14 94 04/14/22 00:23 Laboratory Results Laboratory Results - last 24 hr 04/13/22 04/13/22 04/14/22 16:34 20:09 06:59 WBC RBC Hgb Hct MCV MCH MCHC RDW Std Deviation RDW Coeff of Radha Plt Count MPV PT 12.4 H INR 1.2 H Sodium Potassium Chloride Carbon Dioxide Anion Gap BUN Creatinine Est Cr Clr Drug Dosing Est GFR ( Amer) Est GFR (Non-Af Amer) BUN/Creatinine Ratio Glucose POC Glucose 164 H 222 H Calcium 04/14/22 04/14/22 04/14/22 06:59 06:59 07:31 WBC 7.29 RBC 3.36 L Hgb 10.2 L Hct 32.7 L MCV 97.3 MCH 30.4 MCHC 31.2 L RDW Std Deviation 62.5 H RDW Coeff of Radha 17.7 H Plt Count 438 H MPV 9.4 PT INR Sodium 132 L Potassium 3.9 Chloride 97 L Carbon Dioxide 27 Anion Gap 8 BUN 24 H Creatinine 0.62 Est Cr Clr Drug Dosing 98.1 Est GFR ( Amer) 108.6 Est GFR (Non-Af Amer) 93.7 BUN/Creatinine Ratio 38.7 H Glucose 107 H POC Glucose 113 H Calcium 9.0 04/14/22 11:41 WBC RBC Hgb Hct MCV MCH MCHC RDW Std Deviation RDW Coeff of Radha Plt Count MPV PT INR Sodium Potassium Chloride Carbon Dioxide Anion Gap BUN Creatinine Est Cr Clr Drug Dosing Est GFR ( Amer) Est GFR (Non-Af Amer) BUN/Creatinine Ratio Glucose POC Glucose 164 H Calcium
[2022-04-14] MEDS ORDERED: METOPROLOL SUCC 25MG EXT REL TAB PO ONE (12:30)
--- NOTE | 2022-04-14 12:34 | Pulmonology Progress Note ---
Date of Service April 14, 2022 Assessment & Plan (1) Acute HFrEF (heart failure with reduced ejection fraction): (2) Acute respiratory failure with hypoxia: (3) Pleural effusion: Plan: Impression: 82-year-old male admitted with heart failure found to have bilateral pleural effusions. He is been aggressively diuresed with the effusions persist and he remains symptomatic with hypoxemia and cough. Recommendations: 1. Bilateral pleural effusions: Suspect related to heart failure. We will pursue ultrasound-guided catheter thoracentesis today. Fluid was sent for routine microbiologic and cytologic analysis. We will follow-up chest x-ray post procedure. Could consider intervention on the contralateral pleural side tomorrow depending on clinical response and symptoms. 2. Agree with continued diuresis as tolerated by kidney function and blood pressure. 3. Hypoxemia: Secondary to #1. Wean oxygen as tolerated. Admission and Anticipated Discharge Date Admission Date: March 27, 2022 Subjective Patient seen and examined. EMR reviewed. 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 The patient states that he feels about the same today. He continues to cough but is not bringing up any phlegm. He is unclear if his shortness of breath is any better. He is agreeable to thoracentesis today. Anticoagulation has been on hold. Review of Systems Review of Systems: All systems reviewed & are unremarkable except as noted in Subjective Physical Exam Physical Exam: Physical Exam: Vitals signs as noted above General Appearance:Moderately built and nourished, ill appearing, no apparent di stress Head: normocephalic, Atraumatic Eyes: normal inspection, EOMI Neck: supple, Trachea midline Respiratory/Chest: Decreased breath sounds, Crackles at bases Cardiovascular: Irregularly irregular, No murmur Abdomen/GI:Soft, Non tender, Bowel sounds present Extremities/Musculoskeletal:normal inspection, Less edema, Ecchymosis/Venous stasis Neurologic/Psych:AAO, grossly no focal neurological deficits Skin: normal color, warm Results & Data Results & Data ([facility]) Vital Signs (Past 12 Hours) Vital Signs Temp Pulse Pulse Pulse Resp BP BP 04/14/22 08:00 04/14/22 07:55 36.5 C 101 H 12 146/78 H 04/14/22 07:21 98 H 04/14/22 04:14 36.6 C 97 H 20 114/70 Pulse Ox Pulse Ox 04/14/22 08:00 95 06/06/22 07:55 97 04/14/22 07:21 04/14/22 04:14 94 Laboratory Results 04/14/22 06:59 04/14/22 06:59 Diagnostic Findings No new imaging PG Care Time/CCT Total # of Minutes Spent Total Time Spent with Patient: Total time spent is greater than 50% in coordination of care (as documented) at patient's floor/unit and/or counseling patient: Coding Level of Care Code 77479 Subseq Hosp Care Lvl 2 Diagnoses Acute HFrEF (heart failure with reduced ejection fraction) I50.21 Acute respiratory failure with hypoxia J96.01 Pleural effusion J90
--- NOTE | 2022-04-14 12:35 | Procedure Note ---
Procedure Note Date of Service April 14, 2022 Note Procedure: Diagnostic therapeutic ultrasound-guided catheter thoracentesis [employer] Sales Associate: Dr. Mazin Moyer Indication: Pleural effusion Consent: Signed by patient and verified with timeout prior to procedure Anesthesia: 8 mL's 1% lidocaine without epinephrine local. Procedure: Consent was verified and timeout performed. Appropriate imaging studies were reviewed prior to the procedure. Patient was placed in a seated position and limited thoracic ultrasound was performed of the bilateral chest. See separate imaging. Moderate-sized bilateral effusions were noted, slightly larger on the right with compressive atelectasis. Site appropriate for thoracentesis was selected. The skin was prepped and draped in normal sterile fashion. Lidocaine was used for local analgesia. Fluid was aspirated via the finder needle. A small skin lisa was made with the scalpel and the catheter over the needle apparatus was advanced over the rib into the pleural space. Using the syringe one-way valve system, a total of 1600mL's of amberfluid was removed. Procedure was terminated due to patient coughing. The catheter was removed and observed to be intact. A sterile dressing was applied. Post procedure chest x-ray was ordered. Fluid was sent for cytology, cell count differential, gram stain and culture, LDH, pH, total protein, and glucose. Post procedure ultrasound demonstrated lung sliding to be present. Persistent effusion was noted on the right with continued compressive atelectasis. The patient tolerated the procedure well without obvious complication Coding CPT Codes Pulmonary/Thoracic - Pulmonary and Thoracic: 14971 Thoracentesis w imaging ([id number]) [facility] [place] Procedure Codes (Charges) Pulmonary/Thoracic Procedure 1: Pulmonary and Thoracic: 57192 Thoracentesis w imaging
--- NOTE | 2022-04-14 12:41 | XRay Report ---
XR chest 1V portable CLINICAL HISTORY: S/P Thoracentesis TECHNIQUE: Single frontal radiograph of the chest was obtained. Comparison: Comparison is made to chest radiograph 04/09/2022 FINDINGS: No lines and tubes are seen. Calcified aortic knob is seen. Interval decrease in size of right pleura l effusion without evidence of pneumothorax. Small left pleural effusion is stable. IMPRESSION: No evidence of pneumothorax. Interval decrease in size of right pleural effusion, which is now modera te. Left pleural effusion is unchanged. ACT 112: Negative or not required by law. Electronically signed by: Jeff Carmen M.D. 04/14/2022 12:39 PM
[2022-04-14 13:34] LABS: Glucose Pleural Fluid 117 mg/dl; LDH Pleural Fluid 114 U/L; Total Protein Pleural Fluid < 3.0 gm/dl
[2022-04-14] MEDS: SPIRONOLACTONE 25 MG TAB PO SCH (13:47)
[2022-04-14 14:10] LABS: Appearance Pleural Fluid HAZY; Basophils, Fluid 0 %; Color Pleural Fluid YELLOW; Eosinophils, Fluid 1 %; Lymphocytes, Fluid 33 %; Mono,Macrophage,Mesothelial 50 %; Neutrophils, Fluid 16 %; RBC Pleural Fluid (A) 3000 /uL; Source Pleural Fluid RIGHT LUNG; WBC Pleural Fluid (A) 96 /uL
--- NOTE | 2022-04-14 17:39 | Hospitalist Progress Note ---
Date of Service April 14, 2022 Assessment & Plan (1) Acute respiratory failure with hypoxia: Plan: Supratherapeutic INR: Suspected Coumadin induced bleeding in setting of Supratherapeutic INR Reports H/O fall few days prior to admission as per patient FOBT Negative on 03/27/22 Received Vit K No other obvious source of bleeding INR:3.4>1.2 Monitor INR No bridging given high risk for bleeding Continue to hold Coumadin Re:thoracentesis Gross hematuria Possibly traumatic catheterization, decompression for distended bladder Appreciate urology input Needs follow-up with urology upon discharge Monitor CBC Hematuria resolved Resumed aspirin Atrial fibrillation: Chronic, currently rate controlled Continue metoprolol: Changed to metoprolol succinate 75 mg twice daily Resume Coumadin as able INR:1.2 Anemia, unspecified: Suspected Coumadin induced bleeding in setting of Supratherapeutic INR FOBT negative -CT ABD:No acute intra-abdominal or pelvic abnormality. Appreciate GI Input Continue PPI S/P PRBCs Monitor CBC Iron panel, vitamin B12, folic acid normal Peripheral smear not suggestive of hemolysis Bilateral pleural effusion Likely due to high-output cardiac failure in setting of significant anemia Acute Systolic and diastolic heart failure ? Hemothorax --less likely as per Pulm (Pulm also discussed with radiology) -CT Chest:Soft tissue edema throughout the right chest wall is nonspecific and given the clinical history likely represents contusion. There are moderate to large pleural effusions with significant atelectasis of the lower lungs -ECHO: Normal LV chamber size with moderate concentric LVH. Left ventricular systolic function is moderately reduced. Moderate global hypokinesis of left ventricle. EF 35 to 40%. Grade 2 diastolic dysfunction. Mild aortic regurgitation. Mild valvular aortic stenosis. Moderate mitral annular calcification with mild mitral regurgitation. Mild tricuspid regurgitation. Severe biatrial enlargement. -Continue IV Lasix Monitor volume status Appreciate Pulmonary, Cardiology input Nebs as needed Supplemental oxygen as needed Patient refused thoracentesis Continue IV diuresis 2 step prior to discharge Lasix increased to 60mg BID S/P thoracentesis 04/14/22 Also started on spironolactone Mitral Vegetation on ECHO as above Suspected IE Blood Cultures negative to date Likely calcium deposits as per cardiology Appreciate Cardiology Input HTN Continue metoprolol Also on diuretics Diffuse pain in right upper extremity: -RUE USD:Extensive subcutaneous edema of the right arm. No well-defined fluid collection to suggest abscess or hematoma by sonography. -Humerus X ray:No acute osseous pathology. There is again diffuse subcutaneous edema surrounding the arm of uncertain etiology. -Forearm X ray:No fracture within the right radius or ulna. Forearm soft tissue swelling. -RUE Doppler:There is no sonographic evidence of deep venous thrombosis identified in the right upper extremity. Improved DM II -Last HbA1C = 4.9 on 02/10/22 -Was taken off glimepiride yesterday 03/26, in the setting of elderly patient with possible hypoglycemic episodes in the past. Hold metformin ISS for now Memory loss: Has appt scheduled with outpatient neurology on 05/06 Dementia as per records Generalized weakness: PT/OT Fall precautions Acute osteomyelitis of toe of right foot: Follows with [facility] [address] wound clinic Continue wound care ID follow up appointment already scheduled in mid April Neck Pain likely musculoskeletal pain Trial of scheduled Tylenol, Lidoderm patch, K pad Resolved Hypothyroidism: Continue levothyroxine PVD (peripheral vascular disease): -On Aspirin Follows with Dr. Gold with vascular as outpatient DVT Px: Coumadin-held TEDs CODE STATUS: DNR/DNI Admission and Anticipated Discharge Date Admission Date: March 27, 2022 Subjective Patient seen and examined at bedside. No acute distress. Planned for thoracocentesis today No new complaints Discussed with family at bedside Denies any chest pain, dyspnea Saturating well on 2L NC Review of Systems Review of Systems: All systems reviewed & are unremarkable except as noted in Subjective Physical Exam Physical Exam: Physical Exam: Vitals signs as noted above General Appearance:Moderately built and nourished, ill appearing, no apparent distress Head: normocephalic, Atraumatic Eyes: normal inspection, EOMI Neck: supple, Trachea midline Respiratory/Chest: Decreased breath sounds, Crackles at bases Cardiovascular: Irregularly irregular, No murmur Abdomen/GI:Soft, Non tender, Bowel sounds present Extremities/Musculoskeletal:normal inspection, Less edema, Ecchymosis/Venous stasis Neurologic/Psych:AAO, grossly no focal neurological deficits Skin: normal color, warm Results & Data Results & Data ([facility]) Vital Signs (Past 12 Hours) Vital Signs Temp Pulse Pulse Pulse Resp BP BP 04/14/22 15:56 87 04/14/22 14:55 36.7 C 88 18 126/74 04/14/22 13:45 36.6 C 91 H 16 114/74 04/14/22 13:30 37.0 C 88 12 112/70 04/14/22 13:15 36.9 C 87 14 112/74 04/14/22 13:00 37 C 86 12 114/71 04/14/22 12:45 36.5 C 96 H 14 109/65 04/14/22 11:00 36.5 C 100 H 14 135/70 04/14/22 08:00 04/14/22 07:55 36.5 C 101 H 12 146/78 H 04/14/22 07:21 98 H Pulse Ox Pulse Ox 04/14/22 15:56 04/14/22 14:55 97 04/14/22 13:45 98 04/14/22 13:30 96 04/14/22 13:15 98 04/14/22 13:00 97 04/14/22 12:45 95 04/14/22 11:00 96 04/14/22 08:00 95 04/14/22 07:55 97 04/14/22 07:21 Laboratory Results Short CBC 04/14/22 Range/Units 06:59 WBC 7.29 (4.8-10.8) K/uL Hgb 10.2 L (14.0-18.0) g/dL Hct 32.7 L (42-52) % Plt Count 438 H (130-400) K/uL BMP 04/14/22 06:59 Sodium 132 L Potassium 3.9 Chloride 97 L Carbon Dioxide 27 BUN 24 H Creatinine 0.62 Glucose 107 H Calcium 9.0
[2022-04-14] MEDS: SIMVASTATIN 20 MG TAB PO SCH (20:47)
[2022-04-14] MEDS: METOPROLOL SUCC 25MG EXT REL TAB PO SCH (20:48)
[2022-04-15] MEDS: LEVOTHYROXINE SODIUM 25 MCG TABLET PO SCH (05:28)
[2022-04-15 07:43] LABS: INR 1.2 (0.9-1.1); Prothrombin Time 12.2 Seconds (9.0-12.0)
[2022-04-15 07:53] LABS: BUN Creatinine Ratio 36.9 (10-20); Calcium 8.8 mg/dl (8.5-10.1); Creatinine Clr Calc Pharmacy 93.6 ml/min; Est GFR (African American) 106.5 ml/min; Est GFR (Non-African American) 91.9 ml/min; Potassium 3.5 mmol/L (3.5-5.1)
[2022-04-15] MEDS: FUROSEMIDE 40 MG/4 ML VIAL IV SCH ×2 (08:24→17:12)
[2022-04-15] MEDS ORDERED: POTASSIUM CHLORIDE CRTAB 20 MEQ TABCR PO ONE (09:39)
[2022-04-15] MEDS: INSULIN ASPART PER UNIT SC SCH ×4 (10:52→22:08)
--- NOTE | 2022-04-15 11:27 | Cardiology Progress Note ---
Date of Service April 15, 2022 Assessment & Plan (1) Acute HFrEF (heart failure with reduced ejection fraction): (2) Pleural effusion: (3) Atrial fibrillation: Plan: Hospital day 19. Recent echocardiogram performed 03/28/2022 demonstrating left ventricular ejection fraction of 35-40% with severe biatrial enlargement. CT and x-ray confirming reaccumulation of pleural fluid. Maintain negative fluid balance. Continue Lasix 60 mg IV twice daily (titrated 04/11/2022). Aldactone added 04/14/2022. Follow daily weight, fluid balance, GFR, and electrolytes. Thoracentesis may be necessary during hospitalization. Continue warfarin for goal INR of 2.0-3.0 due to history of A. fib, and high risk of DVT, cardioembolic stroke. Overall candidacy for long-term anticoagulation somewhat guarded due to anemia, frailty, history of hematuria. Monitor H&H. Admission and Anticipated Discharge Date Admission Date: March 27, 2022 Subjective Patient seen and examined the bedside. Poor historian. Fluid balance -1400 cc. Telemetry reveals atrial fibrillation heart rate ranging 80-90s beats per minute. Metoprolol tartrate discontinued yesterday in favor of metoprolol succinate 75 mg twice daily. Spironolactone added. Review of Systems Review of Systems: All systems reviewed & are unremarkable except as noted in Subjective Physical Exam Constitutional: + ill appearing; no acute distress Respiratory: no respiratory distress, no labored breathing and no retractions Auscultation: + diminished lung sounds and + rales; no wheezes Cardiovascular: Rate/Rhythm: + irregularly irregular Heart Sounds: normal S1 and normal S2; no murmur Vessels: + JVD; no carotid bruit Extremities: + edema (1+Bilateral lower extremity edema with stasis changes) Gastrointestinal (Abdomen): Inspection/Auscultation: normal bowel sounds; abdomen not distended Percussion/Palpation: abdomen soft; abdomen nontender, no guarding and abdomen not rigid Neurologic: CN's II-XI intact bilaterally and moves all extremities; no focal motor deficits Motor/Sensory: no tremor Results & Data ([facility]) Vital Signs (Past 12 Hours) Vital Signs Temp Pulse Pulse Resp BP Pulse Ox Pulse Ox 04/15/22 08:11 36.4 C L 89 20 118/70 91 04/15/22 06:40 85 L 04/15/22 05:35 93 06/07/22 05:31 98 04/15/22 04:00 36.4 C L 89 18 136/88 99 04/15/22 00:00 96 04/14/22 23:51 92 H
--- NOTE | 2022-04-15 12:05 | Pulmonology Progress Note ---
Date of Service April 15, 2022 Assessment & Plan (1) Acute HFrEF (heart failure with reduced ejection fraction): (2) Acute respiratory failure with hypoxia: (3) Pleural effusion: Plan: Impression: 82-year-old male admitted with heart failure found to have bilateral pleural effusions. Thoracentesis yesterday for over a liter. Fluid appears consistent with transudative etiology with cytology pending. Unfortunately the patient had no significant improvement in clinical symptoms with thoracentesis. Recommendations: 1. Bilateral pleural effusions: Transudative. As the patient did not experience any symptomatic relief with thoracentesis, would be reluctant to put him through additional procedures at this point time. He continues to diurese with a stable creatinine. Would continue to push diuretics until BUN and crea tinine and/or bicarb elevate. 2. Hypoxemia: Secondary to #1. Wean oxygen as tolerated. 3. Will contact patient if pending pleural fluid studies show anything actionable. Pulmonary will sign off for now. If additional questions or concerns, please reconsult us. Thanks for the opportunity to assist in the management of this patient. Admission and Anticipated Discharge Date Admission Date: March 27, 2022 Subjective Patient seen and examined. EMR reviewed. The patient is a difficult historian due to her underlying neurocognitive dysfunction. When queried specifically, he does not report that he feels any better after the thoracentesis yesterday. He does not feel any worse either. He continues to exhibit some shortness of breath. He is not coughing or expectorating phlegm. He denies chest pain. Review of Systems Review of Systems: Unobtainable due to cognitive status Physical Exam Physical Exam: Physical Exam: Vitals signs as noted above General Appearance:Moderately built and nourished, ill appearing, no apparent distress Head: normocephalic, Atraumatic Eyes: normal inspection, EOMI Neck: supple, Trachea midline Respiratory/Chest: Decreased breath sounds, Crackles at bases Cardiovascular: Irregularly irregular, No murmur Abdomen/GI:Soft, Non tender, Bowel sounds present Extremities/Musculoskeletal:normal inspection, Less edema, Ecchymosis/Venous stasis Neurologic/Psych:AAO, grossly no focal neurological deficits Skin: normal color, warm Results & Data Results & Data ([facility]) Vital Signs (Past 12 Hours) Vital Signs Temp Pulse Resp BP BP Pulse Ox Pulse Ox 04/15/22 11:53 36.4 C L 92 H 18 160/72 H 90 04/15/22 08:11 36.4 C L 89 20 118/70 91 04/15/22 06:40 85 L 04/15/22 05:35 93 04/15/22 05:31 98 04/15/22 04:00 36.4 C L 89 18 136/88 99 04/15/22 00:00 96 Laboratory Results 04/14/22 06:59 04/15/22 07:07 Pleural fluid studies: Differential: 16% neutrophils, 33% lymphocytes, 1% eosinophils, 50% mesothelial cells Pleural pH 7.41 Total protein less than 3 LDH 114 Glucose 117 Cytology pending AFB stain negative, culture pending Gram stain moderate white blood cells with no organisms, culture pending Diagnostic Findings Post thoracentesis chest x-ray independently reviewed. The effusions appear smaller than previous. PG Care Time/CCT Total # of Minutes Spent Total Time Spent with Patient: Total time spent is greater than 50% in coordination of care (as documented) at patient's floor/unit and/or counseling patient: Coding Level of Care Code 98191 Subseq Hosp Care Lvl 2 Diagnoses Acute HFrEF (heart failure with reduced ejection fraction) I50.21 Acute respiratory failure with hypoxia J96.01 Pleural effusion J90
[2022-04-15] MEDS: FERROUS SULFATE 325 MG TAB PO SCH ×3 (12:23→17:12)
[2022-04-15] MEDS: allopurinoL 100 MG TAB PO SCH ×2 (12:23→22:12)
[2022-04-15] MEDS: DOCUSATE SODIUM 100 MG CAP PO SCH ×2 (12:24→22:12)
[2022-04-15] MEDS: METOPROLOL SUCC 25MG EXT REL TAB PO SCH ×2 (12:24→22:11)
[2022-04-15] MEDS: ASPIRIN 81 MG CHEW PO SCH (12:24)
[2022-04-15] MEDS: PANTOprazole 40 MG TAB PO SCH ×2 (12:25→22:12)
[2022-04-15] MEDS: CEROVITE ADV FORMULA TAB PO SCH (12:25)
[2022-04-15] MEDS: POTASSIUM CHLORIDE CRTAB 20 MEQ TABCR PO SCH (12:26)
[2022-04-15] MEDS: SERTRALINE HCL 50 MG TABLET PO SCH (12:27)
[2022-04-15] MEDS: SACCHAROMYCES BOULARDII 250 MG CAP PO SCH (12:27)
[2022-04-15] MEDS: ZINC SULFATE 220 MG CAPSULE PO SCH (12:28)
[2022-04-15] MEDS: SPIRONOLACTONE 25 MG TAB PO SCH (12:28)
[2022-04-15] MEDS: LIDOCAINE 5% 1 PATCH TD SCH (12:48)
--- NOTE | 2022-04-15 17:32 | Hospitalist Progress Note ---
Date of Service April 15, 2022 Assessment & Plan (1) Acute respiratory failure with hypoxia: Plan: Supratherapeutic INR: Suspected Coumadin induced bleeding in setting of Supratherapeutic INR Reports H/O fall few days prior to admission as per patient FOBT Negative on 03/27/22 Received Vit K No other obvious source of bleeding INR:3.4>1.2 Monitor INR No bridging given high risk for bleeding Resume Coumadin today Gross hematuria Possibly traumatic catheterization, decompression for distended bladder Appreciate urology input Needs follow-up with urology upon discharge Monitor CBC Hematuria resolved Resumed aspirin Atrial fibrillation: Chronic, currently rate controlled Continue metoprolol: Changed to metoprolol succinate 75 mg twice daily Resume Coumadin today INR:1.2 Anemia, unspecified: Suspected Coumadin induced bleeding in setting of Supratherapeutic INR FOBT negative -CT ABD:No acute intra-abdominal or pelvic abnormality. Appreciate GI Input Continue PPI S/P PRBCs Monitor CBC Iron panel, vitamin B12, folic acid normal Peripheral smear not suggestive of hemolysis Bilateral pleural effusion Likely due to high-output cardiac failure in setting of significant anemia Acute Systolic and diastolic heart failure ? Hemothorax --less likely as per Pulm (Pulm also discussed with radiology) -CT Chest:Soft tissue edema throughout the right chest wall is nonspecific and given the clinical history likely represents contusion. There are moderate to large pleural effusions with significant atelectasis of the lower lungs -ECHO: Normal LV chamber size with moderate concentric LVH. Left ventricular systolic function is moderately reduced. Moderate global hypokinesis of left ventricle. EF 35 to 40%. Grade 2 diastolic dysfunction. Mild aortic regurgitation. Mild valvular aortic stenosis. Moderate mitral annular calcification with mild mitral regurgitation. Mild tricuspid regurgitation. Severe biatrial enlargement. -Continue IV Lasix Monitor volume status Appreciate Pulmonary, Cardiology input Nebs as needed Supplemental oxygen as needed Patient refused thoracentesis 2 step prior to discharge Lasix increased to 60mg BID S/P thoracentesis 04/14/22 Also started on spironolactone No further thoracentesis as per pulm given no significant improvement Transudative pleural fluid studies Continue diuresis Mitral Vegetation on ECHO as above Suspected IE Blood Cultures negative to date Likely calcium deposits as per cardiology Appreciate Cardiology Input HTN Continue metoprolol Also on diuretics Diffuse pain in right upper extremity: -RUE USD:Extensive subcutaneous edema of the right arm. No well-defined fluid collection to suggest abscess or hematoma by sonography. -Humerus X ray:No acute osseous pathology. There is again diffuse subcutaneous edema surrounding the arm of uncertain etiology. -Forearm X ray:No fracture within the right radius or ulna. Forearm soft tissue swelling. -RUE Doppler:There is no sonographic evidence of deep venous thrombosis identified in the right upper extremity. Improved DM II -Last HbA1C = 4.9 on 02/10/22 -Was taken off glimepiride yesterday 03/26, in the setting of elderly patient wit h possible hypoglycemic episodes in the past. Hold metformin ISS for now Memory loss: Has appt scheduled with outpatient neurology on 05/06 Dementia as per records Generalized weakness: PT/OT Fall precautions Acute osteomyelitis of toe of right foot: Follows with [facility] wound clinic Continue wound care ID follow up appointment already scheduled in mid April Neck Pain likely musculoskeletal pain Trial of scheduled Tylenol, Lidoderm patch, K pad Resolved Hypothyroidism: Continue levothyroxine PVD (peripheral vascular disease): -On Aspirin Follows with Dr. Gold with vascular as outpatient DVT Px: Coumadin TEDs CODE STATUS: DNR/DNI Admission and Anticipated Discharge Date Admission Date: March 27, 2022 Subjective Patient seen and examined at bedside. No acute distress. No significant improvement after thoracentesis Patient reports transient chest discomfort this morning to RN Denies any chest pain during my encounter Poor historian No other complaints Review of Systems Review of Systems: All systems reviewed & are unremarkable except as noted in Subjective Physical Exam Physical Exam: Physical Exam: Vitals signs as noted above General Appearance:Moderately built and nourished, ill appearing, no apparent distress Head: normocephalic, Atraumatic Eyes: normal inspection, EOMI Neck: supple, Trachea midline Respiratory/Chest: Decreased breath sounds, Crackles at bases Cardiovascular: Irregularly irregular, No murmur Abdomen/GI:Soft, Non tender, Bowel sounds present Extremities/Musculoskeletal:normal inspection, Less edema, Ecchymosis/Venous stasis Neurologic/Psych:AAO, grossly no focal neurological deficits Skin: normal color, warm Results & Data Results & Data ([facility]) Vital Signs (Past 12 Hours) Vital Signs Temp Pulse Pulse Resp BP BP Pulse Ox 04/15/22 16:12 37.4 C 104 H 18 110/70 93 04/15/22 16:00 110 H 04/15/22 14:55 90 04/15/22 11:53 36.4 C L 92 H 18 160/72 H 90 04/15/22 08:11 36.4 C L 89 20 118/70 91 04/15/22 08:00 82 04/15/22 06:40 85 L 04/15/22 05:35 93 04/15/22 05:31 98 Laboratory Results [facility] 04/15/22 07:07 Sodium 132 L Potassium 3.5 Chloride 97 L Carbon Dioxide 29 BUN 24 H Creatinine 0.65 Glucose 121 H Calcium 8.8
[2022-04-15] MEDS: SIMVASTATIN 20 MG TAB PO SCH (22:11)
[2022-04-16] MEDS: LEVOTHYROXINE SODIUM 25 MCG TABLET PO SCH (06:14)
[2022-04-16 06:56] LABS: Hematocrit (blood only) 33.6 % (42-52); Hemoglobin 10.7 g/dL (14.0-18.0); Mean Corpuscular Hemoglobin 30.1 pg (25-34); Mean Corpuscular Hgb Conc 31.8 g/dL (32-36); Mean Corpuscular Volume 94.6 fL (80-100); Mean Platelet Volume 9.4 fL (7.4-10.4); Platelet Count 439 K/uL (130-400); RDW Coefficient of Variation 17.9 % (11.5-14.5); Red Blood Count 3.55 M/uL (4.7-6.1); White Blood Count 12.78 K/uL (4.8-10.8)
[2022-04-16 07:03] LABS: INR 1.2 (0.9-1.1); Prothrombin Time 13.1 Seconds (9.0-12.0)
[2022-04-16 07:15] LABS: BUN Creatinine Ratio 37.3 (10-20); Calcium 9.1 mg/dl (8.5-10.1); Creatinine Clr Calc Pharmacy 73.3 ml/min; Est GFR (African American) 96.3 ml/min; Est GFR (Non-African American) 83.1 ml/min; Potassium 3.9 mmol/L (3.5-5.1)
[2022-04-16] MEDS: ASPIRIN 81 MG CHEW PO SCH (08:09)
[2022-04-16] MEDS: allopurinoL 100 MG TAB PO SCH ×2 (08:09→20:36)
[2022-04-16] MEDS: DOCUSATE SODIUM 100 MG CAP PO SCH ×2 (08:09→20:36)
[2022-04-16] MEDS: FERROUS SULFATE 325 MG TAB PO SCH ×3 (08:09→16:42)
[2022-04-16] MEDS: SPIRONOLACTONE 25 MG TAB PO SCH (08:09)
[2022-04-16] MEDS: POTASSIUM CHLORIDE CRTAB 20 MEQ TABCR PO SCH (08:09)
[2022-04-16] MEDS: SACCHAROMYCES BOULARDII 250 MG CAP PO SCH (08:09)
[2022-04-16] MEDS: PANTOprazole 40 MG TAB PO SCH ×2 (08:09→20:36)
[2022-04-16] MEDS: ZINC SULFATE 220 MG CAPSULE PO SCH (08:10)
[2022-04-16] MEDS: METOPROLOL SUCC 25MG EXT REL TAB PO SCH ×2 (08:10→20:35)
[2022-04-16] MEDS: FUROSEMIDE 40 MG/4 ML VIAL IV SCH ×2 (08:11→16:42)
[2022-04-16] MEDS: LIDOCAINE 5% 1 PATCH TD SCH ×2 (08:12→08:28)
[2022-04-16] MEDS: SERTRALINE HCL 50 MG TABLET PO SCH (08:22)
[2022-04-16] MEDS: INSULIN ASPART PER UNIT SC SCH ×4 (08:40→20:46)
[2022-04-16] MEDS: CEROVITE ADV FORMULA TAB PO SCH (09:36)
--- NOTE | 2022-04-16 13:20 | Cardiology Progress Note ---
Date of Service April 16, 2022 Assessment & Plan (1) Acute HFrEF (heart failure with reduced ejection fraction): (2) Pleural effusion: (3) Atrial fibrillation: Plan: Hospital day 20. Recent echocardiogram performed 03/28/2022 demonstrating left ventricular ejection fraction of 35-40% with severe biatrial enlargement. CT and x-ray confirming reaccumulation of pleural fluid. Serum sodium trending downward. Aldactone added 04/14/2022. Recommend hold Aldactone in a.m. pending review of lab studies. Continue Lasix 60 mg IV twice daily (titrated 04/11/2022). Follow daily weight, fluid balance, GFR, and electrolytes. Consider pulmonary consultation for thoracentesis. Continue warfarin for goal INR of 2.0-3.0 due to history of A. fib, and high risk of DVT, cardioembolic stroke. Overall candidacy for long-term anticoagulation somewhat guarded due to anemia, frailty, history of hematuria. Monitor H&H. Admission and Anticipated Discharge Date Admission Date: March 27, 2022 Subjective Patient seen and examined at the bedside. Fluid balance negative approximately 1 L. Renal function remains stable, however, serum sodium trending downward. Patient is a poor historian. Offers no concerns/complaints. Review of Systems Review of Systems: All systems reviewed & are unremarkable except as noted in Subjective Physical Exam Constitutional: + ill appearing; no acute distress Respiratory: no respiratory distress, no labored breathing and no retractions Auscultation: + diminished lung sounds and + rales; no wheezes Cardiovascular: Rate/Rhythm: + irregularly irregular Heart Sounds: normal S1 and normal S2; no murmur Vessels: + JVD; no carotid bruit Extremities: + edema (1+Bilateral lower extremity edema with stasis changes) Gastrointestinal (Abdomen): Inspection/Auscultation: normal bowel sounds; abdomen not distended Percussion/Palpation: abdomen soft; abdomen nontender, no guarding and abdomen not rigid Neurologic: CN's II-XI intact bilaterally and moves all extremities; no focal motor deficits Motor/Sensory: no tremor Results & Data ([facility]) Vital Signs (Past 12 Hours) Vital Signs Temp Pulse Resp BP Pulse Ox 04/16/22 10:45 36.5 C 93 H 20 102/68 95 04/16/22 07:30 36.6 C 96 H 18 114/79 93 04/16/22 02:35 36.5 C 94 H 18 100/62 93
--- NOTE | 2022-04-16 13:41 | Hospitalist Progress Note ---
Date of Service April 16, 2022 Assessment & Plan (1) Acute respiratory failure with hypoxia: Plan: Supratherapeutic INR: Suspected Coumadin induced bleeding in setting of Supratherapeutic INR Reports H/O fall few days prior to admission as per patient FOBT Negative on 03/27/22 Received Vit K No other obvious source of bleeding INR:3.4>1.2 Monitor INR No bridging given high risk for bleeding Warfarin resumed yesterday. 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 Appreciate GI Input Continue PPI S/P 1 PRBC Monitor CBC. Hb 10.7 today Iron panel, vitamin B12, folic acid normal Peripheral smear not suggestive of hemolysis Bilateral pleural effusion Likely due to high-output cardiac failure in setting of significant anemia Acute Systolic and diastolic heart failure ? Hemothorax --less likely as per Pulm (Pulm also discussed with radiology) -CT Chest:Soft tissue edema throughout the right chest wall is nonspecific and given the clinical history likely represents contusion. There are moderate to large pleural effusions with significant atelectasis of the lower lungs -ECHO: Normal LV chamber size with moderate concentric LVH. Left ventricular systolic function is moderately reduced. Moderate global hypokinesis of left ventricle. EF 35 to 40%. Grade 2 diastolic dysfunction. Mild aortic regurgitation. Mild valvular aortic stenosis. Moderate mitral annular calcification with mild mitral regurgitation. Mild tricuspid regurgitation. Severe biatrial enlargement. -Continue IV Lasix Monitor volume status Appreciate Pulmonary, Cardiology input Nebs as needed Supplemental oxygen as needed S/P thoracentesis 04/14/22 No further thoracentesis as per pulm given no significant improvement Transudative pleural fluid per studies Continue diuresis 2 step prior to discharge Mitral Vegetation on ECHO as above Initially suspected IE Blood Cultures negative to date Likely calcium deposits as per cardiology Appreciate Cardiology Input HTN Continue metoprolol Also on diuretics Diffuse pain in right upper extremity: -RUE USD:Extensive subcutaneous edema of the right arm. No well-defined fluid collection to suggest abscess or hematoma by sonography. -Humerus X ray:No acute osseous pathology. There is again diffuse subcutaneous edema surrounding the arm of uncertain etiology. -Forearm X ray:No fracture within the right radius or ulna. Forearm soft tissue swelling. -RUE Doppler:There is no sonographic evidence of deep venous thrombosis identified in the right upper extremity. Improved DM II -Last HbA1C = 4.9 on 02/10/22 -Was taken off glimepiride yesterday 03/26, in the setting of elderly patient with possible hypoglycemic episodes in the past. Hold metformin ISS for now Memory loss: Has appt scheduled with outpatient neurology on 05/06 Dementia as per records Generalized weakness: PT/OT Fall precautions Osteomyelitis of toe of right foot: Per Dr Gold note from 03/20/22, patient had findings of osteomyelitis in MRI from 01/2022: wound cultures was positive for MRSA and patient completed antibiotics course Follows with [facility] wound clinic Continue wound care ID follow up appointment already scheduled in mid April Neck Pain likely musculoskeletal pain Trial of scheduled Tylenol, Lidoderm patch, K pad Resolved Hypothyroidism: Continue levothyroxine PVD (peripheral vascular disease): -On Aspirin Follows with Dr. Gold with vascular as outpatient DVT Px: Coumadin TEDs CODE STATUS: DNR/DNI Considering multiple comorbidities, prolonged hospital stay; will get Palliative on board for [facility] Admission and Anticipated Discharge Date Admission Date: March 27, 2022 Subjective Patient seen and examined. Denies any chest pain, shortness of breath at rest. Reports occasional shortness of breath with exertion but improving. Reports he was not on oxygen at home prior to presentation. Denied cough Denies nausea, vomiting, abdominal pain, diarrhea Denies fevers, chills Physical Exam Constitutional: + well hydrated; no acute distress Eyes: PERRL, conjunctivae normal, anicteric sclerae ENMT: external ear and nose normal, oropharynx normal Respiratory: On nasal cannula 2 L/min, diminished breath sounds lung bases, Cardiovascular: Irregularly irregular pulse, S1-S2 pedal edema with chronic stasis changes Gastrointestinal (Abdomen): normal bowel sounds, soft, nontender, no hepatosplenomegaly Musculoskeletal: Pedal edema Neurologic: PERRL, EOMI, accommodation nl, no face palsy, no dysarthria Psychiatric: A+Ox3, euthymic affect Results & Data Results & Data ([facility]) Vital Signs (Past 12 Hours) Vital Signs Temp Pulse Resp BP Pulse Ox 04/16/22 10:45 36.5 C 93 H 20 102/68 95 04/16/22 07:30 36.6 C 96 H 18 114/79 93 04/16/22 02:35 36.5 C 94 H 18 100/62 93 Laboratory Results Abnormal lab results 04/15/22 04/15/22 04/16/22 Range/Units 16:40 20:48 06:35 WBC (4.8-10.8) K/uL RBC (4.7-6.1) M/uL Hgb (14.0-18.0) g/dL Hct (42-52) % MCHC (32-36) g/dL RDW Std Deviation (36.4-46.3) fL RDW Coeff of Radha (11.5-14.5) % Plt Count (130-400) K/uL PT 13.1 H (9.0-12.0) Seconds INR 1.2 H (0.9-1.1) Sodium (136-145) mmol/L Chloride (98-107) mmol/L BUN (6-23) mg/dl BUN/Creatinine Ratio (10-20) Glucose (70-99(Fasting)) mg/dl POC Glucose 164 H 209 H (70-99) mg/dl 04/16/22 04/16/22 04/16/22 Range/Units 06:35 06:35 07:33 WBC 12.78 H (4.8-10.8) K/uL RBC 3.55 L (4.7-6.1) M/uL Hgb 10.7 L (14.0-18.0) g/dL Hct 33.6 L (42-52) % MCHC 31.8 L (32-36) g/dL RDW Std Deviation 62.0 H (36.4-46.3) fL RDW Coeff of Radha 17.9 H (11.5-14.5) % Plt Count 439 H (130-400) K/uL PT (9.0-12.0) Seconds INR (0.9-1.1) Sodium 128 L (136-145) mmol/L Chloride 94 L (98-107) mmol/L BUN 31 H (6-23) mg/dl BUN/Creatinine Ratio 37.3 H (10-20) Glucose 179 H (70-99(Fasting)) mg/dl POC Glucose 182 H (70-99) mg/dl 04/16/22 Range/Units 11:51 WBC (4.8-10.8) K/uL RBC (4.7-6.1) M/uL Hgb (14.0-18.0) g/dL Hct (42-52) % MCHC (32-36) g/dL RDW Std Deviation (36.4-46.3) fL RDW Coeff of Radha (11.5-14.5) % Plt Count (130-400) K/uL PT (9.0-12.0) Seconds INR (0.9-1.1) Sodium (136-145) mmol/L Chloride (98-107) mmol/L BUN (6-23) mg/dl BUN/Creatinine Ratio (10-20) Glucose (70-99(Fasting)) mg/dl POC Glucose 165 H (70-99) mg/dl
[2022-04-16] MEDS: WARFARIN SOD 2 MG TAB PO SCH (16:41)
[2022-04-16] MEDS: SIMVASTATIN 20 MG TAB PO SCH (20:36)
[2022-04-17] MEDS: LEVOTHYROXINE SODIUM 25 MCG TABLET PO SCH (05:48)
[2022-04-17 06:44] LABS: Hematocrit (blood only) 33.2 % (42-52); Hemoglobin 10.4 g/dL (14.0-18.0); Mean Corpuscular Hemoglobin 29.8 pg (25-34); Mean Corpuscular Hgb Conc 31.3 g/dL (32-36); Mean Corpuscular Volume 95.1 fL (80-100); Mean Platelet Volume 9.6 fL (7.4-10.4); Platelet Count 407 K/uL (130-400); RDW Coefficient of Variation 17.9 % (11.5-14.5); RDW Standard Deviation 61.4 fL (36.4-46.3); Red Blood Count 3.49 M/uL (4.7-6.1); White Blood Count 9.78 K/uL (4.8-10.8)
[2022-04-17 06:58] LABS: INR 1.2 (0.9-1.1); Prothrombin Time 12.5 Seconds (9.0-12.0)
[2022-04-17 07:05] LABS: BUN Creatinine Ratio 38.6 (10-20); Calcium 9.1 mg/dl (8.5-10.1); Creatinine Clr Calc Pharmacy 73.3 ml/min; Est GFR (African American) 96.3 ml/min; Est GFR (Non-African American) 83.1 ml/min; Phosphorus 3.7 mg/dl (2.5-4.9); Potassium 3.7 mmol/L (3.5-5.1)
[2022-04-17] MEDS: INSULIN ASPART PER UNIT SC SCH ×4 (08:59→20:39)
[2022-04-17] MEDS: LIDOCAINE 5% 1 PATCH TD SCH (09:01)
[2022-04-17] MEDS: ASPIRIN 81 MG CHEW PO SCH (09:03)
[2022-04-17] MEDS: DOCUSATE SODIUM 100 MG CAP PO SCH ×2 (09:03→20:38)
[2022-04-17] MEDS: FERROUS SULFATE 325 MG TAB PO SCH ×3 (09:03→17:30)
[2022-04-17] MEDS: FUROSEMIDE 40 MG/4 ML VIAL IV SCH ×2 (09:03→17:33)
[2022-04-17] MEDS: allopurinoL 100 MG TAB PO SCH ×2 (09:03→20:44)
[2022-04-17] MEDS: PANTOprazole 40 MG TAB PO SCH ×2 (09:05→20:38)
[2022-04-17] MEDS: METOPROLOL SUCC 25MG EXT REL TAB PO SCH ×2 (09:05→20:38)
[2022-04-17] MEDS: POTASSIUM CHLORIDE CRTAB 20 MEQ TABCR PO SCH (09:05)
[2022-04-17] MEDS: CEROVITE ADV FORMULA TAB PO SCH (09:05)
[2022-04-17] MEDS: ZINC SULFATE 220 MG CAPSULE PO SCH (09:06)
[2022-04-17] MEDS: SERTRALINE HCL 50 MG TABLET PO SCH (09:06)
[2022-04-17] MEDS: SACCHAROMYCES BOULARDII 250 MG CAP PO SCH (09:06)
--- NOTE | 2022-04-17 12:53 | Hospitalist Progress Note ---
Date of Service April 17, 2022 Assessment & Plan (1) Acute respiratory failure with hypoxia: Plan: Supratherapeutic INR: Suspected Coumadin induced bleeding in setting of Supratherapeutic INR Reports H/O fall few days prior to admission as per patient FOBT Negative on 03/27/22 Received Vit K No other obvious source of bleeding INR:3.4>1.2 Monitor INR No bridging given high risk for bleeding Warfarin resumed. 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 Appreciate GI Input Continue PPI S/P 1 PRBC Monitor CBC. Hb 10.4 today Iron panel, vitamin B12, folic acid normal Peripheral smear not suggestive of hemolysis Bilateral pleural effusion Likely due to high-output cardiac failure in setting of significant anemia Acute Systolic and diastolic heart failure ? Hemothorax --less likely as per Pulm (Pulm also discussed with radiology) -CT Chest:Soft tissue edema throughout the right chest wall is nonspecific and given the clinical history likely represents contusion. There are moderate to large pleural effusions with significant atelectasis of the lower lungs -ECHO: Normal LV chamber size with moderate concentric LVH. Left ventricular systolic function is moderately reduced. Moderate global hypokinesis of left ventricle. EF 35 to 40%. Grade 2 diastolic dysfunction. Mild aortic regurgitation. Mild valvular aortic stenosis. Moderate mitral annular calcification with mild mitral regurgitation. Mild tricuspid regurgitation. Severe biatrial enlargement. -Continue IV Lasix Monitor volume status Appreciate Pulmonary, Cardiology input Nebs as needed Supplemental oxygen as needed. Wean as tolerated S/P thoracentesis 04/14/22 No further thoracentesis as per pulm given no significant improvement Transudative pleural fluid per studies Continue diuresis 2 step prior to discharge Mitral Vegetation on ECHO as above Initially suspected IE Blood Cultures negative to date Likely calcium deposits as per cardiology Appreciate Cardiology Input HTN Continue metoprolol Also on diuretics Diffuse pain in right upper extremity: -RUE USD:Extensive subcutaneous edema of the right arm. No well-defined fluid collection to suggest abscess or hematoma by sonography. -Humerus X ray:No acute osseous pathology. There is again diffuse subcutaneous edema surrounding the arm of uncertain etiology. -Forearm X ray:No fracture within the right radius or ulna. Forearm soft tissue swelling. -RUE Doppler:There is no sonographic evidence of deep venous thrombosis identified in the right upper extremity. Improved DM II -Last HbA1C = 4.9 on 02/10/22 -Was taken off glimepiride yesterday 03/26, in the setting of elderly patient with possible hypoglycemic episodes in the past. Hold metformin ISS for now Memory loss: Has appt scheduled with outpatient neurology on 05/06 Dementia as per records Generalized weakness: PT/OT Fall precautions Osteomyelitis of toe of right foot: Per Dr Gold note from 03/20/22, patient had findings of osteomyelitis in MRI from 01/2022: wound cultures was positive for MRSA and patient completed antibiotics course Follows with [facility] wound clinic Continue wound care ID follow up appointment already scheduled in mid April Neck Pain likely musculoskeletal pain Trial of scheduled Tylenol, Lidoderm patch, K pad Resolved Hypothyroidism: Continue levothyroxine PVD (peripheral vascular disease): -On Aspirin Follows with Dr. Gold with vascular as outpatient DVT Px: Coumadin TEDs CODE STATUS: DNR/DNI Will appreciate Palliative consult for [facility] Admission and Anticipated Discharge Date Admission Date: March 27, 2022 Subjective Patient seen and examined. Denies any chest pain, shortness of breath at rest. Denied any complaints today. Denied cough Denies nausea, vomiting, abdominal pain, diarrhea Denies fevers, chills Physical Exam Constitutional: + well hydrated; no acute distress Eyes: PERRL, conjunctivae normal, anicteric sclerae ENMT: external ear and nose normal, oropharynx normal Respiratory: Diminished breath sounds. Mild crackles Cardiovascular: Rate/Rhythm: + irregularly irregular S1 S2 Gastrointestinal (Abdomen): normal bowel sounds, soft, nontender, no hepatosplenomegaly Musculoskeletal: Pedal edema Neurologic: PERRL, EOMI, accommodation nl, no face palsy, no dysarthria Psychiatric: A+Ox3, euthymic affect Results & Data Results & Data ([facility]) Vital Signs (Past 12 Hours) Vital Signs Temp Pulse Pulse Resp BP Pulse Ox 04/17/22 10:55 36.4 C L 91 H 18 117/75 96 04/17/22 07:20 97 H 04/17/22 07:08 36.5 C 103 H 20 121/76 97 04/17/22 03:12 36.5 C 99 H 20 115/74 97 Laboratory Results Abnormal lab results 04/16/22 04/16/22 04/17/22 Range/Units 16:28 20:07 06:11 RBC (4.7-6.1) M/uL Hgb (14.0-18.0) g/dL Hct (42-52) % MCHC (32-36) g/dL RDW Std Deviation (36.4-46.3) fL RDW Coeff of Radha (11.5-14.5) % Plt Count (130-400) K/uL PT 12.5 H (9.0-12.0) Seconds INR 1.2 H (0.9-1.1) Sodium (136-145) mmol/L Chloride (98-107) mmol/L BUN (6-23) mg/dl BUN/Creatinine Ratio (10-20) Glucose (70-99(Fasting)) mg/dl POC Glucose 175 H 209 H (70-99) mg/dl 04/17/22 04/17/22 04/17/22 Range/Units 06:11 06:11 07:52 RBC 3.49 L (4.7-6.1) M/uL Hgb 10.4 L (14.0-18.0) g/dL Hct 33.2 L (42-52) % MCHC 31.3 L (32-36) g/dL RDW Std Deviation 61.4 H (36.4-46.3) fL RDW Coeff of Radha 17.9 H (11.5-14.5) % Plt Count 407 H (130-400) K/uL PT (9.0-12.0) Seconds INR (0.9-1.1) Sodium 130 L (136-145) mmol/L Chloride 95 L (98-107) mmol/L BUN 32 H (6-23) mg/dl BUN/Creatinine Ratio 38.6 H (10-20) Glucose 187 H (70-99(Fasting)) mg/dl POC Glucose 168 H (70-99) mg/dl 04/17/22 Range/Units 11:30 RBC (4.7-6.1) M/uL Hgb (14.0-18.0) g/dL Hct (42-52) % MCHC (32-36) g/dL RDW Std Deviation (36.4-46.3) fL RDW Coeff of Radha (11.5-14.5) % Plt Count (130-400) K/uL PT (9.0-12.0) Seconds INR (0.9-1.1) Sodium (136-145) mmol/L Chloride (98-107) mmol/L BUN (6-23) mg/dl BUN/Creatinine Ratio (10-20) Glucose (70-99(Fasting)) mg/dl POC Glucose 185 H (70-99) mg/dl
--- NOTE | 2022-04-17 15:33 | Palliative Care Consultation ---
Date of Consultation April 17, 2022 Assessment & Plan (1) Generalized weakness: With prolonged hospital stay. He has been at [facility] prior to admission for rehab and can return there. (2) Palliative care encounter: I talked with Mr. Kwon about my role as the palliative care physician. I asked him what he understood about his medical condition and he replied, "I'm dying". I asked him to elaborate on that and he told me that everyone is dying but that he will be dying sooner. He tells me that he is not afraid of this. He has strong Tenriism gianfranco and knows what will happen to him after he dies. I asked him if he had worries or fears about the dying process and he told me "no". We talked about whether he had any specific wishes for his care as he approached his dying time. He was very tangential about this, telling me that he wanted everyone to be happy and love each other and do good. He did tell me that his two sons, Venancio Casanova and Ha are co POAs and would make decisions on his behalf if he were unable to do so. He feels confident that they would know what to do. I did speak with Venancio Casanova on the phone. He confirms that he and his brother are co POAs and have been keeping in touch during their father's illness and hospitalization. He says that they have not really discussed what their goals for his care would be. They had talked about doing a living will when Venancio Lackey moved to [facility] but did not do it. He did not feel prepared to talk about what their goals would be. He gave me the number for his brother, Ha Kwon, and suggested that I talk with him as he is in ID and has been visiting his dad from time to time. I called the number but there was no answer. Palliative care will follow. (3) Acute HFrEF (heart failure with reduced ejection fraction): (4) Acute respiratory failure with hypoxia: (5) Elevated INR: (6) PVD (peripheral vascular disease): (7) Memory loss: History of Present Illness Reason for Consultation: goals of care Requesting Physician: Dr. Echavarria Attending Physician: Tracy Echavarria MD History of Present Illness 82 yo gentleman with HFrEF with echo on 03/28/22 showing EF of 35-40%. He also has history of afib on warfarin and presented with acute hypoxic respiratory failure, bilateral pleural effusions and supratherapeutic INR. After normalization of INR, right sided effusion was tapped for 1.6L of transudative fluid. He is also seen by cardiology for diuresis and has had consistent negative fluid balance with stable renal function. Most recently he is hyponatremic, requiring adjustment of diuretics. He has had a prolonged stay with significant weakness. Per RN, he was able to transfer from bed to chair yesterday with considerable assistance. We have been consulted to assist with goals of care. Mr. Kwon does have some baseline dementia which his son tells me was exacerbated by prolonged isolation during covid pandemic. He is able to tell me that he is in the hospital in [place]. He is not able to tell me the day of the week. Allergies Allergy/AdvReac Type Severity Reaction Status Date / Time No Known Allergies Allergy Verified 03/27/22 13:22 Home Medications Medication Instructions Recorded Confirmed Type allopurinol 100 mg tablet 100 mg PO BID 02/03/22 03/27/22 History aspirin 81 mg chewable tablet 81 mg PO QAM 02/03/22 03/27/22 History (Aspirin Childrens) furosemide 40 mg tablet 40 mg PO QAM 02/03/22 03/27/22 History garlic 400 mg tablet 400 mg PO BID tab 02/03/22 03/27/22 History metformin 500 mg tablet 500 mg PO BID 02/03/22 03/27/22 History metoprolol tartrate 50 mg tablet 50 mg PO Q12H 02/03/22 03/27/22 History multivitamin with minerals 1 cap PO QAM 02/03/22 03/27/22 History omega-3 fatty acids 1,000 mg 1,000 mg PO BID 02/03/22 03/27/22 History capsule potassium chloride 20 mEq 20 meq PO QAM 02/03/22 03/27/22 History tablet,extended release(part/cryst) (Klor-Con M) saw palmetto 450 mg capsule 450 mg PO BID 02/03/22 03/27/22 History simvastatin 20 mg tablet 20 mg PO HS 02/03/22 03/27/22 History ferrous sulfate 325 mg (65 mg 325 mg PO TIDM 02/17/22 03/27/22 History iron) tablet levothyroxine 25 mcg capsule 25 mcg PO DAILYBB 02/17/22 03/27/22 History oxycodone-acetaminophen 5 mg-325 See Rx Instructions .ROUTE 02/17/22 03/27/22 History mg tablet (Percocet) .COMPLEX PRN sertraline 25 mg tablet 25 mg PO QAM 02/17/22 03/27/22 History zinc acetate 25 mg (zinc) capsule 25 mg PO QAM 02/17/22 03/27/22 History Saccharomyces boulardii 250 mg 250 mg PO QAM 03/25/22 03/27/22 History capsule acetaminophen 500 mg tablet 1,000 mg PO Q8H PRN 03/25/22 03/27/22 History docusate sodium 100 mg capsule 100 mg PO BID 03/25/22 03/27/22 History (Colace) warfarin 3 mg tablet 3 mg PO HS 03/25/22 03/27/22 History Patient History Medical History Acute kidney failure, unspecified Anemia, unspecified Atrial fibrillation Benign prostatic hyperplasia without lower urinary tract symptoms Chronic atrial fibrillation, unspecified Chronic diastolic (congestive) heart failure Chronic gout Critical illness myopathy Depression Diverticulitis Diverticulitis of intestine, part unspecified, without perforation or abscess without bleeding Edema, unspecified Essential (primary) hypertension Gout Type 2 diabetes mellitus with unspecified complications Social History Smoking Status: Never smoker Second Hand Exposure: No; Do You Dip or Chew Tobacco: No; Tobacco Cessation Education Requested by Patient: No Hx Alcohol Use: No Hx Substance Use: No Preferred Language: Setswana Communication Ability: Effective Patient Ombudsperson Required: No Beliefs That Will Affect Care: None marital status: Unknown Current Living Situation: Alf Other Information That Helps Us Care for You: No Feels Safe at Home: Yes Safety Concerns: Feels Safe At This Time Assistive Devices: Walker Assistive Devices Comment: pt states glasses but no with him Review of Systems Review of Systems: ESAS Pain 1/3 (back) Dyspnea 0/3 Anxiety 0/3 Fatigue 2/3 Nausea 0/3 Drowsiness 0/3 PPS 40% Physical Exam Constitutional: no acute distress ENMT: Mouth: oral mucous membranes not dry Respiratory: normal respiratory effort; no labored breathing Cardiovascular: Rate/Rhythm: + irregularly irregular Gastrointestinal (Abdomen): mild distension, nontender, LBM 6/8 Musculoskeletal: Extremities: + muscle atrophy no edema Skin: warm and dry Neurologic: moves all extremities Speech / Cognition: + abnormal cognition Results & Data ([facility]) Vital Signs (Past 12 Hours) Vital Signs Temp Pulse Pulse Resp BP Pulse Ox 04/17/22 10:55 97.5 F L 91 H 18 117/75 96 04/17/22 07:20 97 H 04/17/22 07:08 97.7 F 103 H 20 121/76 97 PG Care Time/CCT Total # of Minutes Spent Total Time Spent: 65 Total Time Spent with Patient: Total time spent is greater than 50% in coordination of care (as documented) at patient's floor/unit and/or counseling patient: goals of care, surrogate decision maker, family update and support Coding Level of Care Code 94620 Initial Inpt Care Lvl 2 Diagnoses Generalized weakness R53.1 Palliative care encounter Z51.5 Acute HFrEF (heart failure with reduced ejection fraction) I50.21 Acute respiratory failure with hypoxia J96.01 Elevated INR R79.1 PVD (peripheral vascular disease) I73.9 Memory loss R41.3
[2022-04-17] MEDS ORDERED: WARFARIN SOD 1 MG TAB PO STA (17:28)
[2022-04-17] MEDS: WARFARIN SOD 2 MG TAB PO SCH (17:30)
[2022-04-17] MEDS: SIMVASTATIN 20 MG TAB PO SCH (20:38)
[2022-04-18] MEDS: LEVOTHYROXINE SODIUM 25 MCG TABLET PO SCH (05:34)
[2022-04-18 08:24] LABS: INR 1.2 (0.9-1.1); Prothrombin Time 12.7 Seconds (9.0-12.0)
[2022-04-18 08:41] LABS: BUN Creatinine Ratio 42.6 (10-20); Calcium 8.9 mg/dl (8.5-10.1); Creatinine Clr Calc Pharmacy 89.5 ml/min; Est GFR (African American) 104.5 ml/min; Est GFR (Non-African American) 90.2 ml/min; Potassium 3.6 mmol/L (3.5-5.1)
[2022-04-18] MEDS: SERTRALINE HCL 50 MG TABLET PO SCH (08:44)
[2022-04-18] MEDS: ZINC SULFATE 220 MG CAPSULE PO SCH (08:44)
[2022-04-18] MEDS: SACCHAROMYCES BOULARDII 250 MG CAP PO SCH (08:44)
[2022-04-18] MEDS: ASPIRIN 81 MG CHEW PO SCH (08:44)
[2022-04-18] MEDS: FERROUS SULFATE 325 MG TAB PO SCH ×3 (08:44→16:45)
[2022-04-18] MEDS: POTASSIUM CHLORIDE CRTAB 20 MEQ TABCR PO SCH (08:44)
[2022-04-18] MEDS: PANTOprazole 40 MG TAB PO SCH ×2 (08:44→21:44)
[2022-04-18] MEDS: CEROVITE ADV FORMULA TAB PO SCH (08:44)
[2022-04-18] MEDS: METOPROLOL SUCC 25MG EXT REL TAB PO SCH ×2 (08:45→21:44)
[2022-04-18] MEDS: DOCUSATE SODIUM 100 MG CAP PO SCH ×2 (08:45→21:44)
[2022-04-18] MEDS: allopurinoL 100 MG TAB PO SCH ×2 (08:45→21:43)
[2022-04-18] MEDS: LIDOCAINE 5% 1 PATCH TD SCH (08:46)
[2022-04-18] MEDS: FUROSEMIDE 40 MG/4 ML VIAL IV SCH ×2 (08:46→16:45)
[2022-04-18] MEDS: INSULIN ASPART PER UNIT SC SCH ×4 (09:06→21:42)
--- NOTE | 2022-04-18 12:03 | Hospitalist Progress Note ---
Date of Service April 18, 2022 Assessment & Plan (1) Acute respiratory failure with hypoxia: Plan: Supratherapeutic INR: Suspected Coumadin induced bleeding in setting of Supratherapeutic INR Reports H/O fall few days prior to admission as per patient FOBT Negative on 03/27/22 Received Vit K No other obvious source of bleeding INR:3.4>1.2 Monitor INR No bridging given high risk for bleeding Gave 3mg of warfarin yesterday Still subtherapeutic. 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 Appreciate GI Input Continue PPI S/P 1 PRBC Monitor CBC. Last Hb 10.4 Iron panel, vitamin B12, folic acid normal Peripheral smear not suggestive of hemolysis Bilateral pleural effusion Likely due to high-output cardiac failure in setting of significant anemia Acute Systolic and diastolic heart failure ? Hemothorax --less likely as per Pulm (Pulm also discussed with radiology) -CT Chest:Soft tissue edema throughout the right chest wall is nonspecific and given the clinical history likely represents contusion. There are moderate to large pleural effusions with significant atelectasis of the lower lungs -ECHO: Normal LV chamber size with moderate concentric LVH. Left ventricular systolic function is moderately reduced. Moderate global hypokinesis of left ventricle. EF 35 to 40%. Grade 2 diastolic dysfunction. Mild aortic regurgitation. Mild valvular aortic stenosis. Moderate mitral annular calcification with mild mitral regurgitation. Mild tricuspid regurgitation. Severe biatrial enlargement. -Continue IV Lasix Monitor volume status Appreciate Pulmonary, Cardiology input Nebs as needed Supplemental oxygen as needed. Wean as tolerated S/P thoracentesis 04/14/22 No further thoracentesis as per pulm given no significant improvement Transudative pleural fluid per studies Discussed with Shale Planer Operator. Will continue IV lasix while inpatient and tr ansition to po on discharge 2 step prior to discharge Mitral Vegetation on ECHO as above Initially suspected IE Blood Cultures negative to date Likely calcium deposits as per cardiology Appreciate Cardiology Input HTN Continue metoprolol Also on diuretics Diffuse pain in right upper extremity: -RUE USD:Extensive subcutaneous edema of the right arm. No well-defined fluid collection to suggest abscess or hematoma by sonography. -Humerus X ray:No acute osseous pathology. There is again diffuse subcutaneous edema surrounding the arm of uncertain etiology. -Forearm X ray:No fracture within the right radius or ulna. Forearm soft tissue swelling. -RUE Doppler:There is no sonographic evidence of deep venous thrombosis identified in the right upper extremity. Improved DM II -Last HbA1C = 4.9 on 02/10/22 -Was taken off glimepiride yesterday 03/26, in the setting of elderly patient with possible hypoglycemic episodes in the past. Hold metformin ISS for now Memory loss: Has appt scheduled with outpatient neurology on 05/06 Dementia as per records Generalized weakness: PT/OT Fall precautions Osteomyelitis of toe of right foot: Per Dr Gold note from 03/20/22, patient had findings of osteomyelitis in MRI from 01/2022: wound cultures was positive for MRSA and patient completed antibiotics course Follows with [facility] wound clinic Continue wound care ID follow up appointment already scheduled in mid April Neck Pain likely musculoskeletal pain Trial of scheduled Tylenol, Lidoderm patch, K pad Resolved Hypothyroidism: Continue levothyroxine PVD (peripheral vascular disease): -On Aspirin Follows with Dr. Gold with vascular as outpatient DVT Px: Coumadin TEDs CODE STATUS: DNR/DNI Appreciate Palliative consult for GOC Called son Ha Kwon [phone] and updated him Dispo- CM working on SNF at [facility] Admission and Anticipated Discharge Date Admission Date: March 27, 2022 Subjective Patient seen and examined. Denies any chest pain, shortness of breath at rest. Denied cough. Weaned off oxygen Denies nausea, vomiting, abdominal pain, diarrhea Denies fevers, chills Physical Exam Constitutional: + well hydrated; no acute distress Eyes: PERRL, conjunctivae normal, anicteric sclerae ENMT: external ear and nose normal, oropharynx normal Respiratory: Not in respiratory distress, on room air, diminished breath sounds lung bases Cardiovascular: Rate/Rhythm: + irregularly irregular S1 S2 Gastrointestinal (Abdomen): normal bowel sounds, soft, nontender, no hepatosplenomegaly Musculoskeletal: Pedal edema, stasis changes Neurologic: PERRL, EOMI, accommodation nl, no face palsy, no dysarthria Psychiatric: Alert and oriented to person and place Results & Data Results & Data ([facility]) Vital Signs (Past 12 Hours) Vital Signs Temp Pulse Resp BP BP Pulse Ox 04/18/22 08:01 36.6 C 91 H 16 128/74 95 04/18/22 03:01 36.5 C 93 H 20 121/80 97 Laboratory Results Abnormal lab results 04/17/22 04/17/22 04/18/22 Range/Units 16:55 20:09 07:55 PT (9.0-12.0) Seconds INR (0.9-1.1) Sodium (136-145) mmol/L Chloride (98-107) mmol/L BUN (6-23) mg/dl BUN/Creatinine Ratio (10-20) Glucose (70-99(Fasting)) mg/dl POC Glucose 175 H 182 H 114 H (70-99) mg/dl 04/18/22 04/18/22 04/18/22 Range/Units 07:59 07:59 11:51 PT 12.7 H (9.0-12.0) Seconds INR 1.2 H (0.9-1.1) Sodium 130 L (136-145) mmol/L Chloride 95 L (98-107) mmol/L BUN 29 H (6-23) mg/dl BUN/Creatinine Ratio 42.6 H (10-20) Glucose 140 H (70-99(Fasting)) mg/dl POC Glucose 193 H (70-99) mg/dl
--- NOTE | 2022-04-18 14:06 | Palliative Care Progress Note ---
Date of Service April 18, 2022 Assessment & Plan (1) Dyspnea: Plan: Variable. Low flow O2 to relieve. There seems to be an anxiety component, redirected and reassured him. (2) Palliative care encounter: Plan: Venancio Lackey is not able to discuss goals of care today. He is perseverating on bowels and coffee. I spoke with his son, Ha. Ha and Venancio Casanova have talked. They understand that their father's condition is frail and that if he is discharged back to [facility] he would need skilled care. They would want to try PT to maximize his function but understand that he is not likely to return to h is prior baseline. They confirm that Venancio is DNR/DNI and overall would want him to be comfortable but do want to continue to try and diurese him and try PT. If he were to decompensate, they would prefer that he stay at [facility] and not be rehospitalized. If he is approaching his dying time, they would rather he be at [facility]. We discussed having hospice support at [facility] but Ha does not feel they are ready for that just yet. (3) Acute respiratory failure with hypoxia: (4) Acute HFrEF (heart failure with reduced ejection fraction): Admission and Anticipated Discharge Date Admission Date: March 27, 2022 Subjective More confused today. Having difficulty using TV remote control. Does not recall our conversation yesterday but remembers his son, Ha, visiting yesterday. Complains of feeling short of breath today. Weaned off O2 with last sat 95% this morning. Negative fluid balance and weight down 3 lbs. Review of Systems Review of Systems: ESAS Pain 0/3 Dyspnea 2/3 Fatigue 2/3 Nausea 0/3 Drowsiness 0/3 PPS 40% Physical Exam Constitutional: + frail appearing Respiratory: + uses accessory muscles Cardiovascular: Rate/Rhythm: + irregularly irregular Musculoskeletal: Extremities: + muscle atrophy Skin: vascular skin changes Neurologic: moves all extremities, awake and + confused Results & Data ([facility]) Vital Signs (Past 12 Hours) Vital Signs Temp Pulse Resp BP BP Pulse Ox 04/18/22 08:01 97.9 F 91 H 16 128/74 95 04/18/22 03:01 97.7 F 93 H 20 121/80 97 PG Care Time/CCT Total # of Minutes Spent Total Time Spent: 40 Total Time Spent with Patient: Total time spent is greater than 50% in coordination of care (as documented) at patient's floor/unit and/or counseling patient: symptom management, goals of care, family education and support. Coding Level of Care Code 81770 Subseq Hosp Care Lvl 3 Diagnoses Palliative care encounter Z51.5 Dyspnea R06.00 Acute respiratory failure with hypoxia J96.01 Acute HFrEF (heart failure with reduced ejection fraction) I50.21
[2022-04-18] MEDS: WARFARIN SOD 2 MG TAB PO SCH (16:46)
[2022-04-18] MEDS: SIMVASTATIN 20 MG TAB PO SCH (21:45)
[2022-04-19] MEDS: LEVOTHYROXINE SODIUM 25 MCG TABLET PO SCH (05:38)
[2022-04-19] MEDS: POTASSIUM CHLORIDE CRTAB 20 MEQ TABCR PO SCH (07:29)
[2022-04-19] MEDS: SERTRALINE HCL 50 MG TABLET PO SCH (07:29)
[2022-04-19] MEDS: CEROVITE ADV FORMULA TAB PO SCH (07:29)
[2022-04-19] MEDS: SACCHAROMYCES BOULARDII 250 MG CAP PO SCH (07:29)
[2022-04-19] MEDS: DOCUSATE SODIUM 100 MG CAP PO SCH ×2 (07:30→20:58)
[2022-04-19] MEDS: FUROSEMIDE 40 MG/4 ML VIAL IV SCH ×2 (07:30→17:20)
[2022-04-19] MEDS: FERROUS SULFATE 325 MG TAB PO SCH ×3 (07:33→17:20)
[2022-04-19] MEDS: ZINC SULFATE 220 MG CAPSULE PO SCH (07:33)
[2022-04-19] MEDS: allopurinoL 100 MG TAB PO SCH ×2 (07:34→20:59)
[2022-04-19] MEDS: ASPIRIN 81 MG CHEW PO SCH (07:34)
[2022-04-19] MEDS: PANTOprazole 40 MG TAB PO SCH ×2 (07:35→20:57)
[2022-04-19] MEDS: METOPROLOL SUCC 25MG EXT REL TAB PO SCH ×2 (07:35→20:58)
[2022-04-19] MEDS: LIDOCAINE 5% 1 PATCH TD SCH (07:44)
[2022-04-19] MEDS: INSULIN ASPART PER UNIT SC SCH ×4 (07:48→20:59)
[2022-04-19 08:33] LABS: INR 1.2 (0.9-1.1)
[2022-04-19 08:43] LABS: BUN Creatinine Ratio 35.6 (10-20); Creatinine Clr Calc Pharmacy 83.3 ml/min; Est GFR (African American) 101.5 ml/min; Est GFR (Non-African American) 87.6 ml/min; Phosphorus 3.3 mg/dl (2.5-4.9); Potassium 3.6 mmol/L (3.5-5.1)
[2022-04-19 08:47] LABS: Hematocrit (blood only) 37.3 % (42-52); Hemoglobin 11.7 g/dL (14.0-18.0); Mean Corpuscular Hemoglobin 29.8 pg (25-34); Mean Corpuscular Hgb Conc 31.4 g/dL (32-36); Mean Corpuscular Volume 95.2 fL (80-100); Mean Platelet Volume 9.7 fL (7.4-10.4); Platelet Count 457 K/uL (130-400); RDW Coefficient of Variation 17.5 % (11.5-14.5); RDW Standard Deviation 61.1 fL (36.4-46.3); Red Blood Count 3.92 M/uL (4.7-6.1); White Blood Count 8.02 K/uL (4.8-10.8)
--- NOTE | 2022-04-19 10:34 | Hospitalist Progress Note ---
Date of Service April 19, 2022 Assessment & Plan (1) Acute respiratory failure with hypoxia: Plan: Supratherapeutic INR: Suspected Coumadin induced bleeding in setting of Supratherapeutic INR Reports H/O fall few days prior to admission as per patient FOBT Negative on 03/27/22 Received Vit K No other obvious source of bleeding INR:3.4>1.2 Monitor INR No bridging given high risk for bleeding Warfarin was initially held and later resumed. Still subtherapeutic. Increase warfarin to 3mg daily Had discussed Anticoagulation with son Ha yesterday. Benefits and risks. He want to continue for now and they will reassess in future Gross hematuria Possibly traumatic catheterization, decompression for distended bladder Appreciate urology input Needs follow-up with urology upon discharge Monitor CBC Hematuria resolved Aspirin that was initially held but since resumed Atrial fibrillation: Chronic, currently rate controlled Continue metoprolol: Changed to metoprolol succinate 75 mg twice daily Warfarin increased to 3mg INR:1.2 Anemia, unspecified: Suspected Coumadin induced bleeding in setting of Supratherapeutic INR FOBT negative -CT ABD:No acute intra-abdominal or pelvic abnormality. Appreciate GI Input Continue PPI S/P 1 PRBC Monitor CBC. Hb 11.7 Iron panel, vitamin B12, folic acid normal Peripheral smear not suggestive of hemolysis Bilateral pleural effusion Likely due to high-output cardiac failure in setting of significant anemia Acute Systolic and diastolic heart failure ? Hemothorax --less likely as per Pulm (Pulm also discussed with radiology) -CT Chest:Soft tissue edema throughout the right chest wall is nonspecific and given the clinical history likely represents contusion. There are moderate to large pleural effusions with significant atelectasis of the lower lungs -ECHO: Normal LV chamber size with moderate concentric LVH. Left ventricular systolic function is moderately reduced. Moderate global hypokinesis of left ventricle. EF 35 to 40%. Grade 2 diastolic dysfunction. Mild aortic regurgitation. Mild valvular aortic stenosis. Moderate mitral annular calcification with mild mitral regurgitation. Mild tricuspid regurgitation. Severe biatrial enlargement. -Continue IV Lasix Monitor volume status Appreciate Pulmonary, Cardiology input Nebs as needed Supplemental oxygen as needed. Wean as tolerated S/P thoracentesis 04/14/22 No further thoracentesis as per pulm given no significant improvement Transudative pleural fluid per studies Discussed with Locomotive Electrician. Will continue IV lasix while inpatient and transition to po on discharge 2 step prior to discharge Mitral Vegetation on ECHO as above Initially suspected IE Blood Cultures negative to date Likely calcium deposits as per cardiology Appreciate Cardiology Input HTN Continue metoprolol Also on diuretics Diffuse pain in right upper extremity: -RUE USD:Extensive subcutaneous edema of the right arm. No well-defined fluid collection to suggest abscess or hematoma by sonography. -Humerus X ray:No acute osseous pathology. There is again diffuse subcutaneous edema surrounding the arm of uncertain etiology. -Forearm X ray:No fracture within the right radius or ulna. Forearm soft tissue swelling. -RUE Doppler:There is no sonographic evidence of deep venous thrombosis identified in the right upper extremity. Improved DM II -Last HbA1C = 4.9 on 02/10/22 -Was taken off glimepiride yesterday 03/26, in the setting of elderly patient with possible hypoglycemic episodes in the past. Hold metformin ISS for now Memory loss: Has appt scheduled with outpatient neurology on 05/06 Dementia as per records Generalized weakness: PT/OT Fall precautions Osteomyelitis of toe of right foot: Per Dr Gold note from 03/20/22, patient had findings of osteomyelitis in MRI from 01/2022: wound cultures was positive for MRSA and patient completed antibiotics course Follows with [facility] wound clinic Continue wound care ID follow up appointment already scheduled in mid April Neck Pain likely musculoskeletal pain Trial of scheduled Tylenol, Lidoderm patch, K pad Resolved Hypothyroidism: Continue levothyroxine PVD (peripheral vascular disease): -On Aspirin Follows with Dr. Gold with vascular as outpatient DVT Px: Coumadin TEDs CODE STATUS: DNR/DNI Appreciate Palliative consult for [facility] Dispo- CM working on SNF at [facility] Plan to dc on thursday Admission and Anticipated Discharge Date Admission Date: March 27, 2022 Subjective Patient seen and examined. Denies any complaints today Denies any cough, chest pain, shortness of breath at rest. Denies nausea, vomiting, abdominal pain, diarrhea Denies fevers, chills Physical Exam Constitutional: + well hydrated; no acute distress Eyes: PERRL, conjunctivae normal, anicteric sclerae ENMT: external ear and nose normal, oropharynx normal Respiratory: On room air. No respiratory distress. Diminished breath sounds lung bases Cardiovascular: Rate/Rhythm: + irregularly irregular S1 S2 Gastrointestinal (Abdomen): normal bowel sounds, soft, nontender, no hepatosplenomegaly Musculoskeletal: Trace pedal edema, stasis changes Neurologic: PERRL, EOMI, accommodation nl, no face palsy, no dysarthria Psychiatric: Orientation: alert, oriented to person, oriented to place and oriented to time (month and year only) Results & Data Results & Data ([facility]) Vital Signs (Past 12 Hours) Vital Signs Temp Pulse Resp BP BP Pulse Ox 04/19/22 07:51 36.6 C 88 18 102/80 97 04/19/22 06:28 36.5 C 86 18 121/82 94 04/19/22 04:06 36.6 C 87 18 121/73 96 04/18/22 23:23 36.4 C L 88 18 121/71 96 Laboratory Results Abnormal lab results 04/18/22 04/18/22 04/19/22 Range/Units 16:28 20:24 07:41 RBC (4.7-6.1) M/uL Hgb (14.0-18.0) g/dL Hct (42-52) % MCHC (32-36) g/dL RDW Std Deviation (36.4-46.3) fL RDW Coeff of Radha (11.5-14.5) % Plt Count (130-400) K/uL PT (9.0-12.0) Seconds INR (0.9-1.1) Sodium (136-145) mmol/L Chloride (98-107) mmol/L BUN (6-23) mg/dl BUN/Creatinine Ratio (10-20) Glucose (70-99(Fasting)) mg/dl POC Glucose 163 H 131 H 121 H (70-99) mg/dl 04/19/22 04/19/22 04/19/22 Range/Units 07:55 07:55 07:55 RBC 3.92 L (4.7-6.1) M/uL Hgb 11.7 L (14.0-18.0) g/dL Hct 37.3 L (42-52) % MCHC 31.4 L (32-36) g/dL RDW Std Deviation 61.1 H (36.4-46.3) fL RDW Coeff of Radha 17.5 H (11.5-14.5) % Plt Count 457 H (130-400) K/uL PT 13.0 H (9.0-12.0) Seconds INR 1.2 H (0.9-1.1) Sodium 132 L (136-145) mmol/L Chloride 96 L (98-107) mmol/L BUN 26 H (6-23) mg/dl BUN/Creatinine Ratio 35.6 H (10-20) Glucose 129 H (70-99(Fasting)) mg/dl POC Glucose (70-99) mg/dl 04/19/22 Range/Units 11:50 RBC (4.7-6.1) M/uL Hgb (14.0-18.0) g/dL Hct (42-52) % MCHC (32-36) g/dL RDW Std Deviation (36.4-46.3) fL RDW Coeff of Radha (11.5-14.5) % Plt Count (130-400) K/uL PT (9.0-12.0) Seconds INR (0.9-1.1) Sodium (136-145) mmol/L Chloride (98-107) mmol/L BUN (6-23) mg/dl BUN/Creatinine Ratio (10-20) Glucose (70-99(Fasting)) mg/dl POC Glucose 129 H (70-99) mg/dl
[2022-04-19] MEDS: WARFARIN SOD 3 MG TAB PO SCH (17:26)
[2022-04-19] MEDS: SIMVASTATIN 20 MG TAB PO SCH (20:57)
[2022-04-20] MEDS: LEVOTHYROXINE SODIUM 25 MCG TABLET PO SCH (05:15)
[2022-04-20 07:48] LABS: INR 1.3 (0.9-1.1); Prothrombin Time 13.5 Seconds (9.0-12.0)
[2022-04-20 08:00] LABS: Creatinine Clr Calc Pharmacy 85.7 ml/min; Est GFR (African American) 102.7 ml/min; Est GFR (Non-African American) 88.6 ml/min; Phosphorus 3.1 mg/dl (2.5-4.9); Potassium 3.5 mmol/L (3.5-5.1)
[2022-04-20] MEDS: INSULIN ASPART PER UNIT SC SCH ×4 (09:19→20:31)
[2022-04-20] MEDS: DOCUSATE SODIUM 100 MG CAP PO SCH ×3 (09:20→20:55)
[2022-04-20] MEDS: allopurinoL 100 MG TAB PO SCH ×2 (09:20→20:57)
[2022-04-20] MEDS: METOPROLOL SUCC 25MG EXT REL TAB PO SCH ×2 (09:21→20:56)
[2022-04-20] MEDS: FERROUS SULFATE 325 MG TAB PO SCH ×3 (09:22→17:06)
[2022-04-20] MEDS: ZINC SULFATE 220 MG CAPSULE PO SCH (09:22)
[2022-04-20] MEDS: PANTOprazole 40 MG TAB PO SCH ×2 (09:22→20:56)
[2022-04-20] MEDS: CEROVITE ADV FORMULA TAB PO SCH (09:22)
[2022-04-20] MEDS: POTASSIUM CHLORIDE CRTAB 20 MEQ TABCR PO SCH ×2 (09:22→09:26)
[2022-04-20] MEDS: FUROSEMIDE 40 MG/4 ML VIAL IV SCH ×2 (09:23→17:08)
[2022-04-20] MEDS: ASPIRIN 81 MG CHEW PO SCH (09:23)
[2022-04-20] MEDS: LIDOCAINE 5% 1 PATCH TD SCH (09:23)
[2022-04-20] MEDS: SACCHAROMYCES BOULARDII 250 MG CAP PO SCH (09:28)
[2022-04-20] MEDS: SERTRALINE HCL 50 MG TABLET PO SCH (09:29)
--- NOTE | 2022-04-20 12:20 | Hospitalist Progress Note ---
Date of Service April 20, 2022 Assessment & Plan (1) Acute respiratory failure with hypoxia: Plan: Supratherapeutic INR: Suspected Coumadin induced bleeding in setting of Supratherapeutic INR Reports H/O fall few days prior to admission as per patient FOBT Negative on 03/27/22 Received Vit K No other obvious source of bleeding INR:3.4>1.3 Monitor INR No bridging given high risk for bleeding Warfarin was initially held and later resumed. Still subtherapeutic. Increase warfarin to 3mg daily Had discussed Anticoagulation with son Ha on 04/18/22. Benefits and risks. He want to continue for now and they will reassess in future Gross hematuria Possibly traumatic catheterization, decompression for distended bladder Appreciate urology input Needs follow-up with urology upon discharge Monitor CBC Hematuria resolved Aspirin that was initially held but since resumed Atrial fibrillation: Chronic, currently rate controlled Continue metoprolol: Changed to metoprolol succinate 75 mg twice daily Continue warfarin at 3mg INR:1.3 Anemia, unspecified: Suspected Coumadin induced bleeding in setting of Supratherapeutic INR FOBT negative -CT ABD:No acute intra-abdominal or pelvic abnormality. Appreciate GI Input Continue PPI S/P 1 PRBC Monitor CBC. Last Hb 11.7 Iron panel, vitamin B12, folic acid normal Peripheral smear not suggestive of hemolysis Bilateral pleural effusion Likely due to high-output cardiac failure in setting of significant anemia Acute Systolic and diastolic heart failure ? Hemothorax --less likely as per Pulm (Pulm also discussed with radiology) -CT Chest:Soft tissue edema throughout the right chest wall is nonspecific and given the clinical history likely represents contusion. There are moderate to large pleural effusions with significant atelectasis of the lower lungs -ECHO: Normal LV chamber size with moderate concentric LVH. Left ventricular systolic function is moderately reduced. Moderate global hypokinesis of left ventricle. EF 35 to 40%. Grade 2 diastolic dysfunction. Mild aortic regurgitation. Mild valvular aortic stenosis. Moderate mitral annular calcification with mild mitral regurgitation. Mild tricuspid regurgitation. Severe biatrial enlargement. -Continue IV Lasix Monitor volume status Appreciate Pulmonary, Cardiology input Nebs as needed Supplemental oxygen as needed. Wean as tolerated S/P thoracentesis 04/14/22 No further thoracentesis as per pulm given no significant improvement Transudative pleural fluid per studies Discussed with Computer Graphics Illustrator. Will continue IV lasix while inpatient and transition to po on discharge 2 step prior to discharge Mitral Vegetation on ECHO as above Initially suspected IE Blood Cultures negative to date Likely calcium deposits as per cardiology Appreciate Cardiology Input HTN Continue metoprolol Also on diuretics Diffuse pain in right upper extremity: -RUE USD:Extensive subcutaneous edema of the right arm. No well-defined fluid collection to suggest abscess or hematoma by sonography. -Humerus X ray:No acute osseous pathology. There is again diffuse subcutaneous edema surrounding the arm of uncertain etiology. -Forearm X ray:No fracture within the right radius or ulna. Forearm soft tissue swelling. -RUE Doppler:There is no sonographic evidence of deep venous thrombosis identified in the right upper extremity. Improved DM II -Last HbA1C = 4.9 on 02/10/22 -Was taken off glimepiride yesterday 03/26, in the setting of elderly patient with possible hypoglycemic episodes in the past. Hold metformin ISS for now Memory loss: Has appt scheduled with outpatient neurology on 05/06 Dementia as per records Generalized weakness: PT/OT Fall precautions Osteomyelitis of toe of right foot: Per Dr Gold note from 03/20/22, patient had findings of osteomyelitis in MRI from 01/2022: wound cultures was positive for MRSA and patient completed antibiotics course Follows with [facility] wound clinic Continue wound care ID follow up appointment already scheduled in mid April Neck Pain likely musculoskeletal pain Trial of scheduled Tylenol, Lidoderm patch, K pad Resolved Hypothyroidism: Continue levothyroxine PVD (peripheral vascular disease): -On Aspirin Follows with Dr. Gold with vascular as outpatient DVT Px: Coumadin TEDs CODE STATUS: DNR/DNI Appreciate Palliative consult for [facility] Dispo- CM working on SNF at [facility] Admission and Anticipated Discharge Date Admission Date: March 27, 2022 Subjective Patient seen and examined. Reports right foot pain today Denies any cough, chest pain, shortness of breath at rest. Denies nausea, vomiting, abdominal pain, diarrhea Denies fevers, chills Physical Exam Constitutional: + well hydrated; no acute distress Eyes: PERRL, conjunctivae normal, anicteric sclerae ENMT: external ear and nose normal, oropharynx normal Respiratory: On room air, not in respiratory distress, diminished breath sounds lung bases Cardiovascular: Rate/Rhythm: + irregularly irregular S1 S2 Gastrointestinal (Abdomen): normal bowel sounds, soft, nontender, no hepatosplenomegaly Musculoskeletal: Trace pedal edema, stasis changes. Scab on right toes Skin: Right buttock wound Neurologic: PERRL, EOMI, accommodation nl, no face palsy, no dysarthria Psychiatric: Orientation: alert, oriented to person, oriented to place and oriented to time (month and year only) Occasionally confused Results & Data Results & Data ([facility]) Vital Signs (Past 12 Hours) Vital Signs Temp Pulse Pulse Resp BP BP Pulse Ox 04/20/22 11:32 36.5 C 105 H 18 139/83 91 04/20/22 10:57 85 04/20/22 07:42 36.4 C L 88 18 138/79 95 04/20/22 02:31 36.2 C L 84 18 117/78 93 Laboratory Results Abnormal lab results 04/19/22 04/19/22 04/20/22 Range/Units 16:36 20:50 07:00 PT 13.5 H (9.0-12.0) Seconds INR 1.3 H (0.9-1.1) Sodium (136-145) mmol/L Chloride (98-107) mmol/L BUN (6-23) mg/dl BUN/Creatinine Ratio (10-20) Glucose (70-99(Fasting)) mg/dl POC Glucose 132 H 122 H (70-99) mg/dl 04/20/22 04/20/22 04/20/22 Range/Units 07:00 07:35 11:24 PT (9.0-12.0) Seconds INR (0.9-1.1) Sodium 134 L (136-145) mmol/L Chloride 96 L (98-107) mmol/L BUN 27 H (6-23) mg/dl BUN/Creatinine Ratio 38.0 H (10-20) Glucose 117 H (70-99(Fasting)) mg/dl POC Glucose 107 H 117 H (70-99) mg/dl
[2022-04-20] MEDS: WARFARIN SOD 3 MG TAB PO SCH (17:07)
[2022-04-20] MEDS: SIMVASTATIN 20 MG TAB PO SCH (20:55)
[2022-04-21] MEDS: LEVOTHYROXINE SODIUM 25 MCG TABLET PO SCH (06:05)
[2022-04-21 08:41] LABS: Hematocrit (blood only) 39.6 % (42-52); Hemoglobin 12.8 g/dL (14.0-18.0); Mean Corpuscular Hgb Conc 32.3 g/dL (32-36); Mean Corpuscular Volume 95.9 fL (80-100); Mean Platelet Volume 9.5 fL (7.4-10.4); Platelet Count 454 K/uL (130-400); RDW Coefficient of Variation 17.7 % (11.5-14.5); RDW Standard Deviation 62.6 fL (36.4-46.3); Red Blood Count 4.13 M/uL (4.7-6.1); White Blood Count 10.29 K/uL (4.8-10.8)
[2022-04-21 08:48] LABS: INR 1.4 (0.9-1.1); Prothrombin Time 14.8 Seconds (9.0-12.0)
[2022-04-21] MEDS: INSULIN ASPART PER UNIT SC SCH (08:48)
[2022-04-21] MEDS: allopurinoL 100 MG TAB PO SCH (09:01)
[2022-04-21] MEDS: PANTOprazole 40 MG TAB PO SCH (09:01)
[2022-04-21] MEDS: METOPROLOL SUCC 25MG EXT REL TAB PO SCH (09:01)
[2022-04-21] MEDS: FUROSEMIDE 40 MG/4 ML VIAL IV SCH (09:02)
[2022-04-21] MEDS: FERROUS SULFATE 325 MG TAB PO SCH (09:02)
[2022-04-21] MEDS: LIDOCAINE 5% 1 PATCH TD SCH (09:02)
[2022-04-21] MEDS: ASPIRIN 81 MG CHEW PO SCH (09:02)
[2022-04-21] MEDS: SERTRALINE HCL 50 MG TABLET PO SCH (09:07)
[2022-04-21] MEDS: CEROVITE ADV FORMULA TAB PO SCH (09:07)
[2022-04-21] MEDS: ZINC SULFATE 220 MG CAPSULE PO SCH (09:07)
[2022-04-21] MEDS: SACCHAROMYCES BOULARDII 250 MG CAP PO SCH (09:08)
[2022-04-21 09:14] LABS: BUN Creatinine Ratio 30.3 (10-20); Calcium 9.6 mg/dl (8.5-10.1); Est GFR (African American) 99.9 ml/min; Est GFR (Non-African American) 86.2 ml/min; Magnesium 2.1 mg/dl (1.7-2.4); Phosphorus 3.4 mg/dl (2.5-4.9); Potassium 4.2 mmol/L (3.5-5.1)
[2022-04-21] MEDS ORDERED: COVID-19 VACC, TRIS(PFIZER)/PF 30 MCG/0.3 ML VIAL IM ONE (11:00)
--- NOTE | 2022-04-21 17:15 | Discharge Summary ---
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 He was here in the ER on 03/25 for complaints of right upper extremity pain, swelling and bruising and then was transferred to outpatient [facility] living facility on 03/26. He noted that there was increased swelling and bruising for about 4 to 5 days however did not have any knowledge of known injury or trauma to that area. X-ray of the right humerus and Doppler of the right upper extremity was negative. A chest x-ray at that time showed pulmonary edema and moderate right and small left pleural effusions, bibasilar opacities reflecting atelectasis. His INR was elevated at 4.4 and hemoglobin was 9.5 with an unknown baseline. Presents from [facility] with worsening pain in the right upper extremity, rating it 8/10 with any movement. Staff noted that he was yelling out in pain much of the night and was having difficulty transferring him. He received Percocet twice daily for pain relief. Coumadin was held since 03/26 when his INR was 4.9, today it is 3.4. He denies any blood in stool, dark tarry stools, hematemesis, nausea vomiting abdominal pain constipation or diarrhea. On repeat labs his hemoglobin was found to be 6.6 and was found to have significant right flank bruising. He is on a course of azithromycin (last dose on 03/26) for unclear reasons. It appears he was recently started on levothyroxine for hypothyroidism, and is also recently started on ferrous sulfate 3x daily due to anemia. Pt has had deteriorating cognition for several months. Patient was scheduled as an outpatient to see Марина Costa with [facility] GI team with hx of possible GI bleeding in the past several weeks, there is a positive fecal occult blood test in his chart from 02/13/22. Prior to January 2022 the patient was living along, still driving, participated in ADLs independently, and [place]. Today, pt was sent to the ER by [facility] due to the low hgb counts, and continue RUE pain. He reports okay, he reports that he thinks the swelling is improved. He is bruised up his right flank and around his lower back but denies any known injury of such. He denies any complaints regarding shortness of breath, chest pain, abdominal discomfort, changes of bowel or urinary habits. He reports he did take his medications this morning at [facility]. He typically walks with a rolling walker and 1 person to assist. He is oriented to place, self and year, knows where he lives, but when asked very specific Questions he is unable to answer these. Admission Exam Per Admitting Provider General: awake, alert, no apparent distress, + obese BMI 32.1 Head: Normocephalic, atraumatic ENT: PERRL, EOMI, no pharyngeal exudate, mucous membranes moist Chest: Diminished breath sounds at bases up to mid reilly bilaterally, left has improved breath sounds compared to the right, on room air with O2 sats at 92%, when asked to roll to listen to breath sounds sats dropped into the mid 80s, no adventitious breath sounds Cardiac: Sinus tach with HR in the mid 90s, no murmur, no JVD, normal peripheral pulses, good capillary refill Abdominal: + Ecchymosis on the right flank region, extending from R axilla to right hip NABS x 4 quadrants, soft, nondistended, nontender to palpation, no rebound or guarding Extremities: + Ecchymosis and edema of the right upper extremity, deep ecchymosis pooling on the medial anterior aspect of the arm, + edema of the R f ingers, left upper extremity normal inspection, no peripheral edema or erythema, BLE with +1 pitting edema, hard sole boot shoes bilaterally, no erythema or ecchymosis, calfs nontender to palpation Psych: Normal mood and affect Neuro: AAO x 3, some issues with answering questions specifically, strength intact bilaterally and rated 4/5, no motor deficits, speech is clear, no peripheral sensory deficits Principal Diagnosis Acute respiratory failure with hypoxia Acute systolic and diastolic heart failure Bilateral pleural effusion Atrial fibrillation Supratherapeutic INR Discharge Exam Constitutional + well hydrated; no acute distress Eyes PERRL, conjunctivae normal, anicteric sclerae ENMT external ear and nose normal, oropharynx normal Respiratory Not in respiratory distress. On room air. Diminished breath sounds lung bases Cardiovascular Rate/Rhythm: + irregularly irregular S1 S2 Gastrointestinal (Abdomen) normal bowel sounds, soft, nontender, no hepatosplenomegaly Musculoskeletal Trace pedal edema, stasis changes. Scab on right 2nd toe Neurologic PERRL, EOMI, accommodation nl, no face palsy, no dysarthria Psychiatric Orientation: alert, oriented to person, oriented to place and oriented to time (month and year only) Discharge Data Allergies Allergy/AdvReac Type Severity Reaction Status Date / Time No Known Allergies Allergy Verified 03/27/22 13:22 Consultations 03/27/22 13:34 ED Decision to Admit Stat 03/27/22 14:09 Consult Gastroenterology Routine 03/27/22 15:07 Consult Pulmonology Routine 03/27/22 16:09 Consult Orthopedic Surgery Routine 03/28/22 09:26 Consult Cardiology Routine 03/30/22 11:56 Consult Urology Routine 04/16/22 13:50 Consult Palliative Care Routine Ordered Studies 03/27/22 11:46 CT abd pelvis IV con only Stat Lung base: There are large bilateral pleural effusions with compressive atelectasis/collapse involving the lower lobes, right greater than left. Please see separate CT of the chest report for further evaluation. Abdominal cavity: There is no evidence for abdominal mass, adenopathy or ascites. There is evidence for anasarca. Liver: There is homogeneous attenuation of the liver parenchyma. There is no evidence for enhancing mass lesion. Sharply defined hepatic cysts are present. Spleen: There is homogeneous attenuation of the splenic parenchyma. There is no enhancing mass lesion. Pancreas: There is homogeneous attenuation of the pancreatic parenchyma. There is no evidence for mass lesion or peripancreatic fluid collection. Gall Bladder: The gallbladder is contracted due to the patient's nonfasting state. Adrenal glands: The adrenal glands are normal in size and attenuation. There is no evidence for enhancing mass lesion. Kidneys: There is homogeneous attenuation of the renal parenchyma bilaterally. There is no evidence for renal calculus or hydronephrosis. There is no evidence for enhancing mass. Bowel: The stomach is distended with liquid and food stuff. The bowel loops are normally placed within the abdomen and pelvis without evidence for dilatation or obstruction. There is mild fecal stasis without gross impaction or obstruction. There are no inflammatory changes present. There is no evidence for free air. There is a normal appendix in the right lower quadrant. Bladder: The bladder is mildly distended with no evidence for focal mass, calculus or diverticulum. : There is no evidence for pelvic mass or adenopathy. There is no evidence for pelvic ascites. The prostate is mildly enlarged. Vasculature: There is no evidence for aneurysmal dilatation of the abdominal aorta. Atherosclerotic calcification is present. Osseous structures: There is no acute osseous pathology. Degenerative changes are present. IMPRESSION: 1. Large bilateral pleural effusions, right greater than left with compressive atelectasis at the lung bases. Please see full CT chest report for further evaluation. 2. No acute intra-abdominal or pelvic abnormality. 3. Anasarca. 4. Additional nonacute findings are delineated above. CT cervical spine wo con Stat Cardiomegaly with layering pleural effusions and bibasilar consolidation noted. Intralobular septal thickening suggestive of pulmonary edema. No pneumothorax. Unremarkable soft tissues of the neck. Surgical anchor within the right humeral head. Demineralized appearance of the bones. Severe degeneration at C1-C2. Stepwise grade 1 anterolisthesis is noted at several levels throughout the thoracic and cervical spine secondary to chronic severe multilevel facet arthrosis. Multilevel intervertebral disc space narrowing, moderate at C6-C7. Multilevel spondylitic spurring with uncovertebral hypertrophy and small posterior disc osteophyte complex formations. No acute fracture or subluxation of the cervical spine. Multilevel neural foraminal narrowing. IMPRESSION: 1. No acute cervical spine fracture. 2. Degenerative changes as above. 3. Layering pleural effusions with pulmonary edema. CT chest diagnostic w con Stat Thyroid: Imaged portions of the thyroid gland are normal in size and attenuation. Thoracic aorta: There is atherosclerotic calcification of the thoracic aorta comment which is normal in caliber and demonstrates bovine variant arch anatomy. No dissection is seen. Pulmonary vasculature: The pulmonary trunk is normal in caliber. There are no filling defects identified in the central pulmonary vessels to indicate pulmonary embolus. Note that this examination was not protocoled for evaluation of the pulmonary arteries. Heart: The heart is markedly enlarged and without pericardial effusion. The coronary arteries are densely calcified. Lungs and pleural spaces: There are moderate to large pleural effusions with significant atelectasis of the lower lungs. Intralobular septal thickening is noted. There is no pneumothorax. The trachea and central airways appear clear. Mediastinum: There is no mediastinal lymphadenopathy. Candice: Clear. Axillae: There is no axillary lymphadenopathy. Upper abdomen: Partially visualized upper abdominal viscera is within normal limits. Skeletal structures: The skeletal structures are osteopenic. The bony thorax appears intact. Spondylotic change is seen throughout the thoracic spine. No lytic or blastic bony lesions are seen. Arthritic changes seen in the shoulders with postoperative change noted on the right. There are chronic/healed left- sided rib fractures. Soft tissues: Soft tissue edema is present in the right chest wall, possibly representing contusion. A lipoma is incidentally noted in the right pectoralis musculature. IMPRESSION: 1. Soft tissue edema throughout the right chest wall is nonspecific and given the clinical history likely represents contusion. 2. No fracture is identified. 3. Cardiomegaly with evidence of congestive failure. 4. There are moderate to large pleural effusions with significant atelectasis of the lower lungs. 5. Additional findings as above. CT head/brain wo con Stat Extraaxial space: There is no evidence for subdural hematoma. There are no extra-axial fluid collections. Ventricles and cisterns: The ventricles are mildly dilated bilaterally. There is no evidence for midline shift or mass effect. Parenchyma: There is no subarachnoid or intraparenchymal hemorrhage. There is no evidence for an acute infarct or cerebral edema. There is mild cerebral cortical atrophy and decreased attenuation in the periventricular white matter representing remote small vessel disease. There are no gross mass lesions. Osseous structures: There is no evidence for an acute fracture. The visualized paranasal sinuses are clear. The mastoid air cells are clear bilaterally. Soft tissues: There is no evidence for focal soft tissue swelling. IMPRESSION: 1. No acute intracerebral pathology. 2. Cerebral cortical atrophy and remote small vessel disease. 03/29/22 12:02 US extremity non-vascular ltd Routine 04/08/22 12:09 US point of care ultrasound Urgent 04/11/22 15:48 CT angio chest PE protocol Urgent CTA: Moderate cardiomegaly. No pericardial effusion. Moderate coronary artery calcifications. Atherosclerosis of the thoracic aorta which is not well opacified secondary to contrast bolus timing. The segmental and subsegmental pulmonary arterial branches are not well opacified secondary to contrast bolus timing and respiratory motion artifact. No pulmonary emboli are identified. CT CHEST: No thyroid nodule identified. Mild subcarinal and paratracheal adenopathy. Index precarinal lymph node measures 1.1 cm on image 171, similar to prior. Large right with moderate to large left pleural effusions. No pneumothorax. Respiratory motion artifact limits evaluation of the lung parenchyma. Consolidation with collapse of the right lower lobe with consolidation and partial collapse of the right middle and left lower lobes, progressed from the prior study. Intralobular septal thickening. No acute process of the imaged upper abdomen. Moderate fecal retention. Unremarkable soft tissues. There is no acute fracture. There is decreased chest wall edema compared to the prior study. IMPRESSION: 1. Cardiomegaly with pulmonary edema. No pulmonary emboli. 2. Large right with moderate to large left pleural effusions. There is progressive consolidation with volume loss of the lower lungs. Superimposed pneumonia would be difficult to exclude. 04/13/22 13:18 US point of care ultrasound Urgent 04/14/22 11:44 US point of care ultrasound Routine Hospital Course (1) Acute respiratory failure with hypoxia: Supratherapeutic INR Hematuria: Suspected Coumadin induced bleeding in setting of Supratherapeutic INR Reports H/O fall few days prior to admission as per patient FOBT Negative on 03/27/22 Received Vit K No other obvious source of bleeding INR:3.4>>>1.4 today Monitor INR No bridging given high risk for bleeding Warfarin was initially held and later resumed. Still subtherapeutic. Warfarin was reduced from 3mg daily to 2.5mg daily on discharge. SNF to recheck INR in 3 days and adjust meds as needed Had discussed Anticoagulation with son Ha on 04/18/22. Benefits and risks. He want to continue for now and they will reassess in future Gross hematuria Possibly traumatic catheterization, decompression for distended bladder Was seen by urology Needs follow-up with urology upon discharge Hematuria resolved Atrial fibrillation: Chronic, currently rate controlled Continue metoprolol: Changed to metoprolol succinate 75 mg twice daily Continue warfarin at 3mg INR:1.4 Anemia, unspecified: Suspected Coumadin induced bleeding in setting of Supratherapeutic INR FOBT negative -CT ABD:No acute intra-abdominal or pelvic abnormality. Appreciate GI Input Continue PPI S/P 1 PRBC Hb 12.8 today Iron panel, vitamin B12, folic acid normal Peripheral smear not suggestive of hemolysis Bilateral pleural effusion Likely due to high-output cardiac failure in setting of significant anemia Acute Systolic and diastolic heart failure -CT Chest:Soft tissue edema throughout the right chest wall is nonspecific and given the clinical history likely represents contusion. There are moderate to large pleural effusions with significant atelectasis of the lower lungs -ECHO: Normal LV chamber size with moderate concentric LVH. Left ventricular systolic function is moderately reduced. Moderate global hypokinesis of left ventricle. EF 35 to 40%. Grade 2 diastolic dysfunction. Mild aortic regurgitation. Mild valvular aortic stenosis. Moderate mitral annular calcification with mild mitral regurgitation. Mild tricuspid regurgitation. Severe biatrial enlargement. Received IV lasix while inpatient Monitor volume status Was comanaged with the Kitchen Bath Designer and It Software Developer S/P thoracentesis 04/14/22 No further thoracentesis as per pulm given no significant improvement Transudative pleural fluid per studies Discussed with Kitchen Bath Designer. Discharged on po lasix 40mg bid. Patient needs to follow up with Cardiology Mitral Vegetation on ECHO as above Initially suspected IE Blood Cultures negative to date Likely calcium deposits as per cardiology Appreciate Cardiology Input HTN Continue metoprolol Also on diuretics Diffuse pain in right upper extremity: -RUE USD:Extensive subcutaneous edema of the right arm. No well-defined fluid collection to suggest abscess or hematoma by sonography. -Humerus X ray:No acute osseous pathology. There is again diffuse subcutaneous edema surrounding the arm of uncertain etiology. -Forearm X ray:No fracture within the right radius or ulna. Forearm soft tissue swelling. -RUE Doppler:There is no sonographic evidence of deep venous thrombosis identified in the right upper extremity. Improved DM II -Last HbA1C = 4.9 on 02/10/22 -Was taken off glimepiride on 03/26/22, in the setting of elderly patient with possible hypoglycemic episodes in the past. Metformin discontinued for now. I called [facility] and notified them Memory loss: Has appt scheduled with outpatient neurology on 05/06 Dementia as per records Generalized weakness: Continue PT/OT at SNF Fall precautions Osteomyelitis of toe of right foot: Per Dr Gold note from 03/20/22, patient had findings of osteomyelitis in MRI from 01/2022: wound cultures was positive for MRSA and patient completed antibiotics course Follows with [facility] wound clinic Continue wound care ID follow up appointment already scheduled in mid April Neck Pain likely musculoskeletal pain Trial of scheduled Tylenol, Lidoderm patch, K pad Resolved Hypothyroidism: Continue levothyroxine PVD (peripheral vascular disease): -On Aspirin Follows with Dr. Gold with vascular as outpatient Total Time Total Time Spent Total Time Spent (In Minutes): 50 Total Time Includes: Examination of the Patient, Discharge Planning, Medication Reconciliation and Communication With Other Providers Discharge Plan Discharge Items Patient Disposition: Transfer [facility] Fac Reason For Visit: ANEMIC, SUPRATHERAPEUTIC INR, FALLS Discharge Diagnosis: Acute respiratory failure with hypoxia Acute systolic and diastolic heart failure Bilateral pleural effusion Atrial fibrillation Supratherapeutic INR Activity: As commented below Activity Comment: Per Physical therapist recommendations Non-emergency contact: Primary Care Provider and Kitchen Bath Designer Call non-emergency contact if: you have any medication questions and your symptoms worsen Follow-up/Referrals: PCP,NO [Primary Care Provider] - Diet: Carb Consistent or DM2, Heart Healthy and Low Sodium (2gm) Ambulatory Orders: Prothrombin Time INR (Routine) Timeframe: 3 Days Location: Determined by Patient Ordered By: Tracy Knowles Attending Provider Instructions: Mr Kwon You were brought to the hospital due to elevated INR, low hemoglobin and Right arm pain. You were evaluated and managed for the above listed diagnoses. You were comanaged with the Kitchen Bath Designer and It Software Developer. You have thoracentesis (fluid removal from your chest) You were also managed with IV diuretics for heart failure. You had bloody urine which has resolved Your warfarin was resumed. Your INR goal is 2-3. It is very important that your INR is monitored closely at the nursing facility and warfarin can be adjusted as needed. Your INR today is 1.4 Please ensure follow up with your Primary Doctor. You need to follow up with Cardiology and other appointments. It was a pleasure taking care of you. Pending Studies at Discharge: No Stand-Alone Forms: My [facility] Skilled Items Patient informed of condition?: Yes DNR: Yes Discharge Level of Care: Skilled Communicable Disease: No Discharge Prognosis: Stable Lines: None Urinary Catheter: No Medications and DC Order Prescriptions: New metoprolol succinate 25 mg Tablet Extended Release 24 Hr 75 mg PO BID Qty: 60 RF: 0 warfarin 2.5 mg tablet 2.5 mg PO DAILY Qty: 30 RF: 0 Continued garlic 400 mg tablet 400 mg PO BID RF: 0 omega-3 fatty acids 1,000 mg capsule 1,000 mg PO BID RF: 0 saw palmetto 450 mg capsule 450 mg PO BID RF: 0 zinc acetate 25 mg (zinc) capsule 25 mg PO QAM Qty: 30 RF: 0 allopurinol 100 mg tablet 100 mg PO BID Qty: 60 RF: 0 acetaminophen 500 mg Tablet 1,000 mg PO Q8H PRN (Reason: Pain) Qty: 50 RF: 0 potassium chloride [Klor-Con M20] 20 mEq tablet,ER particles/crystals 20 meq PO QAM Qty: 30 RF: 0 simvastatin 20 mg tablet 20 mg PO HS Qty: 30 RF: 0 docusate sodium [Colace] 100 mg Capsule 100 mg PO BID Qty: 60 RF: 0 sertraline 25 mg tablet 25 mg PO QAM Qty: 30 RF: 0 aspirin [Aspirin Childrens] 81 mg tablet,chewable 81 mg PO QAM Qty: 30 RF: 0 multivitamin with minerals Capsule 1 cap PO QAM Qty: 30 RF: 0 Saccharomyces boulardii 250 mg Capsule 250 mg PO QAM Qty: 30 RF: 0 levothyroxine 25 mcg capsule 25 mcg PO DAILYBB Qty: 30 RF: 0 Changed furosemide 40 mg tablet 40 mg PO BID17 Qty: 60 RF: 0 ferrous sulfate 325 mg (65 mg iron) tablet 325 mg PO DAILY Qty: 30 RF: 0 Discontinued metformin 500 mg tablet 500 mg PO BID RF: 0 metoprolol tartrate 50 mg tablet 50 mg PO Q12H RF: 0 oxycodone-acetaminophen [Percocet] 5-325 mg tablet See Rx Instructions .ROUTE .COMPLEX PRN (Reason: Pain) RF: 0 warfarin 3 mg tablet 3 mg PO HS RF: 0 Discharge Orders: Discharge Order (Routine); Ordered 04/21/22 Ordered By: Tracy Echavarria Admission Data Admit Date/Time: 03/27/22 14:09 Attending Provider: Tracy Echavarria I. Admit Provider: Pavan Gaston Primary Care Provider: PCP,NO Other Providers: Pako Cuellar ; Rayo Santana ; Yefri Pacheco ; Pavan Gaston ; Romeo Buckner ; Aj Bear ; Romeo Alvarez ; Royal Richard ; Polly Mcnamara ; Nadir Sandoval ; Nicole Metcalf ; Jerilyn Donaldson ; Sharon Rodriguez ; Johnathan Donaldson ; Caio Rodriges ; Nancy Brock ; Patricia Rodriguez ; Weston Viera ; Malou Pham [facility] [place] ; Tomer Ray ; Zita Waters Other Interventions: Discharge Summary Assessment (RN) Last Done: 04/21/22 11:13
== END 2022-04-21 12:45 | DRG 813 ==
LOC: ED 11:11 → 2W 14:09 → SUATTDRO 14:09 → 2W 17:49

== ENCOUNTER 2022-06-06 12:25 | Inpatient (IN) ==
--- NOTE | 2022-06-06 12:50 | Emergency Department Note ---
Impression & Plan Hemothorax, right, Pleural effusion, bilateral, Anemia, unspecified, Atrial fibrillation, Elevated INR, POLST (Physician Orders for Life-Sustaining Treatment), Hematoma of right chest wall ED Provider Note NAME: RASHAWN JARAMILLO Sr AGE: 82 SEX: M ARRIVES VIA: Ambulance INFORMANT: Patient, EMS ED PROVIDER(S): French Jewell MD CHIEF COMPLAINT: SOB, anemia PLAN: Disposition: Admit MEDICAL DECISION MAKING: The patient is a pleasant 82-year-old gentleman with a past medical history of atrial fibrillation on warfarin, CHF with reduced EF, hypothyroidism, memory loss, diastolic dysfunction, diabetes who presents emerged department from [facility] where he is residing with a POLST form indicating comfort measures who presents emergency department for evaluation of worsening anemia in the setting of having elevated INR to 6 with hemoglobin that has down trended from 12 in April 2 7+ today with development of ecchymosis of his right flank a couple of days ago with no clear history of a fall and the development of worsening shortness of breath. The staff had contacted the patient's family to inform them of his condition and offer option for continued management at their facility under comfort measures or transfer to the hospital for stabilization and possible transfusion. Family did agree with this. On arrival the patient is acute on chronic ill-appearing, mildly dyspneic but no acute distress, afebrile stable vital signs. He appears clinically dry. Lungs with diminished BS of right lung reilly and left base. He has ecchymosis of the right posterior lateral chest extending to the right flank. Mild discomfort without discrete tenderness in this area. EKG without overt acute ischemia. Chest x-ray re-demonstrates large right-sided pleural effusion which encompasses the majority of the right hemithorax. WBC 11.7K. H/H 8.5/26, improved from reported values at [facility] today. Platelets within normal limits. INR is 2.0. Chemistry without metabolic acidosis. 0.8, nonspecific and similar to prior. LFTs unremarkable. High- sensitivity troponin 9.2, within normal limits. Lipase is not elevated. COVID- 19 RNA, MARK test was negative. CT of the abdomen pelvis was performed and further characterizes the patient's large right-sided pleural effusion which was present in April however now with mixed density suggesting component of hemothorax. Right CW hematoma also seen. I did review these findings with the patient's sons over the phone were both the patient's POA. Given documentation of ecchymosis of the patient's right flank dating back to 06/02 findings certainly are not acute. Moreover, placement of a chest tube at this point which may have questionable effectiveness is not necessarily consistent with comfort measures as previously documented. Upon further discussion, son's agreed that they would not want this. However they do request if the patient can be admitted for further observation and monitoring of his blood counts. Case was discussed with Chelsi Toro PAC, with Dr. G[facility] who will evaluate the patient for admission. Triage Nursing notes reviewed and agree them. Prior medical records reviewed Vital Signs: reviewed and remarkable for no significant abnormalities Differential diagnosis: Infection, dehydration, metabolic abnormality, hypo/hyperglycemia, electrolyte disturbance, anemia, hypoxia, cardiac sources, intracerebral event, toxicologic, neurologic, as well as other pathologies. ER treatment provided: See below. Diagnostics interpreted by me: ECG: Atrial fibrillation, 89 bpm, no ectopy, no overt ST elevation or depression, QTC 472, QRS 94 Cardiac Monitoring: An order for continuous cardiac monitoring was placed and demonstrated Atrial fibrillation, 89 bpm, no ectopy. Laboratory studies: See below Imaging studies: See below Consultation(s): Chelsi Toro, with Dr. Gaston [facility] hospitalist HPI: The patient is a pleasant 82-year-old gentleman with a past medical history of atrial fibrillation on warfarin, CHF with reduced EF, hypothyroidism, memory loss, diastolic dysfunction, diabetes who presents emerged department from [facility] where he is residing with a POLST form indicating comfort measures who presents emergency department for evaluation of worsening anemia in the setting of having elevated INR to 6 with hemoglobin that has down trended from 12 in April 2 7+ today with development of ecchymosis of his right flank a couple of days ago with no clear history of a fall and the development of worsening shortness of breath. The staff had contacted the eduardo marley's family to inform them of his condition and offer option for continued management at their facility under comfort measures or transfer to the hospital for stabilization and possible transfusion. Family did agree with this. ROS: See above HPI for pertinent positives & negatives. A total of 10 systems reviewed and were otherwise negative. VITALS:See Below PHYSICAL EXAMINATION: GENERAL: Awake, alert, acute on chronically ill-appearing, in no distress HENT: Normocephalic, atraumatic. Oropharynx with dry mucous membranes and otherwise unremarkable. EYES: Normal conjunctiva. Sclera non-icteric. NECK: Supple. No nuchal rigidity. FROM. No JVD. RESPIRATORY: Diminished BS of right lung reilly and left base. CARDIAC: Regular rate, irregular rhythm. Extremities warm and well perfused. Pulses equal. ABDOMEN: Soft, non-distended. No tenderness to palpation. No rebound or guarding. No masses. RECTAL: Deferred. MUSCULOSKELETAL: The back is symmetrical on inspection without obvious abnormality. No joint edema. Ecchymosis of the right posterior lateral chest extending to the right flank. Mild discomfort without discrete tenderness in this area. LOWER EXTREMITIES: Calves are equal size bilaterally and non-tender. No edema. No discoloration. NEURO: Normal sensorium. No sensory or motor deficits noted. SKIN: No rash or jaundice noted. French Jewell MD Past Med/Surg History Medical History Acute kidney failure, unspecified Acute on chronic respiratory failure with hypoxemia Anemia, unspecified Atrial fibrillation Benign prostatic hyperplasia without lower urinary tract symptoms Chronic atrial fibrillation, unspecified Chronic diastolic (congestive) heart failure Chronic gout Critical illness myopathy Depression Diverticulitis Diverticulitis of intestine, part unspecified, without perforation or abscess without bleeding Edema, unspecified Essential (primary) hypertension Gout Hemochromatosis HLD (hyperlipidemia) Hypokalemia Hypothyroidism Osteomyelitis right ankle and foot Peripheral vascular disease Type 2 diabetes mellitus with unspecified complications Social History Smoking Status: Never smoker Tobacco Type: Cigarettes Second Hand Exposure: No; Do You Dip or Chew Tobacco: No; Tobacco Cessation Education Requested by Patient: No Hx Alcohol Use: No Hx Substance Use: No Preferred Language: Kosovan Communication Ability: Effective Visual Impairment: Limited Hearing Ability: Normal Button Bradder Required: No Beliefs That Will Affect Care: None marital status: Unknown Current Living Situation: Penitentiary Other Information That Helps Us Care for You: No Feels Safe at Home: Yes Safety Concerns: Feels Safe At This Time Assistive Devices: None Allergies Allergies Allergy/AdvReac Type Severity Reaction Status Date / Time No Known Allergies Allergy Verified 06/06/22 15:27 Home Meds Home Medications Medication Instructions Recorded Confirmed omega-3 fatty acids 1,000 mg 1,000 mg PO BID17 02/03/22 06/06/22 capsule saw palmetto 450 mg capsule 450 mg PO BIDM 02/03/22 06/06/22 acetaminophen 325 mg tablet 650 mg PO Q4 PRN FEVER =>100 04/22/22 06/06/22 (Tylenol) docusate sodium 100 mg capsule 100 mg PO DAILY PRN Constipation 04/22/22 06/06/22 (Colace) furosemide 40 mg tablet 40 mg PO DAILY PRN WT GREATER THEN 04/22/22 06/06/22 170 LBS polyethylene glycol 3350 17 gram 17 g PO DAILY PRN NO BM IN 3 DAYS 04/22/22 06/06/22 oral powder packet (Miralax) warfarin 3 mg tablet 3 mg PO HS 04/22/22 06/06/22 docusate sodium 100 mg capsule 100 mg PO BID 06/06/22 06/06/22 ferrous sulfate 325 mg (65 mg 325 mg PO QDD 06/06/22 06/06/22 iron) tablet furosemide 40 mg tablet (Lasix) 60 mg PO BID17 06/06/22 06/06/22 levothyroxine 50 mcg tablet 50 mcg PO DAILY 06/06/22 06/06/22 metoprolol succinate 50 mg 75 mg PO BID 06/06/22 06/06/22 tablet,extended release 24 hr mineral oil-isopropyl myristat 1 applic topical HS 06/06/22 06/06/22 lotion phytonadione (vitamin K1) 1 mg/0.5 2 mg PO ONCE 06/06/22 06/06/22 mL injection solution (vitamin K) potassium chloride 20 mEq 20 meq PO TIDM 06/06/22 06/06/22 tablet,extended release(part/cryst) (Klor-Con M) sodium chloride 0.65 % nasal spray 1 spray intranasal BID17 06/06/22 06/06/22 aerosol (Saline Nasal) tramadol 50 mg tablet 50 mg PO Q6H PRN Pain 06/06/22 06/06/22 Previous Rx's Medication Instructions Recorded Saccharomyces boulardii 250 mg 250 mg PO QAM #30 caps 04/21/22 capsule acetaminophen 500 mg tablet 1,000 mg PO Q8H PRN Pain #50 tabs 04/21/22 allopurinol 100 mg tablet 100 mg PO BID #60 tabs 04/21/22 aspirin 81 mg chewable tablet 81 mg PO QAM #30 tabs 04/21/22 (Aspirin Childrens) multivitamin with minerals 1 cap PO QAM #30 caps 04/21/22 sertraline 25 mg tablet 25 mg PO QAM #30 tabs 04/21/22 simvastatin 20 mg tablet 20 mg PO HS #30 tabs 04/21/22 Results & Data (ED) Vital Signs Vital Signs - 24 hr 06/06/22 12:19 06/06/22 12:21 06/06/22 14:04 Temperature 36.5 C Temperature Source Oral Pulse Rate 89 86 Pulse Rate [Right Finger] Respiratory Rate 18 20 Respiratory Effort / Characteristics Respiratory Depth Blood Pressure 144/77 H Blood Pressure [Left Arm] Blood Pressure Mean 99 Blood Pressure Mean [Left Arm] Pulse Oximetry 94 99 Oxygen Delivery Method Nasal Cannula Room Air Oxygen Flow Rate 2 Sepsis Recent Fever Within 48 Hours No Sepsis New/Unexplained Change in Mental Status No Sepsis Action Taken by Nursing No Action Required 06/06/22 14:04 06/06/22 15:30 Temperature Temperature Source Pulse Rate Pulse Rate [Right Finger] 86 90 Respiratory Rate 20 28 H Respiratory Effort / Characteristics Non-Labored Non-Labored Respiratory Depth Normal Normal Blood Pressure Blood Pressure [Left Arm] 132/74 135/78 Blood Pressure Mean Blood Pressure Mean [Left Arm] 93 97 Pulse Oximetry 99 100 Oxygen Delivery Method Room Air Nasal Cannula Oxygen Flow Rate 2 Sepsis Recent Fever Within 48 Hours Sepsis New/Unexplained Change in Mental Status Sepsis Action Taken by Nursing Laboratory Data Attestation: I reviewed the patient's lab results. Result diagrams: 06/06/22 19:49 06/06/22 12:40 Lab Results 06/06/22 06/06/22 06/06/22 Range/Units 12:40 12:40 12:40 WBC 11.73 H (4.8-10.8) K/ul RBC 2.82 L (4.63-6.08) M/uL Hgb 8.5 L (14.0-18.0) g/dl Hct 26.6 L (40.1-51.0) % MCV 94.3 (80.0-100.0) fL MCH 30.1 (25.0-34.0) pg MCHC 32.0 (32.0-36.0) g/dL RDW Std Deviation 60.1 H (36.4-46.3) fL RDW Coeff of Radha 17.8 H (11.5-14.5) % Plt Count 355 (130-400) K/uL MPV 9.5 (9.4-12.4) fL Immature Gran % (Auto) 0.3 % Neut % (Auto) 74.8 % Lymph % (Auto) 11.8 % [place] % (Auto) 11.4 % Eos % (Auto) 1.4 % Baso % (Auto) 0.3 % Neut # (Auto) 8.77 H (1.4-6.5) K/uL Lymph # (Auto) 1.39 (1.2-3.4) K/uL [place] # (Auto) 1.34 H (0.24-0.82) K/uL Eos # (Auto) 0.16 (0-0.50) K/uL Baso # (Auto) 0.04 (0-0.2) K/uL Immature Gran # (Auto) 0.03 H (0.00-0.02) K/uL PT (9.0-12.0) Seconds INR (0.9-1.1) Sodium 135 L (136-145) mmol/L Potassium 3.7 (3.5-5.1) mmol/L Chloride 93 L (98-107) mmol/L Carbon Dioxide 36 H (21-32) mmol/L Anion Gap 6 (3-11) BUN 24 H (6-23) mg/dl Creatinine 0.85 (0.6-1.4) mg/dl Est Cr Clr Drug Dosing 71.6 ml/min Est GFR ( Amer) 95.4 ml/min Est GFR (Non-Af Amer) 82.3 ml/min BUN/Creatinine Ratio 28.2 H (10-20) Glucose 239 H (70-99(Fasting)) mg/dl Calcium 9.1 (8.5-10.1) mg/dl Phosphorus 3.9 (2.5-4.9) mg/dl Magnesium 1.9 (1.7-2.4) mg/dl Total Bilirubin 1.8 H (0.2-1.0) mg/dl AST 29 (13-39) U/L ALT 23 (7-52) U/L Alkaline Phosphatase 110 H (34-104) U/L Troponin I High Sens 9.2 D (0-20) pg/ml Total Protein 6.9 (6.0-8.3) gm/dl Albumin 3.4 (3.4-5.0) gm/dl Globulin 3.5 (2.5-4.0) gm/dl Albumin/Globulin Ratio 1.0 (0.9-2) Lipase 32 (11-82) U/L Blood Type A Negative Antibody Screen POSITIVE A Antibody Identification Anti-D Antibody ID Comment Crossmatch See Detail 06/06/22 Range/Units 12:40 WBC (4.8-10.8) K/ul RBC (4.63-6.08) M/uL Hgb (14.0-18.0) g/dl Hct (40.1-51.0) % MCV (80.0-100.0) fL MCH (25.0-34.0) pg MCHC (32.0-36.0) g/dL RDW Std Deviation (36.4-46.3) fL RDW Coeff of Radha (11.5-14.5) % Plt Count (130-400) K/uL MPV (9.4-12.4) fL Immature Gran % (Auto) % Neut % (Auto) % Lymph % (Auto) % [place] % (Auto) % Eos % (Auto) % Baso % (Auto) % Neut # (Auto) (1.4-6.5) K/uL Lymph # (Auto) (1.2-3.4) K/uL [place] # (Auto) (0.24-0.82) K/uL Eos # (Auto) (0-0.50) K/uL Baso # (Auto) (0-0.2) K/uL Immature Gran # (Auto) (0.00-0.02) K/uL PT 21.0 H (9.0-12.0) Seconds INR 2.0 H (0.9-1.1) Sodium (136-145) mmol/L Potassium (3.5-5.1) mmol/L Chloride (98-107) mmol/L Carbon Dioxide (21-32) mmol/L Anion Gap (3-11) BUN (6-23) mg/dl Creatinine (0.6-1.4) mg/dl Est Cr Clr Drug Dosing ml/min Est GFR ( Amer) ml/min Est GFR (Non-Af Amer) ml/min BUN/Creatinine Ratio (10-20) Glucose (70-99(Fasting)) mg/dl Calcium (8.5-10.1) mg/dl Phosphorus (2.5-4.9) mg/dl Magnesium (1.7-2.4) mg/dl Total Bilirubin (0.2-1.0) mg/dl AST (13-39) U/L ALT (7-52) U/L Alkaline Phosphatase (34-104) U/L Troponin I High Sens (0-20) pg/ml Total Protein (6.0-8.3) gm/dl Albumin (3.4-5.0) gm/dl Globulin (2.5-4.0) gm/dl Albumin/Globulin Ratio (0.9-2) Lipase (11-82) U/L Blood Type Antibody Screen Antibody Identification Antibody ID Comment Crossmatch Administered Medications Allopurinol (Allopurinol 100 Mg Tab) 100 mg PO BID [facility] Stop: 07/06/22 20:59 Last Admin: 06/06/22 22:44 Dose: 100 mg Documented By: MELVIN Docusate Sodium (Docusate Sodium 100 Mg Cap) 100 mg PO BID [facility] Stop: 07/06/22 20:59 Last Admin: 06/06/22 20:44 Dose: 100 mg Documented By: AMARIS Ceftriaxone Sodium (Rocephin) 1,000 mg in 50 mls @ 100 mls/hr IV Q24H [facility]; Protocol Stop: 06/13/22 20:29 Last Infusion: 06/06/22 21:28 Dose: 0 mls/hr Documented By: Admin: 06/06/22 20:45 Dose: 100 mls/hr Documented By: AMARIS Insulin Aspart (Insulin Aspart Per Unit) 0 units [facility] Stop: 07/06/22 20:59 Last Admin: 06/06/22 20:42 Dose: 1 units Documented By: AMARIS Co-signed By: BRAXTON Metoprolol Succinate (Metoprolol Succ 25mg Ext Rel Tab) 75 mg PO BID [facility] Stop: 07/06/22 20:59 Last Admin: 06/06/22 22:44 Dose: 75 mg Documented By: MELVIN Potassium Chloride (Potassium Chloride Crtab 20 Meq Tabcr) 20 meq PO TIDM [facility] Stop: 07/06/22 20:29 Last Admin: 06/06/22 20:44 Dose: 20 meq Documented By: AMARIS Simvastatin (Simvastatin 20 Mg Tab) 20 mg PO HS [facility]OL[facility] Stop: 07/06/22 20:59 Last Admin: 06/06/22 22:44 Dose: 20 mg Documented By: MELVIN Sodium Chloride (Sodium Chloride 0.65% Na Soln 45 Ml ([place])) 1 sprays NA BID17 CAROLYN Stop: 07/06/22 19:36 Last Admin: 06/06/22 21:51 Dose: 1 sprays Documented By: MELVIN Discontinued Medications Furosemide (Furosemide 40 Mg/4 Ml Vial) 60 mg IV ONE ONE Stop: 06/06/22 17:01 Last Admin: 06/06/22 18:08 Dose: 60 mg Documented By: RAMON Phytonadione 2.5 mg/ Dextrose 50.25 mls @ 100.5 mls/hr IV ONE STA Stop: 06/06/22 16:59 Last Infusion: 06/06/22 18:09 Dose: 0 mls/hr Documented By: Admin: 06/06/22 17:00 Dose: 100.5 mls/hr Documented By: RAMON Ioversol (Optiray 320 100ml) 95 ml IV ONCE ONE Stop: 06/06/22 13:46 Last Admin: 06/06/22 13:36 Dose: 95 ml Documented By: JAMES Imaging Data Radiologist's Impression: Abdomen/Pelvis CT 06/06/22 12:[address] WITH IV CONTRAST HISTORY: Acute chest and abdominal pain with shortness of breath and anemia pain, ecchymosis, anemia, sob TECHNIQUE: Multiaxial CT images of the abdomen and pelvis were performed following the IV administration of 95 cc of Optiray, A dose lowering technique was utilized adhering to the principles of ALARA. COMPARISON STUDY: CT chest of same day, CT abdomen and pelvis 04/22/2022 FINDINGS: Large right with moderate to large left pleural effusions. The right pleural effusion has increased in size from prior and contains hyperattenuating foci compatible with hemothorax. Partially imaged intramuscular hematomas involving the right upper extremity and right lateral chest wall with stranding extending into the right axilla. Bibasilar consolidation. Cardiomegaly. Atherosclerosis of the aorta with coronary artery calcifications. There is no pneumatosis or pneumoperitoneum. Limited study secondary to respiratory motion artifact and upper extremity positioning. Unremarkable spleen, pancreas, adrenal glands and mildly contracted gallbladder. 1.9 cm cyst of the right hepatic lobe redemonstrated. Additional subcentimeter hypodensities are too small to characterize within the liver. Cortical scarring of the interpolar left kidney redemonstrated. 3 mm nonobstructing calculus of the interpolar left kidney. 4 mm nonobstructing calculi of the inferior pole right kidney. 1.6 cm cyst of the superior pole right kidney. There is no hydronephrosis. Prostamegaly. Urinary bladder wall thickening with partial distention. Atherosclerosis of the aorta with ectasia of the infrarenal segment, 2.9 cm. Likely chronic short segment dissection versus ulcerative plaque of the distal abdominal aorta on image 320. Mild nonspecific iliac and inguinal chain lymph nodes measure up to approximately 10-11 mm. No bowel obstruction. There is nonspecific circumferential wall thickening of the inferior rectum with mild perirectal stranding. Moderate fecal retention. Normal appendix. No ascites or mesenteric inflammation. Mild generalized body wall edema. Degenerative changes of the spine, pelvis and hips. No definite acute fracture identified. IMPRESSION: 1. Large right hemothorax with partially imaged intramuscular hematomas of the right upper extremity and right lateral chest wall. 2. Moderate to large left pleural effusion with bibasilar consolidation suggestive of probable compressive atelectasis. 3. Nonspecific wall thickening of the rectum is suspicious for a nonspecific proctitis. 4. No bowel obstruction or pneumoperitoneum. 5. Nonobstructing bilateral nephrolithiasis. 6. Additional findings as above. ACT 112: Negative or not required by law. The above report was generated using voice recognition software. It may contain grammatical, syntax or spelling errors. Electronically signed by: Ricardo Abernathy M.D. 06/06/2022 2:[address] 06/06/22 12:[address] WITH CONTRAST CT DOSE: 1655.75 mGy.cm HISTORY: Right-sided chest pain, ecchymosis, anemia, shortness of TECHNIQUE: Multiaxial CT images of the chest were performed following the intravenous administration of contrast. A dose lowering technique was utilized adhering to the principles of ALARA. COMPARISON: Chest CTA 04/11/2022. FINDINGS: Interval increase in size in a large right pleural effusion resulting in complete compressive atelectasis of the right lower lobe and partial compressive atelectasis of the right upper and middle lobes. Interval development of patchy areas of increased density within the right pleural effusion consistent with a hemothorax. No evidence for active arterial extravasation. There is also partially visualized intramuscular hematomas within the right infraspinatus/teres minor muscles and right latissimus dorsi muscle. No fractures identified within the chest. There is a moderate to large left pleural effusion. The heart remains enlarged. The thyroid gland enhances normally. Mild to moderate stenosis within the proximal right subclavian artery due to the calcified plaque. There is mild calcified plaque within the normal caliber thoracic aorta with no evidence for dissection. The main pulmonary arteries are patent. No mediastinal or hilar lymphadenopathy. No mediastinal or hilar lymphadenopathy. Normal esophagus. No pneumothorax. The central airways are patent. Near complete compressive atelectasis of the left lower lobe due to the pleural effusion. IMPRESSION: 1. Increase in size in the large right pleural effusion which demonstrates patchy areas of increased density consistent with a hemothorax. 2. Moderate to large left pleural effusion is similar to the prior study. 3. Partially visualized intramuscular hematomas within the right shoulder/chest as described above. 4. No fractures within the visualized osseous structures. 5. Near complete compressive atelectasis of the bilateral lower lobes due to the pleural effusions. A superimposed pneumonia would be difficult to exclude. 6. Stable cardiomegaly. ACT 112: Negative or not required by law. Electronically signed by: Dusty Rogers M.D. 06/06/2022 2:02 PM Chest X-Ray 06/06/22 12:42 XR chest 1V portable CLINICAL HISTORY: Atypical chest pain. COMPARISON STUDY: Chest CT April 11, 2022. Chest radiograph April 22, 2022. FINDINGS: A large right pleural effusion has increased in size since prior exam. This occupies the majority of the right thorax. Moderate to large left pleural effusion is unchanged. There is persistent pulmonary edema. Cardiomegaly is noted. No pneumothorax. IMPRESSION: 1. Increase in size of a very large right pleural effusion which occupies the majority of the right hemithorax. 2. No significant change in a moderate to large left pleural effusion. 3. Persistent pulmonary edema. ACT 112: Negative or not required by law. Electronically signed by: Loki Orta M.D. 06/06/2022 1:08 PM Discharge Plan Visit Data Chief Complaint: Abnormal Labs/Diagnostic Testing Stated Complaint: ABNORMAL LABS, LETHARGIC ED Provider: French Jewell Discharge Problem: Hemothorax, right, Pleural effusion, bilateral, Anemia, unspecified, Atrial fibrillation, Elevated INR, POLST (Physician Orders for Life-Sustaining Treatment), Hematoma of right chest wall Patient Disposition: Admitted As Inpatient Discharge Instructions Interventions: ED Discharge Assessment Last Done: 06/06/22 17:50
[2022-06-06 13:07] LABS: Basophils # (auto) 0.04 K/uL (0-0.2); Basophils % (auto) 0.3 %; Eosinophils # (auto) 0.16 K/uL (0-0.50); Eosinophils % (auto) 1.4 %; Hematocrit (blood only) 26.6 % (40.1-51.0); Hemoglobin 8.5 g/dl (14.0-18.0); Immature Granulocytes # (auto) 0.03 K/uL (0.00-0.02); Immature Granulocytes % (auto) 0.3 %; Lymphocytes # (auto) 1.39 K/uL (1.2-3.4); Lymphocytes % (auto) 11.8 %; Mean Corpuscular Hemoglobin 30.1 pg (25.0-34.0); Mean Corpuscular Volume 94.3 fL (80.0-100.0); Mean Platelet Volume 9.5 fL (9.4-12.4); Monocytes # (auto) 1.34 K/uL (0.24-0.82); Monocytes % (auto) 11.4 %; Neutrophils # (auto) 8.77 K/uL (1.4-6.5); Neutrophils % (auto) 74.8 %; Platelet Count 355 K/uL (130-400); RDW Coefficient of Variation 17.8 % (11.5-14.5); RDW Standard Deviation 60.1 fL (36.4-46.3); Red Blood Count 2.82 M/uL (4.63-6.08); White Blood Count 11.73 K/ul (4.8-10.8)
--- NOTE | 2022-06-06 13:09 | XRay Report ---
XR chest 1V portable CLINICAL HISTORY: Atypical chest pain. COMPARISON STUDY: Chest CT April 11, 2022. Chest radiograph April 22, 2022. FINDINGS: A large right pleural effusion has increased in size since prior exam. This occupies the ma jority of the right thorax. Moderate to large left pleural effusion is unchanged. There is persistent pulmonary edema. Cardiomegaly is noted. No pneumothorax. IMPRESSION: 1. Increase in size of a very large right pleural effusion which occupies the majority of the right h emithorax. 2. No significant change in a moderate to large left pleural effusion. 3. Persistent pulmonary edema. ACT 112: Negative or not required by law. Electronically signed by: Loki Orta M.D. 06/06/2022 1:08 PM
[2022-06-06 13:23] LABS: Albumin Level 3.4 gm/dl (3.4-5.0); BUN Creatinine Ratio 28.2 (10-20); Bilirubin,Total 1.8 mg/dl (0.2-1.0); Calcium 9.1 mg/dl (8.5-10.1); Creatinine Clr Calc Pharmacy 71.6 ml/min; Est GFR (African American) 95.4 ml/min; Est GFR (Non-African American) 82.3 ml/min; Globulin 3.5 gm/dl (2.5-4.0); Magnesium 1.9 mg/dl (1.7-2.4); Phosphorus 3.9 mg/dl (2.5-4.9); Potassium 3.7 mmol/L (3.5-5.1); Total Protein 6.9 gm/dl (6.0-8.3)
[2022-06-06 13:27] LABS: Troponin I High Sensitivity 9.2 pg/ml (0-20)
[2022-06-06] MEDS ORDERED: OPTIRAY 320 100ml IV ONE (13:45)
--- NOTE | 2022-06-06 14:04 | CT Scan Report ---
CHEST CT WITH CONTRAST CT DOSE: 1655.75 mGy.cm HISTORY: Right-sided chest pain, ecchymosis, anemia, shortness of TECHNIQUE: Multiaxial CT images of the chest were performed following the intravenous administration of contrast. A dose lowering technique was utilized adhering to the principles of ALARA. COMPARISON: Chest CTA 04/11/2022. FINDINGS: Interval increase in size in a large right pleural effusion resulting in complete compressi ve atelectasis of the right lower lobe and partial compressive atelectasis of the right upper and mid dle lobes. Interval development of patchy areas of increased density within the right pleural effusio n consistent with a hemothorax. No evidence for active arterial extravasation. There is also partiall y visualized intramuscular hematomas within the right infraspinatus/teres minor muscles and right lat issimus dorsi muscle. No fractures identified within the chest. There is a moderate to large left ple ural effusion. The heart remains enlarged. The thyroid gland enhances normally. Mild to moderate sten osis within the proximal right subclavian artery due to the calcified plaque. There is mild calcified plaque within the normal caliber thoracic aorta with no evidence for dissection. The main pulmonary arteries are patent. No mediastinal or hilar lymphadenopathy. No mediastinal or hilar lymphadenopathy . Normal esophagus. No pneumothorax. The central airways are patent. Near complete compressive atelec tasis of the left lower lobe due to the pleural effusion. IMPRESSION: 1. Increase in size in the large right pleural effusion which demonstrates patchy areas of increased density consistent with a hemothorax. 2. Moderate to large left pleural effusion is similar to the prior study. 3. Partially visualized intramuscular hematomas within the right shoulder/chest as described above. 4. No fractures within the visualized osseous structures. 5. Near complete compressive atelectasis of the bilateral lower lobes due to the pleural effusions. A superimposed pneumonia would be difficult to exclude. 6. Stable cardiomegaly. ACT 112: Negative or not required by law. Electronically signed by: Dusty Rogers M.D. 06/06/2022 2:02 PM
--- NOTE | 2022-06-06 14:27 | CT Scan Report ---
ABDOMEN AND PELVIS CT WITH IV CONTRAST HISTORY: Acute chest and abdominal pain with shortness of breath and anemia pain, ecchymosis, anemia , sob TECHNIQUE: Multiaxial CT images of the abdomen and pelvis were performed following the IV administrat ion of 95 cc of Optiray, A dose lowering technique was utilized adhering to the principles of ALARA. COMPARISON STUDY: CT chest of same day, CT abdomen and pelvis 04/22/2022 FINDINGS: Large right with moderate to large left pleural effusions. The right pleural effusion has i ncreased in size from prior and contains hyperattenuating foci compatible with hemothorax. Partially imaged intramuscular hematomas involving the right upper extremity and right lateral chest wall with stranding extending into the right axilla. Bibasilar consolidation. Cardiomegaly. Atherosclerosis of the aorta with coronary artery calcifications. There is no pneumatosis or pneumoperitoneum. Limited study secondary to respiratory motion artifact a nd upper extremity positioning. Unremarkable spleen, pancreas, adrenal glands and mildly contracted g allbladder. 1.9 cm cyst of the right hepatic lobe redemonstrated. Additional subcentimeter hypodensit ies are too small to characterize within the liver. Cortical scarring of the interpolar left kidney redemonstrated. 3 mm nonobstructing calculus of the i nterpolar left kidney. 4 mm nonobstructing calculi of the inferior pole right kidney. 1.6 cm cyst of the superior pole right kidney. There is no hydronephrosis. Prostamegaly. Urinary bladder wall thicke ashley with partial distention. Atherosclerosis of the aorta with ectasia of the infrarenal segment, 2. 9 cm. Likely chronic short segment dissection versus ulcerative plaque of the distal abdominal aorta on image 320. Mild nonspecific iliac and inguinal chain lymph nodes measure up to approximately 10-11 mm. No bowel obstruction. There is nonspecific circumferential wall thickening of the inferior rectum wit h mild perirectal stranding. Moderate fecal retention. Normal appendix. No ascites or mesenteric infl ammation. Mild generalized body wall edema. Degenerative changes of the spine, pelvis and hips. No de finite acute fracture identified. IMPRESSION: 1. Large right hemothorax with partially imaged intramuscular hematomas of the right upper extremity and right lateral chest wall. 2. Moderate to large left pleural effusion with bibasilar consolidation suggestive of probable compre ssive atelectasis. 3. Nonspecific wall thickening of the rectum is suspicious for a nonspecific proctitis. 4. No bowel obstruction or pneumoperitoneum. 5. Nonobstructing bilateral nephrolithiasis. 6. Additional findings as above. ACT 112: Negative or not required by law. The above report was generated using voice recognition software. It may contain grammatical, syntax o r spelling errors. Electronically signed by: Ricardo Abernathy M.D. 06/06/2022 2:25 PM
--- NOTE | 2022-06-06 15:41 | History & Physical Report ---
Date of Service June 06, 2022 Assessment & Plan (1) Hemothorax, right: (2) Bilateral pleural effusion: (3) Acute on chronic combined systolic and diastolic CHF (congestive heart failure): Plan 82 year old male from [facility] sent to the ED for low hemoglobin, chest wall ecchymoses in setting of high INR and increasing shortness of breath CT Chest 1. Increase in size in the large right pleural effusion which demonstrates patchy areas of increased density consistent with a hemothorax. 2. Moderate to large left pleural effusion is similar to the prior study. 3. Partially visualized intramuscular hematomas within the right shoulder/chest as described above. 4. No fractures within the visualized osseous structures. 5. Near complete compressive atelectasis of the bilateral lower lobes due to the pleural effusions. A superimposed pneumonia would be difficult to exclude. 6. Stable cardiomegaly. Right hemithorax with bilateral pleural effusion- CT noted as above, on NC and conversationally dyspneic - Discussed with patient about thoracentesis- he would like to have thoracentesis if this is going to help him. Consulted pulmonology. INR reversed with Vit K. Hold coumadin and aspirin. - Has some leucocytosis in lab. Unable to exclude superimposed PNA. Low suspicion but will start on empiric rocephin for now. Follow up on UA. Acute on chronic anemia- d/t bleeding in chest wall and pleural cavity. Hb 8.5, down from 12 a month ago. Given oral vitamin K 2 mg at [facility] yesterday, INR 2 today. Will give a dose of iv vitamin K today 2.5 mg today and check INR in am. Hold further coumadin. Regarding whether to continue or discontinue coumadin at discharge, I spoke in detail with his son Ha regarding the risk benefit of continuing coumadin with difficult to control INR, bleeding issues and anemia requiring transfusion vs stroke risk and he agrees to discontinue coumadin knowing the risk of potential stroke with holding coumadin. - Discussed about potential need for transfusion- he is agreeable if he needs it - Recheck H& H later today and in am. If drifts down to <7, will transfuse. Type and crossed. Acute on chronic systolic diastolic CHF- CXR with peristent pulm edema with bilateral pleural effusion, conversationally dyspenic and on NC. - Echo with EF 35-40%, grade 2 diastolic dysfunction, mild AR, , MR, TR; severe biatrial enlargement. - Will give a dose of iv lasix today and resume his home lasix from am. Daily we ight, strict I and Os - If getting transfusion, administer extra iv lasix to prevent volume overload. Chest wall ecchymoses/intramuscular hematoma in setting of supratherapeutic INR as OP- symptomatic management. INR reversed. Coumadin held GOC discussion- seen by palliative during last time- note reviewed and it stated comfort measures, even in POLST however patient and family would like aggressive measures like thoracentesis and transfusions. Will consult palliative to discuss goals of care. Atrial fibrillation- rate controlled on toprol. Will discontinue coumadin as stated above after discussion. CAD/PVD- hold aspirin for now. Resume when indicated. DM-2- His glimiperide and metformin were discontinued during recent admission due to history of hypoglycemic episodes. Will not be aggressive. Diabetic diet. SSI prn. DVT ppx- SCDs. INR therapeutic. Holding coumadin with bleeding Dispo- PCU on tele DNR/DNI Updated son Ha over the phone and discussed plan of care. History of Present Illness Chief Complaint: low Hb, chest wall ecchymoses Primary Care Provider: Vero Westfall at [facility] 82 year old male with h/o PAF on coumadin, CAD, PVD, HTN, chronic diastolic CHF, anemia, hemochromatosis, h/o CVA, BPH, gout, hypothyroidism, DM2 taken off his oral antidiabetics, h/o OM toe s/p treatment, resident of [facility] who presented to the ED for low hemoglobin and chest wall ecchymoses. Patient was recently admitted 03/27- 04/21 to [facility] and was treated for pleural effusion with thoracentesis 04/14, anemia with PRBC transfusion, CHF with iv lasix, hematuria etc. Patient was seen by palliative during that admission and per palliative note 04/18 'hey confirm that Venancio is DNR/DNI and overall would want him to be comfortable but do want to continue to try and diurese him and try PT. If he were to decompensate, they would prefer that he stay at [facility] and not be rehospitalized. If he is approaching his dying time, they would rather he be at [facility]. We discussed having hospice support at [facility] but Ha does not feel they are ready for that just yet'. Patient was noted to have INR of 6 with drop in hemoglobin from 12 a month ago to 7+ today at [facility] along with development of right chest wall/flank ecchymoses and worsening shortness of breath. He had POLST form stating comfort measures status. Staff at [facility] discussed with son about continued management at their facility under comfort measures vs transfer to hospital for further treatment and possible transfusion- family opted for the latter and he was sent here. In the ED, he was afebrile, hemodynamically stable. His Hb 8.5, INR 2. It seems he had received oral vitamin K [address] C/A/P shows 'increase in size in the large right pleural effusion which demonstrates patchy areas of increased density consistent with a hemothorax; Moderate to large left pleural effusion is similar to the prior study and Partially visualized intramuscular hematomas within the right shoulder/chest. During my encounter, he was lying comfortably in bed on NC. Denies any fever, chills, chest pain, nausea, vomiting. Discussed about the CT findings. Discussed about comfort measures vs management with thoracentesis and transfusion. He would like to go for thoracentesis and transfusion as needed. He however confirmed DNR/DNI status. Allergies Allergy/AdvReac Type Severity Reaction Status Date / Time No Known Allergies Allergy Verified 06/06/22 15:27 Home Medications Medication Instructions Recorded Confirmed Type omega-3 fatty acids 1,000 mg 1,000 mg PO BID17 02/03/22 06/06/22 History capsule saw palmetto 450 mg capsule 450 mg PO BIDM 02/03/22 06/06/22 History Saccharomyces boulardii 250 mg 250 mg PO QAM #30 caps 04/21/22 06/06/22 Rx capsule acetaminophen 500 mg tablet 1,000 mg PO Q8H PRN Pain #50 tabs 04/21/22 06/06/22 Rx allopurinol 100 mg tablet 100 mg PO BID #60 tabs 04/21/22 06/06/22 Rx aspirin 81 mg chewable tablet 81 mg PO QAM #30 tabs 04/21/22 06/06/22 Rx (Aspirin Childrens) multivitamin with minerals 1 cap PO QAM #30 caps 04/21/22 06/06/22 Rx sertraline 25 mg tablet 25 mg PO QAM #30 tabs 04/21/22 06/06/22 Rx simvastatin 20 mg tablet 20 mg PO HS #30 tabs 04/21/22 06/06/22 Rx acetaminophen 325 mg tablet 650 mg PO Q4 PRN FEVER =>100 04/22/22 06/06/22 History (Tylenol) docusate sodium 100 mg capsule 100 mg PO DAILY PRN Constipation 04/22/22 06/06/22 History (Colace) furosemide 40 mg tablet 40 mg PO DAILY PRN WT GREATER THEN 04/22/22 06/06/22 History 170 LBS polyethylene glycol 3350 17 gram 17 g PO DAILY PRN NO BM IN 3 DAYS 04/22/22 06/06/22 History oral powder packet (Miralax) warfarin 3 mg tablet 3 mg PO HS 04/22/22 06/06/22 History docusate sodium 100 mg capsule 100 mg PO BID 06/06/22 06/06/22 History ferrous sulfate 325 mg (65 mg 325 mg PO QDD 06/06/22 06/06/22 History iron) tablet furosemide 40 mg tablet (Lasix) 60 mg PO BID17 06/06/22 06/06/22 History levothyroxine 50 mcg tablet 50 mcg PO DAILY 06/06/22 06/06/22 History metoprolol succinate 50 mg 75 mg PO BID 06/06/22 06/06/22 History tablet,extended release 24 hr mineral oil-isopropyl myristat 1 applic topical HS 06/06/22 06/06/22 History lotion phytonadione (vitamin K1) 1 mg/0.5 2 mg PO ONCE 06/06/22 06/06/22 History mL injection solution (vitamin K) potassium chloride 20 mEq 20 meq PO TIDM 06/06/22 06/06/22 History tablet,extended release(part/cryst) (Klor-Con M) sodium chloride 0.65 % nasal spray 1 spray intranasal BID17 06/06/22 06/06/22 History aerosol (Saline Nasal) tramadol 50 mg tablet 50 mg PO Q6H PRN Pain 06/06/22 06/06/22 History Past Med/Surg History Medical History Acute kidney failure, unspecified Acute on chronic respiratory failure with hypoxemia Anemia, unspecified Atrial fibrillation Benign prostatic hyperplasia without lower urinary tract symptoms Chronic atrial fibrillation, unspecified Chronic diastolic (congestive) heart failure Chronic gout Critical illness myopathy Depression Diverticulitis Diverticulitis of intestine, part unspecified, without perforation or abscess without bleeding Edema, unspecified Essential (primary) hypertension Gout Hemochromatosis HLD (hyperlipidemia) Hypokalemia Hypothyroidism Osteomyelitis right ankle and foot Peripheral vascular disease Type 2 diabetes mellitus with unspecified complications Social History Smoking Status: Never smoker Tobacco Type: Cigarettes Second Hand Exposure: No; Hx Alcohol Use: No Hx Substance Use: No Preferred Language: Cambodian Communication Ability: Effective Visual Impairment: Limited Hearing Ability: Normal Leaf Size Picker Required: No Beliefs That Will Affect Care: None marital status: Unknown Current Living Situation: [facility] Feels Safe at Home: Yes Assistive Devices: Glasses, Oxygen - Continuous, Special Shoe and Walker Review of Systems Review of Systems: All systems reviewed & are unremarkable except as noted in Subjective Physical Exam Physical Exam: General: Lying comfortably in bed, not in acute distress, some conversational dyspnea, on NC HEENT: EOMI, GREER, dry oral mucosa Chest: Right chest wall/flank ecchymoses, Decreased breath sounds at bases CVS: Irregular, normal heart sounds, no murmur Abdomen: Soft, non tender, not distended, normal bowel sounds Neuro: Awake, alert, oriented to self, conversing well, answering questions appropriately Extremities: Chronic venous stasis changes in bilateral extremities Results & Data Results & Data ([facility]) Vital Signs (Past 12 Hours) Vital Signs Temp Pulse Pulse Resp BP BP Pulse Ox 06/06/22 15:30 90 28 H 135/78 100 06/06/22 14:04 86 20 132/74 99 06/06/22 14:04 86 20 99 06/06/22 12:21 36.5 C 06/06/22 12:19 89 18 144/77 H 94 O2 Del Method O2 Flow Rate 06/06/22 15:30 Nasal Cannula 2 06/06/22 14:04 Room Air 06/06/22 14:04 Room Air 06/06/22 12:21 06/06/22 12:19 Nasal Cannula 2 Laboratory Results Short CBC 06/06/22 Range/Units 12:40 WBC 11.73 H (4.8-10.8) K/ul Hgb 8.5 L (14.0-18.0) g/dl Hct 26.6 L (40.1-51.0) % Plt Count 355 (130-400) K/uL BMP 06/06/22 12:40 Sodium 135 L Potassium 3.7 Chloride 93 L Carbon Dioxide 36 H BUN 24 H Creatinine 0.85 Glucose 239 H Calcium 9.1 Liver Function 06/06/22 Range/Units 12:40 Total Bilirubin 1.8 H (0.2-1.0) mg/dl AST 29 (13-39) U/L ALT 23 (7-52) U/L Alkaline Phosphatase 110 H (34-104) U/L Albumin 3.4 (3.4-5.0) gm/dl Diagnostic Findings Abdomen/Pelvis CT 06/06/22 12:[address] WITH IV CONTRAST HISTORY: Acute chest and abdominal pain with shortness of breath and anemia pain, ecchymosis, anemia, sob TECHNIQUE: Multiaxial CT images of the abdomen and pelvis were performed follow ing the IV administration of 95 cc of Optiray, A dose lowering technique was utilized adhering to the principles of ALARA. COMPARISON STUDY: CT chest of same day, CT abdomen and pelvis 04/22/2022 FINDINGS: Large right with moderate to large left pleural effusions. The right pleural effusion has increased in size from prior and contains hyperattenuating foci compatible with hemothorax. Partially imaged intramuscular hematomas involving the right upper extremity and right lateral chest wall with stranding extending into the right axilla. Bibasilar consolidation. Cardiomegaly. Atherosclerosis of the aorta with coronary artery calcifications. There is no pneumatosis or pneumoperitoneum. Limited study secondary to respiratory motion artifact and upper extremity positioning. Unremarkable s pleen, pancreas, adrenal glands and mildly contracted gallbladder. 1.9 cm cyst of the right hepatic lobe redemonstrated. Additional subcentimeter hypodensities are too small to characterize within the liver. Cortical scarring of the interpolar left kidney redemonstrated. 3 mm nonobstructing calculus of the interpolar left kidney. 4 mm nonobstructing calculi of the inferior pole right kidney. 1.6 cm cyst of the superior pole right kidney. There is no hydronephrosis. Prostamegaly. Urinary bladder wall thickening with partial distention. Atherosclerosis of the aorta with ectasia of the infrarenal segment, 2.9 cm. Likely chronic short segment dissection versus ulcerative plaque of the distal abdominal aorta on image 320. Mild nonspecific iliac and inguinal chain lymph nodes measure up to approximately 10-11 mm. No bowel obstruction. There is nonspecific circumferential wall thickening of the inferior rectum with mild perirectal stranding. Moderate fecal retention. Normal appendix. No ascites or mesenteric inflammation. Mild generalized body wall edema. Degenerative changes of the spine, pelvis and hips. No definite acute fracture identified. IMPRESSION: 1. Large right hemothorax with partially imaged intramuscular hematomas of the right upper extremity and right lateral chest wall. 2. Moderate to large left pleural effusion with bibasilar consolidation suggestive of probable compressive atelectasis. 3. Nonspecific wall thickening of the rectum is suspicious for a nonspecific proctitis. 4. No bowel obstruction or pneumoperitoneum. 5. Nonobstructing bilateral nephrolithiasis. 6. Additional findings as above. ACT 112: Negative or not required by law. The above report was generated using voice recognition software. It may contain grammatical, syntax or spelling errors. Electronically signed by: Ricardo Abernathy M.D. 06/06/2022 2:[address] 06/06/22 12:[address] WITH CONTRAST CT DOSE: 1655.75 mGy.cm HISTORY: Right-sided chest pain, ecchymosis, anemia, shortness of TECHNIQUE: Multiaxial CT images of the chest were performed following the intravenous administration of contrast. A dose lowering technique was utilized adhering to the principles of ALARA. COMPARISON: Chest CTA 04/11/2022. FINDINGS: Interval increase in size in a large right pleural effusion resulting in complete compressive atelectasis of the right lower lobe and partial compressive atelectasis of the right upper and middle lobes. Interval development of patchy areas of increased density within the right pleural effusion consistent with a hemothorax. No evidence for active arterial extravasation. There is also partially visualized intramuscular hematomas within the right infraspinatus/teres minor muscles and right latissimus dorsi muscle. No fractures identified within the chest. There is a moderate to large left pleural effusion. The heart remains enlarged. The thyroid gland enhances normally. Mild to moderate stenosis within the proximal right subclavian artery due to the calcified plaque. There is mild calcified plaque within the normal caliber thoracic aorta with no evidence for dissection. The main pulmonary arteries are patent. No mediastinal or hilar lymphadenopathy. No mediastinal or hilar lymphadenopathy. Normal esophagus. No pneumothorax. The central airways are patent. Near complete compressive atelectasis of the left lower lobe due to the pleural effusion. IMPRESSION: 1. Increase in size in the large right pleural effusion which demonstrates patchy areas of increased density consistent with a hemothorax. 2. Moderate to large left pleural effusion is similar to the prior study. 3. Partially visualized intramuscular hematomas within the right shoulder/chest as described above. 4. No fractures within the visualized osseous structures. 5. Near complete compressive atelectasis of the bilateral lower lobes due to the pleural effusions. A superimposed pneumonia would be difficult to exclude. 6. Stable cardiomegaly. ACT 112: Negative or not required by law. Electronically signed by: Dusty Rogers M.D. 06/06/2022 2:02 PM Chest X-Ray 06/06/22 12:42 XR chest 1V portable CLINICAL HISTORY: Atypical chest pain. COMPARISON STUDY: Chest CT April 11, 2022. Chest radiograph April 22, 2022. FINDINGS: A large right pleural effusion has increased in size since prior exam. This occupies the majority of the right thorax. Moderate to large left pleural effusion is unchanged. There is persistent pulmonary edema. Cardiomegaly is noted. No pneumothorax. IMPRESSION: 1. Increase in size of a very large right pleural effusion which occupies the majority of the right hemithorax. 2. No significant change in a moderate to large left pleural effusion. 3. Persistent pulmonary edema. ACT 112: Negative or not required by law. Electronically signed by: Loki Orta M.D. 06/06/2022 1:08 PM
[2022-06-06] MEDS ORDERED: PHYTONADIONE 2.5 MG in DEXTROSE 5% 50 ML IV STA (16:30)
[2022-06-06] MEDS ORDERED: FUROSEMIDE 40 MG/4 ML VIAL IV ONE (17:00)
[2022-06-06] MEDS ORDERED: CARBOHYDRATES FOR HYPOGLYCEMIA PO PRN (19:37)
[2022-06-06] MEDS ORDERED: ACETAMINOPHEN 500 MG TAB PO PRN (19:37)
[2022-06-06] MEDS ORDERED: GLUCOSE 10 TAB/TUBE PO PRN (19:37)
[2022-06-06] MEDS ORDERED: GLUCAGON FOR INJ 1 MG VIAL SQ PRN (19:37)
[2022-06-06] MEDS ORDERED: GLUCOSE 40% GEL 15 GM TUBE PO PRN (19:37)
[2022-06-06] MEDS ORDERED: POLYETHYLENE (MIRALAX) 17 GM PACK PO PRN (19:37)
[2022-06-06] MEDS ORDERED: SODIUM CHLORIDE 0.9% 250 ML IV PRN (19:37)
[2022-06-06] MEDS ORDERED: DEXTROSE 50% 50 ML SYRINGE IV PRN (19:37)
[2022-06-06 19:56] LABS: Hemoglobin 8.2 g/dl (14.0-18.0)
[2022-06-06] MEDS: INSULIN ASPART PER UNIT SC SCH (20:42)
[2022-06-06] MEDS: POTASSIUM CHLORIDE CRTAB 20 MEQ TABCR PO SCH (20:44)
[2022-06-06] MEDS: DOCUSATE SODIUM 100 MG CAP PO SCH (20:44)
[2022-06-06] MEDS: cefTRIAXone SODIUM 1,000 MG/50 ML BAG IV SCH (20:45)
--- NOTE | 2022-06-06 21:31 | Electrocardiogram Report ---
Test Reason : Blood Pressure : / mmHG Vent. Rate : 089 BPM Atrial Rate : 060 BPM P-R Int : 000 ms QRS Dur : 094 ms QT Int : 388 ms P-R-T Axes : 000 018 240 degrees QTc Int : 472 ms Poor data quality, interpretation may be adversely affected Atrial fibrillation Septal infarct (cited on or before 27-MAR-2022) Abnormal ECG When compared with ECG of 06-JUN-2022 13:12, (unconfirmed) No significant change was found Confirmed by Aj Hermosillo ([id number]) on 06/06/2022 9:31:47 PM Referred By: Malou arcos [facility] Confirmed By:Aj Hermosillo
--- NOTE | 2022-06-06 21:47 | Pulmonary Consultation ---
Date of Consultation June 06, 2022 Assessment & Plan (1) Hemothorax, right: (2) Bilateral pleural effusion: (3) Acute on chronic combined systolic and diastolic CHF (congestive heart failure): (4) Acute on chronic respiratory failure with hypoxemia: Plan CT chest 06/06/2022 personally reviewed: Large right-sided pleural effusion with increased areas of density in the pleural fluid, compression atelectasis of the right lower lobe Moderate left pleural effusion with compression atelectasis of the left lower lobe Cardiomegaly No significant mediastinal lymphadenopathy -- Bilateral pleural effusion with RASS hemothorax Large on the right, at least moderate on the left with compression atelectasis of bilateral lower lobes Right-sided pleural effusion seems to be hemothorax especially given the drop in the hemoglobin and increased density on the CAT scan of the chest Hemothorax given there is no history of trauma could be iatrogenic from thoracentesis which was done 04/14/2022 especially with a history of elevated INR at [facility] INR has already been reversed by giving vitamin K p.o. on 06/05/2022 as well as IV on 06/06/2022 Recommendation would be to have a chest tube placed and if family is agreeable to intervention. If no intervention and comfort measures would be recommended --Acute on chronic hypoxic respiratory failure Likely secondary to bilateral pleural effusion with compressive atelectasis Etiology of pleural effusion is diastolic CHF Diuresis as tolerated. Incentive spirometry will be helpful Plan: Patient has right-sided hemothorax likely iatrogenic from previous thoracentesis. Patient also is on warfarin. Somebody with hemothorax the next step would be to have a totally drain to a pigtail catheter. I called patient's son Ha [phone] as well as Chelle Cherry on the phone and talked about the recommendation. Risk and benefits of the pigtail catheter were explained to them. I did discuss the risk of not doing the procedure as soon as possible which includes continuation of bleeding as well as increased risk of infection given there is blood in the pleural cavity. They would like to wait on the procedure for the time being. Doyle Craft Jr would like to speak with the brother as well as father before making a decision about it. Please note the above document was generated using voice recognition software. It may contain grammatical, syntax or spelling errors.Any formal questions or concerns about the content, text or information contained within the body of this dictation should be directly addressed to the provider for clarification. History of Present Illness Attending Physician: Pavan Gaston MD History of Present Illness 82-year-old male presented to the hospital because of chest wall ecchymosis and low hemoglobin Past medical history: Paroxysmal A. fib on Coumadin, coronary artery disease, hypertension, diastolic CHF, hemochromatosis, history of CVA, gout, hypothyroidism, BPH Patient was recently in the hospital less than a month ago for pleural effusion. He had a thoracentesis done on 04/14/2022 on the right side. Patient's INR was found to be 6 at [facility]. He got 2 mg of p.o. vitamin K He also got 2.5 mg of IV vitamin K in the hospital. Patient was DNR/DNI and if there is any worsening he was supposed to be on comfort measures but family decided to send to the hospital to see that anything can be done. In the ER patient had a CT chest done which showed moderate grade 2 large right- sided pleural effusion, small to moderate left-sided pleural effusion. The right-sided pleural effusion seem to go with hemothorax. When I saw the patient he was in respiratory distress mild to moderate. He was on 3 L nasal cannula. Denied any chest pain but did complain of pain in the right shoulder and right arm. Denies any nausea or vomiting. No headache. Denied any recent fall. The only thing he could recall that he had an accident back in the s. Allergies Allergy/AdvReac Type Severity Reaction Status Date / Time No Known Allergies Allergy Verified 06/06/22 15:27 Home Medications Medication Instructions Recorded Confirmed Type omega-3 fatty acids 1,000 mg 1,000 mg PO BID17 02/03/22 06/06/22 History capsule saw palmetto 450 mg capsule 450 mg PO BIDM 02/03/22 06/06/22 History Saccharomyces boulardii 250 mg 250 mg PO QAM #30 caps 04/21/22 06/06/22 Rx capsule acetaminophen 500 mg tablet 1,000 mg PO Q8H PRN Pain #50 tabs 04/21/22 06/06/22 Rx allopurinol 100 mg tablet 100 mg PO BID #60 tabs 04/21/22 06/06/22 Rx aspirin 81 mg chewable tablet 81 mg PO QAM #30 tabs 04/21/22 06/06/22 Rx (Aspirin Childrens) multivitamin with minerals 1 cap PO QAM #30 caps 04/21/22 06/06/22 Rx sertraline 25 mg tablet 25 mg PO QAM #30 tabs 04/21/22 06/06/22 Rx simvastatin 20 mg tablet 20 mg PO HS #30 tabs 04/21/22 06/06/22 Rx acetaminophen 325 mg tablet 650 mg PO Q4 PRN FEVER =>100 04/22/22 06/06/22 Hist ory (Tylenol) docusate sodium 100 mg capsule 100 mg PO DAILY PRN Constipation 04/22/22 06/06/22 History (Colace) furosemide 40 mg tablet 40 mg PO DAILY PRN WT GREATER THEN 04/22/22 06/06/22 History 170 LBS polyethylene glycol 3350 17 gram 17 g PO DAILY PRN NO BM IN 3 DAYS 04/22/22 06/06/22 History oral powder packet (Miralax) warfarin 3 mg tablet 3 mg PO HS 04/22/22 06/06/22 History docusate sodium 100 mg capsule 100 mg PO BID 06/06/22 06/06/22 History ferrous sulfate 325 mg (65 mg 325 mg PO QDD 06/06/22 06/06/22 History iron) tablet furosemide 40 mg tablet (Lasix) 60 mg PO BID17 06/06/22 06/06/22 History levothyroxine 50 mcg tablet 50 mcg PO DAILY 06/06/22 06/06/22 History metoprolol succinate 50 mg 75 mg PO BID 06/06/22 06/06/22 History tablet,extended release 24 hr mineral oil-isopropyl myristat 1 applic topical HS 06/06/22 06/06/22 History lotion phytonadione (vitamin K1) 1 mg/0.5 2 mg PO ONCE 06/06/22 06/06/22 History mL injection solution (vitamin K) potassium chloride 20 mEq 20 meq PO TIDM 06/06/22 06/06/22 History tablet,extended release(part/cryst) (Klor-Con M) sodium chloride 0.65 % nasal spray 1 spray intranasal BID17 06/06/22 06/06/22 History aerosol (Saline Nasal) tramadol 50 mg tablet 50 mg PO Q6H PRN Pain 06/06/22 06/06/22 History Patient History Medical History Acute kidney failure, unspecified Acute on chronic respiratory failure with hypoxemia Anemia, unspecified Atrial fibrillation Benign prostatic hyperplasia without lower urinary tract symptoms Chronic atrial fibrillation, unspecified Chronic diastolic (congestive) heart failure Chronic gout Critical illness myopathy Depression Diverticulitis Diverticulitis of intestine, part unspecified, without perforation or abscess without bleeding Edema, unspecified Essential (primary) hypertension Gout Hemochromatosis HLD (hyperlipidemia) Hypokalemia Hypothyroidism Osteomyelitis right ankle and foot Peripheral vascular disease Type 2 diabetes mellitus with unspecified complications Social History Smoking Status: Never smoker Tobacco Type: Cigarettes Second Hand Exposure: No; Do You Dip or Chew Tobacco: No; Tobacco Cessation Education Requested by Patient: No Hx Alcohol Use: No Hx Substance Use: No Preferred Language: Croatian Communication Ability: Effective Visual Impairment: Limited Hearing Ability: Normal Life Skills Coordinator Required: No Beliefs That Will Affect Care: None marital status: Unknown Current Living Situation: Jail Other Information That Helps Us Care for You: No Feels Safe at Home: Yes Safety Concerns: Feels Safe At This Time Assistive Devices: None Review of Systems Review of Systems: All systems reviewed & are unremarkable except as noted in HPI & below Physical Exam Physical Exam: Constitutional: No acute distress HEENT: EOMI, PERRLA Respiratory system: Decreased air entry bilaterally, no wheeze, no rhonchi, positive crackles bilateral lower lobes CVS: S1-S2 positive, regular, distant heart sounds Abdomen: Soft, nontender, nondistended, positive bowel sounds x4 Extremities: +2 pulses bilaterally radialis/ dorsalis pedis, no cyanosis, +1 pitting edema bilateral lower extremity Neuro: Awake alert oriented x3 Psych: Normal mood and affect G/U: Positive Castaneda Skin: Ecchymosis/hematoma appreciated on the right flank as well as right midaxillary Lymphatic: no cervical or axillary lymphadenopathy Results & Data Results [facility] ([facility]) Vital Signs (Past 12 Hours) Vital Signs Temp Pulse Pulse Resp BP BP Pulse Ox 06/06/22 19:52 97 H 20 134/77 97 06/06/22 18:08 88 24 122/74 99 06/06/22 16:58 84 20 127/68 98 06/06/22 15:30 90 28 H 135/78 100 06/06/22 14:04 86 20 132/74 99 06/06/22 14:04 86 20 99 06/06/22 12:21 36.5 C 06/06/22 12:19 89 18 144/77 H 94 O2 Del Method O2 Flow Rate 06/06/22 19:52 06/06/22 18:08 Nasal Cannula 2 06/06/22 16:58 Room Air 06/06/22 15:30 Nasal Cannula 2 06/06/22 14:04 Room Air 06/06/22 14:04 Room Air 06/06/22 12:21 06/06/22 12:19 Nasal Cannula 2 PG Care Time/CCT Total # of Minutes Spent Total Time Spent with Patient: Total time spent is greater than 50% in coordination of care (as documented) at patient's floor/unit and/or counseling patient: Coding Level of Care Code 12613 Initial Inpt Care Lvl 3 Diagnoses Hemothorax, right J94.2 Bilateral pleural effusion J90 Acute on chronic combined systolic and diastolic CHF (congestive heart failure) I50.43 Acute on chronic respiratory failure with hypoxemia J96.21
--- NOTE | 2022-06-06 21:50 | Procedure Note ---
Procedure Note Date of Service June 06, 2022 Coding CPT Codes Pulmonary/Thoracic - Pulmonary and Thoracic: 84407 Tube thoracostomy ([id number]) Pulmonary/Thoracic - Pulmonary and Thoracic: 81178 Pleural drainage w/o imaging ([id number]) Pulmonary/Thoracic - Pulmonary and Thoracic: 20362 US, Chest, real time with imaging documentation ([id number]) [facility] [place], [place] Procedure Codes (Charges) Pulmonary/Thoracic Procedure 1: Pulmonary and Thoracic: 99308 Tube thoracostomy Procedure 2: Pulmonary and Thoracic: 58914 Pleural drainage w/o imaging Procedure 3: Pulmonary and Thoracic: 18842 US, Chest, real time with imaging documentation
[2022-06-06] MEDS: SODIUM CHLORIDE 0.65% NA SOLN 45 ML (OCEAN) SCH (21:51)
[2022-06-06 21:58] LABS: Appearance Urine Clear (Clear); Bilirubin Urine Negative (Negative); Blood Urine Negative (Negative); Color Urine Yellow; Glucose Urine UA Negative (Negative); Ketones Urine Negative (Negative); Leukocyte Esterase Urine Negative (Negative); Nitrite Urine Negative (Negative); Protein Urine Negative (Negative); Specific Gravity Urine 1.011 (1.000-1.030); Urobilinogen Urine Negative (Negative); pH Urine 7.5 (4.5-7.5)
[2022-06-06] MEDS: SIMVASTATIN 20 MG TAB PO SCH (22:44)
[2022-06-06] MEDS: METOPROLOL SUCC 25MG EXT REL TAB PO SCH (22:44)
[2022-06-06] MEDS: allopurinoL 100 MG TAB PO SCH (22:44)
[2022-06-07] MEDS: LEVOTHYROXINE SODIUM 50 MCG TABLET PO SCH (04:57)
[2022-06-07] MEDS: INSULIN ASPART PER UNIT SC SCH ×4 (08:00→20:32)
[2022-06-07] MEDS: METOPROLOL SUCC 25MG EXT REL TAB PO SCH ×2 (08:05→20:28)
[2022-06-07] MEDS: SERTRALINE HCL 50 MG TABLET PO SCH (08:05)
[2022-06-07] MEDS: DOCUSATE SODIUM 100 MG CAP PO SCH ×2 (08:05→20:28)
[2022-06-07] MEDS: SODIUM CHLORIDE 0.65% NA SOLN 45 ML (OCEAN) SCH ×2 (08:06→16:25)
[2022-06-07] MEDS: POTASSIUM CHLORIDE CRTAB 20 MEQ TABCR PO SCH ×3 (08:06→16:24)
[2022-06-07] MEDS: SACCHAROMYCES BOULARDII 250 MG CAP PO SCH (08:06)
[2022-06-07] MEDS: FUROSEMIDE 20 MG TAB PO SCH ×2 (08:06→16:46)
[2022-06-07] MEDS: allopurinoL 100 MG TAB PO SCH ×2 (08:06→20:28)
[2022-06-07 08:25] LABS: Hemoglobin 8.7 g/dl (14.0-18.0); Mean Corpuscular Hemoglobin 29.5 pg (25.0-34.0); Mean Corpuscular Hgb Conc 31.1 g/dL (32.0-36.0); Mean Corpuscular Volume 94.9 fL (80.0-100.0); Mean Platelet Volume 9.2 fL (9.4-12.4); Platelet Count 331 K/uL (130-400); RDW Coefficient of Variation 17.9 % (11.5-14.5); RDW Standard Deviation 60.5 fL (36.4-46.3); Red Blood Count 2.95 M/uL (4.63-6.08); White Blood Count 13.26 K/ul (4.8-10.8)
[2022-06-07 08:46] LABS: INR 1.4 (0.9-1.1); Prothrombin Time 14.5 Seconds (9.0-12.0)
[2022-06-07 09:43] LABS: BUN Creatinine Ratio 26.3 (10-20); Calcium 9.1 mg/dl (8.5-10.1); Creatinine Clr Calc Pharmacy 79.1 ml/min; Est GFR (African American) 99.9 ml/min; Est GFR (Non-African American) 86.2 ml/min; Magnesium 1.8 mg/dl (1.7-2.4); Potassium 3.1 mmol/L (3.5-5.1)
[2022-06-07] MEDS ORDERED: POTASSIUM CHLORIDE CRTAB 20 MEQ TABCR PO STA (10:05)
--- NOTE | 2022-06-07 11:44 | Pulmonology Progress Note ---
Date of Service June 07, 2022 Assessment & Plan (1) Hemothorax, right: (2) Bilateral pleural effusion: (3) Acute on chronic combined systolic and diastolic CHF (congestive heart failure): (4) Acute on chronic respiratory failure with hypoxemia: Plan CT chest 06/06/2022 personally reviewed: Large right-sided pleural effusion with increased areas of density in the pleural fluid, compression atelectasis of the right lower lobe Moderate left pleural effusion with compression atelectasis of the left lower lobe Cardiomegaly No significant mediastinal lymphadenopathy -- Bilateral pleural effusion with RASS hemothorax Large on the right, at least moderate on the left with compression atelectasis of bilateral lower lobes Right-sided pleural effusion seems to be hemothorax especially given the drop in the hemoglobin and increased density on the CAT scan of the chest Hemothorax given there is no history of trauma could be iatrogenic from thoracentesis which was done 04/14/2022 especially with a history of elevated INR at [facility] INR has already been reversed by giving vitamin K p.o. on 06/05/2022 as well as IV on 06/06/2022 Recommendation would be to have a chest tube placed and if family is agreeable to intervention. If no intervention and comfort measures would be recommended Recommendation of a pigtail catheter was made to both of patient's son Ha as well as Miss ismael david on 06/06/2022 and they would like to have a discussion with father and then decide the next step, I did discuss the risk of not doing the procedure as soon as possible which includes continuation of bleeding as well as increased risk of infection given there is blood in the pleural cavity on the same phone call as well. --Acute on chronic hypoxic respiratory failure Likely secondary to bilateral pleural effusion with compressive atelectasis Etiology of pleural effusion is diastolic CHF Diuresis as tolerated. Incentive spirometry will be helpful Plan: If the family does not want any aggressive management would recommend comfort measures for the patient. No further recommendation from pulmonary perspective. If family changes their mind please notify directly. Case was discussed with REBA Ulloa Please note the above document was generated using voice recognition software. It may contain grammatical, syntax or spelling errors.Any formal questions or concerns about the content, text or information contained within the body of this dictation should be directly addressed to the provider for clarification. Admission and Anticipated Discharge Date Admission Date: June 06, 2022 Subjective Patient seen and examined at bedside. No acute distress Denies any chest pain. Still complains of pain in the right shoulder which is chronic No nausea vomiting Poor appetite Denies any headache, no blurry vision. Review of Systems Review of Systems: All systems reviewed & are unremarkable except as noted in Subjective Physical Exam Physical Exam: Constitutional: No acute distress HEENT: EOMI, PERRLA Respiratory system: Decreased air entry bilaterally, no wheeze, no rhonchi, positive crackles bilateral lower lobes CVS: S1-S2 positive, regular, distant heart sounds Abdomen: Soft, nontender, nondistended, positive bowel sounds x4 Extremities: +2 pulses bilaterally radialis/ dorsalis pedis, no cyanosis, +1 pitting edema bilateral lower extremity Neuro: Awake alert oriented to self Psych: Normal mood and affect G/U: Positive Castaneda Skin: Ecchymosis/hematoma appreciated on the right flank as well as right midaxillary Lymphatic: no cervical or axillary lymphadenopathy Results & Data Results & Data ([facility]) Vital Signs (Past 12 Hours) Vital Signs Temp Pulse Resp BP Pulse Ox O2 Del Method O2 Flow Rate 06/07/22 07:58 36.9 C 108 H 18 134/80 91 Nasal Cannula 3 06/07/22 03:52 36.5 C 93 H 20 111/70 95 Nasal Cannula 2 Laboratory Results 06/07/22 08:06 06/07/22 08:06 PG Care Time/CCT Total # of Minutes Spent Total Time Spent with Patient: Total time spent is greater than 50% in coordination of care (as documented) at patient's floor/unit and/or counseling patient: Coding Level of Care Code 73921 Subseq Hosp Care Lvl 2 Diagnoses Hemothorax, right J94.2 Bilateral pleural effusion J90 Acute on chronic combined systolic and diastolic CHF (congestive heart failure) I50.43 Acute on chronic respiratory failure with hypoxemia J96.21
--- NOTE | 2022-06-07 13:10 | Hospitalist Progress Note ---
Date of Service June 07, 2022 Assessment & Plan (1) Hemothorax, right: Plan: Right hemithorax with bilateral pleural effusion- CT noted as above, on NC and conversationally dyspneic He and his sons have declined pigtail catheter placement Unable to exclude superimposed PNA. Low suspicion but will start on empiric rocephin for now. (2) Bilateral pleural effusion: Plan: plan as above, cont home diuretic. (3) Acute on chronic combined systolic and diastolic CHF (congestive heart failure): Plan: Acute on chronic systolic diastolic CHF- CXR with peristent pulm edema with bilateral pleural effusion, conversationally dyspenic and on NC. - Echo with EF 35-40%, grade 2 diastolic dysfunction, mild AR, , MR, TR; severe biatrial enlargement. - Initial dose of IV Lasix given and he is now on home lasix dosing, Daily weight, strict I and Os - If getting transfusion, administer extra iv lasix to prevent volume overload. - for now, we are focused on switching him to palliative care measures, trying to contact his sons. (4) Acute blood loss anemia (ABLA): Plan: Large bruise present with associated drop in Hb to 8.7 (5) Hemorrhage while on warfarin therapy: Plan: Acute on chronic anemia- d/t bleeding in chest wall and pleural cavity. Hb 8.5, down from 12 a month ago. Given oral vitamin K 2 mg at [facility] and additional IV vitamin K on admission. - Discussed about potential need for transfusion- he is agreeable if he needs it - no indication for transfusion at this time -cont to monitor (6) Atrial fibrillation: Plan: Atrial fibrillation- rate controlled on toprol. Will discontinue coumadin as stated above after discussion. (7) Peripheral vascular disease: Plan: Seen by Dr. Gold in March 2022. Patient with known diabetic ulcer of right foot with questionable osteomyelitis/pathologic fracture of right second digit. Known to have peripheral arterial disease in the setting of type 2 diabetes. After review of arterial duplex there was no significant obstructive disease identified from iliacs through tibial arteries on right. Measured toe pressure should be adequate for wound healing. It was felt there was limited potential benefit from further invasive testing and conservative management was recommended from a vascular standpoint. If right toe ulcer would continue to deteriorate read recommend proceeding with amputation of digit and vascular supply should be adequate for wound healing. (8) CAD (coronary artery disease): Plan: CAD/PVD- hold aspirin for now. Resume when indicated. (9) DMII (diabetes mellitus, type 2): Plan: DM-2- His glimiperide and metformin were discontinued during recent admission due to history of hypoglycemic episodes. Will not be aggressive. Diabetic diet. SSI prn. (10) DVT prophylaxis: Plan GOC discussion- seen by palliative during last time- note reviewed and it stated comfort measures, even in POLST however patient and family would like aggressive measures like thoracentesis and transfusions. Tried to discuss with both sons and called three different numbers on the chart, left two messages. Palliative care measures were explained to the patient who is on board with this plan. He is oriented, however, waiting to discuss with family and not instituting any aggressive treatments at this time until another care plan discussion can take place with his sons. Morphine added for comfort in case of severe pain DVT ppx- SCDs. INR therapeutic. Holding coumadin with bleeding Dispo- PCU on tele DNR/DNI Perla Singh DO [facility] Hospitalist Admission and Anticipated Discharge Date Admission Date: June 06, 2022 Subjective Patient is an 82-year-old man with a history of A. fib on warfarin and CHF with reduced ejection fraction who presented from [facility] for evaluation of worsening anemia in the setting of elevated INR with development of ecchymosis on his right flank and no clear history of fall. There is also worsening shortness of breath secondary to a hemothorax. Pulmonary was consulted and recommended placement of a pigtail catheter given CT chest findings including a large right-sided pleural effusion with increased areas of density and compression atelectasis of the right lower lobe. There was a suggestion made that the hemothorax may be iatrogenic from the thoracentesis performed on 04/14/2022 especially with a history of elevated INR [facility]. Since admission he has received a dose of vitamin K on 06/05 and 06/06 and INR is currently subtherapeutic. For now the patient and his sons have declined a pigtail catheter. In speaking with the patient today he is not wanting to prolong his life and reports that his pain is minimal at this time but occasionally can arise to a 7 or 8 out of 10. He has a significant resistance to movement of his right arm reporting a chronic right shoulder injury. However, there is significant ecchymosis of the right flank behind this with swelling that is acute and this is his affected side. He has very minimal quality of life and is aware of this. I explained what palliative care medicine means including no antibiotics and other therapies, leaning on morphine and antianxiety medicines for palliation of discomfort and dyspnea. He is in agreement with palliative care at this time. I have contacted his son Venancio Kwon but had to leave a message for call back. I will also try to contact his son Ha so that we can all be on the same page before transitioning him to full comfort measures. I discussed the plan with the primary physical security manager of Systems Review of Systems: All systems reviewed negative except as indicated above. Physical Exam Physical Exam: CONSTITUTIONAL: WNWD, vitals as above, NAD EYES: normal conjunctivae, no scleral icterus ENT: external ear and nose normal, oropharynx clear NECK: trachea midline, no lymphadenopathy, normal thyroid RESPIRATORY: clear to auscultation bilaterally, no crackles, rales or wheezes, normal respiratory effort CARDIOVASCULAR: regular rate and rhythm, S1 and 2 heard without murmurs, gallops or rubs, no JVD, no peripheral edema CHEST: inspection of chest was normal GASTROINTESTINAL: soft, nontender, ND, no guarding MUSCULOSKELETAL: strength 5/5 throughout, head is normocephalic and atraumatic SKIN: warm and dry NEUROLOGIC: CN 2-12 grossly intact, no sensory deficit, normal cognition, normal speech, no tremor PSYCHIATRIC: alert cooperative and oriented and answering questions appropriately. Euthymic mood, makes good eye contact, language grossly intact, recent and remote memory grossly intact. Results & Data Results & Data ([facility]) Vital Signs (Past 12 Hours) Vital Signs Temp Pulse Pulse Resp BP Pulse Ox O2 Del Method 06/07/22 11:44 36.9 C 98 H 18 93/53 L 97 Nasal Cannula 06/07/22 08:00 98 H 06/07/22 08:00 Nasal Cannula 06/07/22 07:58 36.9 C 108 H 18 134/80 91 Nasal Cannula 06/07/22 03:52 36.5 C 93 H 20 111/70 95 Nasal Cannula O2 Flow Rate 06/07/22 11:44 3 06/07/22 08:00 06/07/22 08:00 3 06/07/22 07:58 3 06/07/22 03:52 2 Laboratory Results Short CBC 06/06/22 06/07/22 Range/Units 19:49 08:06 WBC 13.26 H (4.8-10.8) K/ul Hgb 8.2 L 8.7 L (14.0-18.0) g/dl Hct 26.0 L 28.0 L (40.1-51.0) % Plt Count 331 (130-400) K/uL BMP 06/06/22 06/07/22 12:40 08:06 Sodium 135 L 136 Potassium 3.7 3.1 L Chloride 93 L 93 L Carbon Dioxide 36 H 35 H BUN 24 H 20 Creatinine 0.85 0.76 Glucose 239 H 129 H Calcium 9.1 9.1 Liver Function 06/06/22 Range/Units 12:40 Total Bilirubin 1.8 H (0.2-1.0) mg/dl AST 29 (13-39) U/L ALT 23 (7-52) U/L Alkaline Phosphatase 110 H (34-104) U/L Albumin 3.4 (3.4-5.0) gm/dl Urine 06/06/22 Range/Units 20:25 Urine Color Yellow Urine Appearance Clear (Clear) Urine pH 7.5 (4.5-7.5) Ur Specific [place] 1.011 (1.000-1.030) Urine Protein Negative (Negative) Urine Glucose (UA) Negative (Negative) Medications Administered Current Inpatient Medications Acetaminophen (Acetaminophen 500 Mg Tab) 1,000 mg PO Q8H PRN PRN Reason: Pain Stop: 07/06/22 19:36 Last Admin: 06/07/22 08:05 Dose: 1,000 mg Allopurinol (Allopurinol 100 Mg Tab) 100 mg PO BID CAROLYN Stop: 07/06/22 20:59 Last Admin: 06/07/22 08:06 Dose: 100 mg Dextrose (Dextrose 50% 50 Ml Syringe) 25 - 50 ml IV UD PRN; Protocol PRN Reason: Hypoglycemia Protocol Stop: 07/06/22 19:36 Docusate Sodium (Docusate Sodium 100 Mg Cap) 100 mg PO BID CAROLYN Stop: 07/06/22 20:59 Last Admin: 06/07/22 08:05 Dose: 100 mg Ferrous Sulfate (Ferrous Sulfate 325 Mg Tab) 325 mg PO QDD CAROLYN Stop: 07/07/22 16:29 Furosemide (Furosemide 20 Mg Tab) 60 mg PO BID17 COUNT INCLUDES THE [facility] Stop: 07/07/22 08:59 Last Admin: 06/07/22 08:06 Dose: 60 mg Glucagon (Glucagon For Inj 1 Mg Vial) 1 mg SQ UD PRN; Protocol PRN Reason: Hypoglycemia Protocol Stop: 07/06/22 19:36 Glucose (Glucose 40% Gel 15 Gm Tube) 15 - 30 gm PO UD PRN; Protocol PRN Reason: Hypoglycemia Protocol Stop: 07/06/22 19:36 Glucose (Glucose 10 Tab/Tube) 4 - 8 tab PO UD PRN; Protocol PRN Reason: Hypoglycemia Treatment Stop: 07/06/22 19:36 Ceftriaxone Sodium (Rocephin) 1,000 mg in 50 mls @ 100 mls/hr IV Q24H COUNT INCLUDES THE [facility]; Protocol Stop: 06/13/22 20:29 Last Infusion: 06/06/22 21:28 Dose: Infused Insulin Aspart (Insulin Aspart Per Unit) 0 units SC ACHS COUNT INCLUDES THE [facility] Stop: 07/06/22 20:59 Last Admin: 06/07/22 11:49 Dose: Not Given Levothyroxine Sodium (Levothyroxine Sodium 50 Mcg Tablet) 50 mcg PO DAILYBB COUNT INCLUDES THE [facility] Stop: 07/07/22 06:29 Last Admin: 06/07/22 04:57 Dose: 50 mcg Metoprolol Succinate (Metoprolol Succ 25mg Ext Rel Tab) 75 mg PO BID COUNT INCLUDES THE [facility] Stop: 07/06/22 20:59 Last Admin: 06/07/22 08:05 Dose: 75 mg Miscellaneous (Carbohydrates For Hypoglycemia ) 15 - 30 gm PO UD PRN PRN Reason: Hypoglycemia Protocol Stop: 07/06/22 19:36 Morphine Sulfate (Morphine Sulfate 2 Mg/Ml Carp) 2 mg IV Q4H PRN PRN Reason: severe pain Stop: 06/21/22 11:26 Polyethylene Glycol (Polyethylene (Miralax) 17 Gm Pack) 17 gm PO DAILY PRN PRN Reason: NO BM IN 3 DAYS Stop: 07/06/22 19:36 Potassium Chloride (Potassium Chloride Crtab 20 Meq Tabcr) 20 meq PO TIDM COUNT INCLUDES THE [facility] Stop: 07/06/22 20:29 Last Admin: 06/07/22 11:51 Dose: 20 meq Saccharomyces Boulardii (Saccharomyces Boulardii 250 Mg Cap) 250 mg PO QAM COUNT INCLUDES THE [facility] Stop: 07/07/22 08:59 Last Admin: 06/07/22 08:06 Dose: 250 mg Sertraline HCl (Sertraline Hcl 50 Mg Tablet) 25 mg PO QAM COUNT INCLUDES THE [facility] Stop: 07/07/22 08:59 Last Admin: 06/07/22 08:05 Dose: 25 mg Simvastatin (Simvastatin 20 Mg Tab) 20 mg PO HS COUNT INCLUDES THE [facility] Stop: 07/06/22 20:59 Last Admin: 06/06/22 22:44 Dose: 20 mg Sodium Chloride (Sodium Chloride 0.65% Na Soln 45 Ml ([place])) 1 sprays NA BID17 COUNT INCLUDES THE [facility] Stop: 07/06/22 19:36 Last Admin: 06/07/22 08:06 Dose: Not Given Tramadol HCl (Tramadol Hcl 50 Mg Tablet) 50 mg PO Q6H PRN PRN Reason: Pain Stop: 07/06/22 19:36
[2022-06-07] MEDS: MoRPHine SULFATE 2 MG/ML CARP IV PRN ×2 (13:30→20:16)
[2022-06-07] MEDS ORDERED: FERROUS SULFATE 325 MG TAB PO SCH (16:30)
[2022-06-07] MEDS: traMADol HCL 50 MG TABLET PO PRN (16:50)
[2022-06-07] MEDS: cefTRIAXone SODIUM 1,000 MG/50 ML BAG IV SCH (20:23)
[2022-06-07] MEDS: SIMVASTATIN 20 MG TAB PO SCH (20:29)
[2022-06-08] MEDS: traMADol HCL 50 MG TABLET PO PRN (05:33)
[2022-06-08] MEDS: LEVOTHYROXINE SODIUM 50 MCG TABLET PO SCH (05:33)
[2022-06-08 07:56] LABS: Hematocrit (blood only) 25.7 % (40.1-51.0); Mean Corpuscular Hemoglobin 30.1 pg (25.0-34.0); Mean Corpuscular Hgb Conc 31.1 g/dL (32.0-36.0); Mean Corpuscular Volume 96.6 fL (80.0-100.0); Mean Platelet Volume 9.2 fL (9.4-12.4); Platelet Count 344 K/uL (130-400); RDW Standard Deviation 62.1 fL (36.4-46.3); Red Blood Count 2.66 M/uL (4.63-6.08); White Blood Count 12.17 K/ul (4.8-10.8)
[2022-06-08 08:19] LABS: BUN Creatinine Ratio 30.1 (10-20); Calcium 8.6 mg/dl (8.5-10.1); Creatinine Clr Calc Pharmacy 64.8 ml/min; Est GFR (African American) 89.5 ml/min; Est GFR (Non-African American) 77.3 ml/min; Potassium 4.5 mmol/L (3.5-5.1)
[2022-06-08] MEDS: INSULIN ASPART PER UNIT SC SCH ×2 (08:33→11:50)
--- NOTE | 2022-06-08 09:25 | Pulmonology Progress Note ---
Date of Service June 08, 2022 Assessment & Plan (1) Hemothorax, right: (2) Bilateral pleural effusion: (3) Acute on chronic combined systolic and diastolic CHF (congestive heart failure): (4) Acute on chronic respiratory failure with hypoxemia: Plan CT chest 06/06/2022 personally reviewed: Large right-sided pleural effusion with increased areas of density in the pleural fluid, compression atelectasis of the right lower lobe Moderate left pleural effusion with compression atelectasis of the left lower lobe Cardiomegaly No significant mediastinal lymphadenopathy -- Bilateral pleural effusion with RASS hemothorax Large on the right, at least moderate on the left with compression atelectasis of bilateral lower lobes Right-sided pleural effusion seems to be hemothorax especially given the drop in the hemoglobin and increased density on the CAT scan of the chest Hemothorax given there is no history of trauma could be iatrogenic from thoracentesis which was done 04/14/2022 especially with a history of elevated INR at [facility] INR has already been reversed by giving vitamin K p.o. on 06/05/2022 as well as IV on 06/06/2022 Recommendation would be to have a chest tube placed and if family is agreeable to intervention. If no intervention and comfort measures would be recommended Recommendation of a pigtail catheter was made to both of patient's son Ha as well as Miss ismael david on 06/06/2022 and they would like to have a discussion with father and then decide the next step, I did discuss the risk of not doing the procedure as soon as possible which includes continuation of bleeding as well as increased risk of infection given there is blood in the pleural cavity on the same phone call as well. --Acute on chronic hypoxic respiratory failure Likely secondary to bilateral pleural effusion with compressive atelectasis Etiology of pleural effusion is diastolic CHF Diuresis as tolerated. Incentive spirometry will be helpful Plan: Recommend comfort measures if no aggressive management from family. I think that would in the best interest for the patient. No further recommendation from pulmonary perspective. Will sign off, please call directly with any questions Case was discussed with RN at bedside Please note the above document was generated using voice recognition software. It may contain grammatical, syntax or spelling errors.Any formal questions or concerns about the content, text or information contained within the body of this dictation should be directly addressed to the provider for clarification. Admission and Anticipated Discharge Date Admission Date: June 06, 2022 Subjective Patient seen and examined at bedside. No acute distress Patient has been getting morphine as needed for pain He did have an episode of aspiration today. He had just gotten morphine and he was sleeping. Review of Systems Review of Systems: All systems reviewed & are unremarkable except as noted in Subjective Physical Exam Physical Exam: Constitutional: No acute distress HEENT: EOMI, PERRLA Respiratory system: Decreased air entry bilaterally, no wheeze, no rhonchi, positive crackles bilateral lower lobes CVS: S1-S2 positive, regular, distant heart sounds Abdomen: Soft, nontender, nondistended, positive bowel sounds x4 Extremities: +2 pulses bilaterally radialis/ dorsalis pedis, no cyanosis, +1 pitting edema bilateral lower extremity Neuro: Somnolent Psych: Unable to test G/U: Positive Castaneda Skin: Ecchymosis/hematoma appreciated on the right flank as well as right midaxillary Lymphatic: no cervical or axillary lymphadenopathy Results & Data Results & Data ([facility]) Vital Signs (Past 12 Hours) Vital Signs Temp Pulse Pulse Resp BP Pulse Ox O2 Del Method 06/08/22 07:50 100 H 06/08/22 07:23 37.1 C 93 H 16 110/67 100 Nasal Cannula 06/08/22 05:59 36.5 C 95 H 20 117/66 96 Nasal Cannula 06/08/22 03:26 84 16 06/08/22 00:19 37.4 C 95 H 16 127/79 98 Room Air 06/07/22 22:17 98 H 06/07/22 23:33 92 H 16 O2 Flow Rate 06/08/22 07:50 06/08/22 07:23 3 06/08/22 05:59 3 06/08/22 03:26 06/08/22 00:19 06/07/22 22:17 06/07/22 23:33 Laboratory Results 06/08/22 07:22 06/08/22 07:22 PG Care Time/CCT Total # of Minutes Spent Total Time Spent with Patient: Total time spent is greater than 50% in coordination of care (as documented) at patient's floor/unit and/or counseling patient: Coding Level of Care Code 95342 Subseq Hosp Care Lvl 2 Diagnoses Hemothorax, right J94.2 Bilateral pleural effusion J90 Acute on chronic combined systolic and diastolic CHF (congestive heart failure) I50.43 Acute on chronic respiratory failure with hypoxemia J96.21
[2022-06-08] MEDS: allopurinoL 100 MG TAB PO SCH (12:11)
[2022-06-08] MEDS: METOPROLOL SUCC 25MG EXT REL TAB PO SCH (12:12)
[2022-06-08] MEDS: SERTRALINE HCL 50 MG TABLET PO SCH (12:12)
[2022-06-08] MEDS: FUROSEMIDE 20 MG TAB PO SCH (12:12)
[2022-06-08] MEDS: SACCHAROMYCES BOULARDII 250 MG CAP PO SCH (12:12)
[2022-06-08] MEDS: ACETAMINOPHEN 500 MG TAB PO SCH ×2 (12:13→12:26)
[2022-06-08] MEDS: SODIUM CHLORIDE 0.65% NA SOLN 45 ML (OCEAN) SCH (12:13)
[2022-06-08] MEDS: POTASSIUM CHLORIDE CRTAB 20 MEQ TABCR PO SCH ×2 (12:21→12:25)
[2022-06-08] MEDS: DOCUSATE SODIUM 100 MG CAP PO SCH (12:26)
[2022-06-08] MEDS ORDERED: METOPROLOL TARTRATE 1 MG/ML VIAL IV SCH (13:10)
[2022-06-08] MEDS ORDERED: MoRPHine SULFATE 4 MG/ML 1 ML CARP\\VIAL IV STA (13:19)
[2022-06-08] MEDS: FUROSEMIDE 40 MG/4 ML VIAL IV SCH ×2 (14:14→16:34)
--- NOTE | 2022-06-08 17:46 | Hospitalist Progress Note ---
Date of Service June 08, 2022 Assessment & Plan (1) Hemothorax, right: Plan: Per Dr. iSngh's notes with addendum: Right hemithorax with bilateral pleural effusion- CT noted as above, on NC and conversationally dyspneic He and his sons have declined pigtail catheter placement Unable to exclude superimposed PNA. Low suspicion but will start on empiric rocephin for now. 06/08: Discussed with Dr. Lira-does not recommend placement of chest tube at this point, recommends comfort measures status in light of patient's condition and poor prognosis Discussed medical condition and prognosis with patient's POA, son Venancio KwonJr. in detail and at length over the phone Goals of care discussed, he and his family has decided to transition patient to comfort measures status only Orders placed Monitor (2) Bilateral pleural effusion: Plan: plan as above Continue Lasix IV 40 mg every 12 hours for comfort (3) Acute on chronic combined systolic and diastolic CHF (congestive heart failure): Plan: Acute on chronic systolic diastolic CHF- CXR with peristent pulm edema with bilateral pleural effusion, conversationally dyspenic and on NC. - Echo with EF 35-40%, grade 2 diastolic dysfunction, mild AR, , MR, TR; severe biatrial enlargement. - Initial dose of IV Lasix given 06/08: Continue Lasix IV 40 mg every 12 hours for comfort (4) Acute blood loss anemia (ABLA): Plan: Large bruise present with associated drop in Hb to 8.7 (5) Hemorrhage while on warfarin therapy: Plan: Acute on chronic anemia- d/t bleeding in chest wall and pleural cavity. Hb 8.5, down from 12 a month ago. Given oral vitamin K 2 mg at [facility] and additional IV vitamin K on admission. Did not require blood transfusion (6) Atrial fibrillation: Plan: Atrial fibrillation- rate controlled on toprol. Coumadin held in light of hemothorax (7) Peripheral vascular disease: Plan: Seen by Dr. Gold in March 2022. Patient with known diabetic ulcer of right foot with questionable osteomyelitis/pathologic fracture of right second digit. Known to have peripheral arterial disease in the setting of type 2 diabetes. After review of arterial duplex there was no significant obstructive disease identified from iliacs through tibial arteries on right. Measured toe pressure should be adequate for wound healing. It was felt there was limited potential benefit from further invasive testing and conservative management was recommended from a vascular standpoint. (8) CAD (coronary artery disease): Plan: CAD/PVD- hold aspirin for now. Resume when indicated. (9) DMII (diabetes mellitus, type 2): Plan: DM-2- His glimiperide and metformin were discontinued during recent admission due to history of hypoglycemic episodes. (10) DVT prophylaxis: Plan DVT ppx- SCDs. INR therapeutic. Holding coumadin with bleeding Dispo-transfer to [facility], comfort measures status only DNR/DNI plan of care discussed with patient's son Venancio Kwon . over the phone in detail and at length all questions answered He is understanding, agreeable, comfortable with the plan of care Admission and Anticipated Discharge Date Admission Date: June 06, 2022 Subjective Follow-up for bilateral hemothorax, etc. Discussed with RN, patient confused, seems to have aspirated this morning with breakfast Sitting up in bed, on 4 L of oxygen via nasal cannula, not in distress but somewhat tachypneic With accessory muscle use when speaking in sentences States he feels confused Not sure what is going on Can state his name, son's name, oriented to place, but otherwise cannot answer other questions appropriately States breathing is okay, no chest pain No other symptoms Review of Systems Review of Systems: all noted and negative except for above Physical Exam Physical Exam: General- oriented x 1, not in distress, speaks in sentences with no effort or accessory muscle use Eyes- anicteric Neck- no JVD Lungs-positive decreased breath sounds from mid to base, no wheezing Heart- normal rate, regular rhythm; no murmurs Abdomen- normal bowel sounds, nondistended, soft, nontender Extremities- no pretibial edema, no calf tenderness Neuro- alert, oriented x 1; no gross focal neurologic deficits Skin- warm & dry Results & Data Results & Data ([facility]) Vital Signs (Past 12 Hours) Vital Signs Temp Pulse Pulse Resp BP Pulse Ox O2 Del Method 06/08/22 11:45 36.9 C 97 H 22 127/77 93 Nasal Cannula 06/08/22 07:34 Room Air 06/08/22 07:50 100 H 06/08/22 07:23 37.1 C 93 H 16 110/67 100 Nasal Cannula 06/08/22 05:59 36.5 C 95 H 20 117/66 96 Nasal Cannula O2 Flow Rate 06/08/22 11:45 1 06/08/22 07:34 06/08/22 07:50 06/08/22 07:23 3 06/08/22 05:59 3 all noted and reviewed including below
[2022-06-08] MEDS: MoRPHine SULFATE 4 MG/ML 1 ML CARP\\VIAL IV PRN (22:42)
[2022-06-09] MEDS: MoRPHine SULFATE 4 MG/ML 1 ML CARP\\VIAL IV PRN ×2 (06:23→09:01)
[2022-06-09] MEDS: FUROSEMIDE 40 MG/4 ML VIAL IV SCH (07:42)
[2022-06-09] MEDS ORDERED: LORazepam 0.5 MG in SYRINGE 0.25 ML IV PRN (09:22)
[2022-06-09] MEDS ORDERED: GLYCOPYRROLATE 0.2 MG/ML VIAL IV PRN (09:22)
[2022-06-09] MEDS ORDERED: MoRPHine SULFATE 4 MG/ML 1 ML CARP\\VIAL IV PRN (09:24)
[2022-06-09] MEDS ORDERED: HYOSCYAMINE SULFATE 0.125 MG TAB SL PRN (11:19)
--- NOTE | 2022-06-09 13:01 | Palliative Care Consultation ---
Date of Consultation June 09, 2022 Assessment & Plan (1) Dyspnea: Currently denies. Continue O2 and prn morphine. (2) Shoulder pain, right: Continue repositioning and prn morphine (3) Palliative care encounter: When I spoke with Mr. Kwon on his last admission, he and his sons were hoping that he would be at [facility] for his dying time as this is a familiar environment for him. Mr. Kwon had completed a POLST in April at [facility]. At that time, he indicated that he would want focus to be on comfort measures only. He and his sons discussed options and he declined thoracentesis or further disease treatment. He requested focus of care on comfort and symptom management. I spoke with his son Venancio Casanova who is in [place]. He and his brother Ha are arriving on Thursday. Venancio Casanova asked about when he could return to [facility]. He does appear to be stable for transfer at this time. I converted his medications from IV to po in anticipation of discharge. Discussed with case management who will confirm that he has a bed at [facility] and arrange hospice. Reviewed POLST form in his chart which is current with his wishes. This should return to [facility] with him. Discussed with RN. History of Present Illness Reason for Consultation: goals of care Requesting Physician: Dr. Gaston Attending Physician: Haroldo Gonzalez MD History of Present Illness 82 yo gentleman with afib, CAD, PVD, heart failure, diabetes, hemochromatosis and previous CVA. He had been hospitalized in April with bilateral pleural effusions and respiratory failure. He was seen by palliative care at that time. Per discussions with Mr. Kwon and his sons, he returned to [facility] with plan for medical management and PT if able but not to pursue further aggressive care or hospitalization. At the time of his discharge, family did not feel ready for hospice. He was readmitted with right hemithorax, bilateral effusions and probable aspiration. He is lethargic but arousable and denies pain, dyspnea or discomfort at this time. Per RN, he had been complaining of pain in his right shoulder earlier this morning. He received IV morphine and ativan. Allergies Allergy/AdvReac Type Severity Reaction Status Date / Time No Known Allergies Allergy Verified 06/06/22 15:27 Home Medications Medication Instructions Recorded Confirmed Type omega-3 fatty acids 1,000 mg 1,000 mg PO BID17 02/03/22 06/06/22 History capsule saw palmetto 450 mg capsule 450 mg PO BIDM 02/03/22 06/06/22 History Saccharomyces boulardii 250 mg 250 mg PO QAM #30 caps 04/21/22 06/06/22 Rx capsule acetaminophen 500 mg tablet 1,000 mg PO Q8H PRN Pain #50 tabs 04/21/22 06/06/22 Rx allopurinol 100 mg tablet 100 mg PO BID #60 tabs 04/21/22 06/06/22 Rx aspirin 81 mg chewable tablet 81 mg PO QAM #30 tabs 04/21/22 06/06/22 Rx (Aspirin Childrens) multivitamin with minerals 1 cap PO QAM #30 caps 04/21/22 06/06/22 Rx sertraline 25 mg tablet 25 mg PO QAM #30 tabs 04/21/22 06/06/22 Rx simvastatin 20 mg tablet 20 mg PO HS #30 tabs 04/21/22 06/06/22 Rx acetaminophen 325 mg tablet 650 mg PO Q4 PRN FEVER =>100 04/22/22 06/06/22 History (Tylenol) docusate sodium 100 mg capsule 100 mg PO DAILY PRN Constipation 04/22/22 06/06/22 History (Colace) furosemide 40 mg tablet 40 mg PO DAILY PRN WT GREATER THEN 04/22/22 06/06/22 History 170 LBS polyethylene glycol 3350 17 gram 17 g PO DAILY PRN NO BM IN 3 DAYS 04/22/22 06/06/22 History oral powder packet (Miralax) warfarin 3 mg tablet 3 mg PO HS 04/22/22 06/06/22 History docusate sodium 100 mg capsule 100 mg PO BID 06/06/22 06/06/22 History ferrous sulfate 325 mg (65 mg 325 mg PO QDD 06/06/22 06/06/22 History iron) tablet furosemide 40 mg tablet (Lasix) 60 mg PO BID17 06/06/22 06/06/22 History levothyroxine 50 mcg tablet 50 mcg PO DAILY 06/06/22 06/06/22 History metoprolol succinate 50 mg 75 mg PO BID 06/06/22 06/06/22 History tablet,extended release 24 hr mineral oil-isopropyl myristat 1 applic topical HS 06/06/22 06/06/22 History lotion phytonadione (vitamin K1) 1 mg/0.5 2 mg PO ONCE 06/06/22 06/06/22 History mL injection solution (vitamin K) potassium chloride 20 mEq 20 meq PO TIDM 06/06/22 06/06/22 History tablet,extended release(part/cryst) (Klor-Con M) sodium chloride 0.65 % nasal spray 1 spray intranasal BID17 06/06/22 06/06/22 History aerosol (Saline Nasal) tramadol 50 mg tablet 50 mg PO Q6H PRN Pain 06/06/22 06/06/22 History Patient History Medical History Acute kidney failure, unspecified Acute on chronic respiratory failure with hypoxemia Anemia, unspecified Atrial fibrillation Benign prostatic hyperplasia without lower urinary tract symptoms Chronic atrial fibrillation, unspecified Chronic diastolic (congestive) heart failure Chronic gout Critical illness myopathy Depression Diverticulitis Diverticulitis of intestine, part unspecified, without perforation or abscess without bleeding Edema, unspecified Essential (primary) hypertension Gout Hemochromatosis HLD (hyperlipidemia) Hypokalemia Hypothyroidism Osteomyelitis right ankle and foot Peripheral vascular disease Type 2 diabetes mellitus with unspecified complications Social History Smoking Status: Never smoker Tobacco Type: Cigarettes Second Hand Exposure: No; Do You Dip or Chew Tobacco: No; Tobacco Cessation Education Requested by Patient: No Hx Alcohol Use: No Hx Substance Use: No Preferred Language: Togolese Communication Ability: Effective Visual Impairment: Limited Hearing Ability: Normal Equipment Planner Required: No Beliefs That Will Affect Care: None marital status: Unknown Current Living Situation: Residential Other Information That Helps Us Care for You: No Feels Safe at Home: Yes Safety Concerns: Feels Safe At This Time Assistive Devices: None Review of Systems Review of Systems: ESAS Pain 0/3 Dyspnea 0/3 Anxiety 0/3 Drowsiness 2/3 PPS 20% Physical Exam Constitutional: no acute distress ENMT: Mouth: + dry oral mucous membranes Respiratory: normal respiratory effort; no labored breathing no audible tracheal secretions Cardiovascular: no mottling Musculoskeletal: Extremities: + muscle atrophy Neurologic: lethargic, responds to questions Results & Data ([facility]) Vital Signs (Past 12 Hours) Vital Signs O2 Del Method O2 Flow Rate 06/09/22 08:00 Nasal Cannula 1 PG Care Time/CCT Total # of Minutes Spent Total Time Spent: 55 Total Time Spent with Patient: Total time spent is greater than 50% in coordination of care (as documented) at patient's floor/unit and/or counseling patient:goals of care, symptom management, coordination of care Coding Level of Care Code 46862 Initial Inpt Care Lvl 2 Diagnoses Dyspnea R06.00 Shoulder pain, right M25.511 Palliative care encounter Z51.5
--- NOTE | 2022-06-09 15:01 | Hospitalist Progress Note ---
Date of Service June 09, 2022 Assessment & Plan (1) Hemothorax, right: Plan: Per Dr. Singh's notes with addendum: Right hemithorax with bilateral pleural effusion- CT noted as above, on NC and conversationally dyspneic He and his sons have declined pigtail catheter placement Unable to exclude superimposed PNA. given empiric rocephin for now. 06/08: Discussed with Dr. Lira-does not recommend placement of chest tube at this point, recommends comfort measures status in light of patient's condition and poor prognosis Discussed medical condition and prognosis with patient's POA, son Venancio KwonJr. in detail and at length over the phone Goals of care discussed, he and his family has decided to transition patient to comfort measures status only Orders placed 06/09: calm, comfortable, sleeping continue IV morphine, Ativan PRN patient prefers to have patient transition to hospice in [facility] tomorrow at 10am (2) Bilateral pleural effusion: Plan: plan as above Continue Lasix IV 40 mg every 12 hours for comfort (3) Acute on chronic combined systolic and diastolic CHF (congestive heart failure): Plan: Acute on chronic systolic diastolic CHF- CXR with peristent pulm edema with bilateral pleural effusion, conversationally dyspenic and on NC. - Echo with EF 35-40%, grade 2 diastolic dysfunction, mild AR, , MR, TR; s evere biatrial enlargement. 06/09 Continue Lasix IV 40 mg every 12 hours for comfort (4) Acute blood loss anemia (ABLA): Plan: Large bruise present with associated drop in Hb to 8.7 (5) Hemorrhage while on warfarin therapy: Plan: Acute on chronic anemia- d/t bleeding in chest wall and pleural cavity. Hb 8.5, down from 12 a month ago. Given oral vitamin K 2 mg at [facility] and additional IV vitamin K on admission. Did not require blood transfusion (6) Atrial fibrillation: Plan: Atrial fibrillation- rate controlled on toprol. Coumadin held in light of hemothorax (7) Peripheral vascular disease: Plan: Seen by Dr. Gold in March 2022. Patient with known diabetic ulcer of right foot with questionable osteomyelitis/pathologic fracture of right second digit. Known to have peripheral arterial disease in the setting of type 2 diabetes. After review of arterial duplex there was no significant obstructive disease identified from iliacs through tibial arteries on right. Measured toe pressure should be adequate for wound healing. It was felt there was limited potential benefit from further invasive testing and conservative management was recommended from a vascular standpoint. (8) CAD (coronary artery disease): Plan: CAD/PVD- aspirin held (9) DMII (diabetes mellitus, type 2): Plan: DM-2- His glimiperide and metformin were discontinued during recent admission due to history of hypoglycemic episodes. (10) DVT prophylaxis: Plan transition to Hospice Care in [facility] tomorrow Admission and Anticipated Discharge Date Admission Date: June 06, 2022 Subjective ff up for comfort measures only, etc seen resting in bed, sleeping not in distress no accessory muscle use given IV morphine in AM Review of Systems Review of Systems: all noted and negative except for above Physical Exam Physical Exam: General- not in distress, breathing with no effort or accessory muscle use Lungs- clear breath sounds bilaterally, no rales/wheezes Extremities- no pretibial edema Neuro- sleeping Results & Data Results & Data ([facility]) Vital Signs (Past 12 Hours) Vital Signs O2 Del Method O2 Flow Rate 06/09/22 08:00 Nasal Cannula 1 all noted and reviewed including below
--- NOTE | 2022-06-09 18:30 | Discharge Summary ---
Date of Service June 09, 2022 Admission HPI Per Admitting Provider 82 year old male with h/o PAF on coumadin, CAD, PVD, HTN, chronic diastolic CHF, anemia, hemochromatosis, h/o CVA, BPH, gout, hypothyroidism, DM2 taken off his oral antidiabetics, h/o OM toe s/p treatment, resident of [place] who presented to the ED for low hemoglobin and chest wall ecchymoses. Patient was recently admitted 03/27- 04/21 to [facility] and was treated for pleural effusion with thoracentesis 04/14, anemia with PRBC transfusion, CHF with iv lasix, hematuria etc. Patient was seen by palliative during that admission and per palliative note 04/18 'hey confirm that Venancio is DNR/DNI and overall would want him to be c omfortable but do want to continue to try and diurese him and try PT. If he were to decompensate, they would prefer that he stay at [facility] and not be rehospitalized. If he is approaching his dying time, they would rather he be at [facility]. We discussed having hospice support at [facility] but Ha does not feel they are ready for that just yet'. Patient was noted to have INR of 6 with drop in hemoglobin from 12 a month ago to 7+ today at [facility] along with development of right chest wall/flank ecchymoses and worsening shortness of breath. He had POLST form stating comfort measures status. Staff at [facility] discussed with son about continued management at their facility under comfort measures vs transfer to hospital for further treatment and possible transfusion- family opted for the latter and he was sent here. In the ED, he was afebrile, hemodynamically stable. His Hb 8.5, INR 2. It seems he had received oral vitamin K [address] C/A/P shows 'increase in size in the large right pleural effusion which demonstrates patchy areas of increased density consistent with a hemothorax; Moderate to large left pleural effusion is similar to the prior study and Partially visualized intramuscular hematomas within the right shoulder/chest. During my encounter, he was lying comfortably in bed on NC. Denies any fever, chills, chest pain, nausea, vomiting. Discussed about the CT findings. Discussed about comfort measures vs management with thoracentesis and transfusion. He would like to go for thoracentesis and transfusion as needed. He however confirmed DNR/DNI status. Admission Exam Per Admitting Provider General: Lying comfortably in bed, not in acute distress, some conversational dyspnea, on NC HEENT: EOMI, GREER, dry oral mucosa Chest: Right chest wall/flank ecchymoses, Decreased breath sounds at bases CVS: Irregular, normal heart sounds, no murmur Abdomen: Soft, non tender, not distended, normal bowel sounds Neuro: Awake, alert, oriented to self, conversing well, answering questions appropriately Extremities: Chronic venous stasis changes in bilateral extremities Principal Diagnosis BILATERAL HEMOTHORAX Discharge Exam General- not in distress, breathing with no effort or accessory muscle use Lungs- clear breath sounds bilaterally, no rales/wheezes Extremities- no pretibial edema Neuro- sleeping Discharge Data Allergies Allergy/AdvReac Type Severity Reaction Status Date / Time No Known Allergies Allergy Verified 06/06/22 15:27 Consultations 06/06/22 15:10 ED Decision to Admit Stat 06/06/22 16:37 Consult Palliative Care Routine Consult Pulmonology Routine Ordered Studies 06/06/22 12:41 CT abd pelvis IV con only Stat CT chest diagnostic w con Stat 06/06/22 21:32 US point of care ultrasound Urgent Hospital Course (1) Hemothorax, right: (2) Bilateral pleural effusion: (1) Hemothorax, right: Plan: Per Dr. Singh's notes with addendum: Right hemithorax with bilateral pleural effusion- CT noted as above, on NC and conversationally dyspneic He and his sons have declined pigtail catheter placement Unable to exclude superimposed PNA. given empiric rocephin for now. 06/08: Discussed with Dr. Lira-does not recommend placement of chest tube at this point, recommends comfort measures status in light of patient's condition and poor prognosis Discussed medical condition and prognosis with patient's POA, son Venancio EspinalJr adam. in detail and at length over the phone Goals of care discussed, he and his family has decided to transition patient to comfort measures status only Orders placed 06/09: calm, comfortable, sleeping continue IV morphine, Ativan PRN patient prefers to have patient transition to hospice in [facility] tomorrow at 10am (2) Bilateral pleural effusion: Plan: plan as above Continue Lasix IV 40 mg every 12 hours for comfort (3) Acute on chronic combined systolic and diastolic CHF (congestive heart failure): Plan: Acute on chronic systolic diastolic CHF- CXR with peristent pulm edema with bilateral pleural effusion, conversationally dyspenic and on NC. - Echo with EF 35-40%, grade 2 diastolic dysfunction, mild AR, , MR, TR; severe biatrial enlargement. 06/09 Continue Lasix IV 40 mg every 12 hours for comfort (4) Acute blood loss anemia (ABLA): Plan: Large bruise present with associated drop in Hb to 8.7 (5) Hemorrhage while on warfarin therapy: Plan: Acute on chronic anemia- d/t bleeding in chest wall and pleural cavity. Hb 8.5, down from 12 a month ago. Given oral vitamin K 2 mg at [facility] and additional IV vitamin K on admission. Did not require blood transfusion (6) Atrial fibrillation: Plan: Atrial fibrillation- rate controlled on toprol. Coumadin held in light of hemothorax (7) Peripheral vascular disease: Plan: Seen by Dr. Gold in March 2022. Patient with known diabetic ulcer of right foot with questionable osteomyelitis/pathologic fracture of right second digit. Known to have peripheral arterial disease in the setting of type 2 diabetes. After review of arterial duplex there was no significant obstructive disease identified from iliacs through tibial arteries on right. Measured toe pressure should be adequate for wound healing. It was felt there was limited potential benefit from further invasive testing and conservative management was recommended from a vascular standpoint. (8) CAD (coronary artery disease): Plan: CAD/PVD- aspirin held (9) DMII (diabetes mellitus, type 2): Plan: DM-2- His glimiperide and metformin were discontinued during recent admission due to history of hypoglycemic episodes. (10) DVT prophylaxis: Plan transition to Hospice Care in [facility] tomorrow Total Time Total Time Spent Total Time Spent (In Minutes): > 30 MINUTES Discharge Plan Discharge Items Patient Disposition: Hospice - Medical Facility Reason For Visit: LOW HB, HEMOTHORAX Discharge Diagnosis: BILATERAL HEMOTHORAX Activity: As commented below Activity Comment: TRANSITION TO HOSPICE CARE Non-emergency contact: Primary Care Provider Call non-emergency contact if: you have any medication questions, your symptoms worsen and your pain is not controlled Follow-up/Referrals: Malou Pham at [facility] [Primary Care Provider] - Diet: Nothing by Mouth Diet Comment: NPO Addtl Attending Provider Instructions: Patient to transition to Hospice Care. Please refer to accompanying hospital discharge summary. Pending Studies at Discharge: No Stand-Alone Forms: My [facility] Skilled Items Patient informed of condition?: Yes DNR: Yes Discharge Level of Care: Skilled Communicable Disease: No Discharge Prognosis: Deteriorating Lines: None Urinary Catheter: Yes Medications and DC Order Prescriptions: New morphine concentrate 100 mg/5 mL (20 mg/mL) Solution 10 mg PO Q3H PRN (Reason: pain, or dyspnea) Qty: 80 0RF lorazepam 0.5 mg Tablet 0.5 mg sublingual Q4H PRN (Reason: anxiety, agitation) Qty: 10 0RF hyoscyamine sulfate [Levsin] 0.125 mg Tablet 0.125 mg sublingual Q4H PRN (Reason: secretions) Qty: 14 0RF Discontinued omega-3 fatty acids 1,000 mg capsule 1,000 mg PO BID17 saw palmetto 450 mg capsule 450 mg PO BIDM Rx Instructions: give with food (meal/snack) allopurinol 100 mg tablet 100 mg PO BID Qty: 60 0RF acetaminophen 500 mg Tablet 1,000 mg PO Q8H MDD 3 GRAMS/24 HOURS PRN (Reason: Pain) Qty: 50 0RF simvastatin 20 mg tablet 20 mg PO HS Qty: 30 0RF sertraline 25 mg tablet 25 mg PO QAM Qty: 30 0RF aspirin [Aspirin Childrens] 81 mg tablet,chewable 81 mg PO QAM Qty: 30 0RF multivitamin with minerals Capsule 1 cap PO QAM Qty: 30 0RF Saccharomyces boulardii 250 mg Capsule 250 mg PO QAM Qty: 30 0RF acetaminophen [Tylenol] 325 mg Tablet 650 mg PO Q4 MDD 3 GRAMS/24 HOURS PRN (Reason: FEVER =>100) polyethylene glycol 3350 [Miralax] 17 gram Powder In Packet 17 g PO DAILY PRN (Reason: NO BM IN 3 DAYS) warfarin 3 mg tablet 3 mg PO HS Rx Instructions: ON HOLDSINCE 06/04/22 THROUGH 06/06/22 furosemide 40 mg tablet 40 mg PO DAILY PRN (Reason: WT GREATER THEN 170 LBS) docusate sodium [Colace] 100 mg capsule 100 mg PO DAILY PRN (Reason: Constipation) furosemide [Lasix] 40 mg Tablet 60 mg PO BID17 phytonadione (vitamin K1) [vitamin K] 1 mg/0.5 mL Solution 2 mg PO ONCE metoprolol succinate 50 mg Tablet Extended Release 24 Hr 75 mg PO BID tramadol 50 mg Tablet 50 mg PO Q6H PRN (Reason: Pain) levothyroxine 50 mcg Tablet 50 mcg PO DAILY docusate sodium 100 mg Capsule 100 mg PO BID Eucerin Lotion 1 applic TOPICAL HS Rx Instructions: APPLY TO LOWER LEG AT HS & PRN DRY SKIN. Saline Nasal 0.65 % Aerosol,[place] 1 spray INTRANASAL BID17 potassium chloride [Klor-Con M20] 20 mEq tablet,ER particles/crystals 20 meq PO TIDM ferrous sulfate 325 mg (65 mg iron) tablet 325 mg PO QDD Admission Data Admit Date/Time: 06/06/22 16:37 Attending Provider: Haroldo Gonzalez Admit Provider: Pavan Gaston Primary Care Provider: Malou Pham [facility] Other Providers: Malou Pham [facility] ; Pavan Gaston ; Zita Waters ; Marly Street
[2022-06-09] MEDS: MoRPHine SULFATE 5 MG/0.25 ML UDP PO PRN ×2 (18:42→22:33)
[2022-06-09] MEDS: LORazepam 0.5 MG TAB SL PRN ×2 (19:09→23:17)
[2022-06-10] MEDS ORDERED: LORazepam 1 MG in SYRINGE 0.5 ML IV PRN (01:00)
[2022-06-10] MEDS: MoRPHine SULFATE 4 MG/ML 1 ML CARP\\VIAL IV PRN ×2 (01:30→09:30)
--- NOTE | 2022-06-10 09:28 | Hospitalist Progress Note ---
Date of Service June 10, 2022 Assessment & Plan (1) Hemothorax, right: (2) Bilateral pleural effusion: Plan: Hospice care Has significant medical conditions as below and has been seen by the palliative care Remains critical but stable Minimal shortness of breath at rest but no other distress He will be discharged to [facility] with hospice care as planned Ongoing medical issues and management as documented below: (1) Hemothorax, right: Plan: Per Dr. Singh's notes with addendum: Right hemithorax with bilateral pleural effusion- CT noted as above, on NC and conversationally dyspneic He and his sons have declined pigtail catheter placement Unable to exclude superimposed PNA. given empiric rocephin for now. 06/08: Discussed with Dr. Lira-does not recommend placement of chest tube at this point, recommends comfort measures status in light of patient's condition and poor prognosis Discussed medical condition and prognosis with patient's POA, son Venancio KwonJr. in detail and at length over the phone Goals of care discussed, he and his family has decided to transition patient to comfort measures status only Orders placed 06/09: calm, comfortable, sleeping continue IV morphine, Ativan PRN patient prefers to have patient transition to hospice in [facility] tomorrow at 10am 06/10 Remains comfortable with minimal shortness of breath at rest No other acute distress Denies any pain-we will continue current management (2) Bilateral pleural effusion: Plan: plan as above Continue Lasix IV 40 mg every 12 hours for comfort (3) Acute on chronic combined systolic and diastolic CHF (congestive heart failure): Plan: Acute on chronic systolic diastolic CHF- CXR with peristent pulm edema with bilateral pleural effusion, conversationally dyspenic and on NC. - Echo with EF 35-40%, grade 2 diastolic dysfunction, mild AR, , MR, TR; severe biatrial enlargement. 06/09 Continue Lasix IV 40 mg every 12 hours for comfort (4) Acute blood loss anemia (ABLA): Plan: Large bruise present with associated drop in Hb to 8.7 (5) Hemorrhage while on warfarin therapy: Plan: Acute on chronic anemia- d/t bleeding in chest wall and pleural cavity. Hb 8.5, down from 12 a month ago. Given oral vitamin K [address] [facility] and additional IV vitamin K on admission. Did not require blood transfusion (6) Atrial fibrillation: Plan: Atrial fibrillation- rate controlled on toprol. Coumadin held in light of hemothorax (7) Peripheral vascular disease: Plan: Seen by Dr. Gold in March 2022. Patient with known diabetic ulcer of right foot with questionable osteomyelitis/pathologic fracture of right second digit. Known to have peripheral arterial disease in the setting of type 2 diabetes. After review of arterial duplex there was no significant obstructive disease identified from iliacs through tibial arteries on right. Measured toe pressure should be adequate for wound healing. It was felt there was limited potential benefit from further invasive testing and conservative management was recommended from a vascular standpoint. (8) CAD (coronary artery disease): Plan: CAD/PVD- aspirin held (9) DMII (diabetes mellitus, type 2): Plan: DM-2- His glimiperide and metformin were discontinued during recent admission due to history of hypoglycemic episodes. (10) DVT prophylaxis: Plan transition to Hospice Care in [facility] this morning Admission and Anticipated Discharge Date Admission Date: June 06, 2022 Subjective 06/10/2022 Patient was seen and examined in medical floor He remains stable with the minimal shortness of breath at rest Denies any chest pain Denies any other symptoms Review of Systems Review of Systems: Unobtainable due to cognitive status Physical Exam Physical Exam: Lying in bed with minimal distress secondary to shortness of breath Constitutional: + ill appearing and average body habitus Eyes: PERRL, conjunctivae normal, anicteric sclerae ENMT: external ear and nose normal, oropharynx normal Neck: trachea midline, no thyromegaly Respiratory: + respiratory distress; no labored breathing Auscultation: + diminished lung sounds (At bases) Cardiovascular: Rate/Rhythm: regular rate and regular rhythm; not tachycardic Heart Sounds: normal S1 and normal S2; no murmur Extremities: no edema Gastrointestinal (Abdomen): Inspection/Auscultation: normal bowel sounds; abdomen not distended Percussion/Palpation: abdomen soft; abdomen nontender Musculoskeletal: No acute arthritis in any joint Skin: Chronic skin changes in the legs Neurologic: Alert and awake. Pleasantly confused. Generally very weak Results & Data Results & Data ([facility]) Vital Signs (Past 12 Hours) Vital Signs Temp Pulse Resp BP Pulse Ox O2 Del Method O2 Flow Rate 06/10/22 08:00 Nasal Cannula 1 06/10/22 07:10 36.9 C 82 22 127/77 93
[2022-06-10] MEDS: LORazepam 0.5 MG TAB SL PRN (09:29)
--- NOTE | 2022-06-11 07:59 | Discharge Summary ---
Date of Service June 11, 2022 Admission HPI Per Admitting Provider 82 year old male with h/o PAF on coumadin, CAD, PVD, HTN, chronic diastolic CHF, anemia, hemochromatosis, h/o CVA, BPH, gout, hypothyroidism, DM2 taken off his oral antidiabetics, h/o OM toe s/p treatment, resident of [facility] who presented to the ED for low hemoglobin and chest wall ecchymoses. Patient was recently admitted 03/27- 04/21 to [facility] and was treated for pleural effusion with thoracentesis 04/14, anemia with PRBC transfusion, CHF with iv lasix, hematuria etc. Patient was seen by palliative during that admission and per palliative note 04/18 'hey confirm that Venancio is DNR/DNI and overall would want him to be c omfortable but do want to continue to try and diurese him and try PT. If he were to decompensate, they would prefer that he stay at [facility] and not be rehospitalized. If he is approaching his dying time, they would rather he be at [facility]. We discussed having hospice support at [facility] but Ha does not feel they are ready for that just yet'. Patient was noted to have INR of 6 with drop in hemoglobin from 12 a month ago to 7+ today at [facility] along with development of right chest wall/flank ecchymoses and worsening shortness of breath. He had POLST form stating comfort measures status. Staff at [facility] discussed with son about continued management at their facility under comfort measures vs transfer to hospital for further treatment and possible transfusion- family opted for the latter and he was sent here. In the ED, he was afebrile, hemodynamically stable. His Hb 8.5, INR 2. It seems he had received oral vitamin K [address] C/A/P shows 'increase in size in the large right pleural effusion which demonstrates patchy areas of increased density consistent with a hemothorax; Moderate to large left pleural effusion is similar to the prior study and Partially visualized intramuscular hematomas within the right shoulder/chest. During my encounter, he was lying comfortably in bed on NC. Denies any fever, chills, chest pain, nausea, vomiting. Discussed about the CT findings. Discussed about comfort measures vs management with thoracentesis and transfusion. He would like to go for thoracentesis and transfusion as needed. He however confirmed DNR/DNI status. Admission Exam Per Admitting Provider Physical Exam: General: Lying comfortably in bed, not in acute distress, some conversational dyspnea, on NC HEENT: EOMI, GREER, dry oral mucosa Chest: Right chest wall/flank ecchymoses, Decreased breath sounds at bases CVS: Irregular, normal heart sounds, no murmur Abdomen: Soft, non tender, not distended, normal bowel sounds Neuro: Awake, alert, oriented to self, conversing well, answering questions appropriately Extremities: Chronic venous stasis changes in bilateral extremities Principal Diagnosis BILATERAL HEMOTHORAX Discharge Exam Lying in bed with minimal distress secondary to shortness of breath Constitutional + ill appearing and average body habitus Eyes PERRL, conjunctivae normal, anicteric sclerae ENMT external ear and nose normal, oropharynx normal Neck trachea midline, no thyromegaly Respiratory + respiratory distress; no labored breathing Auscultation: + diminished lung sounds (At bases) Cardiovascular Rate/Rhythm: regular rate and regular rhythm; not tachycardic Heart Sounds: normal S1 and normal S2; no murmur Extremities: no edema Gastrointestinal (Abdomen) Inspection/Auscultation: normal bowel sounds; abdomen not distended Percussion/Palpation: abdomen soft; abdomen nontender Discharge Data Allergies Allergy/AdvReac Type Severity Reaction Status Date / Time No Known Allergies Allergy Verified 06/06/22 15:27 Consultations 06/06/22 15:10 ED Decision to Admit Stat 06/06/22 16:37 Consult Palliative Care Routine Consult Pulmonology Routine Ordered Studies 06/06/22 12:41 CT abd pelvis IV con only Stat CT chest diagnostic w con Stat 06/06/22 21:32 US point of care ultrasound Urgent Hospital Course (1) Hemothorax, right: (2) Bilateral pleural effusion: (1) Hemothorax, right: Plan: Per Dr. Singh's notes with addendum: Right hemithorax with bilateral pleural effusion- CT noted as above, on NC and conversationally dyspneic He and his sons have declined pigtail catheter placement Unable to exclude superimposed PNA. given empiric rocephin for now. 06/08: Discussed with Dr. Lira-does not recommend placement of chest tube at this point, recommends comfort measures status in light of patient's condition and poor prognosis Discussed medical condition and prognosis with patient's POA, son Venancio Kwon Jr. in detail and at length over the phone Goals of care discussed, he and his family has decided to transition patient to comfort measures status only Orders placed 06/09: calm, comfortable, sleeping continue IV morphine, Ativan PRN patient prefers to have patient transition to hospice in [facility] tomorrow at 10am (2) Bilateral pleural effusion: Plan: plan as above Continue Lasix IV 40 mg every 12 hours for comfort (3) Acute on chronic combined systolic and diastolic CHF (congestive heart failure): Plan: Acute on chronic systolic diastolic CHF- CXR with peristent pulm edema with bilateral pleural effusion, conversationally dyspenic and on NC. - Echo with EF 35-40%, grade 2 diastolic dysfunction, mild AR, , MR, TR; severe biatrial enlargement. 06/09 Continue Lasix IV 40 mg every 12 hours for comfort (4) Acute blood loss anemia (ABLA): Plan: Large bruise present with associated drop in Hb to 8.7 (5) Hemorrhage while on warfarin therapy: Plan: Acute on chronic anemia- d/t bleeding in chest wall and pleural cavity. Hb 8.5, down from 12 a month ago. Given oral vitamin K 2 mg at [facility] [employer] and additional IV vitamin K on admission. Did not require blood transfusion (6) Atrial fibrillation: Plan: Atrial fibrillation- rate controlled on toprol. Coumadin held in light of hemothorax (7) Peripheral vascular disease: Plan: Seen by Dr. Gold in March 2022. Patient with known diabetic ulcer of right foot with questionable osteomyelitis/pathologic fracture of right second digit. Known to have peripheral arterial disease in the setting of type 2 diabetes. After review of arterial duplex there was no significant obstructive disease identified from iliacs through tibial arteries on right. Measured toe pressure should be adequate for wound healing. It was felt there was limited potential benefit from further invasive testing and conservative management was recommen ded from a vascular standpoint. (8) CAD (coronary artery disease): Plan: CAD/PVD- aspirin held (9) DMII (diabetes mellitus, type 2): Plan: DM-2- His glimiperide and metformin were discontinued during recent admission due to history of hypoglycemic episodes. (10) DVT prophylaxis: Plan transition to Hospice Care in [facility] tomorrow Total Time Total Time Spent Total Time Spent (In Minutes): 35 minutes Discharge Plan Discharge Items Patient Disposition: Hospice - Medical Facility Reason For Visit: LOW HB, HEMOTHORAX Discharge Diagnosis: BILATERAL HEMOTHORAX Activity: As commented below Activity Comment: TRANSITION TO HOSPICE CARE Non-emergency contact: Primary Care Provider Call non-emergency contact if: you have any medication questions, your symptoms worsen and your pain is not controlled Follow-up/Referrals: Malou Pham at [facility] [Primary Care Provider] - Diet: Nothing by Mouth Diet Comment: NPO Addtl Attending Provider Instructions: Patient to transition to Hospice Care. Please refer to accompanying hospital discharge summary. Pending Studies at Discharge: No Stand-Alone Forms: My [facility] Skilled Items Patient informed of condition?: Yes DNR: Yes Discharge Level of Care: Skilled Communicable Disease: No Discharge Prognosis: Deteriorating Lines: None Urinary Catheter: Yes Medications and DC Order Prescriptions: New morphine concentrate 100 mg/5 mL (20 mg/mL) Solution 10 mg PO Q3H PRN (Reason: pain, or dyspnea) Qty: 80 0RF lorazepam 0.5 mg Tablet 0.5 mg sublingual Q4H PRN (Reason: anxiety, agitation) Qty: 10 0RF hyoscyamine sulfate [Levsin] 0.125 mg Tablet 0.125 mg sublingual Q4H PRN (Reason: secretions) Qty: 14 0RF Discontinued omega-3 fatty acids 1,000 mg capsule 1,000 mg PO BID17 saw palmetto 450 mg capsule 450 mg PO BIDM Rx Instructions: give with food (meal/snack) allopurinol 100 mg tablet 100 mg PO BID Qty: 60 0RF acetaminophen 500 mg Tablet 1,000 mg PO Q8H MDD 3 GRAMS/24 HOURS PRN (Reason: Pain) Qty: 50 0RF simvastatin 20 mg tablet 20 mg PO HS Qty: 30 0RF sertraline 25 mg tablet 25 mg PO QAM Qty: 30 0RF aspirin [Aspirin Childrens] 81 mg tablet,chewable 81 mg PO QAM Qty: 30 0RF multivitamin with minerals Capsule 1 cap PO QAM Qty: 30 0RF Saccharomyces boulardii 250 mg Capsule 250 mg PO QAM Qty: 30 0RF acetaminophen [Tylenol] 325 mg Tablet 650 mg PO Q4 MDD 3 GRAMS/24 HOURS PRN (Reason: FEVER =>100) polyethylene glycol 3350 [Miralax] 17 gram Powder In Packet 17 g PO DAILY PRN (Reason: NO BM IN 3 DAYS) warfarin 3 mg tablet 3 mg PO HS Rx Instructions: ON HOLDSINCE 06/04/22 THROUGH 06/06/22 furosemide 40 mg tablet 40 mg PO DAILY PRN (Reason: WT GREATER THEN 170 LBS) docusate sodium [Colace] 100 mg capsule 100 mg PO DAILY PRN (Reason: Constipation) furosemide [Lasix] 40 mg Tablet 60 mg PO BID17 phytonadione (vitamin K1) [vitamin K] 1 mg/0.5 mL Solution 2 mg PO ONCE metoprolol succinate 50 mg Tablet Extended Release 24 Hr 75 mg PO BID tramadol 50 mg Tablet 50 mg PO Q6H PRN (Reason: Pain) levothyroxine 50 mcg Tablet 50 mcg PO DAILY docusate sodium 100 mg Capsule 100 mg PO BID Eucerin Lotion 1 applic TOPICAL HS Rx Instructions: APPLY TO LOWER LEG AT HS & PRN DRY SKIN. Saline Nasal 0.65 % Aerosol,[place] 1 spray INTRANASAL BID17 potassium chloride [Klor-Con M20] 20 mEq tablet,ER particles/crystals 20 meq PO TIDM ferrous sulfate 325 mg (65 mg iron) tablet 325 mg PO QDD Discharge Orders: Discharge Order (Routine); Ordered 06/10/22 Ordered By: Miles Peacock Admission Data Admit Date/Time: 06/06/22 16:37 Attending Provider: Miles Peacock Admit Provider: Pavan Gaston Primary Care Provider: Malou Pham [facility] Other Providers: Malou Pham [facility] ; Pavan Gaston ; Zita Waters ; Marly Street ; Haroldo Gonzalez
== END 2022-06-10 10:20 | disposition hospice, inpatient (51) | DRG 186 ==
LOC: ED 12:25 → SUATTDRO 16:37 → EDINP 16:37 → 2S 17:50 → 3E 06-08 13:23